=== PATIENT | male | born 1950 | race Caucasian/White ===

== ENCOUNTER 2019-10-13 15:37 | Outpatient (CLI) | payer MEDICARE, OTHER, SELFPAY ==
[2019-10-13 16:04] LABS: Basophils Absolute Auto 0.1 K/mm3 (0.0-0.1); Basophils Percent Auto 1.2 % (0.2-1.2); Eosinophils Absolute Auto 0.3 K/mm3 (0-0.3); Eosinophils Percent Auto 4.6 % (0-4.4); Hematocrit 38.9 % (42.0-52.0); Hemoglobin 12.1 g/dL (14.0-18.0); Immature Granulocyte Absolute 0.02 K/mm3 (0.00-0.031); Immature Granulocyte Percent A 0.3 % (0-0.5); Lymphocytes Absolute Auto 0.94 K/mm3 (0.9-3.2); Lymphocytes Percent Auto 16.2 % (18.3-44.2); Mean Corpuscular HGB Conc 31.1 g/dl (32-36); Mean Corpuscular Hemoglobin 28.4 pg (26-34); Mean Corpuscular Volume 91.3 fl (80-100); Monocytes Absolute Auto 0.6 K/mm3 (0.1-0.6); Monocytes Percent Auto 9.8 % (2.6-8.5); Neutrophils Percent Auto 67.9 % (45.5-73.1); Platelet Count Result 167 k/mm3 (150-375); Red Blood Count 4.26 M/mm3 (4.6-6.20); Red Cell Distribution Width 13.2 % (11.5-14.5); White Blood Count 5.8 K/mm3 (4.5-10.0)
[2019-10-13 16:16] LABS: Alanine Aminotransferase 22 U/L (4-50); Albumin Level 3.9 g/dL (3.5-5.1); Alkaline Phosphatase 136 U/L (38-126); Aspartate Amino Transferase 33 U/L (17-59); Bilirubin,Total 0.9 mg/dL (0.2-1.3); Blood Urea Nitrogen 11 mg/dL (9-20); Calcium 8.1 mg/dL (8.4-10.2); Carbon Dioxide 35 mmol/L (22-30); Chloride 89 mmol/L (98-107); Estimated Glomerular Filt Rate > 60; Glucose 94 mg/dL (75-110); Potassium 3.7 mmol/L (3.4-5.0); Sodium 134 mmol/L (137-145)
[2019-10-13 16:25] LABS: NT Pro B Type Natriuretic Pept 5500 PG/ML (5-100)
== END 2019-10-13 15:38 | disposition home or self-care (01) ==
PROVIDERS: PCP Family Medicine; Visit Provider Family Medicine
DX: R06.02 Shortness of breath (principal); R60.0 Localized edema
CPT/HCPCS: 36415; 80053; 83880; 84443; 85025

== ENCOUNTER 2019-10-27 10:09 | Outpatient (CLI) | payer MEDICARE, OTHER, SELFPAY ==
[2019-10-27 10:59] LABS: Blood Urea Nitrogen 13 mg/dL (9-20); Calcium 8.4 mg/dL (8.4-10.2); Carbon Dioxide > 40 mmol/L (22-30); Chloride 74 mmol/L (98-107); Estimated Glomerular Filt Rate > 60; Glucose 124 mg/dL (75-110); Potassium 3.8 mmol/L (3.4-5.0); Sodium 127 mmol/L (137-145)
== END 2019-10-27 10:10 | disposition home or self-care (01) ==
PROVIDERS: PCP Family Medicine; Visit Provider Internal Medicine Cardiovascular Disease
DX: I50.9 Heart failure, unspecified (principal)
CPT/HCPCS: 36415; 80048

== ENCOUNTER 2019-10-29 01:41 | Day surgery (SDC) | payer MEDICARE, OTHER, SELFPAY ==
[2019-10-29] VITALS (10 sets, daily range): BP systolic 143–185; BP diastolic 85–98; PULSE 87–94; RESP 16–25; TEMP 36.7–37.2; O2SAT 93–100; BMI 33.0
--- NOTE | 2019-10-29 10:25 | WPDMODSED ---
Moderate Sedation Note-Pt Data Patient Data Diagnosis: Aortic stenosis Present Complaint: Aortic stenosis Procedure to be performed/Plan: Multiplanar transesophageal echocardiography with pulse wave and color flow Doppler Agitated saline study Moderate sedation Allergies Allergy/AdvReac Type Severity Reaction Status Date / Time codeine Allergy Unknown Unknown Verified 10/13/19 13:52 Penicillins Allergy Unknown Unknown Verified 10/13/19 13:52 Home Medications Medication Instructions Recorded Confirmed Type tramadol 50 mg PO Q6H PRN #14 tablet 06/24/19 Rx sildenafil 100 mg tablet 100 mg PO DAILY PRN 06/27/19 History furosemide 20 mg tablet 20 mg PO BID #60 tablet 10/13/19 Rx potassium chloride 10 mEq 10 meq PO DAILY #30 tablet 10/13/19 Rx tablet,extended release albuterol sulfate 90 mcg/actuation See Rx Instructions .ROUTE 10/20/19 Rx aerosol inhaler .COMPLEX #8.5 inhaler Sedation/Anesthesia: No previous sedation/anesthesia problems (including family history). 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 Patient re-evaluated immediately prior to sedation.
[2019-10-29 10:46] LABS: Hematocrit 42.7 % (42.0-52.0); Hemoglobin 13.8 g/dL (14.0-18.0); Mean Corpuscular HGB Conc 32.3 g/dl (32-36); Mean Corpuscular Volume 86.6 fl (80-100); Mean Platelet Volume 10.7 fl (7.4-10.4); Platelet Count Result 223 k/mm3 (150-375); Red Blood Count 4.93 M/mm3 (4.6-6.20); Red Cell Distribution Width 13.5 % (11.5-14.5); White Blood Count 6.6 K/mm3 (4.5-10.0)
[2019-10-29 11:01] LABS: Blood Urea Nitrogen 16 mg/dL (9-20); Calcium 8.7 mg/dL (8.4-10.2); Carbon Dioxide > 40 mmol/L (22-30); Chloride 75 mmol/L (98-107); Estimated Glomerular Filt Rate > 60; Glucose 133 mg/dL (75-110); Potassium 3.5 mmol/L (3.4-5.0); Sodium 124 mmol/L (137-145)
--- NOTE | 2019-10-29 11:53 | WPDTEECHO ---
LARS TransEsophageal Echocardiogram Date of procedure: 10/29/19 Procedure Type: Multiplanar transesophageal echocardiogram with color flow and pulse wave Doppler as well as continuous-wave Doppler Agitated saline study Moderate sedation Diagnosis: Aortic stenosis Indications: Aortic stenosis Image Quality: Good Findings: After discussing the risks benefits alternatives of the procedure the patient agreeable via verbal and written informed consent. Risks discussed included esophageal rupture perforation, need for emergency surgery, bleeding, pain, infection, sore throat. After establishing continuous cardiac monitor, pulse oxygenation serial blood pressure assessments and after time-out was taken the procedure was initiated Procedure start time 11:16 a.m. Procedure stop time 11:34 a.m. Medications given: 3 mg of Versed and 50 mg of fentanyl given in divided dosages as well as Hurricaine spray to hypopharynx x1 as well as 10 cc of viscous lidocaine gargle and swallow for topical anesthetic. Complications none Blood loss none Findings: Normal left ventricular size and function with ejection fraction estimated around 65-70%. Left ventricular hypertrophy is noted. Normal right ventricular size and function. Moderate left atrial enlargement. Mild right atrial enlargement. Atrial septum is intact without color flow or agitated saline evidence of shunting. It is thin and hypermobile hour. Left atrial appendage is without mass or thrombus with pulse-wave velocities of greater than 50 centimeters/second. The tricuspid valve is normal with continuous-wave velocities of greater than 30 mmHg. There is mild tricuspid regurgitation. The mitral valve is thickened but with mild mitral regurgitation. The aortic valve is heavily thickened and calcified. It is trileaflet. Average planimetry aortic valve area is between 1.01.1 centimeter squared. There is trace to mild aortic insufficiency. The aortic root measures 3.7 cm and there is moderate atherosclerotic disease seen within the aorta itself. The pulmonic valve is grossly normal. Conclusions: 1. Normal left ventricular size and function with left ventricular hypertrophy noted 2. Mitral valve thickening with mild mitral regurgitation 3. Mild tricuspid regurgitation with at least mild pulmonary hypertension 4. Moderate to severe aortic stenosis with average planimetry aortic valve area of 1.0-1.1 centimeters squared. It is heavily calcified and trileaflet 5. Intact atrial septum with negative agitated saline study 6. Moderate sedation
[2019-10-29] MEDS: POTASSIUM CHLORIDE 20 MEQ TABLET 40 MEQ PO (12:13)
--- NOTE | 2019-10-29 13:20 | SUR.PHASEII ---
DISC WITH LARS IMAGES GIVEN TO PT;INSTRUCTED PT TO TAKE WITH HIM TO HIS APPT ON 10/30/[address] MIRZA AT [facility].
== END 2019-10-29 13:00 | disposition home or self-care (01) ==
PROVIDERS: PCP Family Medicine; Visit Provider Internal Medicine Cardiovascular Disease
PROC: (CPT 93312; principal; 2019-10-29 11:30)
DX: I35.0 Nonrheumatic aortic (valve) stenosis (principal); I34.0 Nonrheumatic mitral (valve) insufficiency; I36.1 Nonrheumatic tricuspid (valve) insufficiency; I27.20 Pulmonary hypertension, unspecified; I70.0 Atherosclerosis of aorta; I11.0 Hypertensive heart disease with heart failure; I50.9 Heart failure, unspecified; Z87.891 Personal history of nicotine dependence
CPT/HCPCS: 36415; 80048; 85027; 93312; 93320; 93325; A9270; J2250; J3010

== ENCOUNTER 2020-04-23 08:09 | Outpatient (CLI) | payer MEDICARE, OTHER, SELFPAY ==
[2020-04-23 09:07] LABS: Uric Acid 4.4 mg/dL (3.5-8.5)
== END 2020-04-23 08:10 | disposition home or self-care (01) ==
PROVIDERS: PCP Nurse Practitioner; Visit Provider Nurse Practitioner
DX: M79.671 Pain in right foot (principal); M79.672 Pain in left foot; L50.9 Urticaria, unspecified; I10 Essential (primary) hypertension; I25.10 Atherosclerotic heart disease of native coronary artery without angina pectoris; Z00.01 Encounter for general adult medical examination with abnormal findings
CPT/HCPCS: 36415; 84550

== ENCOUNTER 2020-05-18 14:53 | Outpatient (CLI) | payer MEDICARE, OTHER, SELFPAY ==
[2020-05-18 15:33] LABS: Alanine Aminotransferase 19 U/L (4-50); Albumin Level 4.4 g/dL (3.5-5.1); Alkaline Phosphatase 111 U/L (38-126); Anion Gap 13 mmol/L (8-16); Aspartate Amino Transferase 24 U/L (17-59); Bilirubin,Total 0.7 mg/dL (0.2-1.3); Blood Urea Nitrogen 12 mg/dL (9-20); Calcium 8.5 mg/dL (8.4-10.2); Carbon Dioxide 33 mmol/L (22-30); Chloride 81 mmol/L (98-107); Estimated Glomerular Filt Rate > 60; Glucose 283 mg/dL (75-110); Potassium 3.2 mmol/L (3.4-5.0); Sodium 127 mmol/L (137-145)
[2020-05-19 11:37] LABS: Creatine Kinase 263 U/L (55-170)
== END 2020-05-18 14:54 | disposition home or self-care (01) ==
PROVIDERS: PCP Nurse Practitioner; Visit Provider Nurse Practitioner Adult Health
DX: I50.9 Heart failure, unspecified (principal)
CPT/HCPCS: 36415; 80053; 82550

== ENCOUNTER 2020-06-03 14:54 | Outpatient (CLI) | payer MEDICARE, OTHER, SELFPAY ==
--- NOTE | ~2020-06-03 | CT_ITS ---
EXAMINATION: CTA abd aorta runoff DATE: 06/03/2020 17:36 INDICATION: Peripheral arterial disease. TECHNIQUE: Computed tomographic angiography (CTA) of the abdominal, pelvis, and both lower extremitie s was performed with 150 mL Omnipaque-350 intravenous contrast. Automated exposure control and iterat jose elias reconstruction technique were employed. The dose-length product was 1729.64 mGy-cm. Maximum inten sity projection 3D-reconstructions of the arteries were created by the technologist on a separate wor kstation. COMPARISON: None. FINDINGS: ABDOMINAL AORTA AND ITS BRANCHES: There is aortic atherosclerosis and mild stenosis. No aneurysm. There is mild stenosis of celiac axis and superior mesenteric artery. There is mild stenosis of the renal arteries and moderate stenosis o f inferior mesenteric artery. PELVIC VASCULATURE: There is mild stenosis of the common iliac and external iliac arteries and left internal iliac artery . There is focal moderate stenosis of right internal iliac artery with mild poststenotic dilatation. RIGHT LOWER EXTREMITY VASCULATURE: There is total occlusion of right common femoral artery and proximal superficial femoral artery. Ther e is reconstitution of flow in right profunda femoral artery at its origin, and there is moderate cali nosis of right profunda femoral artery. There is reconstitution of flow in mid right superficial femo ral artery. There is moderate stenosis of mid and distal right superficial femoral artery. There is s evere stenosis of the junction of right superficial femoral artery and popliteal artery. There is mod erate to severe stenosis of the above-knee and below-knee popliteal artery. There is mild stenosis of right anterior tibial artery and peroneal artery. There is total occlusion of proximal right posteri or tibial artery with distal reconstitution. LEFT LOWER EXTREMITY VASCULATURE: There is moderate stenosis of left common femoral artery. There is moderate stenosis of proximal left profunda femoral artery. There is severe stenosis of proximal left superficial femoral artery and to nicanor occlusion of the mid left superficial femoral artery. There is distal reconstitution of left supe rficial femoral artery. There is moderate to severe stenosis of the above knee and below knee poplite al artery. There is mild stenosis of left anterior and posterior tibial arteries and peroneal artery. ADDITIONAL FINDINGS: The visualized portions of the lung bases demonstrate a moderate-sized right pleural effusion. There is rounded atelectasis in right lower lobe and right middle lobe abutting the pleura. A calcified rig ht lung nodule is consistent with old granulomatous disease. There is mild left-sided atelectasis. Th e heart size is normal. There are coronary artery calcifications. There are calcifications of aortic valve. No pericardial effusion. The liver, gallbladder, spleen, pancreas, and adrenal glands are norm al. There is cortical thinning of the kidneys. There is a left posterior bladder diverticulum. There are no dilated loops of bowel. The appendix is normal. There is mild periportal lymphadenopathy, like ly reactive. There is no free intraperitoneal fluid. There is a small left inguinal hernia containing fat. There are multiple old healed left rib fractures. There is chronic height loss of multiple vert ebral bodies. There is mild thoracolumbar spondylosis. IMPRESSION: 1. 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 2. Reconstitution of flow at origin of right profunda femoral artery with moderate stenosis in right profunda femoral artery. 3. Moderate to severe stenosis involving mid and distal right superficial femoral artery and above-kn ee and below-knee right popliteal artery. 4. Total occlusion of proximal right posterior tibial
[2020-06-03 16:27] LABS: Anion Gap 8 mmol/L (8-16); Blood Urea Nitrogen 15 mg/dL (9-20); Calcium 8.7 mg/dL (8.4-10.2); Carbon Dioxide 29 mmol/L (22-30); Chloride 91 mmol/L (98-107); Estimated Glomerular Filt Rate > 60; Glucose 148 mg/dL (75-110); Potassium 5.3 mmol/L (3.4-5.0); Sodium 128 mmol/L (137-145)
== END 2020-06-03 14:55 | disposition home or self-care (01) ==
PROVIDERS: PCP Nurse Practitioner; Visit Provider Internal Medicine Cardiovascular Disease
DX: E87.6 Hypokalemia (principal); M79.604 Pain in right leg; M79.605 Pain in left leg; I73.9 Peripheral vascular disease, unspecified; I77.1 Stricture of artery; J90 Pleural effusion, not elsewhere classified
CPT/HCPCS: 36415; 75635; 80048; Q9967

== ENCOUNTER 2020-08-17 08:27 | Outpatient (CLI) | payer MEDICARE, OTHER, SELFPAY ==
[2020-08-17 09:17] LABS: Basophils Absolute Auto 0.1 K/mm3 (0.0-0.1); Eosinophils Absolute Auto 0.2 K/mm3 (0-0.3); Eosinophils Percent Auto 2.3 % (0-4.4); Hemoglobin 13.2 g/dL (14.0-18.0); Immature Granulocyte Absolute 0.02 K/mm3 (0.00-0.031); Immature Granulocyte Percent A 0.2 % (0-0.5); Lymphocytes Absolute Auto 1.67 K/mm3 (0.9-3.2); Lymphocytes Percent Auto 20.3 % (18.3-44.2); Mean Corpuscular HGB Conc 33.8 g/dl (32-36); Mean Corpuscular Hemoglobin 29.9 pg (26-34); Mean Corpuscular Volume 88.2 fl (80-100); Mean Platelet Volume 11.1 fl (7.4-10.4); Monocytes Absolute Auto 0.7 K/mm3 (0.1-0.6); Monocytes Percent Auto 8.6 % (2.6-8.5); Neutrophils Absolute Auto 5.6 K/mm3 (1.3-6.7); Neutrophils Percent Auto 67.6 % (45.5-73.1); Platelet Count Result 185 k/mm3 (150-375); Red Blood Count 4.42 M/mm3 (4.6-6.20); White Blood Count 8.2 K/mm3 (4.5-10.0)
[2020-08-17 09:43] LABS: Cholesterol 134 mg/dL (0-200); HDL Direct 34 mg/dL; Triglycerides 199 mg/dL (<150)
[2020-08-17 09:50] LABS: Add Urine Microscopic? YES; Appearance Urine Clear (Clear); Bilirubin Urine Negative (Negative); Blood Urine Negative (Negative); Color Urine Straw (Yellow); Glucose Urine UA 3+ mg/dL (Negative); Ketones Urine Trace mg/dL (Negative); Leukocyte Esterase Ur Negative LEU/UL (Negative); Nitrate Urine Negative (Negative); Protein Urine Negative (Negative); RBC Urine 0-2 /hpf (0-2); Squamous Epithelial Cell Urine Rare /hpf (Few); Urobilinogen Urine Negative mg/dL (<2.0); WBC Urine 0-3 /hpf
[2020-08-17 09:51] LABS: Specific Grav Ur 1.032 (1.001-1.035)
[2020-08-17 09:54] LABS: LDL Cholesterol Direct 63 mg/dL
[2020-08-17 10:00] LABS: Hemoglobin A1C 11.3 % (<5.7)
[2020-08-17 10:29] LABS: Vitamin D 25 Hydroxy < 12.8 ng/mL
== END 2020-08-17 08:28 | disposition home or self-care (01) ==
PROVIDERS: PCP Internal Medicine; Visit Provider Internal Medicine
DX: I25.10 Atherosclerotic heart disease of native coronary artery without angina pectoris (principal); I10 Essential (primary) hypertension; Z87.891 Personal history of nicotine dependence; Z85.828 Personal history of other malignant neoplasm of skin; E55.9 Vitamin D deficiency, unspecified; Z51.81 Encounter for therapeutic drug level monitoring; Z79.899 Other long term (current) drug therapy
CPT/HCPCS: 36415; 80061; 81001; 82306; 83036; 85025

== ENCOUNTER 2020-10-25 11:22 | Inpatient (IN) | payer MEDICARE, OTHER, SELFPAY ==
--- NOTE | ~2020-10-25 | XR_ITS ---
EXAMINATION: XR toe 1st RT min 2V DATE: 10/25/2020 11:57 INDICATION: Right great toe pain. TECHNIQUE: 4 views of right great toe were obtained. COMPARISON: None. FINDINGS: Bone alignment is normal. No acute fracture. There is mild osteoarthritis of first metatars ophalangeal joint and first interphalangeal joint. IMPRESSION: 1. Mild polyarticular osteoarthritis. Reviewed, dictated and finalized at location A.
[2020-10-25 11:26] VITALS: BP 167/84; PULSE 88; RESP 16; TEMP 36.9; O2SAT 96
[2020-10-25 12:19] LABS: Basophils Absolute Auto 0.1 K/mm3 (0.0-0.1); Basophils Percent Auto 0.4 % (0.2-1.2); Eosinophils Percent Auto 0.3 % (0-4.4); Hematocrit 32.5 % (42.0-52.0); Hemoglobin 10.9 g/dL (14.0-18.0); Immature Granulocyte Absolute 0.15 K/mm3 (0.00-0.031); Immature Granulocyte Percent A 1.3 % (0-0.5); Lymphocytes Absolute Auto 1.01 K/mm3 (0.9-3.2); Lymphocytes Percent Auto 8.7 % (18.3-44.2); Mean Corpuscular HGB Conc 33.5 g/dl (32-36); Mean Corpuscular Hemoglobin 30.7 pg (26-34); Mean Corpuscular Volume 91.5 fl (80-100); Mean Platelet Volume 11.3 fl (7.4-10.4); Monocytes Percent Auto 8.6 % (2.6-8.5); Neutrophils Absolute Auto 9.4 K/mm3 (1.3-6.7); Neutrophils Percent Auto 80.7 % (45.5-73.1); Platelet Count Result 203 k/mm3 (150-375); Red Blood Count 3.55 M/mm3 (4.6-6.20); Red Cell Distribution Width 12.6 % (11.5-14.5); White Blood Count 11.6 K/mm3 (4.5-10.0)
[2020-10-25 12:30] LABS: Lactic Acid Reflex 1.3 mmol/L (0.7-2.1)
[2020-10-25] MEDS: HYDROcodone/acetaminophen (*CRX) 5-325 MG TABLET 1 TAB PO ×3 (12:32→22:23)
[2020-10-25 12:39] LABS: INR 0.9; Prothrombin Time 12.2 Seconds (11.1-14.7)
[2020-10-25 12:40] LABS: Partial Thromboplastin Time 30.9 SECONDS (22.3-36.8)
[2020-10-25 12:45] LABS: Anion Gap 11 mmol/L (8-16); Blood Urea Nitrogen 7 mg/dL (9-20); Calcium 8.7 mg/dL (8.4-10.2); Carbon Dioxide 28 mmol/L (22-30); Chloride 91 mmol/L (98-107); Estimated CRCL calculation 129 ml/min; Estimated Glomerular Filt Rate > 60; Glucose 658 mg/dL (75-110); Potassium 3.6 mmol/L (3.4-5.0); Sodium 130 mmol/L (137-145)
[2020-10-25] MEDS: SODIUM CHLORIDE 0.9% IV 1,000 ML 999 ML IV CONT (12:56)
--- NOTE | 2020-10-25 13:07 | ED.GENADULT ---
HPI - General Adult General Chief complaint: Extremity Injury, Lower Stated complaint: R TOE PAIN Time Seen by Provider: 10/25/20 11:40 Source: RN notes reviewed History of Present Illness HPI narrative: Patient presents emergency department from home for right toe wound. Patient states approximately 1 month ago he had stood up and felt a pop in his right toe. He states that at that time he developed a wound on his toe who progressively worsen he had attempt again to see a physician was unable to get into see anybody until today when he got to the office they recommended patient come to the ER for further evaluation patient noticed to have a large wound on the right great toe with some erythema of the foot notes pain in the area patient is a diabetic states he did drink a soda before coming to the emergency department he denies any fevers or chills chest pain shortness of breath or any other symptoms of concern Related Data Home Medications Medication Instructions Recorded Confirmed metformin 500 mg PO BID 10/25/20 10/25/20 metoprolol tartrate 50 mg PO DAILY 10/25/20 10/25/20 zolpidem 10 mg PO HS PRN 10/25/20 10/25/20 Allergies Allergy/AdvReac Type Severity Reaction Status Date / Time codeine Allergy Unknown Unknown Verified 10/25/20 11:39 Penicillins Allergy Unknown Unknown Verified 10/25/20 11:39 Review of Systems Review of Systems: Narrative: Gen.: Denies fevers or chills ENT: Denies congestion Respiratory: Denies shortness of breath or cough CV: Denies chest pain or palpitations GI: Denies abdominal pain nausea, emesis or diarrhea Musculoskeletal: Reports toe pain Neuro: Denies numbness, tingling, weakness or focal weakness Skin: See HPI Reports diabetes mellitus Except as documented, all other systems reviewed and negative [facility] Past Medical History Medical History Diabetes mellitus Latex allergy Seasonal allergic rhinitis Surgical History Surgical History History of nasal surgery 2004 Family History Family History Mother Family history of diabetes mellitus in first degree relative Other Diabetes mellitus Family history of coronary artery disease Social History Social History Smoking status: Heavy tobacco smoker Second hand tobacco smoke exposure: Yes Alcohol intake: current Substance use: never Substance use type: does not use 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 CARDIOVASCULAR: Regular rate and rhythm without murmurs rubs or gallops. ABDOMINAL: Soft, nontender, nondistended, no rebound or guarding MUSCULOSKELETAl: Moves all extremities. No clubbing, cyanosis or edema. The right foot has erythema around the base of the foot extending up into the first toe the first toe is discolored in appearance with a large ulcerative wound with black eschar and malodorous no active drainage dorsalis pedis pulse 2+ NEURO: Awake and alert. Following commands, speech normal, no focal deficits SKIN:: Warm, dry. No rashes lesions or abrasions PSYCHIATRIC: Normal affect/mood, Course Course Emergency Course: Dr. Lion came to the emergency department to evaluate the patient agrees with consult with patient on antibiotics request wound care become involved Discussed with KARINE Nix for Dr. Oneill presentation work-up agrees with admission at this time Discussed with patient and family results of workup and diagnosis. Discussed need for admission. Patient
--- NOTE | 2020-10-25 13:07 | PM.CNGS ---
Assessment and Plan Assessment and plan (1) Superficial injury of right foot and toes with infection: Code(s): S90.921A - Unspecified superficial injury of right foot, initial encounter; S90.934A - Unspecified superficial injury of right lesser toe(s), initial encounter; L08.9 - Local infection of the skin and subcutaneous tissue, unspecified Status: Acute Assessment and Plan: will need local wound care, Silver gel for enzymatic debridement, IV abx (2) Diabetes mellitus: Code(s): E11.9 - Type 2 diabetes mellitus without complications Status: Acute Assessment and Plan: will need better control, primary team to manage History of Present Illness Consult details Consult date: 10/25/20 Reason for consult: wound care Requesting physician: Shiav Robins DO Narrative: Pt is a 70 y/o M c multiple med issues including HTN, DM presenting to ED c/o worsening R first toe pain, swelling over last month. Pt reports he appears to have injured the toe about a month ago and felt a pop. Pt reports the toe has been progressively getting more painful and swollen. Pt reports redness now spreading to his foot. Pt reports some of the skin has been peeling off his toe. Pt also notes some black tissue on the medial side of his toe. Pt denies previous episodes. Review of Systems Constitutional: Constitutional: Denies anorexia, Denies body ache(s), Denies chills, Reports fatigue, Denies fever(s), Reports lethargy, Denies malaise, Denies poor appetite, Denies weakness, Denies weight gain and Denies weight loss Eyes: Eyes: Reports no additional eye complaints ENT: Reports system reviewed and no additional complaints, except as documented Cardiovascular: Cardiovascular: Reports no additional cardiovascular complaints Respiratory: Respiratory: Reports no additional respiratory complaints Gastrointestinal: Gastrointestinal: Reports no additional gastrointestinal complaints Genitourinary: Genitourinary: Reports no additional male genitourinary complaints Musculoskeletal: Musculoskeletal: Reports as per HPI Integumentary/Breasts: Skin/Breast: Reports system reviewed and no additional complaints, except as docu Neurologic: Reports system reviewed and no additional complaints, except as documented Psychiatric: Psychiatric: Reports no additional psychiatric complaints Endocrine: Endocrine: Reports no additional endocrine complaints Hematologic/Lymphatic: Hematologic/Lymphatic: Reports no additional hematologic/lymphatic complaints Allergic/Immunologic: Allergic/Immunologic: Reports no additional allergic/immunologic complaints PMFSH Past Medical History Medical History Diabetes mellitus Latex allergy Seasonal allergic rhinitis Surgical History Surgical History History of nasal surgery 2004 Family History Family History Mother Family history of diabetes mellitus in first degree relative Other Diabetes mellitus Family history of coronary artery disease Social History Social History Smoking status: Heavy tobacco smoker Second hand tobacco smoke exposure: Yes Alcohol intake: current Substance use: never Substance use type: does not use 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
[2020-10-25] MEDS: INSULIN HUMAN REGULAR (*BKC) 100 UNITS/ML 10 UNITS IV PUSH (13:36)
[2020-10-25 13:43] VITALS: BP 158/76; PULSE 78; RESP 16; O2SAT 97
[2020-10-25 14:00] LABS: Glucose Point of Care 444 (65-105)
[2020-10-25 14:42] LABS: Glucose Point of Care 369 (65-105)
--- NOTE | 2020-10-25 14:54 | ADMGEN ---
This patient, Gustavo Veloz, was admitted to 3 [facility] Surg Room 324-01 @ [id number]. Patient/family oriented to hospital policies and general routines including ID bracelet, bed and alarms, visiting hours, pain management, procedures, bathroom and other care routines, personal items, smoking policy, room service/diet, and visiting hours. Information on how to activate the Rapid Response Team has been discussed. Patient/Family are encouraged to report perceived risks to care and to ask questions if they do not understand what they are told or what they should do.
[2020-10-25 15:00] VITALS: BP 186/85; PULSE 84; RESP 18; TEMP 36.4; O2SAT 99
[2020-10-25] MEDS: SODIUM CHLORIDE 0.9% IV 1,000 ML 125 ML IV CONT (15:05)
[2020-10-25 15:15] VITALS: BMI 28.5
[2020-10-25 16:01] LABS: Glucose Point of Care 357 (65-105)
[2020-10-25] MEDS: INSULIN ASPART (*BKC) 100 UNITS/ML SUB-Q ×2 (16:26→18:29)
[2020-10-25 18:15] LABS: Glucose Point of Care 379 (65-105)
--- NOTE | 2020-10-25 19:06 | PM.IMHP ---
H&P: HPI History of Present Illness Date/Time: 10/25/20 19:06 this is the 70 year old male patient who has a history of hypertension and diabetes. The patient developed an open area to his right toe approximately 1 month ago. The patient stood up and felt a pop on his right toe approximately 1 month ago. The patient was waiting to see a primary care doctor and he finally got in today. The patient was referred to the emergency room. The patient stated that he drinks 6 cokes prior to coming to the emergency room. His blood pressure is 167/84. H&H is 10.9 and 32.5. Blood sugar is 658. Toe x-ray was read as mild polyarticular osteoarthritis. He was started On Primaxin and vancomycin. The patient was given 10 units of regular insulin IV push. The surgeon has been consulted and has already seen the patient. She she the patient is being admitted to observation on the date of service of 10/25/2020. Chief Complaint: Right great toe Review of Systems Review of Systems: All systems reviewed & are unremarkable except as noted in HPI and below Constitutional: Constitutional: Reports as per HPI and Reports no additional constitutional complaints Eyes: Eyes: Reports as per HPI and Reports no additional eye complaints ENT: Reports system reviewed and no additional complaints, except as documented and Reports Normal hearing present Cardiovascular: Cardiovascular: Reports no additional cardiovascular complaints Respiratory: Respiratory: Reports no additional respiratory complaints and Reports no additional respiratory complaints Gastrointestinal: Gastrointestinal: Reports as per HPI and Reports no additional gastrointestinal complaints Musculoskeletal: Musculoskeletal: Reports no additional musculoskeletal complaints Integumentary/Breasts: Skin/Breast: Reports system reviewed and no additional complaints, except as docu and Reports as per HPI Neurologic: Reports system reviewed and no additional complaints, except as documented, Reports as per HPI and Reports Normal hearing present Psychiatric: Psychiatric: Reports no additional psychiatric complaints and Reports as per HPI Endocrine: Endocrine: Reports no additional endocrine complaints Hematologic/Lymphatic: Hematologic/Lymphatic: Reports no additional hematologic/lymphatic complaints Allergic/Immunologic: Allergic/Immunologic: Reports no additional allergic/immunologic complaints [facility] Past Medical History Medical History (Updated 10/25/20 @ 19:15 by Dinah Simms NP) Diabetes mellitus HTN (hypertension) with goal to be determined Latex allergy Seasonal allergic rhinitis Surgical History Surgical History (Updated 10/25/20 @ 19:15 by Dinah Simms NP) H/O heart valve replacement with bioprosthetic valve History of nasal surgery 2004 Hx of cataract extraction Family History Family History Mother Family history of diabetes mellitus in first degree relative Father Heart failure Other Diabetes mellitus Family history of coronary artery disease Social History Social History (Updated 10/25/20 @ 19:26 by Dinah Simms NP) Social History: The patient is x2. No lives with girlfriend. 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 He has 1 child. The patient desires to be a full code. The patient stated that he quit smoking about a year and half ago the patient stated that he drinks about 2 beers a night and sometimes more on the weekends. He does not use any marijuana or illicit drugs. Smoking packs per day: 2 Smoking cigarettes per day: 40.0 Years smoked: 50 Smoking pack-years: 100.00 Smoking status: Former smoker Tobacco type: cigarettes Second hand tobacco smoke exposure: Yes Alcohol intake: current Drinks per week: 40 Substance use: never Substance use type: does not use Additional occupation/education comments: [employer] Gender identity (if verbalized by t
[2020-10-25 19:50] VITALS: PULSE 77; RESP 20; O2SAT 99
[2020-10-25 20:22] LABS: Hemoglobin A1C 13.6 % (<5.7)
[2020-10-25 20:31] LABS: Glucose Point of Care 319 (65-105)
[2020-10-25 21:51] VITALS: BP 168/73; PULSE 77; RESP 20; TEMP 37.1; O2SAT 99
[2020-10-25] MEDS: ZOLPIDEM TARTRATE (*CRX) 5 MG TABLET 10 MG PO (22:23)
[2020-10-26] MEDS: HYDROcodone/acetaminophen (*CRX) 5-325 MG TABLET 1 TAB PO ×3 (02:56→15:42)
[2020-10-26 05:45] VITALS: BP 125/46; PULSE 85; RESP 20; TEMP 36.4; O2SAT 92
[2020-10-26 06:23] LABS: Basophils Absolute Auto 0.1 K/mm3 (0.0-0.1); Basophils Percent Auto 0.5 % (0.2-1.2); Eosinophils Absolute Auto 0.1 K/mm3 (0-0.3); Eosinophils Percent Auto 1.4 % (0-4.4); Hematocrit 29.7 % (42.0-52.0); Hemoglobin 9.8 g/dL (14.0-18.0); Immature Granulocyte Absolute 0.13 K/mm3 (0.00-0.031); Immature Granulocyte Percent A 1.4 % (0-0.5); Lymphocytes Percent Auto 18.9 % (18.3-44.2); Mean Corpuscular Hemoglobin 30.5 pg (26-34); Mean Corpuscular Volume 92.5 fl (80-100); Mean Platelet Volume 11.4 fl (7.4-10.4); Monocytes Absolute Auto 0.9 K/mm3 (0.1-0.6); Monocytes Percent Auto 8.9 % (2.6-8.5); Neutrophils Absolute Auto 6.6 K/mm3 (1.3-6.7); Neutrophils Percent Auto 68.9 % (45.5-73.1); Platelet Count Result 202 k/mm3 (150-375); Red Blood Count 3.21 M/mm3 (4.6-6.20); Red Cell Distribution Width 12.4 % (11.5-14.5); White Blood Count 9.5 K/mm3 (4.5-10.0)
[2020-10-26 06:37] LABS: Anion Gap 11 mmol/L (8-16); Blood Urea Nitrogen 5 mg/dL (9-20); Carbon Dioxide 26 mmol/L (22-30); Chloride 96 mmol/L (98-107); Estimated CRCL calculation 157 ml/min; Estimated Glomerular Filt Rate > 60; Glucose 348 mg/dL (75-110); Potassium 3.6 mmol/L (3.4-5.0); Sodium 133 mmol/L (137-145)
[2020-10-26 07:57] LABS: Glucose Point of Care 325 (65-105)
[2020-10-26 08:58] VITALS: PULSE 90; RESP 18; O2SAT 94
[2020-10-26 09:05] VITALS: PULSE 85
[2020-10-26] MEDS: METOPROLOL TARTRATE 50 MG TAB PO (09:05)
[2020-10-26] MEDS: metFORMIN HCL XR 500 MG TAB.SR.24H PO ×2 (09:05→16:38)
[2020-10-26] MEDS: INSULIN ASPART (*BKC) 100 UNITS/ML SUB-Q ×3 (09:08→16:31)
[2020-10-26] MEDS: SODIUM CHLORIDE 0.9% IV 1,000 ML 125 ML IV CONT (10:04)
--- NOTE | 2020-10-26 11:01 | PCNSR ---
On 10/26/20, the student, Africa Chang, provided care and completed [facility] documentation on this patient. I have reviewed the student's documentation and agree with the findings.
--- NOTE | 2020-10-26 11:18 | PM.PNGS ---
Progress Note: A&P Assessment and Plan (1) Superficial injury of right foot and toes with infection: Code(s): S90.921A - Unspecified superficial injury of right foot, initial encounter; S90.934A - Unspecified superficial injury of right lesser toe(s), initial encounter; L08.9 - Local infection of the skin and subcutaneous tissue, unspecified Status: Acute Assessment and Plan: improved, cont abx, local wound care, will need vascular workup as outpt (2) Diabetes mellitus: Code(s): E11.9 - Type 2 diabetes mellitus without complications Status: Acute Assessment and Plan: cont med adjustment, control per primary team Subjective Subjective Date/Time Seen: 10/26/20 11:18 feels better today, decreased pain, swelling in toe Review of Systems Review of Systems: All systems reviewed & are unremarkable except as noted in HPI and below Exam Const: General: cooperative, comfortable and no acute distress Resp: Auscultation: clear to auscultation bilaterally Cardio: Rate: regular rate Rhythm: regular rhythm Extrem: Other: R first toe - decreased cellulitis, induration, still c dusky appearance distally, +motor/sensory, dop DP/PT Objective Data Vital Signs Vital Signs: Vital Signs - 24 hr 10/25/20 11:26 10/25/20 13:43 10/25/20 15:00 Temperature 36.9 C 36.4 C L Pulse Rate 88 78 84 Respiratory Rate 16 16 18 Blood Pressure 167/84 H 158/76 H 186/85 H Pulse Oximetry 96 97 99 10/25/20 19:50 10/25/20 21:51 10/26/20 05:45 Temperature 37.1 C 36.4 C Pulse Rate 77 77 85 Respiratory Rate 20 20 20 Blood Pressure 168/73 H 125/46 L Pulse Oximetry 99 99 92 10/26/20 08:58 10/26/20 09:05 Temperature Pulse Rate 90 85 Respiratory Rate 18 Blood Pressure Pulse Oximetry 94 Intake/Output Intake/Output: Intake & Output 10/23/20 10/24/20 10/25/20 10/26/20 22:59 23:59 23:59 23:59 Intake Total 2790 1300 Balance 2790 1300 Meds/Results Medications: Active Medications Generic Name Dose Route Start Last Admin Trade Name Freq PRN Reason Stop Dose Admin Hydrocodone Bitart/Acetaminophen 1 tab 10/25/20 19:11 10/26/20 09:04 Hydrocodone/Acetaminophen (*Crx) 5-325 Mg Tablet PO 1 tab Q4H PRN Administration Pain Rated 4-6 Dextrose 12.5 gm 10/26/20 07:38 Dextrose 50% 25 Gm/50 Ml Syringe IV PUSH PRN PRN Hypoglycemia Protocol Glucagon 1 mg 10/26/20 07:38 Glucagon For Inj 1 Mg Vial IM PRN PRN Hypoglycemia Protocol Glucose 15 gm 10/26/20 07:38 Glucose Oral Gel 15 Gm Of Glucse In 37.5 Gm Tube PO PRN PRN Hypoglycemia Protocol Imipenem/Cilastatin Sodium 500 mg in 100 mls @ 300 mls/hr 10/25/20 18:00 10/26/20 06:57 Primaxin 500 Mg/D5w 100 Ml IVPB Infused Q6H SARA Infusion Vancomycin HCl 1,750 mg in 500 mls @ 250 mls/hr 10/25/20 23:00 10/25/20 23:30 Vancomycin 1,750 Mg/D5w 500 Ml IVPB 250 mls/hr Q12H SARA Administration Sodium Chloride 1,000 mls @ 125 mls/hr 10/25/20 14:05 10/26/20 10:04 Normal Saline Iv IV CONT 125 mls/hr .Q8H SARA Administration Dextrose 1,000 mls @ 100 mls/hr 10/26/20 07:38 Dextrose 5% 1,000 Ml IVPB PRN PRN Hypoglycemia Protocol Insulin Aspart 4 - 8 units 10/25/20 16:00 10/26/20 09:08 Insulin Aspart (*Bkc) 100 Units/Ml SUB-Q 6 units TIDWM SARA Administration Protocol Insulin Glargine 12 units 10/26/20 21:00 Insulin Glargine (*Bkc) 100 Units/Ml SUB-Q HS SARA Metformin HCl 500 mg 10/26/20 09:00 10/26/20 09:05 Metformin Hcl Xr 500 Mg Tab.Sr.24h PO 500 mg BID SARA Administration Metoprolol Tartrate 50 mg 10/26/20 09:00 10/26/20 09:05 Metoprolol Tartrate 50 Mg Tab PO 50 mg DAILY SARA Administration Zolpidem Tartrate 10 mg 10/25/20 19:40 10/25/20 22:23 Zolpidem Tartrate (*Crx) 5 Mg Tablet PO 10 mg HS PRN Administration insomnia Radiology Results: ITS Impressions Toe X-Ra
[2020-10-26 12:55] LABS: Glucose Point of Care 366 (65-105)
[2020-10-26 14:00] VITALS: BP 162/59; PULSE 80; RESP 18; TEMP 36.8; O2SAT 98
--- NOTE | 2020-10-26 14:21 | PM.IMPN ---
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 Either he needs to be transferred or have very close follow-up. I was unable to speak to the surgeon directly at this time since she was scrubbed in but she recommended a heparin drip and said she will contact me after her sx (2) Cellulitis of foot, right: Code(s): L03.115 - Cellulitis of right lower limb Status: Acute Assessment and Plan: Will obtain wound culture -Blood cx with NGTD -No signs of systemic infection (normal WBC and no temps) -toe xray without osteo -Continue primaxin and vanc (3) HTN (hypertension) with goal to be determined: Code(s): I10 - Essential (primary) hypertension Status: Chronic Assessment and Plan: Last bp 125/46 - Continue with metoprolol (4) Diabetes mellitus: Code(s): E11.9 - Type 2 diabetes mellitus without complications Status: Acute Assessment and Plan: Very poorly controlled diabetes. Patient states he did not know he had diabetes -consult printing technician and clinical educator -I have asked the nurse to get him a glucometer and show him how to use it -will start Lantus 10 units at night, Invokana, and continue metformin -he will likely need mealtime insulin at home but he request to start with oral medication and diet changes 1st -continue sliding scale insulin while he is here Time Spent With Patient Time with patient: 25 - 35 minutes Subjective Date/time seen: 10/26/20 14:21 Interval history: Pt is a 70-year-old male here for right great toe wound. Patient was seen today and states he feels about the same. He is still having issues with his great right toe which is cold and has decreased sensation. He states he did not know that he had diabetes seemed a little resistant about talking about it. He says he does not have a glucometer at home but does not want to talk to the printing technician or the public health educator because he already knows what to do because of his mom having diabetes . He states he has been urinating a lot as well as extreme thirst. Denies chest pain, shortness of breath, fevers, chills, nausea or vomiting. Review of Systems Review of Systems: All systems reviewed & are unremarkable except as noted in HPI and below Exam Narrative: Exam Narrative: General: Well developed well nourished patient in NAD HEENT: normocephalic Neck: supple Neuro: Alert and oriented x4 CV:RRR Resp:CTA Abd: Soft, non distended. No pain to palpation. Positive bowel sounds Extremities: Dusky blue great right toe with decreased sensation and very minimal pulses on Doppler. He has surrounding erythema to the dorsal aspect of the foot. He has a blister on the dorsal aspect of the great toe with some serious drainage and foul odor. Objective Data Vital Signs Vital Signs: Vital Signs - 24 hr 10/25/20 15:00 10/25/20 19:50 10/25/20 21:51 Temperature 97.5 F L 98.8 F Pulse Rate 84 77 77 Respiratory Rate 18 20 20 Blood Pressure 186/85 H 168/73 H Pulse Oximetry 99 99 99 10/26/20 05:45 10/26/20 08:58 10/26/20 09:05 Temperature 97.6 F Pulse Rate 85 90 85 Respiratory Rate 20 18 Blood Pressure 125/46 L Pulse Oximetry 92 94 Intake/Output Intake/Output: Intake & Output 10/23/20 10/24/20 10/25/20 10/26/20 22:59 23:59 23:59 23:59 Intake Total 2790 2400 Balance 2790 2400 Meds/Results Medications: Active Medications Generic Name Dose Route Start Last Admin Trade Na
[2020-10-26 14:57] LABS: Basophils Absolute Auto 0.1 K/mm3 (0.0-0.1); Basophils Percent Auto 0.5 % (0.2-1.2); Eosinophils Absolute Auto 0.1 K/mm3 (0-0.3); Eosinophils Percent Auto 1.2 % (0-4.4); Hemoglobin 9.6 g/dL (14.0-18.0); Immature Granulocyte Absolute 0.16 K/mm3 (0.00-0.031); Immature Granulocyte Percent A 1.7 % (0-0.5); Lymphocytes Absolute Auto 1.66 K/mm3 (0.9-3.2); Lymphocytes Percent Auto 17.7 % (18.3-44.2); Mean Corpuscular HGB Conc 33.1 g/dl (32-36); Mean Corpuscular Hemoglobin 30.6 pg (26-34); Mean Corpuscular Volume 92.4 fl (80-100); Mean Platelet Volume 10.9 fl (7.4-10.4); Monocytes Absolute Auto 0.9 K/mm3 (0.1-0.6); Monocytes Percent Auto 9.1 % (2.6-8.5); Neutrophils Absolute Auto 6.5 K/mm3 (1.3-6.7); Neutrophils Percent Auto 69.8 % (45.5-73.1); Platelet Count Result 189 k/mm3 (150-375); Red Blood Count 3.14 M/mm3 (4.6-6.20); Red Cell Distribution Width 12.7 % (11.5-14.5); White Blood Count 9.4 K/mm3 (4.5-10.0)
[2020-10-26 15:07] LABS: Prothrombin Time 13.6 Seconds (11.1-14.7)
[2020-10-26 15:08] LABS: Partial Thromboplastin Time 31.3 SECONDS (22.3-36.8)
[2020-10-26] MEDS: CANAGLIFLOZIN 100 MG TABLET PO (15:42)
[2020-10-26] MEDS: HEPARIN SOD/D5W 100 UNITS/ML 25,000 UNITS/250 ML BAG 15 UNITS IV CONT (15:44)
[2020-10-26 16:46] LABS: Glucose Point of Care 302 (65-105)
[2020-10-26 19:45] VITALS: PULSE 80; RESP 18; O2SAT 98
--- NOTE | 2020-10-26 20:09 | PC.NURSE ---
10/26/20 at 1999--EMS left with patient on stretcher with heparin gtt infusing per pump, patient in no acute distress, report called to Quin at [place] [id number] center.[email or web address]
--- NOTE | 2020-10-28 07:36 | PM.TDS ---
Transfer Discharge Sum: Prov Provider Date of admission: 10/26/20 10:09 Primary care physician: Ramón Sevilla, Admitting clinician: Val Oneill MD Consults: 10/25/20 Consult to Physician Routine Comment: Consulting Provider: Liza Lion Reason for consultation: toe infection Has provider been notified: Yes Wound/ET Consult Routine Reason for Consult:: toe wound 10/26/20 Consult to Dietitian Routine Reason for Consult:: uncontrolled DM Receiving physician/facility: [facility] Dr. Lizarraga admitter with Dr. Umaña consulting. DS: Admitting Diagnosis Admitting Diagnosis Admitting Diagnosis: right toe wound DS: Discharge Diagnosis Discharge Diagnosis (1) Ischemic toe: Code(s): I99.8 - Other disorder of circulatory system Status: Acute Assessment and Plan: Patient has decreased sensation and pulses to his left foot with a dusky toe -concerning for ischemic specially given his CTA runoff in May 2020 with multiple areas blockages -he is not on any aspirin at home -discussed with surgery COLLABORATING SUPERVISING PHYSICIAN and this appears to be somewhat acute -heparin drip started -I spoke with Dr. Umaña vascular surgery at [facility] who accepted the patient in transfer with the hospitalist Dr. Lizarraga. Patient was discharged October 26, 2020 in stable condition on heparin drip. (2) Cellulitis of foot, right: Code(s): L03.115 - Cellulitis of right lower limb Status: Acute Assessment and Plan: -Wound cx growing mod positive cocci in chains and will be monitored until finalized -Blood cx with NGTD -No signs of systemic infection (normal WBC and no temps) -toe xray without osteo -Continue primaxin and vanc (3) HTN (hypertension) with goal to be determined: Code(s): I10 - Essential (primary) hypertension Status: Chronic Assessment and Plan: Last bp 162/59 - Continue with metoprolol (4) Diabetes mellitus: Code(s): E11.9 - Type 2 diabetes mellitus without complications Status: Acute Assessment and Plan: Very poorly controlled diabetes. Patient states he did not know he had diabetes -consult administrative job titles and agricultural produce sorter -I have asked the nurse to get him a glucometer and show him how to use it -will start Lantus 10 units at night, Invokana, and continue metformin -he will likely need mealtime insulin at home but he request to start with oral medication and diet changes 1st -continue sliding scale insulin while he is here Transfer Discharge Sum: Med Medications Active and Home Medications: Home Medications metformin 500 mg PO BID 10/25/20 [History Confirmed 10/25/20] metoprolol tartrate 50 mg PO DAILY 10/25/20 [History Confirmed 10/25/20] zolpidem 10 mg PO HS PRN 10/25/20 [History Confirmed 10/25/20] Transfer Discharge Sum: Hosp Hospital Course Hospital course: Gustavo Veloz is a 70 year old male who was in a known diabetic who presented emergency room for right toe wound that started approximately 1 month ago and continued to worsen and started turning dusky blue a few days prior. T 98.5? F, pulse 88, respiratory rate 16, blood pressure 167, pulse ox 96 on room air. Initial white blood cell count 11.6, hemoglobin 10.9, hematocrit 32.5, platelets 203. BMP showed a sodium 130, potassium 3.6, chloride 91, CO2 of 28, BUN 7, creatinine 0.5, glucose 658. Lactic acid normal 1.3. Toe x-ray showed mild polyarticular osteoarthritis. Patient was admitted to the hospitalist service and started on Primaxin and vancomycin. He was given insulin and started on the above diabetes routine. He states he has no history of diabetes although he is on metformin he was unsure why he was on that medication. I provided him with a glucose meter and some education. I told him about the side effects of untreated diabetes and had him speak to the administrative job titles. The rehabilitation aide was consulted but I think he w
== END 2020-10-26 19:50 | disposition short-term general hospital (02) | DRG 303 ==
LOC: ANHED 11:59 → ANH3MEDSUR 14:17
PROVIDERS: Nurse Practitioner; Physician Assistant; Admitting Provider Family Medicine; Emergency Provider Emergency Medicine; PCP Internal Medicine; Visit Provider Internal Medicine
DX: I99.8 Other disorder of circulatory system (principal); L03.115 Cellulitis of right lower limb; S90.921A Unspecified superficial injury of right foot, initial encounter; S90.934A Unspecified superficial injury of right lesser toe(s), initial encounter; L08.9 Local infection of the skin and subcutaneous tissue, unspecified; X58.XXXA Exposure to other specified factors, initial encounter; E11.65 Type 2 diabetes mellitus with hyperglycemia; I10 Essential (primary) hypertension; F17.200 Nicotine dependence, unspecified, uncomplicated; Z28.21 Immunization not carried out because of patient refusal; Z79.84 Long term (current) use of oral hypoglycemic drugs; Z88.5 Allergy status to narcotic agent; Z88.0 Allergy status to penicillin; Z91.040 Latex allergy status
CPT/HCPCS: 36415; 73660; 80048; 82948; 83036; 83605; 85025; 85610; 85730; 87040; 87070; 87077; 87186; 87205; 96361; 96365; 96366; 96367; 96375; 99285; A9270; G0378; J0743; J1644; J1815; J3370; J7030

== ENCOUNTER 2020-11-11 14:41 | Outpatient (NON) | payer MEDICARE, SELFPAY ==
[2020-11-11 15:12] LABS: Anion Gap 8 mmol/L (8-16); Blood Urea Nitrogen 5 mg/dL (7-18); Calcium 8.4 mg/dL (8.5-10.1); Carbon Dioxide 27 mmol/L (21-32); Chloride 102 mmol/L (98-108); Estimated Glomerular Filt Rate > 60; Glucose 132 mg/dL (70-99); Osmolality Calculated 283 mOsm/kg (285-295); Potassium 3.9 mmol/L (3.5-5.1); Sodium 137 mmol/L (136-145)
== END 2020-11-11 14:42 ==
LOC: CHSLAB 14:47
DX: E11.9 Type 2 diabetes mellitus without complications (principal)
CPT/HCPCS: 36415; 80048

== ENCOUNTER 2020-11-25 11:17 | Outpatient (CLI) | payer MEDICARE, OTHER, SELFPAY ==
--- NOTE | ~2020-11-25 | US_ITS ---
EXAMINATION: US venous doppler LE RT DATE: 11/25/2020 11:57 INDICATION: Right lower limb pain and swelling. TECHNIQUE: Grayscale ultrasound images without and with compression and Doppler ultrasound images of the right lower extremity veins were obtained. COMPARISON: None. FINDINGS: The visualized portions of right common femoral vein, profunda (deep) femoral vein, femoral vein, pop liteal vein, peroneal veins, and posterior tibial veins are patent. IMPRESSION: 1. No deep venous thrombosis. Reviewed, dictated and finalized at location A.
== END 2020-11-25 11:18 | disposition home or self-care (01) ==
PROVIDERS: PCP Internal Medicine; Visit Provider Internal Medicine
DX: M79.89 Other specified soft tissue disorders (principal)
CPT/HCPCS: 93971

== ENCOUNTER 2021-11-02 09:05 | Inpatient (IN) | payer MEDICARE, OTHER, SELFPAY ==
[2021-11-02] VITALS (53 sets, daily range): BP systolic 69–236; BP diastolic 52–126; PULSE 64–158; RESP 16–31; TEMP 36.8–39.4; O2SAT 96–100; BMI 25.2
--- NOTE | 2021-11-02 | ECHO_ITS ---
Patient Info Name: Gustavo Veloz Age: 71 years : 1950 Gender: Male Ht: 69 in Wt: 170 lbs BSA: 1.95 m2 BP: 123 / 74 mmHg Heart Rhythm: Sinus Rhythm Technical Quality: Fair Exam Date: 11/02/2021 4:32 PM Exam Location: [facility] Patient Status: Inpatient Admit Date: 11/02/2021 Staff Ordering Physician: Efra Stallings MD Injection Operator: Martha Lakhani RDCS Attending Provider: Alonso Moon MD Referring Physician: Haylie PLEITEZ; Exam Type: CA echo doppler color flow Study Info Indications - ELEVATED TROPONIN Complete two-dimensional, color flow and Doppler transthoracic echocardiogram is performed. Summary 1. Complete two-dimensional, color flow and Doppler transthoracic echocardiogram is performed. 2. Left ventricular chamber dimension is normal. 3. Left ventricular systolic function is low normal, estimated at 50-55%. 4. There is mildly increased left ventricular wall thickness. 5. The left ventricular diastolic function is grade I diastolic dysfunction. 6. Left atrial chamber dimension is mildly enlarged. 7. There is mild mitral valve stenosis. 8. The mitral valve has thickened leaflets and calcified annulus. 9. There is mild mitral valve regurgitation. 10. There is mild tricuspid valve regurgitation. Left Ventricle Left ventricular chamber dimension is normal. Left ventricular systolic function is low normal, estimated at 50-55%. There is mildly increased left ventricular wall thickness. The left ventricular diastolic function is grade I diastolic dysfunction. Right Ventricle Right ventricular chamber dimension is normal. Right ventricular systolic function is reduced. Left Atria Left atrial chamber dimension is mildly enlarged. Right Atria Right atrial chamber dimension is normal. Atrial Septum Intact interatrial septum visualized by color flow imaging. Aortic Valve There is no bioprosthetic aortic valve stenosis. There is trace regurgitation of the bioprosthetic aortic valve. Normal appearance of aortic valve bioprosthesis. Pulmonic Valve The pulmonic valve is normal. There is no pulmonic valve stenosis. There is trace pulmonic regurgitation. Mitral Valve The mitral valve has thickened leaflets and calcified annulus. There is mild mitral valve stenosis. There is mild mitral valve regurgitation. Tricuspid Valve The tricuspid valve leaflets are normal. There is no significant tricuspid valve stenosis. There is mild tricuspid valve regurgitation. No pulmonary hypertension, estimated pulmonary arterial systolic pressure is 30 mmHg. Pericardium/Pleural The pericardium appears normal. There is no pericardial effusion. Aorta The aortic root size at the sinus of Valsalva is not well visualized. Left Ventricular Outflow Tract Name Value Normal LVOT Doppler LVOT Peak Gradient 7 mmHg LVOT Mean Gradient 4 mmHg LVOT VTI 17 cm LVOT VTI/AV VTI Ratio 0.6 Pulmonic Valve Name Value Normal
--- NOTE | ~2021-11-02 | XR_ITS ---
EXAMINATION: XR chest 1V portable DATE: 11/05/2021 05:28 INDICATION: Pneumonia. Respiratory failure. TECHNIQUE: frontal view of the chest was obtained. COMPARISON: Chest radiograph dated 11/04/2021 FINDINGS: Endotracheal tube tip 4.7 cm above the cem. Nasogastric tube extends below the left hemidiaphragm with distal tip collimated off the study. Decreasing opacities in the left lower lung zone. Mild streaky atelectasis at the right lung base. No pulmonary edema, pleural effusion or pneumothorax. Heart size is normal. Median sternotomy wires and mediastinal surgical clips are seen, likely from prior coronary artery bypass grafting. Dual lead pa cemaker seen with leads projecting over the expected locations of the right atrium and right ventricl e. Multiple old bilateral rib fractures. Old healed right humeral diaphyseal fracture. IMPRESSION: 1. Decreasing opacities in the left lower lung zone consistent with improving pneumonia. Reviewed, dictated and finalized at location A. IMPRESSION: 1. Decreasing opacities in the left lower lung zone consistent with improving p neumonia.
--- NOTE | ~2021-11-02 | US_ITS ---
EXAMINATION: US venous doppler UE RT DATE: 11/06/2021 12:18 INDICATION: Right upper limb pain and swelling TECHNIQUE: Grayscale images without and with compression and Doppler images of the right upper extrem ity veins were obtained. COMPARISON: None. FINDINGS: The below the elbow right cephalic vein is partially compressible with nonocclusive thrombus. The cep halic vein above the elbow is patent and compressible. The right internal jugular vein, subclavian ve in, axillary vein, brachial vein, basilic vein, radial vein, and ulnar vein are patent. Peripheral IV is seen at the right basilic vein at the antecubital fossa. IMPRESSION: 1. Nonocclusive thrombus in the below the elbow right cephalic vein. Reviewed, dictated and finalized at location A.
--- NOTE | ~2021-11-02 | CT_ITS ---
EXAMINATION:CT diagnostic chest wo con DATE: 11/08/2021 15:04 INDICATION: Fever. TECHNIQUE: Computed tomography (CT) of the chest was performed without intravenous contrast. Automate d exposure control and iterative reconstruction technique were employed. The dose-length product (DLP ) was 510.72 mGy-cm. COMPARISON: Chest single view 11/08/2021, CT abdomen and pelvis 06/03/2020 FINDINGS: There are airspace and groundglass opacities in left lower lobe, consistent with pneumonia. There are small pleural effusions. There is mild peripheral atelectasis in the lungs. The heart demo nstrates left atrial and left ventricular enlargement. There are coronary artery calcifications. Ther e are changes of coronary artery bypass grafting and aortic valve replacement. No pericardial effusio n. Calcifications in the spleen are consistent with old granulomatous disease. There are old healed r ib fractures bilaterally. There are chronic compression fractures in lower thoracic spine. IMPRESSION: 1. Left lower lobe pneumonia. 2. Small pleural effusions. Reviewed, dictated and finalized at location A.
--- NOTE | ~2021-11-02 | XR_ITS ---
XR chest 1V portable 11/03/2021 05:23 Indication: Pneumonia. Respiratory failure. Procedure: AP portable chest Comparison: Comparison to multiple prior studies sequentially, with oldest reviewed study dated 06/13. Findings: Endotracheal tube tip approximately 6 cm above the cem. Status post median sternotomy fo r CABG. NG tube in the stomach. There is diffuse bilateral airspace disease unchanged. Pacemaker lead s are stable. No significant effusion or pneumothorax. Healed bilateral rib fractures noted. No acute osseous abnormality. Impression: 1: Stable diffuse bilateral airspace disease which may represent edema or pneumonia. 2: Cardiomegaly. Reviewed, dictated and finalized at location A. Impression: 1: Stable diffuse bilateral airspace disease which may represent edema or pneum onia. 2: Cardiomegaly.
--- NOTE | ~2021-11-02 | XR_ITS ---
EXAMINATION: XR wrist RT 2V EXAM DATE: 11/06/2021 18:56 INDICATION: Right radius fracture. TECHNIQUE: Frontal and lateral projections of the right wrist. There is no prior study for comparis on. FINDINGS: There is right radial distal metaphyseal fracture with some sclerosis, appears most likely subacute. More acute appearing ulnar distal metaphyseal and ulnar styloid fractures. Carpal bones are unremarka ble. Vascular calcifications. There are no bony erosions identified. There is moderate to severe 1s t carpometacarpal joint primary osteoarthritis. IMPRESSION: 1. Subacute right radial distal metaphyseal nondisplaced fracture. 2. more acute appearing ulnar metaphyseal and styloid fractures. Reviewed, dictated and finalized at location .
--- NOTE | ~2021-11-02 | XR_ITS ---
EXAMINATION: XR chest 1V portable DATE: 11/06/2021 05:27 INDICATION: Pneumonia. Respiratory failure. TECHNIQUE: frontal view of the chest was obtained. COMPARISON: Chest radiograph dated 11/05/2021 FINDINGS: Endotracheal tube tip 4.1 cm above the cem. Nasogastric tube extends below the left hemidiaphragm with distal tip collimated off the study. Very small right pleural effusion with blunting at the costophrenic angle. No significant change in v melanie mild opacities in the bilateral lower lung zones. No pneumothorax or left-sided pleural effusion. Heart size is normal. Median sternotomy wires and mediastinal surgical clips are seen, likely from p rior coronary artery bypass grafting. Aortic valve repair. Dual lead pacemaker seen with leads projec ting over the expected locations of the right atrium and right ventricle. Old bilateral rib fractures . IMPRESSION: 1. Persistent mild opacities at the bilateral lung bases which could represent atelectasis and/or pne umonia. 2. Very small right pleural effusion. Reviewed, dictated and finalized at location A. IMPRESSION: 1. Persistent mild opacities at the bilateral lung bases which could represent atelectasis and/or pneumonia. 2. Very small right pleural effusion.
--- NOTE | ~2021-11-02 | XR_ITS ---
EXAMINATION: XR chest 1V portable INDICATION: Weakness TECHNIQUE: Portable AP chest at 0936 hours COMPARISON: 06/24/2019 FINDINGS: Retrocardiac opacity of the left lung base. Small pleural effusions are present. There is n o pneumothorax. There are changes of interval cardiac surgery. A dual-lead cardiac pacemaker of the l eft chest wall ends with leads in expected locations. A healed fracture of the right mid humerus is n oted. IMPRESSION: 1. Retrocardiac opacity of the left lung base which could reflect pneumonia. Further evaluation with CT of the chest is recommended. Reviewed, dictated and finalized at location B. IMPRESSION: 1. Retrocardiac opacity of the left lung base which could reflect pneumonia. Fu rther evaluation with CT of the chest is recommended.
--- NOTE | ~2021-11-02 | XR_ITS ---
EXAMINATION: XR chest ET placement EXAM DATE: 11/02/2021 15:33 INDICATION: intubation TECHNIQUE: Portable AP frontal chest x-ray was obtained. Comparison is made to prior examination from earlier same date. FINDINGS: Segmental retrocardiac increased density suspicious for focal consolidation. Right lung is clear. No pneumothorax. No sizable pleural effusion. Sternotomy wires. There is a dual lead pacemaker /AICD seen with leads projecting over the expected locations of the right atrial appendage and right ventricle. There are bony degenerative changes. IMPRESSION: Segmental left lower lobe consolidation, probably pneumonia. Cancer not excludable. Reviewed, dictated and finalized at location G. IMPRESSION: Segmental left lower lobe consolidation, probably pneumonia. Cance r not excludable.
--- NOTE | ~2021-11-02 | XR_ITS ---
EXAMINATION: XR chest 1V portable DATE: 11/07/2021 05:22 INDICATION: Pneumonia. Respiratory failure. TECHNIQUE: frontal view of the chest was obtained. COMPARISON: Chest radiograph dated 11/06/2021 FINDINGS: Endotracheal tube tip 5.5 cm above the cem. Nasogastric tube extends below the left hemidiaphragm with distal tip collimated off the study. New airspace opacities in the retrocardiac left lower lung zone. Mild streaky right basilar atelectas is with tiny right basilar pleural effusion. No pulmonary edema or pneumothorax. The cardiomediastina l silhouette is normal. Median sternotomy wires and mediastinal surgical clips are seen, likely from prior coronary artery bypass grafting. Aortic valve repair. Dual lead pacemaker seen with leads proje cting over the expected locations of the right atrium and right ventricle. Old fractures of the right humeral abscess, multiple bilateral ribs and old T11 compression fracture. IMPRESSION: 1. New opacities at the left lower lung zone which could represent atelectasis and/or pneumonia. 2. Tiny right pleural effusion. Reviewed, dictated and finalized at location A.
--- NOTE | ~2021-11-02 | XR_ITS ---
XR chest 1V portable DATE: 11/04/2021 05:19 INDICATION: Pneumonia, respiratory failure TECHNIQUE: Portable AP chest on 11/04/2021 at 0509 hours COMPARISON: 10/30/2021 portable AP chest at 0506 hours FINDINGS: ET and NG tubes in satisfactory position. Status post sternotomy. Dual-lead pacemaker devic e with leads overlying right atrium and right ventricle. Heart size appears borderline. Is aortic calcification and unfolding. Bibasilar infiltrate and/or atelectasis. No pneumothorax. Diffuse osteopenia. IMPRESSION: Bibasilar infiltrate and/atelectasis Reviewed, dictated and finalized at location A.
--- NOTE | ~2021-11-02 | US_ITS ---
EXAMINATION: US venous doppler UE RT DATE: 11/10/2021 11:42 INDICATION: Cephalic vein thrombus TECHNIQUE: Grayscale images without and with compression and Doppler images of the right upper extrem ity veins were obtained. COMPARISON: None. FINDINGS: Persistent noncompressible thrombus in the right cephalic vein at the forearm. The right internal jug ular vein, subclavian vein, axillary vein, brachial vein, basilic vein, cephalic vein in the upper ar m, radial vein, and ulnar vein are patent. IMPRESSION: 1. Persistent thrombosis of the left elbow right cephalic vein. Reviewed, dictated and finalized at location A.
--- NOTE | ~2021-11-02 | XR_ITS ---
EXAMINATION: XR chest 1V portable DATE: 11/08/2021 05:55 INDICATION: Pneumonia. Acute respiratory failure. TECHNIQUE: frontal view of the chest was obtained. COMPARISON: Chest radiograph dated 11/07/2021 FINDINGS: Endotracheal tube tip 4.5 cm above the cem. Nasogastric tube extends below the left hemidiaphragm with distal tip collimated off the study. Persistent retrocardiac opacity left lower lung zone. Minimal streaky atelectasis at the right lung b ase. No pneumothorax or right-sided pleural effusion. Likely small posteriorly layering left pleural effusion. The cardiomediastinal silhouette is normal. Median sternotomy wires and mediastinal surgica l clips are seen, likely from prior coronary artery bypass grafting. Aortic valve repair. Dual lead p acemaker seen with leads projecting over the expected locations of the right atrium and right ventric le. IMPRESSION: 1. Opacities in the left lower lung zone consistent with likely small left pleural effusion and assoc iated atelectasis and/or pneumonia. Reviewed, dictated and finalized at location A. IMPRESSION: 1. Opacities in the left lower lung zone consistent with likely small left pleu ral effusion and associated atelectasis and/or pneumonia.
--- NOTE | ~2021-11-02 | XR_ITS ---
EXAMINATION: XR chest 1V portable DATE: 11/10/2021 05:38 INDICATION: Pneumonia. Acute respiratory failure. TECHNIQUE: frontal view of the chest was obtained. COMPARISON: Chest radiograph dated 11/09/2021 FINDINGS: Patchy airspace opacities at the left lower lung zone, more streaky opacities at the right lung base. Blunting at the costophrenic angles and very small amount of fluid along the right minor fissure sug gesting small bilateral pleural effusions. No pneumothorax. Cardiomegaly. Median sternotomy wires and mediastinal surgical clips are seen, likely from prior coronary artery bypass grafting. Aortic valve repair. Old bilateral rib fractures. IMPRESSION: 1. Persistent patchy airspace opacities at the left lower lung zone which could represent atelectasis and/or pneumonia. 2. Likely small bilateral pleural effusions. 3. Cardiomegaly. Reviewed, dictated and finalized at location A.
--- NOTE | ~2021-11-02 | XR_ITS ---
EXAMINATION: XR forearm RT 2V, XR elbow RT 2V DATE: 11/06/2021 12:02 INDICATION: Right elbow and forearm pain and swelling TECHNIQUE: 1. AP an lateral views of the right elbow were obtained. 2. AP an lateral views of the right forearm were obtained. COMPARISON: Right humerus radiographs dated 10/09/2019 FINDINGS: Acute to early subacute impacted intra-articular fracture of the distal right radius. Alignment remai ns near-anatomic. No other fractures identified. Mild osteoarthritis at the right elbow without elbow joint effusion. Moderate osteoarthritis at the first carpometacarpal joint. Peripheral IV at the rig ht antecubital fossa. Chronic heterotopic ossification is at the medial and lateral epicondyles of th e distal right humerus which could be either enthesopathic or sequela of old trauma. Vascular calcifi cations along the forearm. IMPRESSION: 1. Impacted comminuted intra-articular fracture of the distal right radius. Recommend dedicated right wrist radiographs for further evaluation. Reviewed, dictated and finalized at location A. IMPRESSION: 1. Impacted comminuted intra-articular fracture of the distal right radius. Rec ommend dedicated right wrist radiographs for further evaluation.
--- NOTE | ~2021-11-02 | XR_ITS ---
EXAMINATION: XR chest 1V portable DATE: 11/09/2021 06:00 INDICATION: Pneumonia. Acute respiratory failure. TECHNIQUE: frontal view of the chest was obtained. COMPARISON: Chest radiograph and CT dated 11/08/2021 FINDINGS: Retrocardiac consolidation the left lower lobe with appearance on prior CT consistent with pneumonia. Small bilateral pleural effusions. Cardiomegaly. Median sternotomy wires and mediastinal surgical cl ips are seen, likely from prior coronary artery bypass grafting. Aortic valve repair. Dual lead pacem mehul seen with leads projecting over the expected locations of the right atrium and right ventricle. Multiple old bilateral rib fractures. IMPRESSION: 1. Left lower lobe pneumonia. 2. Small bilateral pleural effusions. 3. Cardiomegaly. Reviewed, dictated and finalized at location A.
--- NOTE | ~2021-11-02 | XR_ITS ---
EXAMINATION: XR chest 1V portable DATE: 11/11/2021 06:01 INDICATION: Pneumonia. Acute respiratory failure. TECHNIQUE: frontal view of the chest was obtained. COMPARISON: Chest radiograph dated 11/10/2021 FINDINGS: No significant change in opacities in the left mid and lower lung zones. Unchanged discoid atelectasi s in the right midlung zone. This includes a likely small left pleural effusion. No pneumothorax. Mil d cardiomegaly. Median sternotomy wires and mediastinal surgical clips are seen, likely from prior co ronary artery bypass grafting. Dual lead pacemakeraortic valve repair. seen with leads projecting ove r the expected locations of the right atrium and right ventricle. Old left-sided rib fractures. IMPRESSION: 1. Persistent left lower lobe pneumonia with associated small left pleural effusion. Reviewed, dictated and finalized at location A. IMPRESSION: 1. Persistent left lower lobe pneumonia with associated small left pleural effu cinthia.
--- NOTE | ~2021-11-02 | XR_ITS ---
EXAMINATION: XR abdomen NG/feed tube insert EXAM DATE: 11/02/2021 15:33 INDICATION: og tube insertion TECHNIQUE: Frontal projection(s) of the abdomen for interpretation. There is no prior study for melody gregorio. FINDINGS: Feeding tube in position. Sternotomy wires. Pacemaker. Probable left lower lobe airspace d isease. Nonobstructive upper abdominal bowel gas pattern. IMPRESSION: Feeding tube in position. Reviewed, dictated and finalized at location G. IMPRESSION: Feeding tube in position.
--- NOTE | 2021-11-02 09:05 | ECG_ITS ---
Measurements Intervals [place] Rate: 110 P: 60 [place]: 128 QRS: 52 QRSD: 124 T: 261 QT: 369 QTc: 500 Interpretive Statements SINUS TACHYCARDIA LEFT VENTRICULAR HYPERTROPHY INFEROLATERAL ST AND T-WAVE ABNORMALITY, CONSIDER ISCHEMIA VERSUS HYPERTROPHY ABNORMAL ECG NO PREVIOUS ECG AVAILABLE FOR COMPARISON Electronically Signed On 11-02-2021 14:05:42 CDT by Tony Donnelly M.D.
--- NOTE | 2021-11-02 09:08 | ED.GENADULT ---
HPI - General Adult General Chief complaint: Weakness Stated complaint: weakness Time Seen by Provider: 11/02/21 09:08 Source: patient, EMS and RN notes reviewed Mode of arrival: EMS Limitations: no limitations History of Present Illness HPI narrative: Patient 71 years old white male came to the emergency room by ambulance from home complaining of general weakness on the last few days mainly lower extremities. Today is the worst. Patient denies any fever, chills, nausea, vomiting, abdominal pain, back pain, chest pain, headache. History of ischemic toe, hypertension, diabetes, heart valve replacement with bioprosthetic valve, full code, quit smoking 1-1/2-year ago, drinks about 2 beers a night and sometimes more on the weekends denies any drug use. Related Data Home Medications Medication Instructions Recorded Confirmed metformin 500 mg PO BID 10/25/20 10/25/20 metoprolol tartrate 50 mg PO DAILY 10/25/20 10/25/20 zolpidem 10 mg PO HS PRN 10/25/20 10/25/20 Allergies Allergy/AdvReac Type Severity Reaction Status Date / Time codeine Allergy Unknown Unresponsiv Verified 11/02/21 09:11 e Penicillins Allergy Unknown Rash Verified 11/02/21 09:11 Review of Systems Review of Systems: CONSTITUTIONAL: Denies fever, chills, or sweats. EYES: Denies visual changes, redness, or discharge. ENT: Denies rhinorrhea, congestion, sore throat, or otalgia. CARDIOVASCULAR: Denies chest pain, palpitations, or edema. RESPIRATORY: Denies cough or dyspnea. GASTROINTESTINAL: Denies abdominal pain, nausea, vomiting, or diarrhea. GENITOURINARY: Denies dysuria or hematuria. SKIN: Denies rash or itching. MUSCULOSKELETAL: Slight lower back pain, history of surgery 5 months ago NEUROLOGIC: Denies headache, numbness, or weakness. PSYCHIATRIC: Denies anxiety or depression. [facility] Past Medical History Medical History Diabetes mellitus HTN (hypertension) with goal to be determined Latex allergy Seasonal allergic rhinitis Surgical History Surgical History H/O heart valve replacement with bioprosthetic valve History of nasal surgery 2004 Hx of cataract extraction Family History Family History Mother Family history of diabetes mellitus in first degree relative Father Heart failure Other Diabetes mellitus Family history of coronary artery disease Social History Social History Social History: The patient is x2. No lives with girlfriend. 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 He has 1 child. The patient desires to be a full code. The patient stated that he quit smoking about a year and half ago the patient stated that he drinks about 2 beers a night and sometimes more on the weekends. He does not use any marijuana or illicit drugs. Smoking packs per day: 2 Smoking cigarettes per day: 40.0 Years smoked: 50 Smoking pack-years: 100.00 Smoking status: Former smoker Tobacco type: cigarettes Second hand tobacco smoke exposure: Yes Alcohol intake: current Drinks per week: 40 Substance use: never Substance use type: does not use Additional occupation/education comments: [employer] Gender identity (if verbalized by the patient): Male Spiritual care concerns: No Exam Narrative: General appearance: Well-developed, well-nourished Skin: Normal color, cold feet bilaterally, mottling of the skin of the knees anteriorly Head: Normocephalic, nontraumatic Eyes: Clear conjunctiva ENT: Oropharynx normal, ears normal, nose normal Neck: Supple, nontender Chest and respiratory: Airway patent, no respiratory distress, no accessory muscle use Heart: Regular rate/rhythm Abdomen: Soft, nontender, no organomegaly, quiet bowel sounds Vascular: Normal peripheral pulses, normal capillary refill. Musculoskele
[2021-11-02 09:38] LABS: Glucose Point of Care 471 mg/dl (65-105)
[2021-11-02 09:43] LABS: Fractional Inspired Oxygen 21 %; PO2 VBG 28.6 mmHg (35.0-45.0)
[2021-11-02 09:47] LABS: Device ROOM AIR; PCO2 VBG 29.7 mmHg (42.0-48.0); pH VBG 7.101 (7.300-7.400)
[2021-11-02 09:51] LABS: Hematocrit 37.2 % (42.0-52.0); Hemoglobin 12.1 g/dL (14.0-18.0); Mean Corpuscular HGB Conc 32.5 g/dl (32-36); Mean Corpuscular Hemoglobin 31.9 pg (26-34); Mean Corpuscular Volume 98.2 fl (80-100); Mean Platelet Volume 12.1 fl (7.4-10.4); Platelet Count Result 161 k/mm3 (150-375); Red Blood Count 3.79 M/mm3 (4.6-6.20); Red Cell Distribution Width 12.6 % (11.5-14.5); White Blood Count 18.5 K/mm3 (4.5-10.0)
[2021-11-02 10:01] LABS: Prothrombin Time 12.8 Seconds (11.1-14.7)
[2021-11-02 10:02] LABS: Partial Thromboplastin Time 33.4 SECONDS (22.3-36.8)
[2021-11-02 10:07] LABS: Ethanol < 10 mg/dL (<10)
[2021-11-02 10:09] LABS: Alanine Aminotransferase 14 U/L (4-50); Albumin Level 4.4 g/dL (3.5-5.1); Alkaline Phosphatase 84 U/L (38-126); Anion Gap 26 mmol/L (8-16); Aspartate Amino Transferase 26 U/L (17-59); Blood Urea Nitrogen 14 mg/dL (9-20); Calcium 8.9 mg/dL (8.4-10.2); Carbon Dioxide 8 mmol/L (22-30); Chloride 95 mmol/L (98-107); Estimated CRCL calculation 59 ml/min; Estimated Glomerular Filt Rate > 60; Glucose 448 mg/dL (65-110); Potassium 4.5 mmol/L (3.4-5.0); Sodium 129 mmol/L (137-145)
[2021-11-02 10:16] LABS: Band Neutrophils Percent 21 % (0-6); Lymphocytes Absolute Manual 0.18 K/mm3 (1.1-4.5); Metamyelocytes Percent 4 %; Monocytes Absolute Manual 1.66 K/mm3 (0.1-0.90); Monocytes Percent Manual 9 % (3-9); Neutrophils Absolute Manual 15.91 K/mm3 (1.3-6.7); Neutrophils Percent Manual 65 % (46-73); Platelet Estimate Adequate (Adequate); Total Cells Counted 100
[2021-11-02] MEDS: SODIUM CHLORIDE 0.9% IV 1,000 ML 999 ML IV CONT ×3 (10:32→15:39)
[2021-11-02] MEDS: INSULIN HUMAN REGULAR (*BKC) 100 UNITS/ML 7 UNITS IV PUSH (10:33)
[2021-11-02 10:35] LABS: Creatine Kinase 197 U/L (55-170); Magnesium 1.9 mg/dL (1.6-2.3); Phosphorus 4.5 mg/dL (2.5-4.5)
[2021-11-02] MEDS: INSULIN HUMAN REGULAR (*BKC) 100 UNITS in SODIUM CHLORIDE 0.9% IV 99 ML 8.2 UNITS IV CONT (10:36)
--- NOTE | 2021-11-02 11:00 | PC.NURSE ---
delay in antibx admin d/t not having blood cultures, will start after collection of labs
[2021-11-02 11:51] LABS: Lactic Acid Reflex 3.1 mmol/L (0.7-2.1)
[2021-11-02 12:49] LABS: Glucose Point of Care 331 mg/dl (65-105)
--- NOTE | 2021-11-02 13:01 | WPDCNINT ---
Assessment and Plan Assessment and plan (1) DKA (diabetic ketoacidosis): Qualifiers: Diabetes mellitus complication detail: without coma Diabetes mellitus type: type 2 Qualified Code(s): E11.10 - Type 2 diabetes mellitus with ketoacidosis without coma Code(s): E11.10 - Type 2 diabetes mellitus with ketoacidosis without coma Status: Acute Assessment and Plan: Patient presented with weakness x3 days, decreased p.o. intake, polyuria, polydipsia for the same amount of time. Feels dehydrated and thirsty -patient was found to be in DKA in the ER, given 1 L IV fluid bolus, will give additional 2 L IV fluid bolus here in the ICU -continue insulin infusion per DKA protocol, continue Accu-Cheks per protocol -will continue maintenance IV fluids per DKA protocol (2) Severe sepsis: Code(s): A41.9 - Sepsis, unspecified organism; R65.20 - Severe sepsis without septic shock Status: Acute Assessment and Plan: Leukocytosis, lactic acidosis, tachycardia, tachypnea, bandemia -likely source - lungs -continue ceftriaxone and azithromycin -blood cultures have been obtained (3) Community acquired pneumonia: Qualifiers: Laterality: unspecified laterality Qualified Code(s): J18.9 - Pneumonia, unspecified organism Code(s): J18.9 - Pneumonia, unspecified organism Status: Acute Assessment and Plan: Chest x-ray showed left lower base infiltrates, patient with leukocytosis, bandemia -continue antibiotics as above -will also start bronchodilators given he is a smoker (4) Non-STEMI (non-ST elevated myocardial infarction): Code(s): I21.4 - Non-ST elevation (NSTEMI) myocardial infarction Status: Acute Assessment and Plan: First set of troponins were elevated at 1.170 -denies any chest pain at this time, also denies nausea, vomiting, abdominal pain, shortness of breath -will trend troponins, -will obtain echocardiogram to evaluate wall motion abnormalities (5) Diabetes mellitus: Code(s): E11.9 - Type 2 diabetes mellitus without complications Status: Acute Assessment and Plan: Patient has a history of diabetes, on metformin at home, he has not been taking medications as he feels it has not helped him. -noncompliant with medications -will check hemoglobin A1c (6) HTN (hypertension) with goal to be determined: Code(s): I10 - Essential (primary) hypertension Status: Chronic Assessment and Plan: History of essential hypertension on no medications at home, states that it has not helped him (7) DVT prophylaxis: Code(s): Z29.9 - Encounter for prophylactic measures, unspecified Status: Acute Assessment and Plan: Will order Lovenox (8) Tobacco use: Code(s): Z72.0 - Tobacco use Status: Acute Assessment and Plan: Patient states he smokes1/2 to 1 ppd -refused nicotine patch -I did peer financial counselor patient for cessation of smoking (9) Alcohol use: Code(s): Z72.89 - Other problems related to lifestyle Status: Acute Assessment and Plan: Patient drinks about 5-6 beers daily -will watch for withdrawal symptoms Additional Plan Discussed with patient updated with his condition and plan of care. I answered all questions Code status: Full code Critical care time spent: 44 minutes This dictation may have been done utilizing a voice recognition system. Attempts have been made to correct errors. However, there may be uncorrected grammatical, spelling, and recognition errors present. Due to a high probability of clinically significant, life threatening deterioration, the patient required my highest level of preparedness to intervene emergently and I personally spent this critical care time directly and personally managing the patient. This critical care time included obtaining a history; examining the patient; pulse oximetry; ordering and review of studies; arranging urgent treatment with
[2021-11-02 13:46] LABS: Anion Gap 20 mmol/L (8-16); Blood Urea Nitrogen 15 mg/dL (9-20); Calcium 8.7 mg/dL (8.4-10.2); Carbon Dioxide 12 mmol/L (22-30); Chloride 99 mmol/L (98-107); Estimated CRCL calculation 76 ml/min; Estimated Glomerular Filt Rate > 60; Glucose 219 mg/dL (65-110); Potassium 3.5 mmol/L (3.4-5.0); Sodium 131 mmol/L (137-145)
[2021-11-02] MEDS: IPRATROPIUM BR 0.02% INH SOLN 0.5 MG/2.5 ML VIAL INHALATION ×2 (13:49→20:59)
[2021-11-02] MEDS: LEVALBUTEROL NEB 1.25 MG/3 ML 0.63 MG INHALATION ×2 (13:50→21:00)
--- NOTE | 2021-11-02 13:55 | PC.NURSE ---
This patient, Gustavo Veloz, was admitted to Intensive Care Unit-6. Patient/family oriented to hospital policies and general routines including ID bracelet, bed and alarms, visiting hours, pain management, procedures, bathroom and other care routines, personal items, smoking policy, room service/diet, and visiting hours. Information on how to activate the Rapid Response Team has been discussed. Patient/Family are encouraged to report perceived risks to care and to ask questions if they do not understand what they are told or what they should do.
[2021-11-02 13:58] LABS: Glucose Point of Care 196 mg/dl (65-105)
[2021-11-02 14:27] LABS: Lactic Acid Reflex 3.6 mmol/L (0.7-2.1)
[2021-11-02 14:37] LABS: Reflex Lactic Acid Yes or No Add Lactic
--- NOTE | 2021-11-02 14:45 | ECG_ITS ---
Measurements Intervals [place] Rate: 161 P: TN: 0 QRS: 62 QRSD: 117 T: 59 QT: 280 QTc: 459 Interpretive Statements SUPRAVENTRICULAR TACHYCARDIA/ATRIAL FLUTTER MODERATE INTRAVENTRICULAR CONDUCTION DELAY [110+ ms QRS DURATION] ST DEVIATION AND MODERATE T-WAVE ABNORMALITY, CONSIDER INFERIOR AND LATERAL ISCHEMIA [-0.1+ mV T WAVE IN II/aVF] ABNORMAL ECG COMPARED TO ECG 11/02/2021 09:17:26 SUPRAVENTRICULAR TACHYCARDIA NOW PRESENT Electronically Signed On 11-02-2021 17:55:32 CDT by Tony Donnelly M.D.
--- NOTE | 2021-11-02 14:57 | PM.CNCAR ---
Assessment and Plan Assessment and plan (1) Diabetic ketoacidosis: Code(s): E11.10 - Type 2 diabetes mellitus with ketoacidosis without coma Status: Acute Assessment and Plan: Treatment per Dr. Stallings. Main etiology is likely secondary to simply not taking his medications. (2) Hypertension associated with diabetes: Code(s): E11.59 - Type 2 diabetes mellitus with other circulatory complications; I15.2 - Hypertension secondary to endocrine disorders Status: Acute Assessment and Plan: Above goal (3) Hyperlipidemia associated with type 2 diabetes mellitus: Code(s): E11.69 - Type 2 diabetes mellitus with other specified complication; E78.5 - Hyperlipidemia, unspecified Status: Acute Assessment and Plan: Supposed to be taking atorvastatin 80 mg p.o. daily. This will be restarted per 2 (4) Status post aortic valve replacement: Code(s): Z95.2 - Presence of prosthetic heart valve Status: Acute Assessment and Plan: Previously function normally. Will order 2D echocardiogram with Doppler. Aspirin 81 mg p.o. daily to be initiated (5) Coronary disease: Code(s): I25.10 - Atherosclerotic heart disease of [place] coronary artery without angina pectoris Status: Acute Assessment and Plan: Elevated troponins. He does have a history of CAD. He did have a PCI to the LAD and prior to his bypass repeat catheterization showed significant stenosis distal to the previously placed stent. He underwent a HUDSON to the LAD at the time of his aortic valve replacement 2019. As detailed below, will start metoprolol, atorvastatin, aspirin. Will give him enoxaparin also. Continue trend cardiac enzymes. Repeat ECG in the morning (6) Tobacco use: Code(s): Z72.0 - Tobacco use Status: Acute Assessment and Plan: Ongoing (7) Weight loss: Code(s): R63.4 - Abnormal weight loss Status: Acute Assessment and Plan: May be related to DKA/poorly controlled diabetes. He is a chronic smoker and cannot rule out underlying malignancy versus other (8) Elevated troponin: Code(s): R77.8 - Other specified abnormalities of plasma proteins Status: Acute Assessment and Plan: Elevated troponins are likely secondary to his DKA and acute illness. Will continue trend his troponins. 2D echocardiogram with Doppler is ordered and will be reviewed. Will start him on metoprolol tartrate 25 mg p.o./per to b.i.d.. Aspirin 81 mg p.o. daily. Atorvastatin 80 mg p.o. daily. Enoxaparin 77 mg subcu x1. (9) Noncompliance: Code(s): Z91.19 - Patient's noncompliance with other medical treatment and regimen Status: Acute Assessment and Plan: Quit taking his diabetic medications recently and possibly even all of his medications recently (10) Peripheral artery disease: Code(s): I73.9 - Peripheral vascular disease, unspecified Status: Acute Assessment and Plan: Fem tib bypass last year at [facility] and amputation noted (11) Presence of permanent cardiac pacemaker: Code(s): Z95.0 - Presence of cardiac pacemaker Status: Acute Assessment and Plan: Functioning normally (12) Ventricular tachycardia: Code(s): I47.2 - Ventricular tachycardia Status: Acute Assessment and Plan: Amiodarone 150 mg IV x1 and standard drip per protocol. Will need to pay close attention to his electrolytes while is DKA being corrected. Keep potassium greater than 4 and magnesium greater than 2.0. History of Present Illness History of Present Illness Consult date/time: 11/02/21 14:57 Requesting physician: Efra Stallings MD Consult reason: Other (Wide complex tachycardia, CAD, elevated troponin) Reason For Visit: Pneumonia, DKA, noncompliance w/medicine Narrative: Reason consultation: Elevated troponin, CAD, V-tach Requesting provider: Dr. Stallings Date of service 11/02/2021 History:
--- NOTE | 2021-11-02 15:05 | PM.EVENT ---
Event Note Event Note Event Note: Patient went into V-tach rhythm, was awake, heart rates were in the 200s, monomorphic, patient was about to be shocked and was given Versed since he was awake and and converted to sinus tach, possible atrial fibrillation/flutter. Patient was then given amiodarone 300 mg IV push followed by amiodarone infusion. -repeat troponin is 3.00 ( from 1.17 this morning) -lactic acid 3.6 -patient is tachypneic, also noted to be mottled on his lower extremities, I decided to intubate him and place him on a mechanical ventilator. Intubation was uneventful -Patient also received metoprolol 5 mg IV x1 and converted to sinus rhythm. Blood pressures have been stable -cardiology as he really evaluate the patient, and stated that patient has had a bypass, has severe coronary artery disease, fem-pop bypass.
[2021-11-02 15:08] LABS: Glucose Point of Care 199 mg/dl (65-105)
--- NOTE | 2021-11-02 15:12 | WPDPROCEDUR ---
Procedures Intubation Intubation Date: 11/02/21 Intubation Time: 14:53 A pre-procedural Time-Out was completed immediately before starting the procedure and confirmed: Patient Identification, Site, Procedure, Patient Position and the Availability of Requisite Equipment: Yes Sedative: etomidate Paralytic: rocuronium Laryngoscope: fiber optic video scope Assist device used: fiber optic device ET tube size: 8 Tube secured depth (cm): 24 Tube secured location: lips Tube placement confirmation: visualized tube passing through cords, equal breath sounds bilaterally, no breath sounds over epigastrium and confirmation by capnometry Patient tolerated procedure: well and no complications Intubation complications: none
[2021-11-02] MEDS: KCL 20 MEQ/D5/0.45% SOD CHL 1,000 ML 150 ML (15:40)
[2021-11-02] MEDS: MIDAZOLAM HCL (*CRX) 2 MG/2 ML VIAL (15:40)
[2021-11-02] MEDS: AMIODARONE 150 MG/D5W 100 ML 150 MG/100 ML BAG 600 MG (15:41)
[2021-11-02] MEDS: AMIODARONE 150 MG/D5W 100 ML 150 MG/100 ML BAG 600 MG IV CONT (15:42)
[2021-11-02] MEDS: RAPID SEQUENCE INTUBATION KIT 1 EACH (15:44)
[2021-11-02] MEDS: AMIODARONE 360 MG/D5W 200 ML 360 MG/200 ML BAG 33.33 MG IV CONT (15:44)
[2021-11-02] MEDS: METOPROLOL TARTRATE INJ 5 MG/5 ML VIAL (15:44)
[2021-11-02] MEDS: FENTANYL 2,500MCG/NS250ML(*CRX 2,500 MCG/250 ML BAG IV CONT (15:46)
[2021-11-02] MEDS: MIDAZOLAM 100MG/NS 100ML(*CRX) 100 MG/100 ML BAG IV CONT (15:47)
[2021-11-02 16:16] LABS: Base Excess ABG -10.4 mEq/l (+/-2.0); Fractional Inspired Oxygen 100 %; HCO3 ABG 16.6 mEq/l (22.0-26.0); Oxygen Content ABG 18.3 %vol (16.0-22.0); Oxygen Saturation ABG 99.7 % (95.0-100.0); Oxyhemoglobin 98.2 % THb (90.0-100.0); PCO2 ABG 40.7 mmHg (35.0-45.0); PO2 ABG 347.3 mmHg (80.0-100.0); PO2 FiO2 Ratio Arterial Blood 3.47 %; Total Hemoglobin 12.6 g/dL (12.0-18.0)
[2021-11-02 16:18] LABS: Device VENTILATOR; Modified Allen's Test Pass; Site Drawn RIGHT RADIAL; pH ABG 7.229 (7.350-7.450)
[2021-11-02 16:19] LABS: Arterial Blood Gas PEEP 5 cmH2O; Arterial Blood Gas Tidal Volume 450 ml; Arterial Blood Gas Vent Mode CMV; Arterial Blood Gas Ventilator rate 24 /MIN
--- NOTE | 2021-11-02 16:50 | PM.IMHP ---
H&P: HPI History of Present Illness Date/Time: 11/02/21 16:50 Chief Complaint: Weakness. Narrative: This is a 71-year-old male smoker with coronary artery disease status post coronary bypass grafting, peripheral arterial disease with right femoral tibial bypass, aortic valvular disease status post tissue valve replacement, and poorly controlled type 2 diabetes mellitus who presented to the emergency department via EMS from home for evaluation of weakness. At the time my evaluation he is sedated and intubated on mechanical ventilation and as such a majority of the following history is obtained via a review of his electronic medical records. He has not been feeling well for several days with malaise, generalized weakness, decreased appetite with poor oral intake, polyuria, and polydipsia. In the ER he was found to be in diabetic ketoacidosis and met criteria for sepsis with a left lower lobe infiltrate and he was admitted to the ICU on an insulin drip. On arrival to the ICU he was alert and oriented and within about an hour he went into monomorphic ventricular tachycardia with rates in the 200s. Just before defibrillation was to occur he spontaneously converted to an SVT with possible atrial flutter. He subsequently converted to a sinus rhythm after he was started on amiodarone and given metoprolol 5 mg IV x1. Ultimately the decision was made to intubate the patient as he was tachypneic and mottled. Not long thereafter he spiked temperature to just over 103? F and his blood pressures have progressively declined and as such he has been started on norepinephrine. Review of Systems Review of Systems: Unable to obtain at the time my evaluation as he is intubated and on mechanical ventilation. Patient had reported losing quite a bit of weight over the last several months and it does not seem as though he has been compliant with his diabetes medications. He did not report fever, cold or flu symptoms, chest pain, shortness breast, syncope, near syncope, orthopnea, PND, or edema. To my knowledge she has not had any vomiting or diarrhea. [facility] Past Medical History Medical History (Updated 11/02/21 @ 21:12 by Kristy Lawrence PA-C) Aortic stenosis Status post tissue aortic valve replacement. Coronary artery disease Hypertension Peripheral vascular disease Seasonal allergic rhinitis Type 2 diabetes mellitus Surgical History Surgical History (Updated 11/02/21 @ 21:08 by Kristy G. Gerling, PA-C) Amputated toe of right foot History of aortic valve replacement with tissue graft (06/17/20) History of cardiac pacemaker in situ (06/23/20) [employer] dual-chamber pacemaker. History of cataract extraction History of coronary artery bypass graft (06/17/20) HUDSON to the LAD. History of coronary artery stent placement (10/30/19) Drug-eluting stent to the mid LAD. History of nasal surgery (2004) History of open reduction and internal fixation (ORIF) procedure Left ankle fracture. History of vascular surgery (11/02/20) Right femoral tibial bypass. Family History Family History Mother Family history of diabetes mellitus in first degree relative Father Heart failure Other Diabetes mellitus Family history of coronary artery disease Social History Social History (Updated 11/02/21 @ 21:08 by Kristy Lawrence PA-C) Social History: Surrogate decision maker: Hermila Campbell, significant other. Code status: Full code. Smoking packs per day: 1 Smoking cigarettes per day: 20.0 Years smoked: 50 Smoking pack-years: 50.00 Smoking status: Light tobacco smoker Tobacco type: cigarettes Second hand tobacco smoke exposure: Yes Additional smoking assessment comments: 0.5 to 1 ppd Alcohol intake: current Drinks per week: 20 Substance use: never Substance use type: does not use Additional living arrangements comments: x2. Lives in [place] with his significant
[2021-11-02 16:57] LABS: Glucose Point of Care 212 mg/dl (65-105)
[2021-11-02 16:57] LABS: Glucose Point of Care 190 mg/dl (65-105)
[2021-11-02] MEDS: ASPIRIN 81 MG ENTERIC TABLET PO (17:21)
[2021-11-02 17:24] LABS: Add Urine Microscopic? YES; Appearance Urine Cloudy (Clear); Bilirubin Urine Negative (Negative); Blood Urine 1+ (Negative); Color Urine Yellow (Yellow); Glucose Urine UA 3+ mg/dL (Negative); Ketones Urine 2+ mg/dL (Negative); Leukocyte Esterase Ur Negative LEU/UL (Negative); Mucus Urine Rare /lpf; Nitrate Urine Negative (Negative); Protein Urine 2+ mg/dL (Negative); RBC Urine 0-2 /hpf (0-2); Specific Grav Ur 1.022 (1.001-1.035); Squamous Epithelial Cell Urine Rare /hpf (Few); Urobilinogen Urine Negative mg/dL (<2.0); WBC Urine 0-3 /hpf
[2021-11-02] MEDS: ENOXAPARIN 80 MG/0.8 ML SYRINGE SUB-Q (17:51)
[2021-11-02 17:58] LABS: Influenza A QL RT-PCR Negative (Negative); Influenza B QL RT-PCR Negative (Negative); SARS-CoV-2 RNA PCR Negative
[2021-11-02 18:07] LABS: Hemoglobin A1C > 14.0 % (<5.7)
[2021-11-02] MEDS: SODIUM CHLORIDE 0.9% IV 1,000 ML 999 ML (18:28)
[2021-11-02 18:54] LABS: Glucose Point of Care 212 mg/dl (65-105)
[2021-11-02 18:54] LABS: Glucose Point of Care 203 mg/dl (65-105)
[2021-11-02] MEDS: KCL 20 MEQ/D5/0.45% SOD CHL 1,000 ML 150 ML IV CONT ×2 (19:00→20:53)
[2021-11-02] MEDS: NOREPINEPHRINE 8 MG/D5W 250 ML 8 MG/250 ML BAG 5.63 MG IV CONT (19:00)
--- NOTE | 2021-11-02 20:00 | WPDPROCEDUR ---
Procedures Central Line Placement Left Femoral: Central Line Date: 11/02/21 <Kristy Lawrence PA-C - Last Filed: 11/02/21 20:47> Central Line Time: 20:00 <KAHLIL Mack Last Filed: 11/02/21 20:47> Discussed w/ the patient/family/POA,the placement of a central venous catheter, including its clinical necessity/indication & associated potential risks, benifits and alternatives.: Yes <KAHLIL Mack Last Filed: 11/02/21 20:47> The patient/family/POA understand(s) and acknowledge(s) the need to proceed with central venous catheter insertion as an important element of the patient's clinical management.: Yes <KAHLIL Mack Last Filed: 11/02/21 20:47> Time Out Performed: Yes <KAHLIL Mack Last Filed: 11/02/21 20:47> Patient Position: supine <Kristy Lawrence PA-C - Last Filed: 11/02/21 20:47> Patient placed on monitor/pulse ox: Yes <KAHLIL Mack Last Filed: 11/02/21 20:47> Provider Prep: mask, sterile gown, sterile gloves, Max. sterile barrier precautions, cap and hand hygiene with conventional soap/water or alcohol based hand rub <KAHLIL Mack Last Filed: 11/02/21 20:47> Central line prep: 2% Chlorhexidine scrub <KAHLIL Mack Last Filed: 11/02/21 20:47> Local anesthesia used: lidocaine 1% <KAHLIL Mack Last Filed: 11/02/21 20:47> Amount of anesthesia used (ml): 3 <KAHLIL Mack Last Filed: 11/02/21 20:47> Sterile US Technique with sterile gel/sterile probe covers: Yes <KAHLIL Mack Last Filed: 11/02/21 20:47> Central line lumen inserted: triple <KAHLIL Mack Last Filed: 11/02/21 20:47> Indonesian: 7 <KAHLIL Mack Last Filed: 11/02/21 20:47> Length (cm): 20 <KAHLIL Mack Last Filed: 11/02/21 20:47> Post Procedure: sutured in place, good blood return, all ports aspirated, flushed, capped, transparent dressing, securement product and aseptic technique maintained throughout procedure <KAHLIL Mack Last Filed: 11/02/21 20:47> Post procedure x-ray: other (n/a with femoral placement) <KAHLIL Mack Last Filed: 11/02/21 20:47> Patient tolerated procedure: well <KAHLIL Mack Last Filed: 11/02/21 20:47> Complications: none <KAHLIL Mack Last Filed: 11/02/21 20:47> Additional comments: Dr. Abdirizak Da Silva, attending ED physician, was notified of the procedure and was readily available if needed. <KAHLIL Mack Last Filed: 11/02/21 20:47>
[2021-11-02] MEDS: MINERAL OIL/WHITE PETROLATUM OINTMENT 1 APPLIC EACH EYE (20:04)
[2021-11-02] MEDS: AMIODARONE 360 MG/D5W 200 ML 360 MG/200 ML BAG 16.67 MG IV CONT (20:46)
[2021-11-02] MEDS: CENTRAL LINE FLUSH 10 ML IV PUSH (20:49)
[2021-11-02 20:58] LABS: Glucose Point of Care 168 mg/dl (65-105)
[2021-11-02 20:58] LABS: Glucose Point of Care 163 mg/dl (65-105)
[2021-11-02 22:02] LABS: Glucose Point of Care 127 mg/dl (65-105)
[2021-11-02 22:04] LABS: Anion Gap 5 mmol/L (8-16); Blood Urea Nitrogen 19 mg/dL (9-20); Calcium 7.7 mg/dL (8.4-10.2); Carbon Dioxide 21 mmol/L (22-30); Chloride 104 mmol/L (98-107); Estimated CRCL calculation 68 ml/min; Estimated Glomerular Filt Rate > 60; Glucose 119 mg/dL (65-110); Potassium 3.6 mmol/L (3.4-5.0); Sodium 130 mmol/L (137-145)
[2021-11-02 22:26] LABS: Magnesium 1.7 mg/dL (1.6-2.3)
[2021-11-02] MEDS: INSULIN GLARGINE (*BKC) 100 UNITS/ML 30 UNITS SUB-Q (23:05)
[2021-11-02] MEDS: POTASSIUM CHLORIDE 20 MEQ PACKET (FOR LIQUID) 40 MEQ FEED TUBE (23:11)
[2021-11-02] MEDS: MAGNESIUM SULF 2 GM/WATER 50ML 2 GM/50 ML BAG IVPB (23:13)
[2021-11-02 23:36] LABS: Glucose Point of Care 130 mg/dl (65-105)
[2021-11-03] VITALS (67 sets, daily range): BP systolic 92–141; BP diastolic 56–80; PULSE 66–102; RESP 15–240; TEMP 36.9–37.7; O2SAT 94–100; BMI 27.7
[2021-11-03] MEDS: LACTATED RINGERS 1,000 ML 100 ML IV CONT (00:10)
[2021-11-03 00:26] LABS: Glucose Point of Care 123 mg/dl (65-105)
[2021-11-03] MEDS: LEVALBUTEROL NEB 1.25 MG/3 ML 0.63 MG INHALATION ×4 (02:19→20:25)
[2021-11-03] MEDS: IPRATROPIUM BR 0.02% INH SOLN 0.5 MG/2.5 ML VIAL INHALATION ×4 (02:19→20:25)
[2021-11-03] MEDS: NOREPINEPHRINE 8 MG/D5W 250 ML 8 MG/250 ML BAG 22.5 MG IV CONT (04:21)
[2021-11-03 05:05] LABS: Hematocrit 33.3 % (42.0-52.0); Hemoglobin 11.4 g/dL (14.0-18.0); Mean Corpuscular HGB Conc 34.2 g/dl (32-36); Mean Corpuscular Volume 93.5 fl (80-100); Mean Platelet Volume 11.6 fl (7.4-10.4); Platelet Count Result 184 k/mm3 (150-375); Red Blood Count 3.56 M/mm3 (4.6-6.20); Red Cell Distribution Width 12.8 % (11.5-14.5); White Blood Count 19.4 K/mm3 (4.5-10.0)
[2021-11-03 05:06] LABS: Procalcitonin 5.3 ng/mL
[2021-11-03 05:16] LABS: Alveolar/Arterial O2 Gradient 72.7 mmHg; Base Excess ABG -11.2 mEq/l (+/-2.0); Carboxyhemoglobin 0.1 % THb (0-2.0); Fractional Inspired Oxygen 25 %; HCO3 ABG 13.4 mEq/l (22.0-26.0); Methemoglobin ABG 0.3 %THb (0-1.5); Oxygen Content ABG 16.8 %vol (16.0-22.0); Oxygen Saturation ABG 93.9 % (95.0-100.0); Oxyhemoglobin 94.1 % THb (90.0-100.0); PO2 ABG 73.5 mmHg (80.0-100.0); PO2 FiO2 Ratio Arterial Blood 2.94 %; Reduced Hemoglobin 5.5 %THb (0-5.0); Total Hemoglobin 12.7 g/dL (12.0-18.0); pH ABG 7.313 (7.350-7.450)
[2021-11-03 05:16] LABS: Lactic Acid Reflex 1.7 mmol/L (0.7-2.1)
[2021-11-03] MEDS: CENTRAL LINE FLUSH 10 ML IV PUSH ×3 (05:17→20:16)
[2021-11-03] MEDS: INSULIN ASPART (*BKC) 100 UNITS/ML SUB-Q ×3 (05:17→18:13)
[2021-11-03] MEDS: ENOXAPARIN 80 MG/0.8 ML SYRINGE SUB-Q (05:18)
[2021-11-03 05:20] LABS: Alanine Aminotransferase 24 U/L (4-50); Albumin Level 2.9 g/dL (3.5-5.1); Alkaline Phosphatase 73 U/L (38-126); Anion Gap 8 mmol/L (8-16); Aspartate Amino Transferase 65 U/L (17-59); Bilirubin,Total 0.6 mg/dL (0.2-1.3); Blood Urea Nitrogen 23 mg/dL (9-20); Calcium 7.4 mg/dL (8.4-10.2); Carbon Dioxide 17 mmol/L (22-30); Chloride 101 mmol/L (98-107); Estimated CRCL calculation 68 ml/min; Estimated Glomerular Filt Rate > 60; Glucose 207 mg/dL (65-110); Magnesium 1.9 mg/dL (1.6-2.3); Phosphorus 2.6 mg/dL (2.5-4.5); Potassium 4.4 mmol/L (3.4-5.0); Sodium 126 mmol/L (137-145)
[2021-11-03 05:20] LABS: Device VENTILATOR; Modified Allen's Test Pass; Site Drawn LEFT RADIAL
[2021-11-03 05:21] LABS: Arterial Blood Gas PEEP 5 cmH2O; Arterial Blood Gas Tidal Volume 450 ml; Arterial Blood Gas Vent Mode CMV; Arterial Blood Gas Ventilator rate 24 /MIN
[2021-11-03 05:27] LABS: Band Neutrophils Percent 6 % (0-6); Lymphocytes Absolute Manual 1.74 K/mm3 (1.1-4.5); Monocytes Absolute Manual 1.74 K/mm3 (0.1-0.90); Monocytes Percent Manual 9 % (3-9); Neutrophils Percent Manual 76 % (46-73); Platelet Estimate Adequate (Adequate); Total Cells Counted 100
[2021-11-03 05:40] LABS: Glucose Point of Care 203 mg/dl (65-105)
[2021-11-03 05:41] LABS: CRP 32.7 mg/dL (<1.0)
--- NOTE | 2021-11-03 06:28 | ECG_ITS ---
Measurements Intervals [place] Rate: 89 P: 55 MT: 168 QRS: 40 QRSD: 112 T: 116 QT: 446 QTc: 546 Interpretive Statements SINUS RHYTHM WITH FREQUENT VENTRICULAR PREMATURE COMPLEXES INTERMITTENT VENTRICULAR PACING MODERATE INTRAVENTRICULAR CONDUCTION DELAY [110+ ms QRS DURATION] ST DEVIATION AND MODERATE T-WAVE ABNORMALITY, CONSIDER ANTEROLATERAL ISCHEMIA [-0.1+ mV T WAVE IN V3-V6] ABNORMAL ECG Electronically Signed On 11-03-2021 15:56:04 CDT by Tony Donnelly M.D.
[2021-11-03] MEDS: SODIUM BICARBONATE 8.4% 50 MEQ/50 ML SYRINGE IV PUSH (06:55)
[2021-11-03] MEDS: AMIODARONE 150 MG/D5W 100 ML 150 MG/100 ML BAG 600 MG IV CONT (07:28)
[2021-11-03] MEDS: MAGNESIUM SULF 1 GM/D5W 100 ML 1 GM/100 ML BAG IVPB (07:31)
--- NOTE | 2021-11-03 07:48 | WPDINTPN ---
Progress Note: A&P Assessment and Plan (1) Ventricular tachycardia: Code(s): I47.2 - Ventricular tachycardia Status: Acute Assessment and Plan: 11/02: Patient went to quite complex ventricular tachycardia patient was given Versed before cardioversion and converted spontaneously to SVT/atrial flutter. -patient did receive amiodarone bolus and was started amiodarone infusion. -he also received lidocaine IV push -V-tach could be related to diabetic ketoacidosis, pneumonia, septic shock, coronary artery disease -11/03: Patient had a 30 beat run of V-tach, was given additional amiodarone bolus, and his amiodarone infusion was increased to 1 mg/min -cardiology was notified and is aware -will maintain potassium > 4.0 and magnesium > 2.0 (2) Acute respiratory failure: Code(s): J96.00 - Acute respiratory failure, unspecified whether with hypoxia or hypercapnia Status: Acute Assessment and Plan: Patient presented with a pneumonia, went into wide complex ventricular tachycardia, was tachypneic with shallow breathing. Also noted to have mottling on his lower extremities, I decided to intubate the patient for airway protection -patient was successfully intubated on 11/02 -currently on CMV mode of ventilation, peep of 5 in 35% FiO2 -chest x-ray and ABGs reviewed -continue antibiotics, bronchodilators -sedated with fentanyl and Versed infusion (3) Septic shock: Code(s): A41.9 - Sepsis, unspecified organism; R65.21 - Severe sepsis with septic shock Status: Acute Assessment and Plan: Patient presented to the hospital with generalized weakness and was found to have Leukocytosis, lactic acidosis, tachycardia, tachypnea, bandemia, pneumonia -likely source - lungs, blood stream infection -left femoral central line was placed on 11/02/2021 -currently on Levophed which is being weaned down, maintain MAP > 65 mmHg for adequate end organ perfusion -10/05: Blood cultures growing Gram-positive cocci in pairs 2/2 bottles -continue ceftriaxone and azithromycin, will also add vancomycin (4) DKA (diabetic ketoacidosis): Qualifiers: Diabetes mellitus complication detail: without coma Diabetes mellitus type: type 2 Qualified Code(s): E11.10 - Type 2 diabetes mellitus with ketoacidosis without coma Code(s): E11.10 - Type 2 diabetes mellitus with ketoacidosis without coma Status: Acute Assessment and Plan: Patient presented with weakness x3 days, decreased p.o. intake, polyuria, polydipsia for the same amount of time. Feels dehydrated and thirsty -patient was found to be in DKA in the ER, given 1 L IV fluid bolus, will give additional 2.5 L IV fluid bolus here in the ICU -patient was transitioned to long-acting insulin and sliding scale insulin on 10/05 night (5) Community acquired pneumonia: Qualifiers: Laterality: unspecified laterality Qualified Code(s): J18.9 - Pneumonia, unspecified organism Code(s): J18.9 - Pneumonia, unspecified organism Status: Acute Assessment and Plan: Chest x-ray showed left lower base infiltrates, patient with leukocytosis, bandemia -continue antibiotics as above -continue bronchodilators given he is a smoker (6) Non-STEMI (non-ST elevated myocardial infarction): Code(s): I21.4 - Non-ST elevation (NSTEMI) myocardial infarction Status: Acute Assessment and Plan: Elevated troponins, he does have a significant history of coronary artery disease, history of PCI to the LAD, CABG with HUDSON to LAD and aortic valve replacement in 2019 -patient on admission denied chest pain, nausea, vomiting, abdominal pain, shortness of breath -appreciate cardiology evaluation recommendation -patient was initially placed on beta-doe which currently is on hold due to hypotension and on vasopressors -therapeutic Lovenox 1 mg/kg x1 was given on 11/02 -troponins peaked at 3.35 (1.17 on admission) Echocardiogram 11/02/21: LV chamb
[2021-11-03] MEDS: AMIODARONE 360 MG/D5W 200 ML 360 MG/200 ML BAG 33.33 MG IV CONT ×3 (08:03→20:02)
[2021-11-03] MEDS: CALCIUM GLUC 1,000 MG/NS 50 ML 1,000 MG/50 ML BAG 100 MG IVPB (08:03)
[2021-11-03] MEDS: ATORVASTATIN 40 MG TABLET 80 MG PO (08:08)
[2021-11-03] MEDS: MINERAL OIL/WHITE PETROLATUM OINTMENT 1 APPLIC EACH EYE ×2 (08:08→20:16)
[2021-11-03] MEDS: SODIUM BICARBONATE 8.4% 150 MEQ in WATER, STERILE FOR INJECTION 950 ML 75 MEQ IV CONT ×2 (08:20→22:28)
[2021-11-03] MEDS: ASPIRIN 81 MG CHEWABLE TABLET PO (08:21)
--- NOTE | 2021-11-03 09:12 | P.PNIM_ITS ---
Progress Note: A&P Assessment and Plan (1) Ventricular tachycardia: Code(s): I47.2 - Ventricular tachycardia Status: Acute Assessment and Plan: On 11/02, patient developed a wide complex tachycardia consistent with VTach * Cardioversion was planned but patient converted spontaneously to SVT/atrial flutter. * Lidocaine IV push, Amiodarone bolus and was started amiodarone infusion * V-tach could be related to diabetic ketoacidosis, pneumonia, septic shock and/or coronary artery disease * >70 beat run of VTach today treated with Amio bolus and Amiod rate increased; Mag also given * cardiology was notified and is aware; appreciate their input * will maintain potassium > 4.0 and magnesium > 2.0 (2) Acute respiratory failure: Code(s): J96.00 - Acute respiratory failure, unspecified whether with hypoxia or hypercapnia Status: Acute Assessment and Plan: Patient presented with a pneumonia and went into wide complex ventricular tachycardia. * Was tachypneic with shallow breathing and LE mottling so decision to intubate on 11/02 * currently mechanical ventilation, peep of 5 in 35% FiO2 * CXR reviewed showing diffuse bilateral airspace disease * Continue Abx and bronchodilators * Continue sedation with fentanyl and Versed * Appreciate electronics assembler input (3) Septic shock: Code(s): A41.9 - Sepsis, unspecified organism; R65.21 - Severe sepsis with septic shock Status: Acute Assessment and Plan: Patient presents weakness and found to have leukocytosis, lactic acidosis, tachycardia, tachypnea, bandemia and HoTN * Treated with Levophed up to 15mcg/min; improved today * [place] source of septic shock is pneumonia and septicemia with +BCx felt related to PNA * BCx (2of2) positive for gram positive cocci in pairs; Hx of Enterococcus * continue ceftriaxone (11/02 1142) and azithromycin (11/02 1259) and vancomycin (11/03 0800) * Follow up on BCx. * Repeat BCx tomorrow (4) DKA (diabetic ketoacidosis): Qualifiers: Diabetes mellitus complication detail: without coma Diabetes mellitus type: type 2 Qualified Code(s): E11.10 - Type 2 diabetes mellitus with ketoacidosis without coma Code(s): E11.10 - Type 2 diabetes mellitus with ketoacidosis without coma Status: Acute Assessment and Plan: Patient presented with weakness x3 days, decreased p.o. intake, polyuria, polydipsia and found to be in DKA * Patient has been noncompliant with his home treatment * pH 7.10, AG 26 * Given IV fluid and insulin * Anion gap cleared and was transitioned to Lantus and sliding scale insulin on 11/02 (5) Community acquired pneumonia: Qualifiers: Laterality: unspecified laterality Qualified Code(s): J18.9 - Pneumonia, unspecified organism Code(s): J18.9 - Pneumonia, unspecified organism Status: Acute Assessment and Plan: Patient presents with weakness * Chest x-ray showed left lower base infiltrates nad has fever, leukocytosis, and bandemia * Now with positive BCx * As above (6) Non-STEMI (non-ST elevated myocardial infarction): Code(s): I21.4 - Non-ST elevation (NSTEMI) myocardial infarction Status: Acute Assessment and Plan: Patient preseted with weakness but denies chest pain. * Had elevated troponins to 3.35. EKG showing inferolateral ST and T-wave changes. * Known CAD with PCI to the LAD, CABG with HUDSON to LAD and aortic valve replacement in 06/2020 * Echo showing EF 50-55% and Grade I diastolic dysfunction and mild MR/MS. No wall motion
--- NOTE | 2021-11-03 09:12 | PM.IMPN ---
Progress Note: A&P Assessment and Plan (1) Ventricular tachycardia: Code(s): I47.2 - Ventricular tachycardia Status: Acute Assessment and Plan: On 11/02, patient developed a wide complex tachycardia consistent with VTach Cardioversion was planned but patient converted spontaneously to SVT/atrial flutter. Lidocaine IV push, Amiodarone bolus and was started amiodarone infusion V-tach could be related to diabetic ketoacidosis, pneumonia, septic shock and/or coronary artery disease >70 beat run of VTach today treated with Amio bolus and Amiod rate increased; Mag also given cardiology was notified and is aware; appreciate their input will maintain potassium > 4.0 and magnesium > 2.0 (2) Acute respiratory failure: Code(s): J96.00 - Acute respiratory failure, unspecified whether with hypoxia or hypercapnia Status: Acute Assessment and Plan: Patient presented with a pneumonia and went into wide complex ventricular tachycardia. Was tachypneic with shallow breathing and LE mottling so decision to intubate on 11/02 currently mechanical ventilation, peep of 5 in 35% FiO2 CXR reviewed showing diffuse bilateral airspace disease Continue Abx and bronchodilators Continue sedation with fentanyl and Versed Appreciate club car attendant input (3) Septic shock: Code(s): A41.9 - Sepsis, unspecified organism; R65.21 - Severe sepsis with septic shock Status: Acute Assessment and Plan: Patient presents weakness and found to have leukocytosis, lactic acidosis, tachycardia, tachypnea, bandemia and HoTN Treated with Levophed up to 15mcg/min; improved today [place] source of septic shock is pneumonia and septicemia with +BCx felt related to PNA BCx (2of2) positive for gram positive cocci in pairs; Hx of Enterococcus continue ceftriaxone (11/02 1142) and azithromycin (11/02 1259) and vancomycin (11/03 0800) Follow up on BCx. Repeat BCx tomorrow (4) DKA (diabetic ketoacidosis): Qualifiers: Diabetes mellitus complication detail: without coma Diabetes mellitus type: type 2 Qualified Code(s): E11.10 - Type 2 diabetes mellitus with ketoacidosis without coma Code(s): E11.10 - Type 2 diabetes mellitus with ketoacidosis without coma Status: Acute Assessment and Plan: Patient presented with weakness x3 days, decreased p.o. intake, polyuria, polydipsia and found to be in DKA Patient has been noncompliant with his home treatment pH 7.10, AG 26 Given IV fluid and insulin Anion gap cleared and was transitioned to Lantus and sliding scale insulin on 11/02 (5) Community acquired pneumonia: Qualifiers: Laterality: unspecified laterality Qualified Code(s): J18.9 - Pneumonia, unspecified organism Code(s): J18.9 - Pneumonia, unspecified organism Status: Acute Assessment and Plan: Patient presents with weakness Chest x-ray showed left lower base infiltrates nad has fever, leukocytosis, and bandemia Now with positive BCx As above (6) Non-STEMI (non-ST elevated myocardial infarction): Code(s): I21.4 - Non-ST elevation (NSTEMI) myocardial infarction Status: Acute Assessment and Plan: Patient preseted with weakness but denies chest pain. Had elevated troponins to 3.35. EKG showing inferolateral ST and T-wave changes. Known CAD with PCI to the LAD, CABG with HUDSON to LAD and aortic valve replacement in 06/2020 Echo showing EF 50-55% and Grade I diastolic dysfunction and mild MR/MS. No wall motion abnormalities Patient on Lipitor and ASA. Metoprolol on hold due to HoNT On therapeutic Lovenox Cardiology consulted and appreciate their input; plan for [facility] later today (7) Diabetes mellitus: Code(s): E11.9 - Type 2 diabetes mellitus without complications Status: Acute Assessment and Plan: Patient with known diabetes On metformin at home but his 13.6 last year has been noncompliant with his
[2021-11-03] MEDS: PANTOPRAZOLE SODIUM IV 40 MG VIAL IV PUSH (09:27)
--- NOTE | 2021-11-03 09:44 | PM.PNCARD ---
Progress Note: A&P Additional Plan -DKA -shock -gram positive bacteremia -history of CAD with HUDSON to LAD and history of bioprosthetic aortic valve replacement. -ventricular tachycardia -NSTEMI -peripheral vascular disease with femoral tibial bypass This 71-year-old patient who was admitted with. Was not taking medications. His blood culture shows Gram-positive bacteremia, chest x-ray suggestive of possible left lower lobe pneumonia. He developed ventricular tachycardia that was sustained and received some IV sedatives in preparation to cardiovert and then developed respiratory distress and was intubated. His troponins elevated at 3.5. I called Hermila his significant other and discussed with her risks and benefits of cardiac catheterization, alternative to treatment And she agrees to proceed. Risks of procedure including bleeding, infection, needing emergency surgery, stroke, heart attack, , limb ischemia. Will proceed with cardiac catheterization this morning. Time Spent With Patient Time with patient: Greater than 35 minutes Subjective Date/time seen: DOS: 11/03/21 09:44 Review of Systems Review of Systems: ROS unobtainable: Yes unobtainable due to endotracheal tube Exam Const: General: no acute distress HENMT: General nose exam: no epistaxis Eyes: Sclera: sclerae normal Neck: Neck: supple and no JVD Resp: Auscultation: diminished lung sounds Cardio: Rate: regular rate Rhythm: regular rhythm GI: Inspection: non-distended GI Palp: Yes Soft to palpation : Male General Exam: Yes tenderness Urinary Catheter: Urinary Catheter: urine clear Skin: General skin exam: normal color Neuro: Other: SEDATED, INTUBATED Extrem: General: no edema and no pedal edema Psych: Thought content: Yes Hallucination(s) present (unable to assess) Objective Data Vital Signs Vital Signs: Vital Signs - 24 hr 11/02/21 09:45 11/02/21 10:00 11/02/21 10:15 Temperature Pulse Rate 106 H 107 H 105 H Respiratory Rate 25 H 22 H 24 H Blood Pressure 126/84 Pulse Oximetry 98 99 11/02/21 10:30 11/02/21 10:42 11/02/21 10:45 Temperature Pulse Rate 107 H 108 H 108 H Respiratory Rate 28 H 24 H 29 H Blood Pressure 128/72 Pulse Oximetry 96 97 11/02/21 11:00 11/02/21 11:01 11/02/21 11:31 Temperature Pulse Rate 116 H 117 H 112 H Respiratory Rate 31 H 26 H 26 H Blood Pressure 147/87 H Pulse Oximetry 99 11/02/21 11:45 11/02/21 12:00 11/02/21 12:01 Temperature Pulse Rate 109 H 109 H 108 H Respiratory Rate 30 H 24 H 29 H Blood Pressure 101/69 Pulse Oximetry 11/02/21 12:55 11/02/21 13:50 11/02/21 13:52 Temperature Pulse Rate 108 H 116 H 116 H Respiratory Rate 19 29 H 25 H Blood Pressure 123/74 144/106 H Pulse Oximetry 98 96 11/02/21 13:55 11/02/21 14:00 11/02/21 15:18 Temperature Pulse Rate 116 H 116 H 115 H Respiratory Rate 30 H Blood Pressure Pulse Oximetry 100 100 11/02/21 15:41 11/02/21 15:42 11/02/21 15:44 Temperature Pulse Rate 156 H 158 H 155 H Respiratory Rate Blood Pressure 156/126 H 236/126 H 126/113 H Pulse Oximetry 11/02/21 15:46 11/02/21 15:47 11/02/21 15:50 Temperature 39.0 C H Pulse Rate 95 104 H 103 H Respiratory Rate 24 H 24 H 27 H Blood Pressure 127/70 Pulse Oximetry 100 11/02/21 16:00 11/02/21 16:36 11/02/21 16:37 Temperature Pulse Rate 102 H 104 H 104 H Respiratory Rate 24 H 24 H 24 H Blood Pressure Pulse Oximetry 100 11/02/21 17:21 11/02/21 17:25 11/02/21 17:46 Temperature 39.4 C H 38.6 C H Pulse Rate 105 H Respiratory Rate Blood Pressure Pulse Oximetry 100 11/02/21 18:00 11/02/21 19:00 11/02/21 19:17 Temperature 38.5 C H Pulse Rate 82 67 67 Respiratory Rate 23 H Blood Pressure 72/56 L 86/61 L 78/63 L Pulse Oximetry 100 11/02/21 19:33 11/02/21 19:59 11/02/21 20:00 Temperature 37.3 C Pulse Rate 71 72 67 Respiratory Rate 24 H 24 H Blood P
--- NOTE | 2021-11-03 10:38 | WPDHPUPDATE1 ---
History and Physical Update Update Date/Time: 11/03/21 10:38 History and Physical has been reviewed, including an updated exam of the patient. There are NO changes in the patient's condition. Risks, benefits, and alternatives have been discussed and questions answered. Patient agrees to proceed with procedure.
--- NOTE | 2021-11-03 10:38 | WPDMODSED ---
Moderate Sedation Note-Pt Data Patient Data Allergies Allergy/AdvReac Type Severity Reaction Status Date / Time codeine Allergy Unknown Unresponsiv Verified 11/02/21 09:11 e Penicillins Allergy Unknown Rash Verified 11/02/21 09:11 Home Medications Medication Instructions Recorded Confirmed Type metformin 500 mg PO BID 10/25/20 10/25/20 History metoprolol tartrate 50 mg PO DAILY 10/25/20 10/25/20 History zolpidem 10 mg PO HS PRN 10/25/20 10/25/20 History Current Medications: Active Medications Aspirin (Aspirin 81 Mg Chewable Tablet) 81 mg PO DAILY@0800 [facility] Last Admin: 11/03/21 08:21 Dose: 81 mg Documented by: Atorvastatin Calcium (Atorvastatin 40 Mg Tablet) 80 mg PO DAILY [facility] Last Admin: 11/03/21 08:08 Dose: 80 mg Documented by: Dextrose (Dextrose 50% 25 Gm/50 Ml Syringe) 12.5 gm IV PUSH PRN PRN; Protocol PRN Reason: Hypoglycemia Enoxaparin Sodium (Enoxaparin 80 Mg/0.8 Ml Syringe) 80 mg SUB-Q Q12H [facility] Last Admin: 11/03/21 05:18 Dose: 80 mg Documented by: Folic Acid (Folic Acid 1 Mg/0.2 Ml Inj) 1 mg IV PUSH QAM SARA Glucagon (Glucagon For Inj 1 Mg Vial) 1 mg IM PRN PRN; Protocol PRN Reason: Hypoglycemia Glucose (Glucose Oral Gel 15 Gm Of Glucse In 37.5 Gm Tube) 15 gm PO PRN PRN; Protocol PRN Reason: Hypoglycemia Hydralazine HCl (Hydralazine Hcl 20 Mg/Ml Vial) 10 mg IV PUSH Q6H PRN PRN Reason: Blood Pressure - High Ceftriaxone Sodium/Dextrose (Rocephin 1 Gm/D5w 50 Ml) 1 gm in 50 mls @ 100 mls/hr IVPB NOON SARA Acetaminophen (Ofirmev 1,000 Mg Ivpb) 1,000 mg in 100 mls @ 400 mls/hr IVPB Q6H PRN PRN Reason: Pain (1-6) or Fever Stop: 11/03/21 11:04 Last Infusion: 11/02/21 17:40 Dose: Infused Documented by: Azithromycin (Zithromax) 500 mg in 250 mls @ 250 mls/hr IVPB NOON SARA Amiodarone HCl/Dextrose (Nexterone 360 Mg/D5w 200 Ml) 360 mg in 200 mls @ 33.333 mls/hr IV CONT .Q6H SARA Last Infusion: 11/03/21 10:00 Dose: 1 mg/min, 33.33 mls/hr Documented by: Fentanyl Citrate (Fentanyl 2,500 Mcg/Ns 250 Ml) 2,500 mcg in 250 mls @ 5 mls/hr IV CONT .Q50H SARA; Protocol Last Titration: 11/03/21 08:00 Dose: 50 mcg/hr, 5 mls/hr Documented by: Midazolam HCl (Versed 100 Mg/Ns 100 Ml) 100 mg in 100 mls @ 2 mls/hr IV CONT .Q50H SARA; Protocol Last Titration: 11/03/21 04:00 Dose: 2 mg/hr, 2 mls/hr Documented by: Norepinephrine Bitartrate (Levophed 8 Mg/D5w 250 Ml) 8 mg in 250 mls @ 15 mls/hr IV CONT .[id number] SARA; Protocol Last Titration: 11/03/21 10:00 Dose: 8 mcg/min, 15 mls/hr Documented by: Dextrose (Dextrose 5% 1,000 Ml) 1,000 mls @ 100 mls/hr IVPB PRN PRN; Protocol PRN Reason: Hypoglycemia Vasopressin 100 units/ (Dextrose) 100 mls @ 1.2 mls/hr IV CONT .Q72H SARA; Protocol Sodium Bicarbonate 150 meq/ (Sterile Water) 1,100 mls @ 75 mls/hr IV CONT .[id number] SARA Last Admin: 11/03/21 08:20 Dose: 75 mls/hr Documented by: Vancomycin HCl (Vancomycin 1,250 Mg/D5w 250 Ml) 1,250 mg in 250 mls @ 200 mls/hr IVPB Q18H SARA Last Infusion: 11/03/21 09:13 Dose: Infused Documented by: Insulin Aspart (Insulin Aspart (*Bkc) 100 Units/Ml) 4 - 8 units SUB-Q Q6HR SARA; Protocol Last Admin: 11/03/21 05:17 Dose: 4 units Documented by: Insulin Glargine (Insulin Glargine (*Bkc) 100 Units/Ml) 35 units SUB-Q SARA Ipratropium [place] (Ipratropium Br 0.02% Inh Soln 0.5 Mg/2.5 Ml Vial) 0.5 mg INHALATION Q6HRT [facility] Last Admin: 11/03/21 08:09 Dose: 0.5 mg Documented by: Levalbuterol HCl (Levalbuterol Neb 1.25 Mg/3 Ml) 0.63 mg INHALATION Q6HRT [facility] Last Admin: 11/03/21 08:09 Dose: 0.63 mg Documented by: Metoprolol Tartrate (Metoprolol Tartrate 25 Mg Tablet) 25 mg PO Q12HR [facility] Last Admin: 11/02/21 21:52 Dose: Not Given Documented by: Multi-Ingred Cream/Lotion/Oil/Oint (Mineral Oil/White Petrolatum Ointment) 1 applic EACH EYE Q12HR [facility] Last Admin: 11/03/21 08:08 Dose: 1 applic Documented by: Pantoprazole Sodium (Pantoprazole Sodium Iv 40 Mg Vial) 40 mg IV PUSH QAM [facility] Last Admin: 11/03/21 09:27 Dose:
--- NOTE | 2021-11-03 12:01 | WPDCARDPROC ---
Cardiac Cath Procedure Note Date of procedure:: 11/03/21 Performing physician:: Kenny Merrill MD Indication:: Ventricular tachycardia and NSTEMI Brief clinical history:: his 71-year-old patient who was admitted with DKA. past medical history of HUDSON to LAD, bioprosthetic aortic valve replacement 2019. At that time during the catheterizations was reported the RCA was reported to be non dominant to codominant and has diffuse disease 60% to 70% distally and 50-60%. in the mid segment. Was not taking medications. His blood culture shows Gram-positive bacteremia, chest x-ray suggestive of possible left lower lobe pneumonia. He developed ventricular tachycardia that was sustained and received some IV sedatives in preparation to cardiovert and then developed respiratory distress and was intubated. His troponins elevated at 3.5. due to his risk factors we decided to proceed with cardiac catheterization. Unfortunately there is no palpable pulse in the left femoral artery. He has a palpable left radial pulse however no pulsation in the left ulnar artery. He does have a history of left femoral to tibial bypass surgery. Due to limited access we just decided to go with the right groin access given the emergency of this matter. Procedure Procedure performed:: 1-Moderate sedation that started at 1048and ended at 11:45 a.m. with total duration 63 minutes using 1mg of Versed and 25mcg fentanyl. The registered nurse was andi simental 2-Selective left and right coronary angiogram. 3- selective HUDSON angiogram. 3- Attempted intervention on the distal left circumflex artery with inability to wire it. artery was heavily calcified. 4-Right common femoral arterial angiogram. Sedation/Medication given:: Moderate sedation. Access site:: Right common femoral artery. Estimated blood loss:: 10cc hemostasis manual compression Procedure note:: After informed consent patient was brought in to laborer steel handling with the was draped and prepped in usual manner. Moderate sedation was given and the right groin was infiltrated using 1% lidocaine. Five Mosotho sheath was obtained using micropuncture needle and the modified Seldinger technique. Selective left coronary angiogram was done using JL4 catheter with the tip of the catheter placed in the left main coronary artery. Selective right coronary angiogram was done using JR4 catheter with the tip of the catheter placed to the right coronary artery. then after that the JR4 catheter was advanced to the left subclavian artery and using long exchange wire hudson catheter was used to engage HUDSON artery and selective HUDSON angiogram done. Selective Right common femoral arterial angiogram was done. After that the right 5 Mosotho sheath was exchanged for 6 Mosotho sheath. Six Mosotho guide catheter CLS 3.5 advanced engaged the left main. We attempted though wire the distal left circumflex artery using luge wire, Electrician'S Assistant 150 wire and whisper wire without success. We used a balloon 2.5 x 15 to try to cross the lesion using the whisper wire without success either. Attempts to cross the lesion with terminated at this time. Findings:: 1- left coronary artery is a large artery that divides into large LAD, large circumflex artery. Left main is has about 30% in the mid segment and has minimal irregularities throughout. 2- left anterior descending artery is a large artery. Has 90% proximal InStent restenosis and after the stent and totally occluded in the mid segment. The large diagonal branch with minimal irregularities. 3- leftcircumflex artery is a large artery. Has a calcified 99% distal left circumflex artery culprit lesion for the NSTEMI with JAMIL flow1 4- right coronary artery is totally occluded at the ostium with [id number] collaterals. The main source of collaterals of the septal branches of LAD. 5- Hudson to LAD widely patent without stenosis. [place] HUDSON distal created down without significant stenosis. 6- opening arterial pressure was 110/70and closin
--- NOTE | 2021-11-03 12:31 | ECG_ITS ---
Measurements Intervals [place] Rate: 70 P: 60 WA: 187 QRS: 54 QRSD: 96 T: 107 QT: 425 QTc: 460 Interpretive Statements SINUS RHYTHM MODERATE ST AND T-WAVE ABNORMALITY, CONSIDER ANTEROLATERAL ISCHEMIA [-0.1+ mV T WAVE IN V3-V6] CANNOT RULE OUT INFERIOR INFARCTION, AGE UNDETERMINED ABNORMAL ECG Electronically Signed On 11-04-2021 16:13:36 CDT by Tony Donnelly M.D.
[2021-11-03] MEDS: THIAMINE HCL 200 MG/2 ML VIAL 100 MG IV PUSH (12:48)
[2021-11-03 12:54] LABS: Glucose Point of Care 274 mg/dl (65-105)
[2021-11-03] MEDS: FOLIC ACID 1 MG/0.2 ML INJ IV PUSH (13:19)
[2021-11-03 14:01] LABS: Activated Clotting Time 160 SEC (74-137)
[2021-11-03 18:16] LABS: Glucose Point of Care 238 mg/dl (65-105)
[2021-11-03] MEDS: INSULIN GLARGINE (*BKC) 100 UNITS/ML 35 UNITS SUB-Q (20:15)
[2021-11-03 20:20] LABS: Glucose Point of Care 229 mg/dl (65-105)
[2021-11-04] VITALS (40 sets, daily range): BP systolic 101–150; BP diastolic 66–85; PULSE 71–104; RESP 19–33; TEMP 37.2–38.1; O2SAT 72–100
[2021-11-04] MEDS: INSULIN ASPART (*BKC) 100 UNITS/ML SUB-Q ×3 (00:08→18:11)
[2021-11-04 00:32] LABS: Glucose Point of Care 219 mg/dl (65-105)
[2021-11-04] MEDS: AMIODARONE 360 MG/D5W 200 ML 360 MG/200 ML BAG 33.33 MG IV CONT ×2 (02:17→08:23)
[2021-11-04] MEDS: IPRATROPIUM BR 0.02% INH SOLN 0.5 MG/2.5 ML VIAL INHALATION ×4 (02:35→20:09)
[2021-11-04] MEDS: LEVALBUTEROL NEB 1.25 MG/3 ML 0.63 MG INHALATION ×4 (02:36→20:09)
[2021-11-04 04:52] LABS: Basophils Absolute Auto 0.1 K/mm3 (0.0-0.1); Basophils Percent Auto 0.6 % (0.2-1.2); Eosinophils Absolute Auto 0.1 K/mm3 (0-0.3); Eosinophils Percent Auto 0.5 % (0-4.4); Hematocrit 29.1 % (42.0-52.0); Hemoglobin 9.9 g/dL (14.0-18.0); Immature Granulocyte Absolute 0.06 K/mm3 (0.00-0.031); Immature Granulocyte Percent A 0.6 % (0-0.5); Immature Platelet Fraction Pct 9.8 % (0.9-11.2); Lymphocytes Absolute Auto 1.15 K/mm3 (0.9-3.2); Lymphocytes Percent Auto 10.8 % (18.3-44.2); Mean Corpuscular Hemoglobin 32.2 pg (26-34); Mean Corpuscular Volume 94.8 fl (80-100); Mean Platelet Volume 11.6 fl (7.4-10.4); Monocytes Absolute Auto 0.7 K/mm3 (0.1-0.6); Monocytes Percent Auto 6.9 % (2.6-8.5); Neutrophils Absolute Auto 8.6 K/mm3 (1.3-6.7); Neutrophils Percent Auto 80.6 % (45.5-73.1); Platelet Count Result 141 k/mm3 (150-375); Red Blood Count 3.07 M/mm3 (4.6-6.20); Red Cell Distribution Width 13.2 % (11.5-14.5); White Blood Count 10.7 K/mm3 (4.5-10.0)
[2021-11-04 05:00] LABS: Lactic Acid Reflex 1.5 mmol/L (0.7-2.1)
[2021-11-04 05:01] LABS: Alanine Aminotransferase 26 U/L (4-50); Albumin Level 2.8 g/dL (3.5-5.1); Alkaline Phosphatase 72 U/L (38-126); Anion Gap 3 mmol/L (8-16); Aspartate Amino Transferase 41 U/L (17-59); Bilirubin,Total 0.4 mg/dL (0.2-1.3); Blood Urea Nitrogen 19 mg/dL (9-20); Calcium 7.3 mg/dL (8.4-10.2); Carbon Dioxide 27 mmol/L (22-30); Chloride 96 mmol/L (98-107); Estimated CRCL calculation 76 ml/min; Estimated Glomerular Filt Rate > 60; Glucose 197 mg/dL (65-110); Phosphorus 2.3 mg/dL (2.5-4.5); Potassium 3.1 mmol/L (3.4-5.0); Sodium 126 mmol/L (137-145)
[2021-11-04 05:04] LABS: Alveolar/Arterial O2 Gradient 72.7 mmHg; Base Excess ABG -0.1 mEq/l (+/-2.0); Carboxyhemoglobin 0.2 % THb (0-2.0); Device VENTILATOR; Fractional Inspired Oxygen 30 %; HCO3 ABG 24.4 mEq/l (22.0-26.0); Methemoglobin ABG 0.4 %THb (0-1.5); Modified Allen's Test Pass; Oxygen Content ABG 15.8 %vol (16.0-22.0); Oxygen Saturation ABG 97.4 % (95.0-100.0); Oxyhemoglobin 96.2 % THb (90.0-100.0); PO2 ABG 95.4 mmHg (80.0-100.0); PO2 FiO2 Ratio Arterial Blood 3.18 %; Reduced Hemoglobin 3.2 %THb (0-5.0); Site Drawn LEFT RADIAL; Total Hemoglobin 11.6 g/dL (12.0-18.0); pH ABG 7.414 (7.350-7.450)
[2021-11-04 05:08] LABS: Arterial Blood Gas PEEP 5 cmH2O; Arterial Blood Gas Tidal Volume 450 ml; Arterial Blood Gas Vent Mode CMV; Arterial Blood Gas Ventilator rate 24 /MIN
[2021-11-04] MEDS: CENTRAL LINE FLUSH 10 ML IV PUSH ×3 (06:01→20:20)
[2021-11-04 06:18] LABS: Glucose Point of Care 190 mg/dl (65-105)
[2021-11-04] MEDS: KCL 40 MEQ/WATER 100 ML 100 ML 25 ML IVPB ×2 (06:33→09:49)
--- NOTE | 2021-11-04 07:28 | WPDINTPN ---
Progress Note: A&P Assessment and Plan (1) Ventricular tachycardia: Code(s): I47.2 - Ventricular tachycardia Status: Acute Assessment and Plan: 11/02: Patient went to quite complex ventricular tachycardia patient was given Versed before cardioversion and converted spontaneously to SVT/atrial flutter. -patient did receive amiodarone bolus and was started amiodarone infusion. -he also received lidocaine IV push -V-tach could be related to diabetic ketoacidosis, pneumonia, septic shock, coronary artery disease -11/03 morning: Patient had a 30 beat run of V-tach, was given additional amiodarone bolus, and his amiodarone infusion was increased to 1 mg/min -11/03 evening: Patient has show 6-8 beat run of V-tach -11/03: cardiac catheterization - totally occluded RCA and the ostium which according to him is chronic as the patient has [id number] collaterals. -will maintain potassium > 4.0 and magnesium > 2.0 (2) Non-STEMI (non-ST elevated myocardial infarction): Code(s): I21.4 - Non-ST elevation (NSTEMI) myocardial infarction Status: Acute Assessment and Plan: Elevated troponins, he does have a significant history of coronary artery disease, history of PCI to the LAD, CABG with HUDSON to LAD and aortic valve replacement in 2019 -patient on admission denied chest pain, nausea, vomiting, abdominal pain, shortness of breath -appreciate cardiology evaluation recommendation -patient was initially placed on beta-doe which currently is on hold due to hypotension and on vasopressors -therapeutic Lovenox 1 mg/kg x1 was given on 11/02 -troponins peaked at 3.35 (1.17 on admission) - 11/03: cardiac catheterization - totally occluded RCA and the ostium which according to him is chronic as the patient has [id number] collaterals. Echocardiogram 11/02/21: LV chamber dimension is normal, LV systolic function is low normal, EF 50-55%. Grade 1 diastolic dysfunction, mild mitral valve stenosis (3) Acute respiratory failure: Code(s): J96.00 - Acute respiratory failure, unspecified whether with hypoxia or hypercapnia Status: Acute Assessment and Plan: Patient presented with a pneumonia, went into wide complex ventricular tachycardia, was tachypneic with shallow breathing. Also noted to have mottling on his lower extremities, I decided to intubate the patient for airway protection -patient was successfully intubated on 11/02 -currently on CMV mode of ventilation, peep of 5 in 35% FiO2 -chest x-ray and ABGs reviewed -continue antibiotics, bronchodilators -sedated with fentanyl and Versed infusion, have asked the bedside RN to wean sedation, will place patient on SBT and evaluate for extubation if able (4) Septic shock: Code(s): A41.9 - Sepsis, unspecified organism; R65.21 - Severe sepsis with septic shock Status: Acute Assessment and Plan: Patient presented to the hospital with generalized weakness and was found to have Leukocytosis, lactic acidosis, tachycardia, tachypnea, bandemia, pneumonia -likely source - lungs, blood stream infection -left femoral central line was placed on 11/02/2021 -OFF LEVOPHED -10/05: Blood cultures growing Gram-positive cocci in pairs 2/2 bottles, identification and sensitivities pending -continue ceftriaxone and azithromycin (11/02) , vancomycin (11/03), will deescalate as needed (5) Community acquired pneumonia: Qualifiers: Laterality: unspecified laterality Qualified Code(s): J18.9 - Pneumonia, unspecified organism Code(s): J18.9 - Pneumonia, unspecified organism Status: Acute Assessment and Plan: Chest x-ray showed left lower base infiltrates, patient with leukocytosis, bandemia -continue antibiotics as above -continue bronchodilators given he is a smoker (6) DKA (diabetic ketoacidosis): Qualifiers: Diabetes mellitus complication detail: without coma Diabetes mellitus type: type 2 Qualified Code(s): E11.10 - Type
[2021-11-04] MEDS: POTASSIUM/PHOSPHORUS/SODIUM 1.5 GM PACKET 1 PACKET PO (08:14)
[2021-11-04] MEDS: FOLIC ACID 1 MG/0.2 ML INJ IV PUSH (08:15)
[2021-11-04] MEDS: THIAMINE HCL 200 MG/2 ML VIAL 100 MG IV PUSH (08:16)
[2021-11-04] MEDS: PANTOPRAZOLE SODIUM IV 40 MG VIAL IV PUSH (08:17)
[2021-11-04] MEDS: ATORVASTATIN 40 MG TABLET 80 MG PO (08:25)
[2021-11-04] MEDS: CLOPIDOGREL BISULFATE 75 MG TABLET PO (08:25)
[2021-11-04] MEDS: MINERAL OIL/WHITE PETROLATUM OINTMENT 1 APPLIC EACH EYE ×2 (08:26→19:53)
[2021-11-04] MEDS: ASPIRIN 81 MG CHEWABLE TABLET PO (08:26)
--- NOTE | 2021-11-04 10:05 | PM.PNCARD ---
Progress Note: A&P Assessment and Plan (1) Diabetic ketoacidosis: Code(s): E11.10 - Type 2 diabetes mellitus with ketoacidosis without coma Status: Acute Assessment and Plan: Treatment per Dr. Stallings. Main etiology is likely secondary to simply not taking his medications. (2) Hypertension associated with diabetes: Code(s): E11.59 - Type 2 diabetes mellitus with other circulatory complications; I15.2 - Hypertension secondary to endocrine disorders Status: Acute Assessment and Plan: At goal (3) Hyperlipidemia associated with type 2 diabetes mellitus: Code(s): E11.69 - Type 2 diabetes mellitus with other specified complication; E78.5 - Hyperlipidemia, unspecified Status: Acute Assessment and Plan: Supposed to be taking atorvastatin 80 mg p.o. daily. (4) Status post aortic valve replacement: Code(s): Z95.2 - Presence of prosthetic heart valve Status: Acute Assessment and Plan: Previously function normally. Aspirin 81 mg p.o. daily to be initiated (5) Coronary disease: Code(s): I25.10 - Atherosclerotic heart disease of havasupai coronary artery without angina pectoris Status: Acute Assessment and Plan: Cardiac catheterization yesterday as detailed above. RCA occluded. Distal circumflex subtotally occluded and unable to pass wire. Hudson is patent. (6) Tobacco use: Code(s): Z72.0 - Tobacco use Status: Acute Assessment and Plan: Ongoing (7) Weight loss: Code(s): R63.4 - Abnormal weight loss Status: Acute Assessment and Plan: May be related to DKA/poorly controlled diabetes. He is a chronic smoker and cannot rule out underlying malignancy versus other (8) Elevated troponin: Code(s): R77.8 - Other specified abnormalities of plasma proteins Status: Acute Assessment and Plan: Related to non-STEMI (9) Noncompliance: Code(s): Z91.19 - Patient's noncompliance with other medical treatment and regimen Status: Acute Assessment and Plan: Quit taking his diabetic medications recently and possibly even all of his medications recently (10) Peripheral artery disease: Code(s): I73.9 - Peripheral vascular disease, unspecified Status: Acute Assessment and Plan: Fem tib bypass last year at [facility] and amputation noted (11) Presence of permanent cardiac pacemaker: Code(s): Z95.0 - Presence of cardiac pacemaker Status: Acute Assessment and Plan: Functioning normally (12) Ventricular tachycardia: Code(s): I47.2 - Ventricular tachycardia Status: Acute Assessment and Plan: Aggressively replacing potassium. Magnesium at goal. Will reduce amiodarone drip to 0.5 mg / minute. Monitor rhythm. Subjective Date/time seen: 11/04/21 10:05 Interval history: Patient is a 71-year-old patient of mine who has a history of coronary disease, peripheral artery disease and aortic valvular disease coronary artery bypass with HUDSON to LAD as well as a lytic valve replacement with a pericardial tissue valve in 06/2020 . He also received a dual-chamber pacemaker on 06/23/2020. 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 Patient presented to the ED with generalized weakness, polydipsia, polyuria x3 days. Patient was found to be in DKA and was started on insulin infusion. Patient in the ICU had runs of wide complex V-tach requiring amiodarone bolus, lidocaine IV push, metoprolol with improvement in his rhythm and rate. Patient is converted to sinus rhythm. SARS-CoV-2 PCR, influenza A and B were negative. -11/02: Intubated -11/03: cardiac cath - totally occluded RCA and the ostium which according to him is chronic as the patient has [id number] collaterals. 11/04/2021: Remains intubated, on CMV mode of ventilation, peep of 5, 30% FiO2. Sedated
--- NOTE | 2021-11-04 11:21 | PCNFU ---
Nutrition Follow-Up Complete: Inadequate Oral Intake as related to mechanical vent as evidenced by NPO Goal: Meet estimated nutritional needs. Patient is progressing towards goal. We will continue current goal. Pt current nutrition is Vital AF 1.2 at 50 ml/hr over 22 hours. Last recorded weight is 86 kg, up from 85.3 kg on admit. Bowel Motility:No BM reported at this time. Labs Reviewed:Na 126, Alb 2.8, Hgb 9.9,Hct 29.1 Meds Noted:Versed, Fentanyl, Lantus, Vancomycin, KCL,Thiamine, Xopenex, Atrovent, Folic Acid, Plavix, Lipitor, Protonix, Rocephin,Levophed. Skin: WNL Additional Notes: Patient remains on mechanical vent and tube feedings of Vital AF 1.2 at 50 ml/hr and tolerating advancing to 70 ml/hr over 22 hours. Goal rate of tube feedings is providing patient with 1848 kcals/116 gm protein/1287 ml water. Free water flush 30 ml q 4 hours. Agree with diet orders. Possible extubated today or tomorrow. Will monitor in ICU rounds and reassessing every Sunday and Sunday.
[2021-11-04 13:08] LABS: Glucose Point of Care 225 mg/dl (65-105)
[2021-11-04] MEDS: FENTANYL 2,500MCG/NS250ML(*CRX 2,500 MCG/250 ML BAG IV CONT (14:00)
[2021-11-04 14:49] LABS: Anion Gap 5 mmol/L (8-16); Blood Urea Nitrogen 18 mg/dL (9-20); Calcium 7.3 mg/dL (8.4-10.2); Carbon Dioxide 25 mmol/L (22-30); Chloride 95 mmol/L (98-107); Estimated CRCL calculation 76 ml/min; Estimated Glomerular Filt Rate > 60; Glucose 292 mg/dL (65-110); Sodium 125 mmol/L (137-145)
--- NOTE | 2021-11-04 16:26 | P.PNIM_ITS ---
Progress Note: A&P Assessment and Plan (1) Ventricular tachycardia: Code(s): I47.2 - Ventricular tachycardia Status: Acute Assessment and Plan: On 11/02, patient developed a wide complex tachycardia consistent with VTach * Cardioversion was planned but patient converted spontaneously to SVT/atrial flutter. * Lidocaine IV push, Amiodarone bolus and was started amiodarone infusion * V-tach related to diabetic ketoacidosis, pneumonia, septic shock and/or coronary artery disease (suspect ischemia) * >70 beat run of VTach yesterday treated with Amio bolus and Amio rate increased; Mag also given * cardiology was notified and is aware; appreciate their input * Remains on Amio drip * Will maintain potassium > 4.0 and magnesium > 2.0 * [facility] 11/03 showing distal LCx 99%, 100% RCA (old) and 90% in-stent restenosis LAD but patent HUDSON to LAD. * No intervention performed. Plan for medical management (2) Septic shock: Code(s): A41.9 - Sepsis, unspecified organism; R65.21 - Severe sepsis with septic shock Status: Acute Assessment and Plan: Patient presents weakness and found to have leukocytosis, lactic acidosis, tachycardia, tachypnea, bandemia and HoTN * Patient with severe sepsis, septic shock and now septicemia from pneumonia * Treated with Levophed up to 15mcg/min; off Levophed now * BCx (2of2) positive for Strept Pneumoniae * continue ceftriaxone (11/02 1142) and azithromycin (11/02 1259) and vancomycin (11/03 0800) * Follow up on BCx sensitivities. Adjust antibiotics accordingly. (3) Acute respiratory failure: Code(s): J96.00 - Acute respiratory failure, unspecified whether with hypoxia or hyperca pnia Status: Acute Assessment and Plan: Patient presented with a pneumonia and went into wide complex ventricular tachycardia. * Was tachypneic with shallow breathing and LE mottling so decision to intubate on 11/02 * currently mechanical ventilation, peep of 5 and 30% FiO2 * CXR reviewed showing diffuse bilateral airspace disease * Continue Abx and bronchodilators * Continue sedation with fentanyl and Versed * Appreciate corn sheller input (4) DKA (diabetic ketoacidosis): Qualifiers: Diabetes mellitus complication detail: without coma Diabetes mellitus type: type 2 Qualified Code(s): E11.10 - Type 2 diabetes mellitus with ketoacidosis without coma Code(s): E11.10 - Type 2 diabetes mellitus with ketoacidosis without coma Status: Acute Assessment and Plan: Patient presented with weakness x3 days, decreased p.o. intake, polyuria, polydipsia and found to be in DKA * Patient has been noncompliant with his home treatment * pH 7.10, AG 26 * Given IV fluid and insulin * Anion gap cleared and was transitioned to Lantus and sliding scale insulin on 11/02 (5) Community acquired pneumonia: Qualifiers: Laterality: unspecified laterality Qualified Code(s): J18.9 - Pneumonia, unspecified organism Code(s): J18.9 - Pneumonia, unspecified organism Status: Acute Assessment and Plan: Patient presents with weakness * Chest x-ray showed left lower base infiltrates and has fever, leukocytosis, and bandemia * Now with positive BCx * As above (6) Non-STEMI (non-ST elevated myocardial infarction): Code(s): I21.4 - Non-ST elevation (NSTEMI) myocardial infarction Status: Acute Assessment and Plan: Patient preseted with weakness but denied chest pain. * Had elevated troponins to 3.35. EKG showing inferolateral ST and T-wave changes. * Known
--- NOTE | 2021-11-04 16:26 | PM.IMPN ---
Progress Note: A&P Assessment and Plan (1) Ventricular tachycardia: Code(s): I47.2 - Ventricular tachycardia Status: Acute Assessment and Plan: On 11/02, patient developed a wide complex tachycardia consistent with VTach Cardioversion was planned but patient converted spontaneously to SVT/atrial flutter. Lidocaine IV push, Amiodarone bolus and was started amiodarone infusion V-tach related to diabetic ketoacidosis, pneumonia, septic shock and/or coronary artery disease (suspect ischemia) >70 beat run of VTach yesterday treated with Amio bolus and Amio rate increased; Mag also given cardiology was notified and is aware; appreciate their input Remains on Amio drip Will maintain potassium > 4.0 and magnesium > 2.0 C 11/03 showing distal LCx 99%, 100% RCA (old) and 90% in-stent restenosis LAD but patent HUDSON to LAD. No intervention performed. Plan for medical management (2) Septic shock: Code(s): A41.9 - Sepsis, unspecified organism; R65.21 - Severe sepsis with septic shock Status: Acute Assessment and Plan: Patient presents weakness and found to have leukocytosis, lactic acidosis, tachycardia, tachypnea, bandemia and HoTN Patient with severe sepsis, septic shock and now septicemia from pneumonia Treated with Levophed up to 15mcg/min; off Levophed now BCx (2of2) positive for Strept Pneumoniae continue ceftriaxone (11/02 1142) and azithromycin (11/02 1259) and vancomycin (11/03 0800) Follow up on BCx sensitivities. Adjust antibiotics accordingly. (3) Acute respiratory failure: Code(s): J96.00 - Acute respiratory failure, unspecified whether with hypoxia or hypercapnia Status: Acute Assessment and Plan: Patient presented with a pneumonia and went into wide complex ventricular tachycardia. Was tachypneic with shallow breathing and LE mottling so decision to intubate on 11/02 currently mechanical ventilation, peep of 5 and 30% FiO2 CXR reviewed showing diffuse bilateral airspace disease Continue Abx and bronchodilators Continue sedation with fentanyl and Versed Appreciate wholesale account manager input (4) DKA (diabetic ketoacidosis): Qualifiers: Diabetes mellitus complication detail: without coma Diabetes mellitus type: type 2 Qualified Code(s): E11.10 - Type 2 diabetes mellitus with ketoacidosis without coma Code(s): E11.10 - Type 2 diabetes mellitus with ketoacidosis without coma Status: Acute Assessment and Plan: Patient presented with weakness x3 days, decreased p.o. intake, polyuria, polydipsia and found to be in DKA Patient has been noncompliant with his home treatment pH 7.10, AG 26 Given IV fluid and insulin Anion gap cleared and was transitioned to Lantus and sliding scale insulin on 11/02 (5) Community acquired pneumonia: Qualifiers: Laterality: unspecified laterality Qualified Code(s): J18.9 - Pneumonia, unspecified organism Code(s): J18.9 - Pneumonia, unspecified organism Status: Acute Assessment and Plan: Patient presents with weakness Chest x-ray showed left lower base infiltrates and has fever, leukocytosis, and bandemia Now with positive BCx As above (6) Non-STEMI (non-ST elevated myocardial infarction): Code(s): I21.4 - Non-ST elevation (NSTEMI) myocardial infarction Status: Acute Assessment and Plan: Patient preseted with weakness but denied chest pain. Had elevated troponins to 3.35. EKG showing inferolateral ST and T-wave changes. Known CAD with PCI to the LAD, CABG with HUDSON to LAD and aortic valve replacement in 06/2020 Echo showing EF 50-55% and Grade I diastolic dysfunction and mild MR/MS. No wall motion abnormalities [facility] 11/03 showing distal LCx 99%, 100% RCA (old) and 90% in-stent restenosis LAD but patent HUDSON to LAD. No intervention performed. Patient on Lipitor and ASA. Metoprolol on hold due to HoNT. Plavix added Cardiology consulted and ap
[2021-11-04 18:12] LABS: Glucose Point of Care 333 mg/dl (65-105)
[2021-11-04] MEDS: AMIODARONE 360 MG/D5W 200 ML 360 MG/200 ML BAG 16.67 MG IV CONT (18:17)
[2021-11-04] MEDS: INSULIN GLARGINE (*BKC) 100 UNITS/ML 40 UNITS SUB-Q (20:19)
[2021-11-04 20:23] LABS: Glucose Point of Care 311 mg/dl (65-105)
[2021-11-04] MEDS: MIDAZOLAM 100MG/NS 100ML(*CRX) 100 MG/100 ML BAG IV CONT (22:07)
[2021-11-05] VITALS (35 sets, daily range): BP systolic 104–159; BP diastolic 61–85; PULSE 72–96; RESP 12–32; TEMP 36.2–38.3; O2SAT 98–100
[2021-11-05] MEDS: INSULIN ASPART (*BKC) 100 UNITS/ML SUB-Q ×4 (00:25→17:44)
[2021-11-05 00:38] LABS: Glucose Point of Care 317 mg/dl (65-105)
[2021-11-05] MEDS: LEVALBUTEROL NEB 1.25 MG/3 ML 0.63 MG INHALATION ×4 (02:26→20:09)
[2021-11-05] MEDS: IPRATROPIUM BR 0.02% INH SOLN 0.5 MG/2.5 ML VIAL INHALATION ×4 (02:26→20:08)
[2021-11-05 05:23] LABS: Alveolar/Arterial O2 Gradient 63.3 mmHg; Base Excess ABG -0.4 mEq/l (+/-2.0); Carboxyhemoglobin 0.2 % THb (0-2.0); Fractional Inspired Oxygen 30 %; HCO3 ABG 24.6 mEq/l (22.0-26.0); Methemoglobin ABG 0.3 %THb (0-1.5); Oxygen Content ABG 14.4 %vol (16.0-22.0); Oxygen Saturation ABG 97.6 % (95.0-100.0); Oxyhemoglobin 96.5 % THb (90.0-100.0); PCO2 ABG 41.7 mmHg (35.0-45.0); PO2 ABG 101.6 mmHg (80.0-100.0); PO2 FiO2 Ratio Arterial Blood 3.39 %; Total Hemoglobin 10.5 g/dL (12.0-18.0); pH ABG 7.389 (7.350-7.450)
[2021-11-05 05:24] LABS: Device VENTILATOR; Modified Allen's Test Unable to perform; Site Drawn RIGHT RADIAL
[2021-11-05 05:25] LABS: Arterial Blood Gas PEEP 5 cmH2O; Arterial Blood Gas Ventilator rate 24 /MIN
[2021-11-05 05:26] LABS: Arterial Blood Gas Tidal Volume 450 ml; Arterial Blood Gas Vent Mode CMV
[2021-11-05 05:28] LABS: Basophils Percent Auto 0.4 % (0.2-1.2); Eosinophils Percent Auto 0.2 % (0-4.4); Hematocrit 28.4 % (42.0-52.0); Hemoglobin 9.7 g/dL (14.0-18.0); Immature Granulocyte Absolute 0.06 K/mm3 (0.00-0.031); Immature Granulocyte Percent A 0.7 % (0-0.5); Immature Platelet Fraction Pct 9.4 % (0.9-11.2); Lymphocytes Absolute Auto 0.76 K/mm3 (0.9-3.2); Mean Corpuscular HGB Conc 34.2 g/dl (32-36); Mean Corpuscular Hemoglobin 32.8 pg (26-34); Mean Corpuscular Volume 95.9 fl (80-100); Mean Platelet Volume 11.2 fl (7.4-10.4); Monocytes Absolute Auto 0.8 K/mm3 (0.1-0.6); Monocytes Percent Auto 9.5 % (2.6-8.5); Neutrophils Absolute Auto 6.8 K/mm3 (1.3-6.7); Neutrophils Percent Auto 80.2 % (45.5-73.1); Platelet Count Result 118 k/mm3 (150-375); Red Blood Count 2.96 M/mm3 (4.6-6.20); Red Cell Distribution Width 13.2 % (11.5-14.5); White Blood Count 8.5 K/mm3 (4.5-10.0)
[2021-11-05 05:36] LABS: Lactic Acid Reflex 1.2 mmol/L (0.7-2.1)
[2021-11-05 05:38] LABS: Alanine Aminotransferase 34 U/L (4-50); Alkaline Phosphatase 228 U/L (38-126); Anion Gap 3 mmol/L (8-16); Aspartate Amino Transferase 46 U/L (17-59); Bilirubin,Total 0.5 mg/dL (0.2-1.3); Blood Urea Nitrogen 15 mg/dL (9-20); Calcium 7.4 mg/dL (8.4-10.2); Carbon Dioxide 27 mmol/L (22-30); Chloride 96 mmol/L (98-107); Estimated CRCL calculation 86 ml/min; Estimated Glomerular Filt Rate > 60; Glucose 256 mg/dL (65-110); Magnesium 2.2 mg/dL (1.6-2.3); Phosphorus 2.4 mg/dL (2.5-4.5); Potassium 3.5 mmol/L (3.4-5.0); Sodium 126 mmol/L (137-145)
[2021-11-05] MEDS: CENTRAL LINE FLUSH 10 ML IV PUSH ×3 (06:06→20:02)
[2021-11-05] MEDS: AMIODARONE 360 MG/D5W 200 ML 360 MG/200 ML BAG 16.67 MG IV CONT ×2 (06:10→17:27)
[2021-11-05 06:15] LABS: Glucose Point of Care 275 mg/dl (65-105)
--- NOTE | 2021-11-05 08:22 | WPDINTPN ---
Progress Note: A&P Assessment and Plan (1) Ventricular tachycardia: Code(s): I47.2 - Ventricular tachycardia Status: Acute Assessment and Plan: 11/02: Patient went to quite complex ventricular tachycardia patient was given Versed before cardioversion and converted spontaneously to SVT/atrial flutter. Patient did receive amiodarone bolus and was started amiodarone infusion. He also received lidocaine IV push -V-tach could be related to diabetic ketoacidosis, pneumonia, septic shock, coronary artery disease -11/03 morning: Patient had a 30 beat run of V-tach, was given additional amiodarone bolus, and his amiodarone infusion was increased to 1 mg/min -11/03 evening: Patient has show 6-8 beat run of V-tach -11/03: cardiac catheterization - totally occluded RCA and the ostium which according to him is chronic as the patient has gojx-oe-guror collaterals. -will maintain potassium > 4.0 and magnesium > 2.0 -continue amiodarone infusion at 0.5 mg/hr -will add low-dose metoprolol 12.5 mg Q12h -cardiology following the patient (2) Non-STEMI (non-ST elevated myocardial infarction): Code(s): I21.4 - Non-ST elevation (NSTEMI) myocardial infarction Status: Acute Assessment and Plan: Elevated troponins, he does have a significant history of coronary artery disease, history of PCI to the LAD, CABG with HUDSON to LAD and aortic valve replacement in 2019 -patient on admission denied chest pain, nausea, vomiting, abdominal pain, shortness of breath -appreciate cardiology evaluation recommendation -patient was initially placed on beta-doe which currently is on hold due to hypotension and on vasopressors -therapeutic Lovenox 1 mg/kg x1 was given on 11/02 -troponins peaked at 3.35 (1.17 on admission) - 11/03: cardiac catheterization - totally occluded RCA and the ostium which according to him is chronic as the patient has [id number] collaterals. Echocardiogram 11/02/21: LV chamber dimension is normal, LV systolic function is low normal, EF 50-55%. Grade 1 diastolic dysfunction, mild mitral valve stenosis (3) Acute respiratory failure: Code(s): J96.00 - Acute respiratory failure, unspecified whether with hypoxia or hypercapnia Status: Acute Assessment and Plan: Patient presented with a pneumonia, went into wide complex ventricular tachycardia, was tachypneic with shallow breathing. Also noted to have mottling on his lower extremities, I decided to intubate the patient for airway protection -patient was successfully intubated on 11/02 -currently on CMV mode of ventilation, peep of 5 in 35% FiO2 -chest x-ray and ABGs reviewed -continue antibiotics, bronchodilators -sedated with fentanyl and Versed infusion, will discontinue sedation, will place on SBT and evaluate for extubation. If patient gets agitated may add small dose of Precedex (4) Septic shock: Code(s): A41.9 - Sepsis, unspecified organism; R65.21 - Severe sepsis with septic shock Status: Acute Assessment and Plan: RESOLVED Patient presented to the hospital with generalized weakness and was found to have Leukocytosis, lactic acidosis, tachycardia, tachypnea, bandemia, pneumonia -likely source - lungs, blood stream infection -left femoral central line was placed on 11/02/2021 -OFF LEVOPHED -10/05: Strep pneumoniae, sensitivities pending -continue ceftriaxone and azithromycin (11/02) , vancomycin (11/03), will deescalate once sensitivities are reported (5) Community acquired pneumonia: Qualifiers: Laterality: unspecified laterality Qualified Code(s): J18.9 - Pneumonia, unspecified organism Code(s): J18.9 - Pneumonia, unspecified organism Status: Acute Assessment and Plan: Chest x-ray this morning shows Decreasing opacities in the left lower lung zone consistent with improving pneumonia. -continue antibiotics as above -continue bronchodilators given he is a smoker (6) DKA (diabetic ketoacidosis):
[2021-11-05] MEDS: KCL 40 MEQ/WATER 100 ML 100 ML 25 ML IVPB (08:31)
[2021-11-05] MEDS: POTASSIUM/PHOSPHORUS/SODIUM 1.5 GM PACKET 1 PACKET PO (08:31)
[2021-11-05] MEDS: METOPROLOL TARTRATE 12.5 MG TABLET PO ×2 (09:00→20:02)
--- NOTE | 2021-11-05 10:07 | PM.PNCARD ---
Progress Note: A&P Additional Plan 71-year-old patient with extensive coronary disease and extensive peripheral vascular disease. Patient has chronic occlusion of the right coronary artery and recent occlusion of the distal circumflex. Previous HUDSON graft to LAD remains patent. Ventricular arrhythmias in this setting with this underlying ischemic disease and diabetic ketoacidosis are not unexpected. Prognosis for this gentleman unfortunately appears to be quite poor given his extensive vascular disease ongoing smoking and noncompliance with medication. Agree with instituting beta doe gently. We will keep him on intravenous amiodarone until he is extubated which has been the plan. 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 He also received a dual-chamber pacemaker on 06/23/2020. 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 Patient presented to the ED with generalized weakness, polydipsia, polyuria x3 days. Patient was found to be in DKA and was started on insulin infusion. Patient in the ICU had runs of wide complex V-tach requiring amiodarone bolus, lidocaine IV push, metoprolol with improvement in his rhythm and rate. Patient is converted to sinus rhythm. SARS-CoV-2 PCR, influenza A and B were negative. -11/02: Intubated -11/03: cardiac cath - totally occluded RCA and the ostium which according to him is chronic as the patient has [id number] collaterals. 11/04/2021: Remains intubated, on CMV mode of ventilation, peep of 5, 30% FiO2. Sedated with fentanyl 50 mcg/hr and Versed 2 mg/hr, his eyes for me, did not follow commands. The night bedside RN stated that he did follow commands in his lower extremities for her. Urine output has been adequate, patient has been afebrile, white count has come down significantly. Patient is OFF LEVOPHED. Was started on tube feeds last night, tolerating. Patient had a short run of V-tach around 8:00 p.m. last night. Potassium is being replaced this morning Date of service 11/05/2021: Patient remains in the ICU intubated on ventilator support. Pressors have been stopped. Low-dose of metoprolol has been appropriately started by the deputy brand inspector staff. Remains on IV amiodarone normal sinus rhythm no recent ventricular arrhythmias Exam Const: General: comfortable and no acute distress Other: Intubated sedated chronically ill-appearing patient HENMT: Mouth: Yes dry mucous membranes Eyes: Sclera: sclerae normal Neck: Neck: supple and no JVD Resp: Other: Breath sounds are tubular no rales no rhonchi Cardio: Rate: regular rate Rhythm: regular rhythm Other: PMI difficult to palpate soft systolic murmur does not radiate from the left sternal border GI: GI Palp: Yes Soft to palpation Auscultation: normal bowel sounds Skin: General skin exam: normal color Neuro: Other: Sedated Extrem: Other: No edema, no palpable pulses in the lower extremities below the femoral triangle Objective Data Vital Signs Vital Signs: Vital Signs - 24 hr 11/04/21 10:23 11/04/21 11:00 11/04/21 12:00 Temperature 37.5 C Pulse Rate 77 73 73 Respiratory Rate 22 H Blood Pressure 104/73 103/72 Pulse Oximetry 100 100 11/04/21 13:50 11/04/21 14:00 11/04/21 14:33 Temperature 37.7 C H Pulse Rate 72 72 73 Respiratory Rate 21 H 21 H 24 H Blood Pressure 105/68 Pulse Oximetry 100 100 11/04/21 14:43 11/04/21 16:00 11/04/21 17:05 Temperature 37.8 C H Pulse Rate 71 86 79 Respiratory Rate 24 H 22 H Blood Pressure 112/70 Pulse Oximetry 100 100 11/04/21 18:00 11/04/21 18:17
[2021-11-05] MEDS: CLOPIDOGREL BISULFATE 75 MG TABLET PO (10:48)
[2021-11-05] MEDS: ATORVASTATIN 40 MG TABLET 80 MG PO (10:48)
[2021-11-05] MEDS: PANTOPRAZOLE SODIUM IV 40 MG VIAL IV PUSH (10:49)
[2021-11-05] MEDS: ENOXAPARIN 40 MG/0.4 ML SYRINGE SUB-Q (10:49)
[2021-11-05] MEDS: ASPIRIN 81 MG CHEWABLE TABLET PO (10:49)
[2021-11-05] MEDS: THIAMINE HCL 200 MG/2 ML VIAL 100 MG IV PUSH (10:50)
[2021-11-05] MEDS: MINERAL OIL/WHITE PETROLATUM OINTMENT 1 APPLIC EACH EYE ×2 (10:50→20:02)
[2021-11-05] MEDS: INSULIN GLARGINE (*BKC) 100 UNITS/ML 35 UNITS SUB-Q ×2 (10:59→20:02)
[2021-11-05] MEDS: FOLIC ACID 1 MG/0.2 ML INJ IV PUSH (11:00)
--- NOTE | 2021-11-05 11:32 | P.PNIM_ITS ---
Progress Note: A&P Assessment and Plan (1) Ventricular tachycardia: Code(s): I47.2 - Ventricular tachycardia Status: Acute Assessment and Plan: On 11/02, patient developed a wide complex tachycardia consistent with VTach * Cardioversion was planned but patient converted spontaneously to SVT/atrial flutter. * Lidocaine IV push, Amiodarone bolus and was started amiodarone infusion * V-tach could be related to diabetic ketoacidosis, pneumonia, septic shock and/or coronary artery disease * >70 beat run of VTach today treated with Amio bolus and Amiod rate increased; Mag also given * will maintain potassium > 4.0 and magnesium > 2.0 (2) Acute respiratory failure: Code(s): J96.00 - Acute respiratory failure, unspecified whether with hypoxia or hypercapnia Status: Acute Assessment and Plan: Patient presented with a pneumonia and went into wide complex ventricular tachycardia. * Was tachypneic with shallow breathing and LE mottling so decision to intubate on 11/02 * currently mechanical ventilation * CXR reviewed showing diffuse bilateral airspace disease * Continue Abx and bronchodilators * Continue sedation with fentanyl and Versed * Appreciate food science technician input (3) Septic shock: Code(s): A41.9 - Sepsis, unspecified organism; R65.21 - Severe sepsis with septic shock Status: Acute Assessment and Plan: Patient presents weakness and found to have leukocytosis, lactic acidosis, tachycardia, tachypnea, bandemia and HoTN * Treated with Levophed up to 15mcg/min; improved today * [place] source of septic shock is pneumonia and septicemia with +BCx felt related to PNA * BCx (2of2) positive for gram positive cocci in pairs; Hx of Enterococcus * continue ceftriaxone (11/02 1142) and azithromycin (11/02 1259) and vancomycin (11/03 0800) * Follow up on BCx. * Pit And Auxiliaries Supervisor following (4) DKA (diabetic ketoacidosis): Qualifiers: Diabetes mellitus complication detail: without coma Diabetes mellitus type: type 2 Qualified Code(s): E11.10 - Type 2 diabetes mellitus with ketoacidosis without coma Code(s): E11.10 - Type 2 diabetes mellitus with ketoacidosis without coma Status: Acute Assessment and Plan: Patient presented with weakness x3 days, decreased p.o. intake, polyuria, polydipsia and found to be in DKA * Patient has been noncompliant with his home treatment * pH 7.10, AG 26 * Given IV fluid and insulin * Anion gap cleared and was transitioned to Lantus and sliding scale insulin on 11/02 (5) Community acquired pneumonia: Qualifiers: Laterality: unspecified laterality Qualified Code(s): J18.9 - Pneumonia, unspecified organism Code(s): J18.9 - Pneumonia, unspecified organism Status: Acute Assessment and Plan: Patient presents with weakness * Chest x-ray showed left lower base infiltrates nad has fever, leukocytosis, and bandemia * Now with positive BCx * As above (6) Non-STEMI (non-ST elevated myocardial infarction): Code(s): I21.4 - Non-ST elevation (NSTEMI) myocardial infarction Status: Acute Assessment and Plan: Patient preseted with weakness but denies chest pain. * Had elevated troponins to 3.35. EKG showing inferolateral ST and T-wave changes. * Known CAD with PCI to the LAD, CABG with HUDSON to LAD and aortic valve replacement in 06/2020 * Echo showing EF 50-55% and Grade I diastolic dysfunction and mild MR/MS. No wall motion abnormalities * Patient on Lipitor and ASA. Metoprolol on hold due to HoNT * O
--- NOTE | 2021-11-05 11:32 | PM.IMPN ---
Progress Note: A&P Assessment and Plan (1) Ventricular tachycardia: Code(s): I47.2 - Ventricular tachycardia Status: Acute Assessment and Plan: On 11/02, patient developed a wide complex tachycardia consistent with VTach Cardioversion was planned but patient converted spontaneously to SVT/atrial flutter. Lidocaine IV push, Amiodarone bolus and was started amiodarone infusion V-tach could be related to diabetic ketoacidosis, pneumonia, septic shock and/or coronary artery disease >70 beat run of VTach today treated with Amio bolus and Amiod rate increased; Mag also given will maintain potassium > 4.0 and magnesium > 2.0 (2) Acute respiratory failure: Code(s): J96.00 - Acute respiratory failure, unspecified whether with hypoxia or hypercapnia Status: Acute Assessment and Plan: Patient presented with a pneumonia and went into wide complex ventricular tachycardia. Was tachypneic with shallow breathing and LE mottling so decision to intubate on 11/02 currently mechanical ventilation CXR reviewed showing diffuse bilateral airspace disease Continue Abx and bronchodilators Continue sedation with fentanyl and Versed Appreciate continuous improvement intern input (3) Septic shock: Code(s): A41.9 - Sepsis, unspecified organism; R65.21 - Severe sepsis with septic shock Status: Acute Assessment and Plan: Patient presents weakness and found to have leukocytosis, lactic acidosis, tachycardia, tachypnea, bandemia and HoTN Treated with Levophed up to 15mcg/min; improved today [place] source of septic shock is pneumonia and septicemia with +BCx felt related to PNA BCx (2of2) positive for gram positive cocci in pairs; Hx of Enterococcus continue ceftriaxone (11/02 1142) and azithromycin (11/02 1259) and vancomycin (11/03 0800) Follow up on BCx. Mortuary Operations Manager following (4) DKA (diabetic ketoacidosis): Qualifiers: Diabetes mellitus complication detail: without coma Diabetes mellitus type: type 2 Qualified Code(s): E11.10 - Type 2 diabetes mellitus with ketoacidosis without coma Code(s): E11.10 - Type 2 diabetes mellitus with ketoacidosis without coma Status: Acute Assessment and Plan: Patient presented with weakness x3 days, decreased p.o. intake, polyuria, polydipsia and found to be in DKA Patient has been noncompliant with his home treatment pH 7.10, AG 26 Given IV fluid and insulin Anion gap cleared and was transitioned to Lantus and sliding scale insulin on 11/02 (5) Community acquired pneumonia: Qualifiers: Laterality: unspecified laterality Qualified Code(s): J18.9 - Pneumonia, unspecified organism Code(s): J18.9 - Pneumonia, unspecified organism Status: Acute Assessment and Plan: Patient presents with weakness Chest x-ray showed left lower base infiltrates nad has fever, leukocytosis, and bandemia Now with positive BCx As above (6) Non-STEMI (non-ST elevated myocardial infarction): Code(s): I21.4 - Non-ST elevation (NSTEMI) myocardial infarction Status: Acute Assessment and Plan: Patient preseted with weakness but denies chest pain. Had elevated troponins to 3.35. EKG showing inferolateral ST and T-wave changes. Known CAD with PCI to the LAD, CABG with HUDSON to LAD and aortic valve replacement in 06/2020 Echo showing EF 50-55% and Grade I diastolic dysfunction and mild MR/MS. No wall motion abnormalities Patient on Lipitor and ASA. Metoprolol on hold due to HoNT On therapeutic Lovenox Status post cardiac catheterization with significant coronary artery disease guarded prognosis (7) Diabetes mellitus: Code(s): E11.9 - Type 2 diabetes mellitus without complications Status: Acute Assessment and Plan: Patient with known diabetes On metformin at home but his 13.6 last year has been noncompliant with his medications at home A1c >14 now Unclear if he checks his
[2021-11-05 12:48] LABS: Glucose Point of Care 252 mg/dl (65-105)
[2021-11-05 13:21] LABS: Vancomycin Trough 8.5 ug/mL (10.0-20.0)
[2021-11-05] MEDS: DORNASE ALFA INH SOLN 1 MG/ML 2.5 ML AMP 2.5 MG INHALATION ×2 (14:23→20:09)
[2021-11-05 17:51] LABS: Glucose Point of Care 244 mg/dl (65-105)
[2021-11-05 20:06] LABS: Glucose Point of Care 218 mg/dl (65-105)
[2021-11-05] MEDS: ACETAMINOPHEN 325 MG TABLET 650 MG PO (22:39)
[2021-11-06] VITALS (38 sets, daily range): BP systolic 92–149; BP diastolic 55–112; PULSE 60–96; RESP 14–35; TEMP 36.9–38.2; O2SAT 98–100
[2021-11-06] MEDS: INSULIN ASPART (*BKC) 100 UNITS/ML SUB-Q ×2 (00:10→05:14)
[2021-11-06] MEDS: IPRATROPIUM BR 0.02% INH SOLN 0.5 MG/2.5 ML VIAL INHALATION ×4 (01:56→19:25)
[2021-11-06] MEDS: LEVALBUTEROL NEB 1.25 MG/3 ML 0.63 MG INHALATION ×4 (01:56→19:25)
[2021-11-06] MEDS: dexmedeTOMIDine 400 MCG/100 ML 400 MCG/100 ML BAG IV CONT (04:49)
[2021-11-06 05:04] LABS: Base Excess ABG 1.4 mEq/l (+/-2.0); Carboxyhemoglobin 0.5 % THb (0-2.0); HCO3 ABG 27.5 mEq/l (22.0-26.0); Methemoglobin ABG 0.3 %THb (0-1.5); Oxygen Content ABG 17.1 %vol (16.0-22.0); Oxyhemoglobin 96.8 % THb (90.0-100.0); PCO2 ABG 49.9 mmHg (35.0-45.0); Reduced Hemoglobin 2.4 %THb (0-5.0); Total Hemoglobin 12.5 g/dL (12.0-18.0); pH ABG 7.359 (7.350-7.450)
[2021-11-06 05:11] LABS: Arterial Blood Gas PEEP 5 cmH2O; Arterial Blood Gas Vent Mode ASV; Device VENTILATOR; Fractional Inspired Oxygen 30 %; Modified Allen's Test Pass; Site Drawn RIGHT RADIAL
[2021-11-06 05:14] LABS: Glucose Point of Care 216 mg/dl (65-105)
[2021-11-06 05:14] LABS: Glucose Point of Care 207 mg/dl (65-105)
[2021-11-06] MEDS: CENTRAL LINE FLUSH 10 ML IV PUSH ×3 (05:14→21:45)
[2021-11-06] MEDS: AMIODARONE 360 MG/D5W 200 ML 360 MG/200 ML BAG 16.67 MG IV CONT ×2 (05:14→15:50)
[2021-11-06 05:42] LABS: Basophils Percent Auto 0.4 % (0.2-1.2); Eosinophils Percent Auto 0.3 % (0-4.4); Hematocrit 27.5 % (42.0-52.0); Hemoglobin 8.9 g/dL (14.0-18.0); Immature Granulocyte Absolute 0.11 K/mm3 (0.00-0.031); Immature Granulocyte Percent A 1.6 % (0-0.5); Immature Platelet Fraction Pct 9.2 % (0.9-11.2); Lymphocytes Absolute Auto 0.61 K/mm3 (0.9-3.2); Lymphocytes Percent Auto 8.6 % (18.3-44.2); Mean Corpuscular HGB Conc 32.4 g/dl (32-36); Mean Corpuscular Hemoglobin 31.2 pg (26-34); Mean Corpuscular Volume 96.5 fl (80-100); Mean Platelet Volume 11.5 fl (7.4-10.4); Monocytes Absolute Auto 1.1 K/mm3 (0.1-0.6); Neutrophils Absolute Auto 5.3 K/mm3 (1.3-6.7); Neutrophils Percent Auto 74.1 % (45.5-73.1); Platelet Count Result 112 k/mm3 (150-375); Red Blood Count 2.85 M/mm3 (4.6-6.20); Red Cell Distribution Width 13.4 % (11.5-14.5); White Blood Count 7.1 K/mm3 (4.5-10.0)
[2021-11-06 05:57] LABS: Alanine Aminotransferase 69 U/L (4-50); Alkaline Phosphatase 473 U/L (38-126); Anion Gap 5 mmol/L (8-16); Aspartate Amino Transferase 161 U/L (17-59); Bilirubin,Total 0.8 mg/dL (0.2-1.3); Blood Urea Nitrogen 11 mg/dL (9-20); Calcium 7.7 mg/dL (8.4-10.2); Carbon Dioxide 28 mmol/L (22-30); Chloride 97 mmol/L (98-107); Estimated CRCL calculation 99 ml/min; Estimated Glomerular Filt Rate > 60; Glucose 188 mg/dL (65-110); Magnesium 2.2 mg/dL (1.6-2.3); Phosphorus 2.6 mg/dL (2.5-4.5); Potassium 3.3 mmol/L (3.4-5.0); Sodium 130 mmol/L (137-145)
[2021-11-06] MEDS: DORNASE ALFA INH SOLN 1 MG/ML 2.5 ML AMP 2.5 MG INHALATION ×2 (08:08→19:26)
--- NOTE | 2021-11-06 08:11 | WPDINTPN ---
Progress Note: A&P Assessment and Plan (1) Ventricular tachycardia: Code(s): I47.2 - Ventricular tachycardia Status: Acute Assessment and Plan: 11/02: Patient went to quite complex ventricular tachycardia patient was given Versed before cardioversion and converted spontaneously to SVT/atrial flutter. Patient did receive amiodarone bolus and was started amiodarone infusion. He also received lidocaine IV push -V-tach could be related to diabetic ketoacidosis, pneumonia, septic shock, coronary artery disease -11/03 morning: Patient had a 30 beat run of V-tach, was given additional amiodarone bolus, and his amiodarone infusion was increased to 1 mg/min -11/03 evening: Patient has show 6-8 beat run of V-tach -11/03: cardiac catheterization - totally occluded RCA and the ostium which according to him is chronic as the patient has [id number] collaterals. -will maintain potassium > 4.0 and magnesium > 2.0 -continue amiodarone infusion at 0.5 mg/hr -tolerating metoprolol 12.5 mg Q12h -cardiology following the patient (2) Non-STEMI (non-ST elevated myocardial infarction): Code(s): I21.4 - Non-ST elevation (NSTEMI) myocardial infarction Status: Acute Assessment and Plan: Elevated troponins, he does have a significant history of coronary artery disease, history of PCI to the LAD, CABG with HUDSON to LAD and aortic valve replacement in 2019 -patient on admission denied chest pain, nausea, vomiting, abdominal pain, shortness of breath -appreciate cardiology evaluation recommendation -patient was initially placed on beta-doe which currently is on hold due to hypotension and on vasopressors -therapeutic Lovenox 1 mg/kg x1 was given on 11/02 -troponins peaked at 3.35 (1.17 on admission) - 11/03: cardiac catheterization - totally occluded RCA and the ostium which according to him is chronic as the patient has [id number] collaterals. Echocardiogram 11/02/21: LV chamber dimension is normal, LV systolic function is low normal, EF 50-55%. Grade 1 diastolic dysfunction, mild mitral valve stenosis (3) Acute respiratory failure: Code(s): J96.00 - Acute respiratory failure, unspecified whether with hypoxia or hypercapnia Status: Acute Assessment and Plan: Patient presented with a pneumonia, went into wide complex ventricular tachycardia, was tachypneic with shallow breathing. Also noted to have mottling on his lower extremities, I decided to intubate the patient for airway protection -patient was successfully intubated on 11/02 -currently on CMV mode of ventilation, peep of 5 in 35% FiO2 -chest x-ray and ABGs reviewed -continue antibiotics, bronchodilators and Pulmozyme -patient on Precedex infusion, will place patient on SBT and evaluate for extubation (4) Septic shock: Code(s): A41.9 - Sepsis, unspecified organism; R65.21 - Severe sepsis with septic shock Status: Acute Assessment and Plan: RESOLVED Patient presented to the hospital with generalized weakness and was found to have Leukocytosis, lactic acidosis, tachycardia, tachypnea, bandemia, pneumonia -likely source - lungs, blood stream infection -left femoral central line was placed on 11/02/2021 -OFF LEVOPHED -10/05: Strep pneumoniae, sensitivities pending -continue ceftriaxone and azithromycin (11/02) , vancomycin (11/03), will deescalate once sensitivities are reported (5) Community acquired pneumonia: Qualifiers: Laterality: unspecified laterality Qualified Code(s): J18.9 - Pneumonia, unspecified organism Code(s): J18.9 - Pneumonia, unspecified organism Status: Acute Assessment and Plan: Chest x-ray this morning shows Persistent mild opacities at the bilateral lung bases which could represent atelectasis and/or pneumonia. -continue antibiotics as above -continue bronchodilators given he is a smoker (6) DKA (diabetic ketoacidosis): Qualifiers: Diabetes mellitus complication detai
[2021-11-06] MEDS: KCL 40 MEQ/WATER 100 ML 100 ML 25 ML IVPB ×2 (08:23→12:30)
[2021-11-06] MEDS: POTASSIUM CHLORIDE 20 MEQ PACKET (FOR LIQUID) 40 MEQ FEED TUBE (08:23)
[2021-11-06] MEDS: METOPROLOL TARTRATE 12.5 MG TABLET PO (08:24)
[2021-11-06] MEDS: PANTOPRAZOLE SODIUM IV 40 MG VIAL IV PUSH (08:25)
[2021-11-06] MEDS: MINERAL OIL/WHITE PETROLATUM OINTMENT 1 APPLIC EACH EYE ×2 (08:25→21:45)
[2021-11-06] MEDS: THIAMINE HCL 200 MG/2 ML VIAL 100 MG IV PUSH (08:25)
[2021-11-06] MEDS: ATORVASTATIN 40 MG TABLET 80 MG PO (08:26)
[2021-11-06] MEDS: CLOPIDOGREL BISULFATE 75 MG TABLET PO (08:26)
[2021-11-06] MEDS: ENOXAPARIN 40 MG/0.4 ML SYRINGE SUB-Q (08:26)
[2021-11-06] MEDS: ASPIRIN 81 MG CHEWABLE TABLET PO (08:26)
[2021-11-06] MEDS: FOLIC ACID 1 MG/0.2 ML INJ IV PUSH (08:30)
[2021-11-06] MEDS: INSULIN GLARGINE (*BKC) 100 UNITS/ML 40 UNITS SUB-Q (08:43)
--- NOTE | 2021-11-06 09:06 | PM.PNCARD ---
Progress Note: A&P Additional Plan 71-year-old man with: Extensive coronary and peripheral vascular disease, ongoing cigarette smoking and medication noncompliance. Patient entered the hospital with unstable ventricular arrhythmias and evidence of non ST elevation IA. Culprit lesion is distal circumflex which could not be intervened upon. 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 Remains on intravenous amiodarone with plans to transition to oral regimen after he is extubated. Hemodynamically more stable and tolerating a low dose of metoprolol. I will advance that slightly today to 25 mg q.12 hours. Patient is relatively stable for the time being but obviously as I mentioned in previous notes long-term prognosis seems poor given severity of vascular disease noncompliance with medication and ongoing smoking. Borsi Kaur MD [facility] Subjective Date/time seen: Date of service: 11/06/21 09:06 Interval history: Patient is a 71-year-old patient of mine who has a history of coronary disease, peripheral artery disease and aortic valvular disease coronary artery bypass with HUDSON to LAD as well as a lytic valve replacement with a pericardial tissue valve in 06/2020 . He also received a dual-chamber pacemaker on 06/23/2020. 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 Patient presented to the ED with generalized weakness, polydipsia, polyuria x3 days. Patient was found to be in DKA and was started on insulin infusion. Patient in the ICU had runs of wide complex V-tach requiring amiodarone bolus, lidocaine IV push, metoprolol with improvement in his rhythm and rate. Patient is converted to sinus rhythm. SARS-CoV-2 PCR, influenza A and B were negative. -11/02: Intubated -11/03: cardiac cath - totally occluded RCA and the ostium which according to him is chronic as the patient has [id number] collaterals. 11/04/2021: Remains intubated, on CMV mode of ventilation, peep of 5, 30% FiO2. Sedated with fentanyl 50 mcg/hr and Versed 2 mg/hr, his eyes for me, did not follow commands. The night bedside RN stated that he did follow commands in his lower extremities for her. Urine output has been adequate, patient has been afebrile, white count has come down significantly. Patient is OFF LEVOPHED. Was started on tube feeds last night, tolerating. Patient had a short run of V-tach around 8:00 p.m. last night. Potassium is being replaced this morning Date of service 11/05/2021: Patient remains in the ICU intubated on ventilator support. Pressors have been stopped. Low-dose of metoprolol has been appropriately started by the calendering machine operator staff. Remains on IV amiodarone normal sinus rhythm no recent ventricular arrhythmias Date of service 11/06/2021: Patient is still intubated in the ICU but is awake now off sedation anticipating a trial of extubation today. No new difficulties noted since yesterday. No hypotension in response to low-dose metoprolol Exam Narrative: Patient was awake. Appears older than stated age Const: General: comfortable, no acute distress, in distress and uncomfortable Other: Intubated sedated chronically ill-appearing patient HENMT: General nose exam: Normal nares present and no epistaxis Mouth: Yes dry mucous membranes Eyes: Sclera: sclerae normal Neck: Neck: supple and no JVD Chest: Other: No reproducible chest wall pain to palpation Resp: Auscultation: diminished lung sounds Other: Breath sounds are tubular no rales no rhonchi Cardio: Rate: regular rate and tachycardic Rhythm: regular rhythm and abnormal rhythm regularly irregular Other: PMI difficult to palpate soft systolic murmur does not radiate from the left sternal border GI: Inspection: non-distended Auscultation: normal bowel sounds : Male General Exam: Yes tenderness Urinary Catheter: Urinary Catheter: urine clear Skin: General skin exam: normal color Ne
--- NOTE | 2021-11-06 09:48 | P.PNIM_ITS ---
Progress Note: A&P Assessment and Plan (1) Ventricular tachycardia: Code(s): I47.2 - Ventricular tachycardia Status: Acute Assessment and Plan: On 11/02, patient developed a wide complex tachycardia consistent with VTach * Cardioversion was planned but patient converted spontaneously to SVT/atrial flutter. * Lidocaine IV push, Amiodarone bolus and was started amiodarone infusion * V-tach could be related to diabetic ketoacidosis, pneumonia, septic shock and/or coronary artery disease * >70 beat run of VTach today treated with Amio bolus and Amiod rate increased; Mag also given * will maintain potassium > 4.0 and magnesium > 2.0 (2) Acute respiratory failure: Code(s): J96.00 - Acute respiratory failure, unspecified whether with hypoxia or hypercapnia Status: Acute Assessment and Plan: Patient presented with a pneumonia and went into wide complex ventricular tachycardia. * Was tachypneic with shallow breathing and LE mottling so decision to intubate on 11/02 * currently mechanical ventilation * CXR reviewed showing diffuse bilateral airspace disease * Continue Abx and bronchodilators * Spontaneous breathing trial today * Appreciate product owner input (3) Septic shock: Code(s): A41.9 - Sepsis, unspecified organism; R65.21 - Severe sepsis with septic shock Status: Acute Assessment and Plan: Patient presents weakness and found to have leukocytosis, lactic acidosis, tachycardia, tachypnea, bandemia and HoTN * Treated with Levophed up to 15mcg/min; improved today * [place] source of septic shock is pneumonia and septicemia with +BCx felt related to PNA * BCx (2of2) positive for gram positive cocci in pairs; Hx of Enterococcus * continue ceftriaxone (11/02 1142) and azithromycin (11/02 1259) and vancomycin (11/03 0800) * Follow up on BCx. * Grinder Set Up Operator Surface following (4) DKA (diabetic ketoacidosis): Qualifiers: Diabetes mellitus complication detail: without coma Diabetes mellitus type: type 2 Qualified Code(s): E11.10 - Type 2 diabetes mellitus with ketoacidosis without coma Code(s): E11.10 - Type 2 diabetes mellitus with ketoacidosis without coma Status: Acute Assessment and Plan: Patient presented with weakness x3 days, decreased p.o. intake, polyuria, polydipsia and found to be in DKA * Patient has been noncompliant with his home treatment * pH 7.10, AG 26 * Given IV fluid and insulin * Anion gap cleared and was transitioned to Lantus and sliding scale insulin on 11/02 (5) Community acquired pneumonia: Qualifiers: Laterality: unspecified laterality Qualified Code(s): J18.9 - Pneumonia, unspecified organism Code(s): J18.9 - Pneumonia, unspecified organism Status: Acute Assessment and Plan: * blood culture positive for pneumococcal currently on vancomycin Rocephin azithromycin * Chest x-ray showed left lower base infiltrates nad has fever, leukocytosis, and bandemia (6) Non-STEMI (non-ST elevated myocardial infarction): Code(s): I21.4 - Non-ST elevation (NSTEMI) myocardial infarction Status: Acute Assessment and Plan: Patient preseted with weakness but denies chest pain. * Had elevated troponins to 3.35. EKG showing inferolateral ST and T-wave changes. * Known CAD with PCI to the LAD, CABG with HUDSON to LAD and aortic valve replacement in 06/2020 * Echo showing EF 50-55% and Grade I diastolic dysfunction and mild MR/MS. No wall motion abnormalities * Patient on Lipitor and ASA. Metoprolol on hold due to
--- NOTE | 2021-11-06 09:48 | PM.IMPN ---
Progress Note: A&P Assessment and Plan (1) Ventricular tachycardia: Code(s): I47.2 - Ventricular tachycardia Status: Acute Assessment and Plan: On 11/02, patient developed a wide complex tachycardia consistent with VTach Cardioversion was planned but patient converted spontaneously to SVT/atrial flutter. Lidocaine IV push, Amiodarone bolus and was started amiodarone infusion V-tach could be related to diabetic ketoacidosis, pneumonia, septic shock and/or coronary artery disease >70 beat run of VTach today treated with Amio bolus and Amiod rate increased; Mag also given will maintain potassium > 4.0 and magnesium > 2.0 (2) Acute respiratory failure: Code(s): J96.00 - Acute respiratory failure, unspecified whether with hypoxia or hypercapnia Status: Acute Assessment and Plan: Patient presented with a pneumonia and went into wide complex ventricular tachycardia. Was tachypneic with shallow breathing and LE mottling so decision to intubate on 11/02 currently mechanical ventilation CXR reviewed showing diffuse bilateral airspace disease Continue Abx and bronchodilators Spontaneous breathing trial today Appreciate garage door hanger input (3) Septic shock: Code(s): A41.9 - Sepsis, unspecified organism; R65.21 - Severe sepsis with septic shock Status: Acute Assessment and Plan: Patient presents weakness and found to have leukocytosis, lactic acidosis, tachycardia, tachypnea, bandemia and HoTN Treated with Levophed up to 15mcg/min; improved today [place] source of septic shock is pneumonia and septicemia with +BCx felt related to PNA BCx (2of2) positive for gram positive cocci in pairs; Hx of Enterococcus continue ceftriaxone (11/02 1142) and azithromycin (11/02 1259) and vancomycin (11/03 0800) Follow up on BCx. Supervisor Plastic Sheets following (4) DKA (diabetic ketoacidosis): Qualifiers: Diabetes mellitus complication detail: without coma Diabetes mellitus type: type 2 Qualified Code(s): E11.10 - Type 2 diabetes mellitus with ketoacidosis without coma Code(s): E11.10 - Type 2 diabetes mellitus with ketoacidosis without coma Status: Acute Assessment and Plan: Patient presented with weakness x3 days, decreased p.o. intake, polyuria, polydipsia and found to be in DKA Patient has been noncompliant with his home treatment pH 7.10, AG 26 Given IV fluid and insulin Anion gap cleared and was transitioned to Lantus and sliding scale insulin on 11/02 (5) Community acquired pneumonia: Qualifiers: Laterality: unspecified laterality Qualified Code(s): J18.9 - Pneumonia, unspecified organism Code(s): J18.9 - Pneumonia, unspecified organism Status: Acute Assessment and Plan: blood culture positive for pneumococcal currently on vancomycin Rocephin azithromycin Chest x-ray showed left lower base infiltrates nad has fever, leukocytosis, and bandemia (6) Non-STEMI (non-ST elevated myocardial infarction): Code(s): I21.4 - Non-ST elevation (NSTEMI) myocardial infarction Status: Acute Assessment and Plan: Patient preseted with weakness but denies chest pain. Had elevated troponins to 3.35. EKG showing inferolateral ST and T-wave changes. Known CAD with PCI to the LAD, CABG with HUDSON to LAD and aortic valve replacement in 06/2020 Echo showing EF 50-55% and Grade I diastolic dysfunction and mild MR/MS. No wall motion abnormalities Patient on Lipitor and ASA. Metoprolol on hold due to HoNT On therapeutic Lovenox Status post cardiac catheterization with significant coronary artery disease guarded prognosis (7) Diabetes mellitus: Code(s): E11.9 - Type 2 diabetes mellitus without complications Status: Acute Assessment and Plan: Patient with known diabetes On metformin at home but his 13.6 last year has been noncompliant with his medications at home A1c >14 now Unclear if
[2021-11-06 11:08] LABS: Alveolar/Arterial O2 Gradient 35.6 mmHg; Base Excess ABG 2.9 mEq/l (+/-2.0); Device VENTILATOR; Fractional Inspired Oxygen 30 %; HCO3 ABG 26.7 mEq/l (22.0-26.0); Modified Allen's Test Pass; Oxygen Content ABG 14.2 %vol (16.0-22.0); Oxygen Saturation ABG 98.8 % (95.0-100.0); Oxyhemoglobin 97.8 % THb (90.0-100.0); PCO2 ABG 37.5 mmHg (35.0-45.0); PO2 ABG 134.2 mmHg (80.0-100.0); PO2 FiO2 Ratio Arterial Blood 4.47 %; Site Drawn LEFT RADIAL; Total Hemoglobin 10.1 g/dL (12.0-18.0)
[2021-11-06 11:09] LABS: Arterial Blood Gas PEEP 5 cmH2O; Arterial Blood Gas Pressure Support 8 cmH2O; Arterial Blood Gas Vent Mode SPONTANEOUS
[2021-11-06] MEDS: MICONAZOLE NITRATE 2% CREAM 30 GM TUBE 1 APPLIC TOPICAL ×2 (11:23→21:45)
[2021-11-06 11:31] LABS: Glucose Point of Care 99 mg/dl (65-105)
--- NOTE | 2021-11-06 11:48 | ECG_ITS ---
Measurements Intervals [place] Rate: 92 P: 68 CT: 200 QRS: 57 QRSD: 122 T: 95 QT: 407 QTc: 505 Interpretive Statements SINUS RHYTHM POSSIBLE LEFT VENTRICULAR HYPERTROPHY [VOLTAGE CRITERIA PLUS LAE OR QRS WIDENING] NONSPECIFIC ST & T-WAVE ABNORMALITY COMPARED TO ECG 11/03/2021 16:44:[address] SEGMENT ABNORMALITY IS IMPROVED Electronically Signed On 11-06-2021 20:47:58 CDT by Boris Kaur M.D.
--- NOTE | 2021-11-06 15:41 | PC.NURSE ---
1530-ICU consulted Dr Rankin with ortho regarding distal right radius fracture, cock-up splint ordered from [facility], awaiting delivery now.
[2021-11-06] MEDS: ACETAMINOPHEN 325 MG TABLET 650 MG PO (15:52)
[2021-11-06 17:22] LABS: Glucose Point of Care 111 mg/dl (65-105)
[2021-11-06] MEDS: MIDAZOLAM 100MG/NS 100ML(*CRX) 100 MG/100 ML BAG IV CONT (17:30)
[2021-11-06 17:55] LABS: Pneumococcal Antigen Urine Detected (Not Detected)
--- NOTE | 2021-11-06 19:53 | PM.CNOR ---
Assessment and Plan Additional Plan Right Wrist fx will rx in splint for now elevate NV checks as a routine fx is in an acceptable position for closed rx will check infrequently during admission get check xrays in about 7 days to confirm positioning. History of Present Illness HPI Consult date: 11/06/21 Chief complaint: Pneumonia, DKA, noncompliance w/medicine Narrative: Pt noted to have swelling and pain with manipulation of right wrist. Xrays show an impacted distal radius fx. Pt admitted s/p fall then unresponsive. He is on a vent now so hx is from RN and chart. [facility] Past Medical History Medical History Aortic stenosis Status post tissue aortic valve replacement. Coronary artery disease Hypertension Peripheral vascular disease Seasonal allergic rhinitis Type 2 diabetes mellitus Surgical History Surgical History Amputated toe of right foot History of aortic valve replacement with tissue graft (06/17/20) History of cardiac pacemaker in situ (06/23/20) [employer] dual-chamber pacemaker. History of cataract extraction History of coronary artery bypass graft (06/17/20) HUDSON to the LAD. History of coronary artery stent placement (10/30/19) Drug-eluting stent to the mid LAD. History of nasal surgery (2004) History of open reduction and internal fixation (ORIF) procedure Left ankle fracture. History of vascular surgery (11/02/20) Right femoral tibial bypass. Family History Family History Mother Family history of diabetes mellitus in first degree relative Father Heart failure Other Diabetes mellitus Family history of coronary artery disease Social History Social History Social History: Surrogate decision maker: Hermila Campbell, significant other. Code status: Full code. Smoking packs per day: 1 Smoking cigarettes per day: 20.0 Years smoked: 50 Smoking pack-years: 50.00 Smoking status: Light tobacco smoker Tobacco type: cigarettes Second hand tobacco smoke exposure: Yes Additional smoking assessment comments: 0.5 to 1 ppd Alcohol intake: current Drinks per week: 20 Substance use: never Substance use type: does not use Additional living arrangements comments: x2. Lives in [place] with his significant other. 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 Spiritual care concerns: No Meds Home Medications and Allergies Home Medications Medication Instructions Recorded Confirmed Type No Home Medications 11/03/21 11/03/21 History Allergies Allergy/AdvReac Type Severity Reaction Status Date / Time codeine Allergy Unknown Unresponsiv Verified 11/02/21 09:11 e Penicillins Allergy Unknown Rash Verified 11/02/21 09:11 Vital Signs Vital Signs - 24 hr 11/05/21 20:00 11/05/21 20:02 11/05/21 20:08 Temperature 38.0 C H Pulse Rate 93 92 91 Respiratory Rate 32 H 22 H Blood Pressure 132/80 Pulse Oximetry 100 100 11/05/21 20:40 11/05/21 22:00 11/05/21 22:01 Temperature 38.3 C H Pulse Rate 92 94 93 Respiratory Rate 25 H 25 H Blood Pressure 121/72 Pulse Oximetry 100 11/05/21 22:39 11/05/21 23:20 11/05/21 23:39 Temperature 38.3 C H 38.1 C H Pulse Rate 87 Respiratory Rate Blood Pressure Pulse Oximetry 99 11/06/21 00:00 11/06/21 00:01 11/06/21 01:57 Temperature 37.7 C H Pulse Rate 77 80 80 Respiratory Rate 18 23 H Blood Pressure 122/68 Pulse Oximetry 100 11/06/21 02:00 11/06/21 02:01 11/06/21 02:09 Temperature 37.1 C Pulse Rate 78 76 74 Respiratory Rate 24 H 20 Blood Pressure 125/112 H Pulse Oximetry 100 100 11/06/21 04:00 11/06/21 04:01 11/06/21 04:49 Temperature 37.2 C Pulse Rate 85 84 90 Respiratory Rate 29 H 35 H Blood Pressure 149
[2021-11-06 21:05] LABS: Glucose Point of Care 42 mg/dl (65-105)
[2021-11-06 21:05] LABS: Glucose Point of Care 46 mg/dl (65-105)
--- NOTE | 2021-11-06 21:25 | PC.NURSE ---
2052 Dr. Stallings informed of Bp of 92/62. Orders received to hold 2100 dose of Metoprolol
--- NOTE | 2021-11-06 21:25 | PC.NURSE ---
210 Accuchek 46, recheck of 42
--- NOTE | 2021-11-06 21:27 | PC.NURSE ---
2111 Dr. Arechiga informed of blood glucose. orders received. 1amp of d50 given ivp as ordered. Radha held
[2021-11-07] VITALS (42 sets, daily range): BP systolic 101–171; BP diastolic 60–94; PULSE 60–102; RESP 14–39; TEMP 36.7–38.2; O2SAT 95–100; BMI 27.4
[2021-11-07 00:09] LABS: Glucose Point of Care 92 mg/dl (65-105)
[2021-11-07 00:09] LABS: Glucose Point of Care 88 mg/dl (65-105)
[2021-11-07] MEDS: fentaNYL CITRATE INJ (*CRX) 100 MCG/2 ML VIAL 25 MCG IV PUSH ×3 (01:42→22:51)
[2021-11-07] MEDS: LEVALBUTEROL NEB 1.25 MG/3 ML 0.63 MG INHALATION ×4 (01:49→20:21)
[2021-11-07] MEDS: IPRATROPIUM BR 0.02% INH SOLN 0.5 MG/2.5 ML VIAL INHALATION ×4 (01:49→20:21)
[2021-11-07] MEDS: AMIODARONE 360 MG/D5W 200 ML 360 MG/200 ML BAG 16.67 MG IV CONT ×2 (02:35→14:57)
[2021-11-07 03:27] LABS: Vancomycin Trough 13.6 ug/mL (10.0-20.0)
[2021-11-07 04:51] LABS: Alveolar/Arterial O2 Gradient 74.5 mmHg; Base Excess ABG 2.3 mEq/l (+/-2.0); Carboxyhemoglobin 0.3 % THb (0-2.0); Fractional Inspired Oxygen 30 %; HCO3 ABG 27.2 mEq/l (22.0-26.0); Methemoglobin ABG 0.1 %THb (0-1.5); Oxygen Content ABG 15.4 %vol (16.0-22.0); Oxygen Saturation ABG 96.8 % (95.0-100.0); Oxyhemoglobin 96.1 % THb (90.0-100.0); PCO2 ABG 43.5 mmHg (35.0-45.0); PO2 ABG 88.3 mmHg (80.0-100.0); PO2 FiO2 Ratio Arterial Blood 2.94 %; Reduced Hemoglobin 3.5 %THb (0-5.0); Total Hemoglobin 11.3 g/dL (12.0-18.0); pH ABG 7.414 (7.350-7.450)
[2021-11-07 04:54] LABS: Basophils Absolute Auto 0.1 K/mm3 (0.0-0.1); Basophils Percent Auto 0.6 % (0.2-1.2); Eosinophils Percent Auto 0.5 % (0-4.4); Hematocrit 29.8 % (42.0-52.0); Hemoglobin 9.6 g/dL (14.0-18.0); Immature Granulocyte Absolute 0.12 K/mm3 (0.00-0.031); Immature Granulocyte Percent A 1.6 % (0-0.5); Immature Platelet Fraction Pct 9.2 % (0.9-11.2); Lymphocytes Absolute Auto 0.89 K/mm3 (0.9-3.2); Lymphocytes Percent Auto 11.5 % (18.3-44.2); Mean Corpuscular HGB Conc 32.2 g/dl (32-36); Mean Corpuscular Volume 99.3 fl (80-100); Mean Platelet Volume 11.3 fl (7.4-10.4); Monocytes Absolute Auto 1.2 K/mm3 (0.1-0.6); Neutrophils Absolute Auto 5.4 K/mm3 (1.3-6.7); Neutrophils Percent Auto 69.8 % (45.5-73.1); Platelet Count Result 140 k/mm3 (150-375); Red Cell Distribution Width 13.7 % (11.5-14.5); White Blood Count 7.7 K/mm3 (4.5-10.0)
[2021-11-07 05:00] LABS: Arterial Blood Gas PEEP 5 cmH2O; Arterial Blood Gas Vent Mode ASV; Device VENTILATOR; Site Drawn LEFT RADIAL
[2021-11-07 05:00] LABS: Alanine Aminotransferase 88 U/L (4-50); Albumin Level 3.1 g/dL (3.5-5.1); Alkaline Phosphatase 530 U/L (38-126); Anion Gap 3 mmol/L (8-16); Aspartate Amino Transferase 117 U/L (17-59); Bilirubin,Total 0.7 mg/dL (0.2-1.3); Blood Urea Nitrogen 12 mg/dL (9-20); Calcium 7.8 mg/dL (8.4-10.2); Carbon Dioxide 31 mmol/L (22-30); Chloride 100 mmol/L (98-107); Estimated CRCL calculation 86 ml/min; Estimated Glomerular Filt Rate > 60; Glucose 108 mg/dL (65-110); Magnesium 2.3 mg/dL (1.6-2.3); Sodium 134 mmol/L (137-145)
[2021-11-07] MEDS: ACETAMINOPHEN 325 MG TABLET 650 MG PO ×2 (05:12→17:06)
[2021-11-07] MEDS: CENTRAL LINE FLUSH 10 ML IV PUSH ×2 (05:18→14:57)
[2021-11-07] MEDS: DORNASE ALFA INH SOLN 1 MG/ML 2.5 ML AMP 2.5 MG INHALATION ×2 (08:05→20:22)
[2021-11-07] MEDS: MICONAZOLE NITRATE 2% CREAM 30 GM TUBE 1 APPLIC TOPICAL ×2 (08:58→21:35)
[2021-11-07] MEDS: THIAMINE HCL 200 MG/2 ML VIAL 100 MG IV PUSH (08:58)
[2021-11-07] MEDS: MINERAL OIL/WHITE PETROLATUM OINTMENT 1 APPLIC EACH EYE ×2 (08:59→21:35)
[2021-11-07] MEDS: FOLIC ACID 1 MG/0.2 ML INJ IV PUSH (08:59)
[2021-11-07] MEDS: PANTOPRAZOLE SODIUM IV 40 MG VIAL IV PUSH (08:59)
[2021-11-07] MEDS: ENOXAPARIN 40 MG/0.4 ML SYRINGE SUB-Q (08:59)
[2021-11-07] MEDS: METOPROLOL TARTRATE 25 MG TABLET PO ×2 (08:59→21:35)
[2021-11-07] MEDS: CLOPIDOGREL BISULFATE 75 MG TABLET PO (08:59)
[2021-11-07] MEDS: ASPIRIN 81 MG CHEWABLE TABLET PO (08:59)
--- NOTE | 2021-11-07 09:22 | WPDINTPN ---
Progress Note: A&P Assessment and Plan (1) Ventricular tachycardia: Code(s): I47.2 - Ventricular tachycardia Status: Acute Assessment and Plan: 11/02: Patient went to quite complex ventricular tachycardia patient was given Versed before cardioversion and converted spontaneously to SVT/atrial flutter. Patient did receive amiodarone bolus and was started amiodarone infusion. He also received lidocaine IV push -V-tach could be related to diabetic ketoacidosis, pneumonia, septic shock, coronary artery disease -11/03 morning: Patient had a 30 beat run of V-tach, was given additional amiodarone bolus, and his amiodarone infusion was increased to 1 mg/min -11/03 evening: Patient has show 6-8 beat run of V-tach -11/03: cardiac catheterization - totally occluded RCA and the ostium which according to him is chronic as the patient has [id number] collaterals. -will maintain potassium > 4.0 and magnesium > 2.0 -continue amiodarone infusion at 0.5 mg/hr -tolerating metoprolol -cardiology following the patient (2) Non-STEMI (non-ST elevated myocardial infarction): Code(s): I21.4 - Non-ST elevation (NSTEMI) myocardial infarction Status: Acute Assessment and Plan: Elevated troponins, he does have a significant history of coronary artery disease, history of PCI to the LAD, CABG with HUDSON to LAD and aortic valve replacement in 2019 -patient on admission denied chest pain, nausea, vomiting, abdominal pain, shortness of breath -appreciate cardiology evaluation recommendation -patient was initially placed on beta-doe which currently is on hold due to hypotension and on vasopressors -therapeutic Lovenox 1 mg/kg x1 was given on 11/02 -troponins peaked at 3.35 (1.17 on admission) - 11/03: cardiac catheterization - totally occluded RCA and the ostium which according to him is chronic as the patient has [id number] collaterals. Echocardiogram 11/02/21: LV chamber dimension is normal, LV systolic function is low normal, EF 50-55%. Grade 1 diastolic dysfunction, mild mitral valve stenosis (3) Acute respiratory failure: Code(s): J96.00 - Acute respiratory failure, unspecified whether with hypoxia or hypercapnia Status: Acute Assessment and Plan: Patient presented with a pneumonia, went into wide complex ventricular tachycardia, was tachypneic with shallow breathing. Also noted to have mottling on his lower extremities, I decided to intubate the patient for airway protection -patient was successfully intubated on 11/02 -currently on CMV mode of ventilation, peep of 5 in 35% FiO2 -chest x-ray and ABGs reviewed -continue antibiotics, bronchodilators and Pulmozyme -11/06: Patient was placed on SBT, did well, but before extubation patient had some EKG changes, along with tachypnea and tachycardia so opted out to extubate the patient. Patient also has thick secretions for which she is on Pulmozyme -will wean off sedation and try SBT again today (4) Septic shock: Code(s): A41.9 - Sepsis, unspecified organism; R65.21 - Severe sepsis with septic shock Status: Acute Assessment and Plan: RESOLVED Patient presented to the hospital with generalized weakness and was found to have Leukocytosis, lactic acidosis, tachycardia, tachypnea, bandemia, pneumonia -likely source - lungs, blood stream infection -left femoral central line was placed on 11/02/2021 -OFF LEVOPHED -10/05: Blood cultures growing strep pneumonia, 2/2 bottles. -continue ceftriaxone and azithromycin (11/02) , vancomycin (11/03), -repeat blood cultures on 10/09 are negative so far (5) Community acquired pneumonia: Qualifiers: Laterality: unspecified laterality Qualified Code(s): J18.9 - Pneumonia, unspecified organism Code(s): J18.9 - Pneumonia, unspecified organism Status: Acute Assessment and Plan: Chest x-ray this morning 11/07: New opacities at the left lower lung zone which could represent atelectasi
--- NOTE | 2021-11-07 10:04 | PM.PNCARD ---
Progress Note: A&P Additional Plan 71-year-old patient with: Extensive coronary artery disease as detailed in the cardiac catheterization lab note and previous notes. He did have a non ST elevation [place] presumably due to the distal circumflex occlusion in the setting of acute DKA with which he presented to the hospital. Ventricular arrhythmias in that setting have been stabilized with amiodarone treatment. Remains on IV maintenance dose of amiodarone at this time. Unfortunately not weanable from the vent yesterday. Hemodynamics and oxygenation are stable today. No specific additional cardiac recommendations at this time. Boris Kaur MD [facility] Subjective Date/time seen: 11/07/21 10:04 Interval history: Patient is a 71-year-old patient of mine who has a history of coronary disease, peripheral artery disease and aortic valvular disease coronary artery bypass with HUDSON to LAD as well as a lytic valve replacement with a pericardial tissue valve in 06/2020 . He also received a dual-chamber pacemaker on 06/23/2020. 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 Patient presented to the ED with generalized weakness, polydipsia, polyuria x3 days. Patient was found to be in DKA and was started on insulin infusion. Patient in the ICU had runs of wide complex V-tach requiring amiodarone bolus, lidocaine IV push, metoprolol with improvement in his rhythm and rate. Patient is converted to sinus rhythm. SARS-CoV-2 PCR, influenza A and B were negative. -11/02: Intubated -11/03: cardiac cath - totally occluded RCA and the ostium which according to him is chronic as the patient has [id number] collaterals. 11/04/2021: Remains intubated, on CMV mode of ventilation, peep of 5, 30% FiO2. Sedated with fentanyl 50 mcg/hr and Versed 2 mg/hr, his eyes for me, did not follow commands. The night bedside RN stated that he did follow commands in his lower extremities for her. Urine output has been adequate, patient has been afebrile, white count has come down significantly. Patient is OFF LEVOPHED. Was started on tube feeds last night, tolerating. Patient had a short run of V-tach around 8:00 p.m. last night. Potassium is being replaced this morning Date of service 11/05/2021: Patient remains in the ICU intubated on ventilator support. Pressors have been stopped. Low-dose of metoprolol has been appropriately started by the [facility] staff. Remains on IV amiodarone normal sinus rhythm no recent ventricular arrhythmias Date of service 11/06/2021: Patient is still intubated in the ICU but is awake now off sedation anticipating a trial of extubation today. No new difficulties noted since yesterday. No hypotension in response to low-dose metoprolol Date of service 11/07/2021: Patient clinically unchanged still intubated in the ICU. Attempt at extubation yesterday failed as the patient became tachycardic with reportedly ECG changes as ventilator weaning was occurring. Exam Narrative: Patient was awake. Appears older than stated age Const: General: comfortable, no acute distress, in distress and uncomfortable Other: Intubated sedated chronically ill-appearing patient HENMT: General nose exam: Normal nares present and no epistaxis Mouth: Yes dry mucous membranes Eyes: Sclera: sclerae normal Neck: Neck: supple and no JVD Chest: Other: No reproducible chest wall pain to palpation Resp: Auscultation: diminished lung sounds Other: Breath sounds are tubular no rales no rhonchi Cardio: Rate: regular rate and tachycardic Rhythm: regular rhythm and abnormal rhythm regularly irregular Other: PMI difficult to palpate soft systolic murmur does not radiate from the left sternal border GI: Inspection: non-distended Auscultation: normal bowel sounds : Male General Exam: Yes tenderness Urinary Catheter: Urinary Catheter: urine clear Skin: General skin e
[2021-11-07 10:25] LABS: Glucose Point of Care 69 mg/dl (65-105)
--- NOTE | 2021-11-07 11:39 | P.PNIM_ITS ---
Progress Note: A&P Assessment and Plan (1) Ventricular tachycardia: Code(s): I47.2 - Ventricular tachycardia Status: Acute Assessment and Plan: On 11/02, patient developed a wide complex tachycardia consistent with VTach * Cardioversion was planned but patient converted spontaneously to SVT/atrial flutter. * Lidocaine IV push, Amiodarone bolus and was started amiodarone infusion * V-tach related to diabetic ketoacidosis, pneumonia, septic shock and/or coronary artery disease (suspect ischemia) * >70 beat run of VTach 11/03 treated with Amio bolus and Amio rate increased; Mag also given * Cardiology was notified; appreciate their input * Remains on Amio drip * Will maintain potassium > 4.0 and magnesium > 2.0 * LHC 11/03 showing distal LCx 99%, 100% RCA (old) and 90% in-stent restenosis LAD but patent HUDSON to LAD. * No intervention performed. Plan for medical management for the CAD (2) Acute respiratory failure: Code(s): J96.00 - Acute respiratory failure, unspecified whether with hypoxia or hypercapnia Status: Acute Assessment and Plan: Patient presented with a pneumonia and went into wide complex ventricular tachycardia. * Was tachypneic with shallow breathing and LE mottling so decision to intubate on 11/02 * Remains on mechanical ventilation, peep of 5 and 30% FiO2 * Chest x-ray today showing new opacity in left lower lung zone atelectasis versus pneumonia. * Continue Abx and bronchodilators * Continue sedation with Versed * Breathing trial today * Appreciate wheel and pinion inspector input (3) Septic shock: Code(s): A41.9 - Sepsis, unspecified organism; R65.21 - Severe sepsis with septic shock Status: Acute Assessment and Plan: Patient presents weakness and found to have leukocytosis, lactic acidosis, tachycardia, tachypnea, bandemia and HoTN * Patient with severe sepsis, septic shock and now septicemia from pneumonia * Treated with Levophed up to 15mcg/min; off Levophed now * BCx (2of2) on 11/02 positive for Strept Pneumoniae; Repeat BCx 11/06 NGTD * Urine Pneumococcal Ag positive * Continue ceftriaxone (11/02 1142) and azithromycin (11/02 1259) and vancomycin (11/03 0800) * Continue antibiotics; consider narrowing antibiotics coverage but still having fevers. Consider patient has developed abscess or viral etiology. (4) Diabetes mellitus: Code(s): E11.9 - Type 2 diabetes mellitus without complications Status: Acute Assessment and Plan: Patient with known diabetes * On metformin at home but his A1c 13.6 last year * has been noncompliant with his medications at home * A1c >14 now * Unclear if he checks his glucose at home * Hypoglycemia noted - adjust Lantus (5) Elevated LFTs: Code(s): R79.89 - Other specified abnormal findings of blood chemistry Status: Acute Assessment and Plan: AST peaking 161 and ALT up to 88. Alk-phos 530 but normal bilirubin. AST trending downward. Hold Lipitor for now. (6) Right wrist fracture: Code(s): S62.101A - Fracture of unspecified carpal bone, right wrist, initial encounter for closed fracture Status: Acute Assessment and Plan: Right wrist x-ray on 11/06 showing subacute right radial distal metaphyseal nondisplaced fracture. More acute appearing ulnar metaphyseal and styloid fractures. Orthopedics has been consulted. Patient is in the soft splint at this time. (7) Community acquired pneumonia: Qualifiers: Laterality: unspecified laterality Qualified Code(s): J18.9 - Pneumonia, unspecified orga
--- NOTE | 2021-11-07 11:39 | PM.IMPN ---
Progress Note: A&P Assessment and Plan (1) Ventricular tachycardia: Code(s): I47.2 - Ventricular tachycardia Status: Acute Assessment and Plan: On 11/02, patient developed a wide complex tachycardia consistent with VTach Cardioversion was planned but patient converted spontaneously to SVT/atrial flutter. Lidocaine IV push, Amiodarone bolus and was started amiodarone infusion V-tach related to diabetic ketoacidosis, pneumonia, septic shock and/or coronary artery disease (suspect ischemia) >70 beat run of VTach 11/03 treated with Amio bolus and Amio rate increased; Mag also given Cardiology was notified; appreciate their input Remains on Amio drip Will maintain potassium > 4.0 and magnesium > 2.0 LHC 11/03 showing distal LCx 99%, 100% RCA (old) and 90% in-stent restenosis LAD but patent HUDSON to LAD. No intervention performed. Plan for medical management for the CAD (2) Acute respiratory failure: Code(s): J96.00 - Acute respiratory failure, unspecified whether with hypoxia or hypercapnia Status: Acute Assessment and Plan: Patient presented with a pneumonia and went into wide complex ventricular tachycardia. Was tachypneic with shallow breathing and LE mottling so decision to intubate on 11/02 Remains on mechanical ventilation, peep of 5 and 30% FiO2 Chest x-ray today showing new opacity in left lower lung zone atelectasis versus pneumonia. Continue Abx and bronchodilators Continue sedation with Versed Breathing trial today Appreciate sinker puller input (3) Septic shock: Code(s): A41.9 - Sepsis, unspecified organism; R65.21 - Severe sepsis with septic shock Status: Acute Assessment and Plan: Patient presents weakness and found to have leukocytosis, lactic acidosis, tachycardia, tachypnea, bandemia and HoTN Patient with severe sepsis, septic shock and now septicemia from pneumonia Treated with Levophed up to 15mcg/min; off Levophed now BCx (2of2) on 11/02 positive for Strept Pneumoniae; Repeat BCx 11/06 NGTD Urine Pneumococcal Ag positive Continue ceftriaxone (11/02 1142) and azithromycin (11/02 1259) and vancomycin (11/03 0800) Continue antibiotics; consider narrowing antibiotics coverage but still having fevers. Consider patient has developed abscess or viral etiology. (4) Diabetes mellitus: Code(s): E11.9 - Type 2 diabetes mellitus without complications Status: Acute Assessment and Plan: Patient with known diabetes On metformin at home but his A1c 13.6 last year has been noncompliant with his medications at home A1c >14 now Unclear if he checks his glucose at home Hypoglycemia noted - adjust Lantus (5) Elevated LFTs: Code(s): R79.89 - Other specified abnormal findings of blood chemistry Status: Acute Assessment and Plan: AST peaking 161 and ALT up to 88. Alk-phos 530 but normal bilirubin. AST trending downward. Hold Lipitor for now. (6) Right wrist fracture: Code(s): S62.101A - Fracture of unspecified carpal bone, right wrist, initial encounter for closed fracture Status: Acute Assessment and Plan: Right wrist x-ray on 11/06 showing subacute right radial distal metaphyseal nondisplaced fracture. More acute appearing ulnar metaphyseal and styloid fractures. Orthopedics has been consulted. Patient is in the soft splint at this time. (7) Community acquired pneumonia: Qualifiers: Laterality: unspecified laterality Qualified Code(s): J18.9 - Pneumonia, unspecified organism Code(s): J18.9 - Pneumonia, unspecified organism Status: Acute Assessment and Plan: Patient presents with weakness Chest x-ray showed left lower base infiltrates nad has fever, leukocytosis, and bandemia Now with positive BCx As above (8) Non-STEMI (non-ST elevated myocardial infarction): Code(s): I21.4 - Non-ST elevation (NSTEMI) myocardial infarction Status: Acute
[2021-11-07] MEDS: polyethylene glycoL 3350 17 GM POWD.PACK PO (11:45)
[2021-11-07 12:00] LABS: Glucose Point of Care 134 mg/dl (65-105)
--- NOTE | 2021-11-07 13:03 | PCFNICU ---
Addendum entered by Lorenza Schreiber RD, LDN 11/08/21 11:40: Correction: Tube feeding formula changed on 11/05 to Glucerna 1.2 from Vital AF 1.2 at 70 ml/hr over 22 hours. Original Note: ICU Rounding Note: Pt current nutrition is Vital AF 1.2 at 70 ml/hr over 22 hours. Last recorded weight is 84.4 kg,down from 85.3 kg on admit. Bowel Motility: No BM reported. Labs Reviewed:Na 134, Alb 3.1,Hct 29.8,Hgb 9.6 Meds Noted:Fentanyl, Plavix, Protonix, Lipitor, Folic Acid, Atrovent, Thiamine, Vancomycin, Miralalx, Lopressor. Skin: WNL Additional Notes: Patient remains on ASV mode, plans for breathing trial today. Tube feedings are continue of Vital AF 1.2 at 70 ml/hr over 22 hours and tolerating. 30 ml free water flush q 4 hours. Agree with diet orders. Following daily in ICU rounds. Will monitor every Sunday and Sunday.
[2021-11-07] MEDS: INSULIN ASPART (*BKC) 100 UNITS/ML SUB-Q (17:09)
[2021-11-07 17:10] LABS: Glucose Point of Care 242 mg/dl (65-105)
[2021-11-07] MEDS: dexmedeTOMIDine 400 MCG/100 ML 400 MCG/100 ML BAG 6.24 MCG IV CONT (18:52)
--- NOTE | 2021-11-07 20:31 | PCRCNOTE ---
Pt respiratory rate continues to be high on ASV mode. Per Dr. Stallings, pt switched back to CMV mode to rest overnight. CMV settings 24/450/+5/30%.
[2021-11-07 21:51] LABS: Legionella pneumophila Ag Ur Not Detected (Not Detected)
[2021-11-08] VITALS (36 sets, daily range): BP systolic 114–175; BP diastolic 61–82; PULSE 60–101; RESP 19–36; TEMP 36.6–37.9; O2SAT 90–100
--- NOTE | 2021-11-08 00:56 | PC.NURSE ---
0005 Patient restless. RR36 HR 101. increased work of breathing noted. o2sats 89-90 on fio2 of 30%. Precedex increased to 1mcg. fio2 increased to 40%.
[2021-11-08 01:17] LABS: Glucose Point of Care 187 mg/dl (65-105)
[2021-11-08] MEDS: dexmedeTOMIDine 400 MCG/100 ML 400 MCG/100 ML BAG 20.8 MCG IV CONT ×2 (01:18→06:12)
[2021-11-08] MEDS: LEVALBUTEROL NEB 1.25 MG/3 ML 0.63 MG INHALATION ×4 (02:13→20:03)
[2021-11-08] MEDS: IPRATROPIUM BR 0.02% INH SOLN 0.5 MG/2.5 ML VIAL INHALATION ×4 (02:13→20:03)
[2021-11-08] MEDS: AMIODARONE 360 MG/D5W 200 ML 360 MG/200 ML BAG 16.67 MG IV CONT ×2 (03:30→15:13)
[2021-11-08 04:41] LABS: Basophils Percent Auto 0.4 % (0.2-1.2); Eosinophils Percent Auto 0.2 % (0-4.4); Hematocrit 29.3 % (42.0-52.0); Hemoglobin 9.2 g/dL (14.0-18.0); Immature Granulocyte Absolute 0.14 K/mm3 (0.00-0.031); Immature Granulocyte Percent A 1.6 % (0-0.5); Lymphocytes Absolute Auto 0.93 K/mm3 (0.9-3.2); Lymphocytes Percent Auto 10.9 % (18.3-44.2); Mean Corpuscular HGB Conc 31.4 g/dl (32-36); Mean Corpuscular Hemoglobin 31.2 pg (26-34); Mean Corpuscular Volume 99.3 fl (80-100); Mean Platelet Volume 11.2 fl (7.4-10.4); Monocytes Absolute Auto 0.9 K/mm3 (0.1-0.6); Neutrophils Absolute Auto 6.6 K/mm3 (1.3-6.7); Neutrophils Percent Auto 76.9 % (45.5-73.1); Platelet Count Result 156 k/mm3 (150-375); Red Blood Count 2.95 M/mm3 (4.6-6.20); Red Cell Distribution Width 13.6 % (11.5-14.5); White Blood Count 8.5 K/mm3 (4.5-10.0)
[2021-11-08 04:51] LABS: Potassium 4.7 mmol/L (3.4-5.0)
[2021-11-08 05:05] LABS: Alanine Aminotransferase 60 U/L (4-50); Alkaline Phosphatase 451 U/L (38-126); Anion Gap 4 mmol/L (8-16); Aspartate Amino Transferase 35 U/L (17-59); Bilirubin,Total 0.5 mg/dL (0.2-1.3); Blood Urea Nitrogen 16 mg/dL (9-20); Calcium 7.9 mg/dL (8.4-10.2); Carbon Dioxide 28 mmol/L (22-30); Chloride 97 mmol/L (98-107); Estimated CRCL calculation 86 ml/min; Estimated Glomerular Filt Rate > 60; Glucose 257 mg/dL (65-110); Magnesium 2.3 mg/dL (1.6-2.3); Phosphorus 4.6 mg/dL (2.5-4.5); Sodium 129 mmol/L (137-145)
[2021-11-08 05:51] LABS: Alveolar/Arterial O2 Gradient 41.6 mmHg; Base Excess ABG 3.3 mEq/l (+/-2.0); Carboxyhemoglobin 0.3 % THb (0-2.0); Device VENTILATOR; Fractional Inspired Oxygen 30 %; HCO3 ABG 27.9 mEq/l (22.0-26.0); Methemoglobin ABG 0.1 %THb (0-1.5); Modified Allen's Test Pass; Oxygen Content ABG 13.8 %vol (16.0-22.0); Oxygen Saturation ABG 98.5 % (95.0-100.0); Oxyhemoglobin 97.4 % THb (90.0-100.0); PCO2 ABG 42.5 mmHg (35.0-45.0); PO2 ABG 122.4 mmHg (80.0-100.0); PO2 FiO2 Ratio Arterial Blood 4.08 %; Reduced Hemoglobin 2.2 %THb (0-5.0); Site Drawn LEFT RADIAL; Total Hemoglobin 9.9 g/dL (12.0-18.0); pH ABG 7.435 (7.350-7.450)
[2021-11-08] MEDS: fentaNYL CITRATE INJ (*CRX) 100 MCG/2 ML VIAL 25 MCG IV PUSH (05:51)
[2021-11-08 05:52] LABS: Arterial Blood Gas PEEP 5 cmH2O; Arterial Blood Gas Tidal Volume 450 ml; Arterial Blood Gas Vent Mode CMV; Arterial Blood Gas Ventilator rate 24 /MIN
[2021-11-08] MEDS: INSULIN ASPART (*BKC) 100 UNITS/ML SUB-Q ×5 (05:58→20:36)
[2021-11-08 06:03] LABS: Glucose Point of Care 273 mg/dl (65-105)
[2021-11-08] MEDS: THIAMINE HCL 200 MG/2 ML VIAL 100 MG IV PUSH (07:57)
[2021-11-08] MEDS: polyethylene glycoL 3350 17 GM POWD.PACK PO (07:57)
[2021-11-08] MEDS: CLOPIDOGREL BISULFATE 75 MG TABLET PO (07:57)
[2021-11-08] MEDS: METOPROLOL TARTRATE 25 MG TABLET PO ×2 (07:58→20:22)
[2021-11-08] MEDS: PANTOPRAZOLE SODIUM IV 40 MG VIAL IV PUSH (07:58)
[2021-11-08] MEDS: FOLIC ACID 1 MG/0.2 ML INJ IV PUSH (07:58)
[2021-11-08] MEDS: MICONAZOLE NITRATE 2% CREAM 30 GM TUBE 1 APPLIC TOPICAL ×2 (07:58→20:22)
[2021-11-08] MEDS: MINERAL OIL/WHITE PETROLATUM OINTMENT 1 APPLIC EACH EYE (07:58)
[2021-11-08] MEDS: ENOXAPARIN 40 MG/0.4 ML SYRINGE SUB-Q (07:58)
[2021-11-08] MEDS: DORNASE ALFA INH SOLN 1 MG/ML 2.5 ML AMP 2.5 MG INHALATION (08:01)
--- NOTE | 2021-11-08 08:57 | P.PNIM_ITS ---
Progress Note: A&P Assessment and Plan (1) Ventricular tachycardia: Code(s): I47.2 - Ventricular tachycardia Status: Acute Assessment and Plan: On 11/02, patient developed a wide complex tachycardia consistent with VTach * Cardioversion was planned but patient converted spontaneously to SVT/atrial flutter. * Lidocaine IV push, Amiodarone bolus and was started amiodarone infusion * V-tach related to diabetic ketoacidosis, pneumonia, septic shock and/or coronary artery disease (suspect ischemia) * >70 beat run of VTach 11/03 treated with Amio bolus and Amio rate increased; Mag also given * Cardiology was notified; appreciate their input * Remains on Amio drip * Will maintain potassium > 4.0 and magnesium > 2.0 * LHC 11/03 showing distal LCx 99%, 100% RCA (old) and 90% in-stent restenosis LAD but patent UHDSON to LAD. * Tele showing no recurrence of VTach * No intervention performed. Plan for medical management for the CAD (2) Acute respiratory failure: Code(s): J96.00 - Acute respiratory failure, unspecified whether with hypoxia or hypercapnia Status: Acute Assessment and Plan: Patient presented with a pneumonia and went into wide complex ventricular tachycardia. * Was tachypneic with shallow breathing and LE mottling so decision to intubate on 11/02 * Remains on mechanical ventilation, peep of 5 and 30% FiO2 * Chest x-ray today showing new opacity in left lower lung zone atelectasis versus pneumonia. * Continue Abx and bronchodilators * Continue sedation * Breathing trial again today * Appreciate wire coating operator metal input (3) Septic shock: Code(s): A41.9 - Sepsis, unspecified organism; R65.21 - Severe sepsis with septic shock Status: Acute Assessment and Plan: Patient presents weakness and found to have leukocytosis, lactic acidosis, tachycardia, tachypnea, bandemia and HoTN * Patient with severe sepsis, septic shock and now septicemia from pneumonia * Treated with Levophed up to 15mcg/min; off Levophed now * BCx (2of2) on 11/02 positive for Strept Pneumoniae; Repeat BCx 11/06 NGTD * Urine Pneumococcal Ag positive; Legionella negative. * Continue ceftriaxone (11/02 1142) and azithromycin (11/02 1259) and vancomycin (11/03 0800) * Continue antibiotics; consider narrowing antibiotics coverage but still having fevers. Consider patient has developed abscess, pseudomonal/ESBL infection or viral etiology. Consider CT chest. (4) Diabetes mellitus: Code(s): E11.9 - Type 2 diabetes mellitus without complications Status: Acute Assessment and Plan: Patient with known diabetes * On metformin at home but his A1c 13.6 last year * has been noncompliant with his medications at home * A1c >14 now * Unclear if he checks his glucose at home * Hypoglycemia noted so Lantus adjusted. Would resume Lantus at lower dose. (5) Elevated LFTs: Code(s): R79.89 - Other specified abnormal findings of blood chemistry Status: Acute Assessment and Plan: AST peaking 161 and ALT up to 88. Alk-phos 530 but normal bilirubin. AST normal and ALT trending downward. Okay to resume Lipitor. (6) Right wrist fracture: Code(s): S62.101A - Fracture of unspecified carpal bone, right wrist, initial encounter for closed fracture Status: Acute Assessment and Plan: Right wrist x-ray on 11/06 showing subacute right radial distal metaphyseal nondisplaced fracture. More acute appearing ulnar metaphyseal and styloid fractures. Orthopedics has been consulted. Patient is in the soft splint at this time.
--- NOTE | 2021-11-08 08:57 | PM.IMPN ---
Progress Note: A&P Assessment and Plan (1) Ventricular tachycardia: Code(s): I47.2 - Ventricular tachycardia Status: Acute Assessment and Plan: On 11/02, patient developed a wide complex tachycardia consistent with VTach Cardioversion was planned but patient converted spontaneously to SVT/atrial flutter. Lidocaine IV push, Amiodarone bolus and was started amiodarone infusion V-tach related to diabetic ketoacidosis, pneumonia, septic shock and/or coronary artery disease (suspect ischemia) >70 beat run of VTach 11/03 treated with Amio bolus and Amio rate increased; Mag also given Cardiology was notified; appreciate their input Remains on Amio drip Will maintain potassium > 4.0 and magnesium > 2.0 LHC 11/03 showing distal LCx 99%, 100% RCA (old) and 90% in-stent restenosis LAD but patent HUDSON to LAD. Tele showing no recurrence of VTach No intervention performed. Plan for medical management for the CAD (2) Acute respiratory failure: Code(s): J96.00 - Acute respiratory failure, unspecified whether with hypoxia or hypercapnia Status: Acute Assessment and Plan: Patient presented with a pneumonia and went into wide complex ventricular tachycardia. Was tachypneic with shallow breathing and LE mottling so decision to intubate on 11/02 Remains on mechanical ventilation, peep of 5 and 30% FiO2 Chest x-ray today showing new opacity in left lower lung zone atelectasis versus pneumonia. Continue Abx and bronchodilators Continue sedation Breathing trial again today Appreciate women's basketball coach input (3) Septic shock: Code(s): A41.9 - Sepsis, unspecified organism; R65.21 - Severe sepsis with septic shock Status: Acute Assessment and Plan: Patient presents weakness and found to have leukocytosis, lactic acidosis, tachycardia, tachypnea, bandemia and HoTN Patient with severe sepsis, septic shock and now septicemia from pneumonia Treated with Levophed up to 15mcg/min; off Levophed now BCx (2of2) on 11/02 positive for Strept Pneumoniae; Repeat BCx 11/06 NGTD Urine Pneumococcal Ag positive; Legionella negative. Continue ceftriaxone (11/02 1142) and azithromycin (11/02 1259) and vancomycin (11/03 0800) Continue antibiotics; consider narrowing antibiotics coverage but still having fevers. Consider patient has developed abscess, pseudomonal/ESBL infection or viral etiology. Consider CT chest. (4) Diabetes mellitus: Code(s): E11.9 - Type 2 diabetes mellitus without complications Status: Acute Assessment and Plan: Patient with known diabetes On metformin at home but his A1c 13.6 last year has been noncompliant with his medications at home A1c >14 now Unclear if he checks his glucose at home Hypoglycemia noted so Lantus adjusted. Would resume Lantus at lower dose. (5) Elevated LFTs: Code(s): R79.89 - Other specified abnormal findings of blood chemistry Status: Acute Assessment and Plan: AST peaking 161 and ALT up to 88. Alk-phos 530 but normal bilirubin. AST normal and ALT trending downward. Okay to resume Lipitor. (6) Right wrist fracture: Code(s): S62.101A - Fracture of unspecified carpal bone, right wrist, initial encounter for closed fracture Status: Acute Assessment and Plan: Right wrist x-ray on 11/06 showing subacute right radial distal metaphyseal nondisplaced fracture. More acute appearing ulnar metaphyseal and styloid fractures. Orthopedics has been consulted. Patient is in the soft splint at this time. (7) Community acquired pneumonia: Qualifiers: Laterality: unspecified laterality Qualified Code(s): J18.9 - Pneumonia, unspecified organism Code(s): J18.9 - Pneumonia, unspecified organism Status: Acute Assessment and Plan: Patient presents with weakness Chest x-ray showed left lower base infiltrates and has fever, leukocytosis, and bandemia Now with positive BCx As
[2021-11-08] MEDS: ASPIRIN 81 MG CHEWABLE TABLET PO (08:59)
[2021-11-08] MEDS: INSULIN GLARGINE (*BKC) 100 UNITS/ML 25 UNITS SUB-Q (09:02)
[2021-11-08 09:09] LABS: Glucose Point of Care 259 mg/dl (65-105)
--- NOTE | 2021-11-08 09:51 | PM.PNCARD ---
Progress Note: A&P Assessment and Plan (1) Diabetic ketoacidosis: Code(s): E11.10 - Type 2 diabetes mellitus with ketoacidosis without coma Status: Acute Assessment and Plan: Treatment per Dr. Stallings. Main etiology is likely secondary to simply not taking his medications. (2) Hypertension associated with diabetes: Code(s): E11.59 - Type 2 diabetes mellitus with other circulatory complications; I15.2 - Hypertension secondary to endocrine disorders Status: Acute Assessment and Plan: At goal (3) Hyperlipidemia associated with type 2 diabetes mellitus: Code(s): E11.69 - Type 2 diabetes mellitus with other specified complication; E78.5 - Hyperlipidemia, unspecified Status: Acute Assessment and Plan: Supposed to be taking atorvastatin 80 mg p.o. daily. (4) Status post aortic valve replacement: Code(s): Z95.2 - Presence of prosthetic heart valve Status: Acute Assessment and Plan: Previously function normally. Aspirin 81 mg p.o. daily (5) Coronary disease: Code(s): I25.10 - Atherosclerotic heart disease of [place] coronary artery without angina pectoris Status: Acute Assessment and Plan: Cardiac catheterization last week as detailed above. RCA occluded. Distal circumflex subtotally occluded and unable to pass wire. HUDSON is patent. (6) Tobacco use: Code(s): Z72.0 - Tobacco use Status: Acute Assessment and Plan: Ongoing (7) Weight loss: Code(s): R63.4 - Abnormal weight loss Status: Acute Assessment and Plan: May be related to DKA/poorly controlled diabetes. He is a chronic smoker and cannot rule out underlying malignancy versus other (8) Elevated troponin: Code(s): R77.8 - Other specified abnormalities of plasma proteins Status: Acute Assessment and Plan: Related to non-STEMI (9) Noncompliance: Code(s): Z91.19 - Patient's noncompliance with other medical treatment and regimen Status: Acute Assessment and Plan: Quit taking his diabetic medications recently and possibly even all of his medications recently (10) Peripheral artery disease: Code(s): I73.9 - Peripheral vascular disease, unspecified Status: Acute Assessment and Plan: Fem tib bypass last year at [facility] and amputation noted (11) Presence of permanent cardiac pacemaker: Code(s): Z95.0 - Presence of cardiac pacemaker Status: Acute Assessment and Plan: Functioning normally (12) Ventricular tachycardia: Code(s): I47.2 - Ventricular tachycardia Status: Acute Assessment and Plan: No recent recurrence of VT. He does remain on IV amiodarone but can be transitioned to oral amio tomorrow now that he is extubated. Subjective Date/time seen: 11/08/21 09:51 Interval history: 71yo male with hx of CAD, PAD, DM and aortic valvular disease here for weakness and found to have DKA. Patient failed breathing trial yesterday. Tolerating tube feedings. Did not receive any Lantus yesterday. Weaned off Versed and only on Precedex at this time. No bowel movements yet. He remains intubated and sedated. Extubated today. Going for chest CT as he has had persistent low grade fevers. Has not had any ventricular ectopy for a couple of days. Remains on IV amiodarone but now that he is extubated will shift him to oral amiodarone starting tomorrow. Review of Systems Review of Systems: All systems reviewed & are unremarkable except as noted in HPI and below ROS unobtainable: Yes unobtainable due to endotracheal tube Constitutional: Constitutional: Denies excessive sweating, Denies headache(s) and Reports weakness Eyes: Eyes: Denies blurry vision ENT: Reports Normal hearing present, Denies headache(s) and Denies neck pain Cardiovascular: Cardiovascular: Denies chest pain, Denies leg edema and Denies dyspnea Respiratory: Respiratory: Denies hemoptys
--- NOTE | 2021-11-08 10:04 | WPDINTPN ---
Progress Note: A&P Assessment and Plan (1) Acute respiratory failure: Code(s): J96.00 - Acute respiratory failure, unspecified whether with hypoxia or hypercapnia Status: Acute Assessment and Plan: Patient presented with a pneumonia, went into wide complex ventricular tachycardia, was tachypneic with shallow breathing. Also noted to have mottling on his lower extremities, I decided to intubate the patient for airway protection -patient was successfully intubated on 11/02 -currently on CMV mode of ventilation, peep of 5 in 35% FiO2 -chest x-ray and ABGs reviewed -continue antibiotics, bronchodilators -11/06: Patient was placed on SBT, did well, but before extubation patient had some EKG changes, along with tachypnea and tachycardia so opted out to extubate the patient. Patient also has thick secretions for which she is on Pulmozyme - 11/08 I tried patient on pressure support weaning trial this morning but patient quickly failed due to high RSBI. He was requiring pressure support of 12/5 for adequate RSBI. I will continue pressure support ventilation today as tolerated -try to keep sedation to minimum needed -check CT chest due to persistent low-grade fevers -patient has heavy stay of smoking and may have undiagnosed COPD (2) Septic shock: Code(s): A41.9 - Sepsis, unspecified organism; R65.21 - Severe sepsis with septic shock Status: Acute Assessment and Plan: RESOLVED Patient presented to the hospital with generalized weakness and was found to have Leukocytosis, lactic acidosis, tachycardia, tachypnea, bandemia, pneumonia -likely source - lungs, blood stream infection -left femoral central line was placed on 11/02/2021 -OFF LEVOPHED -10/05: Blood cultures growing strep pneumonia, 2/2 bottles. -continue ceftriaxone and azithromycin (11/02) , vancomycin (11/03), -repeat blood cultures on 10/09 are negative so far -CT chest ordered due to persistent low-grade fevers (3) Ventricular tachycardia: Code(s): I47.2 - Ventricular tachycardia Status: Acute Assessment and Plan: 11/02: Patient went to wide complex ventricular tachycardia patient was given Versed before cardioversion and converted spontaneously to SVT/atrial flutter. Patient did receive amiodarone bolus and was started amiodarone infusion. He also received lidocaine IV push -V-tach could be related to diabetic ketoacidosis, pneumonia, septic shock, coronary artery disease -11/03 morning: Patient had a 30 beat run of V-tach, was given additional amiodarone bolus, and his amiodarone infusion was increased to 1 mg/min -11/03 evening: Patient has show 6-8 beat run of V-tach -11/03: cardiac catheterization - totally occluded RCA and the ostium which according to him is chronic as the patient has [id number] collaterals. -will maintain potassium > 4.0 and magnesium > 2.0 -continue amiodarone infusion at 0.5 mg/hr per Cardiology -tolerating per tube metoprolol -cardiology following the patient (4) Non-STEMI (non-ST elevated myocardial infarction): Code(s): I21.4 - Non-ST elevation (NSTEMI) myocardial infarction Status: Acute Assessment and Plan: Elevated troponins, he does have a significant history of coronary artery disease, history of PCI to the LAD, CABG with HUDSON to LAD and aortic valve replacement in 2019 -patient on admission denied chest pain, nausea, vomiting, abdominal pain, shortness of breath -appreciate cardiology evaluation recommendation -patient was initially placed on beta-doe which currently is on hold due to hypotension and on vasopressors -therapeutic Lovenox 1 mg/kg x1 was given on 11/02 -troponins peaked at 3.35 (1.17 on admission) - 11/03: cardiac catheterization - totally occluded RCA and the ostium which according to him is chronic as the patient has [id number] collaterals. Echocardiogram 11/02/21: LV chamber dimension is normal, LV systolic function is low normal, EF 50-55%. Grade 1 diastolic
[2021-11-08] MEDS: dexmedeTOMIDine 400 MCG/100 ML 400 MCG/100 ML BAG 22.88 MCG IV CONT (10:36)
--- NOTE | 2021-11-08 11:28 | PCNFU ---
Nutrition Follow-Up Complete: Inadequate Oral Intake as related to mechanical vent as evidenced by NPO goal: Meet estimated nutritional needs. Patient is progressing towards goal. We will continue current goal. Pt current nutrition is Glucerna 1.2 at 70 ml/hr over 22 hours. Last recorded weight is 84.6 kg, down from 85.3 kg on admit. Bowel Motility:NO BM reported. Labs Reviewed:Na 129, Alb 3.0,Hct 29.3,Hgb 9.2, Glu 257 Meds Noted:Precedex, Plavix, Protonix, Lipitor, Folic Acid, Atrovent, Thiamine, Vancomycin, Miralax, Lopressor, Lantus, NovoLog. Skin: WNL Additional Notes: Patient is currently on CMV mode with vent. Tube feeding changed on 11/05 to Glucerna 1.2 from Vital AF 1.2 at 70 ml/hr. Current tube feeding is providing 1848 kcals/92 gms protein/1240 ml water. Tolerating per nursing. Free water flush 30 ml q 4 hours. Will monitor in ICU rounds and reassessing every Sunday and Sunday.
[2021-11-08] MEDS: ATORVASTATIN 40 MG TABLET 80 MG PO (11:54)
[2021-11-08 12:06] LABS: Alveolar/Arterial O2 Gradient 47.7 mmHg; Base Excess ABG 2.6 mEq/l (+/-2.0); Device VENTILATOR; Fractional Inspired Oxygen 30 %; HCO3 ABG 26.4 mEq/l (22.0-26.0); Modified Allen's Test Pass; Oxygen Content ABG 14.9 %vol (16.0-22.0); Oxygen Saturation ABG 98.6 % (95.0-100.0); Oxyhemoglobin 97.3 % THb (90.0-100.0); PCO2 ABG 37.6 mmHg (35.0-45.0); PO2 FiO2 Ratio Arterial Blood 4.07 %; Site Drawn LEFT RADIAL; Total Hemoglobin 10.7 g/dL (12.0-18.0); pH ABG 7.464 (7.350-7.450)
[2021-11-08 12:07] LABS: Arterial Blood Gas PEEP 5 cmH2O; Arterial Blood Gas Pressure Support 5 cmH2O; Arterial Blood Gas Vent Mode SPONTANEOUS
[2021-11-08 13:12] LABS: Glucose Point of Care 251 mg/dl (65-105)
[2021-11-08 17:33] LABS: Glucose Point of Care 226 mg/dl (65-105)
[2021-11-08 20:35] LABS: Glucose Point of Care 234 mg/dl (65-105)
[2021-11-09] VITALS (25 sets, daily range): BP systolic 115–147; BP diastolic 59–77; PULSE 60–89; RESP 12–22; TEMP 36.5–38.1; O2SAT 94–99
[2021-11-09] MEDS: ACETAMINOPHEN 325 MG TABLET 650 MG PO (00:22)
[2021-11-09 00:29] LABS: Glucose Point of Care 182 mg/dl (65-105)
[2021-11-09] MEDS: LEVALBUTEROL NEB 1.25 MG/3 ML 0.63 MG INHALATION ×4 (02:29→20:32)
[2021-11-09] MEDS: IPRATROPIUM BR 0.02% INH SOLN 0.5 MG/2.5 ML VIAL INHALATION ×4 (02:29→20:31)
[2021-11-09] MEDS: AMIODARONE 360 MG/D5W 200 ML 360 MG/200 ML BAG 16.67 MG IV CONT (02:39)
[2021-11-09 05:24] LABS: Basophils Absolute Auto 0.1 K/mm3 (0.0-0.1); Basophils Percent Auto 0.5 % (0.2-1.2); Eosinophils Absolute Auto 0.1 K/mm3 (0-0.3); Eosinophils Percent Auto 0.7 % (0-4.4); Hematocrit 27.4 % (42.0-52.0); Hemoglobin 8.9 g/dL (14.0-18.0); Immature Granulocyte Absolute 0.19 K/mm3 (0.00-0.031); Immature Granulocyte Percent A 1.9 % (0-0.5); Lymphocytes Absolute Auto 1.55 K/mm3 (0.9-3.2); Lymphocytes Percent Auto 15.3 % (18.3-44.2); Mean Corpuscular HGB Conc 32.5 g/dl (32-36); Mean Corpuscular Hemoglobin 31.7 pg (26-34); Mean Corpuscular Volume 97.5 fl (80-100); Mean Platelet Volume 10.9 fl (7.4-10.4); Monocytes Absolute Auto 0.6 K/mm3 (0.1-0.6); Monocytes Percent Auto 5.8 % (2.6-8.5); Neutrophils Absolute Auto 7.7 K/mm3 (1.3-6.7); Neutrophils Percent Auto 75.8 % (45.5-73.1); Platelet Count Result 180 k/mm3 (150-375); Red Blood Count 2.81 M/mm3 (4.6-6.20); Red Cell Distribution Width 13.2 % (11.5-14.5); White Blood Count 10.1 K/mm3 (4.5-10.0)
[2021-11-09 05:36] LABS: Alanine Aminotransferase 40 U/L (4-50); Albumin Level 2.8 g/dL (3.5-5.1); Alkaline Phosphatase 385 U/L (38-126); Anion Gap 6 mmol/L (8-16); Aspartate Amino Transferase 23 U/L (17-59); Bilirubin,Total 0.5 mg/dL (0.2-1.3); Blood Urea Nitrogen 16 mg/dL (9-20); Calcium 7.6 mg/dL (8.4-10.2); Carbon Dioxide 28 mmol/L (22-30); Chloride 94 mmol/L (98-107); Estimated CRCL calculation 86 ml/min; Estimated Glomerular Filt Rate > 60; Glucose 174 mg/dL (65-110); Magnesium 2.1 mg/dL (1.6-2.3); Phosphorus 4.3 mg/dL (2.5-4.5); Sodium 128 mmol/L (137-145)
[2021-11-09 08:23] LABS: Glucose Point of Care 211 mg/dl (65-105)
[2021-11-09] MEDS: INSULIN ASPART (*BKC) 100 UNITS/ML SUB-Q ×2 (08:28→12:40)
[2021-11-09] MEDS: INSULIN GLARGINE (*BKC) 100 UNITS/ML 25 UNITS SUB-Q (08:28)
[2021-11-09] MEDS: ATORVASTATIN 40 MG TABLET 80 MG PO (08:29)
[2021-11-09] MEDS: METOPROLOL TARTRATE 25 MG TABLET PO ×2 (08:29→21:44)
[2021-11-09] MEDS: polyethylene glycoL 3350 17 GM POWD.PACK PO (08:29)
[2021-11-09] MEDS: CLOPIDOGREL BISULFATE 75 MG TABLET PO (08:29)
[2021-11-09] MEDS: ENOXAPARIN 40 MG/0.4 ML SYRINGE SUB-Q (08:30)
[2021-11-09] MEDS: MICONAZOLE NITRATE 2% CREAM 30 GM TUBE 1 APPLIC TOPICAL ×2 (08:30→21:44)
[2021-11-09] MEDS: PANTOPRAZOLE SODIUM IV 40 MG VIAL IV PUSH (08:31)
[2021-11-09] MEDS: THIAMINE HCL 100 MG TABLET PO (08:42)
[2021-11-09] MEDS: FOLIC ACID 1 MG TABLET PO (08:42)
[2021-11-09] MEDS: ASPIRIN 81 MG CHEWABLE TABLET PO (08:46)
[2021-11-09] MEDS: AMIODARONE HCL 200 MG TABLET PO (08:50)
--- NOTE | 2021-11-09 09:14 | P.PNIM_ITS ---
Progress Note: A&P Assessment and Plan (1) Ventricular tachycardia: Code(s): I47.2 - Ventricular tachycardia Status: Acute Assessment and Plan: On 11/02, patient developed a wide complex tachycardia consistent with VTach * Cardioversion was planned but patient converted spontaneously to SVT/atrial flutter. * Lidocaine IV push, Amiodarone bolus and was started amiodarone infusion * V-tach related to diabetic ketoacidosis, pneumonia, septic shock and/or coronary artery disease (suspect ischemia) * >70 beat run of VTach 11/03 treated with Amio bolus and Amio rate increased; Mag also given * Cardiology was notified; appreciate their input * Will maintain potassium > 4.0 and magnesium > 2.0 * Was on IV Amio but changed to oral today. * LHC 11/03 showing distal LCx 99%, 100% RCA (old) and 90% in-stent restenosis L AD but patent HUDSON to LAD. * Tele showing no recurrence of VTach * No intervention performed. Plan for medical management for the CAD (2) Acute respiratory failure: Code(s): J96.00 - Acute respiratory failure, unspecified whether with hypoxia or hypercapnia Status: Acute Assessment and Plan: Patient presented with a pneumonia and went into wide complex ventricular tachycardia. * Was tachypneic with shallow breathing and LE mottling so decision to intubate on 11/02 * CT chest showing left lower lung pneumonia. * Continue Abx as detailed below and bronchodilators * Breathing trial was susccessfully and able to be extubated 11/08. Now on room air * Appreciate plumbing instructor input (3) Septic shock: Code(s): A41.9 - Sepsis, unspecified organism; R65.21 - Severe sepsis with septic shock Status: Acute Assessment and Plan: Patient presents weakness and found to have leukocytosis, lactic acidosis, ta chycardia, tachypnea, bandemia and HoTN * Patient with severe sepsis, septic shock and now septicemia from pneumonia * Treated with Levophed up to 15mcg/min but able to be weaned off * BCx (2of2) on 11/02 positive for Strept Pneumoniae; Repeat BCx 11/06 NGTD * Urine Pneumococcal Ag positive; Legionella negative. * Continue ceftriaxone (11/02 1142); Azithromycin (11/02 1259) and vancomycin (11/03 0800) stopped 11/09/21 * Still having fevers mostly at night. Consider atelectasis, drug fever, abscess, pseudomonal/ESBL infection or viral etiology. CT chest showing LLL PNA. * Continue antibiotics in the form of Rocephin. Monitor fever curve (4) Diabetes mellitus: Code(s): E11.9 - Type 2 diabetes mellitus without complications Status: Acute Assessment and Plan: Patient with known diabetes * On metformin at home but his A1c 13.6 last year * has been noncompliant with his medications at home * A1c >14 now * Unclear if he checks his glucose at home * Hypoglycemia noted so Lantus adjusted. * Glucose reviewed on 11/09. Glucose mildly elevated above baseline. * Will advance lantus since diet being advanced. (5) Elevated LFTs: Code(s): R79.89 - Other specified abnormal findings of blood chemistry Status: Acute Assessment and Plan: AST peaking 161 and ALT up to 88. Alk-phos 530 but normal bilirubin. AST and ALT normal and Alk-Phos trending downward. Lipitor was held but now resumed. (6) Right wrist fracture: Code(s): S62.101A - Fracture of unspecified carpal bone, right wrist, initial encounter for closed fracture Status: Acute Assessment and Plan: Right wrist x-ray on 11/06 showing subacute right radial distal metaphyseal nondisplaced fracture. More acute appearing ulnar metap
--- NOTE | 2021-11-09 09:14 | PM.IMPN ---
Progress Note: A&P Assessment and Plan (1) Ventricular tachycardia: Code(s): I47.2 - Ventricular tachycardia Status: Acute Assessment and Plan: On 11/02, patient developed a wide complex tachycardia consistent with VTach Cardioversion was planned but patient converted spontaneously to SVT/atrial flutter. Lidocaine IV push, Amiodarone bolus and was started amiodarone infusion V-tach related to diabetic ketoacidosis, pneumonia, septic shock and/or coronary artery disease (suspect ischemia) >70 beat run of VTach 11/03 treated with Amio bolus and Amio rate increased; Mag also given Cardiology was notified; appreciate their input Will maintain potassium > 4.0 and magnesium > 2.0 Was on IV Amio but changed to oral today. LHC 11/03 showing distal LCx 99%, 100% RCA (old) and 90% in-stent restenosis LAD but patent HUDSON to LAD. Tele showing no recurrence of VTach No intervention performed. Plan for medical management for the CAD (2) Acute respiratory failure: Code(s): J96.00 - Acute respiratory failure, unspecified whether with hypoxia or hypercapnia Status: Acute Assessment and Plan: Patient presented with a pneumonia and went into wide complex ventricular tachycardia. Was tachypneic with shallow breathing and LE mottling so decision to intubate on 11/02 CT chest showing left lower lung pneumonia. Continue Abx as detailed below and bronchodilators Breathing trial was susccessfully and able to be extubated 11/08. Now on room air Appreciate district administrative assistant input (3) Septic shock: Code(s): A41.9 - Sepsis, unspecified organism; R65.21 - Severe sepsis with septic shock Status: Acute Assessment and Plan: Patient presents weakness and found to have leukocytosis, lactic acidosis, tachycardia, tachypnea, bandemia and HoTN Patient with severe sepsis, septic shock and now septicemia from pneumonia Treated with Levophed up to 15mcg/min but able to be weaned off BCx (2of2) on 11/02 positive for Strept Pneumoniae; Repeat BCx 11/06 NGTD Urine Pneumococcal Ag positive; Legionella negative. Continue ceftriaxone (11/02 1142); Azithromycin (11/02 1259) and vancomycin (11/03 0800) stopped 11/09/21 Still having fevers mostly at night. Consider atelectasis, drug fever, abscess, pseudomonal/ESBL infection or viral etiology. CT chest showing LLL PNA. Continue antibiotics in the form of Rocephin. Monitor fever curve (4) Diabetes mellitus: Code(s): E11.9 - Type 2 diabetes mellitus without complications Status: Acute Assessment and Plan: Patient with known diabetes On metformin at home but his A1c 13.6 last year has been noncompliant with his medications at home A1c >14 now Unclear if he checks his glucose at home Hypoglycemia noted so Lantus adjusted. Glucose reviewed on 11/09. Glucose mildly elevated above baseline. Will advance lantus since diet being advanced. (5) Elevated LFTs: Code(s): R79.89 - Other specified abnormal findings of blood chemistry Status: Acute Assessment and Plan: AST peaking 161 and ALT up to 88. Alk-phos 530 but normal bilirubin. AST and ALT normal and Alk-Phos trending downward. Lipitor was held but now resumed. (6) Right wrist fracture: Code(s): S62.101A - Fracture of unspecified carpal bone, right wrist, initial encounter for closed fracture Status: Acute Assessment and Plan: Right wrist x-ray on 11/06 showing subacute right radial distal metaphyseal nondisplaced fracture. More acute appearing ulnar metaphyseal and styloid fractures. Orthopedics was consulted and appreciate their input. Patient is in the soft splint at this time. (7) Community acquired pneumonia: Qualifiers: Laterality: unspecified laterality Qualified Code(s): J18.9 - Pneumonia, unspecified organism Code(s): J18.9 - Pneumonia, unspecified organism Status: Acute Assessment and Plan: Patient
--- NOTE | 2021-11-09 09:27 | PM.PNCARD ---
Progress Note: A&P Additional Plan 71-year-old man with extensive vascular disease, coronary and peripheral disease. Had non ST segment elevation in the setting of diabetic ketoacidosis. Angiographically this was due to a distal occlusion of his circumflex, PCI of this was unsuccessful. Apparently RCA is a chronic total occlusion as well. Following this event he did develop atrial fibrillation which was resolved with amiodarone treatment. Now on oral amiodarone. Extubated yesterday seems to be stable clinically today. Boris Kaur MD [facility] Subjective Date/time seen: Date of service: 11/09/21 09:27 Interval history: 71yo male with hx of CAD, PAD, DM and aortic valvular disease here for weakness and found to have DKA. Patient failed breathing trial yesterday. Tolerating tube feedings. Did not receive any Lantus yesterday. Weaned off Versed and only on Precedex at this time. No bowel movements yet. He remains intubated and sedated. Extubated today. Going for chest CT as he has had persistent low grade fevers. Has not had any ventricular ectopy for a couple of days. Remains on IV amiodarone but now that he is extubated will shift him to oral amiodarone starting tomorrow. Date of service 11/09/2021: Patient is awake alert offers no cardiovascular complaints. The a eating his breakfast when I entered the room to see him. No chest pain no dyspnea. Exam Narrative: Chronically ill-appearing gentleman rapidly eating breakfast Const: General: comfortable, no acute distress, in distress and uncomfortable HENMT: General nose exam: Normal nares present and no epistaxis Mouth: Yes dry mucous membranes Eyes: Sclera: sclerae normal Neck: Neck: supple and no JVD Chest: Other: No reproducible chest wall pain to palpation Resp: Auscultation: diminished lung sounds Other: Breath sounds are tubular no rales no rhonchi Cardio: Rate: regular rate and tachycardic Rhythm: regular rhythm and abnormal rhythm regularly irregular Other: soft systolic murmur does not radiate from the left sternal border GI: Inspection: non-distended Auscultation: normal bowel sounds : Male General Exam: Yes tenderness Urinary Catheter: Urinary Catheter: urine clear Skin: General skin exam: normal color Neuro: Cranial nerves: No Normal hearing present Cognition (Neuro): abnormal cognition Speech: No normal speech Other: Sedated Extrem: General: normal to inspection, no edema and no pedal edema Other: No edema, no palpable pulses in the lower extremities below the femoral triangle Psych: Mental Status: mental status grossly normal Objective Data Vital Signs Vital Signs: Vital Signs - 24 hr 11/08/21 09:58 11/08/21 10:36 11/08/21 11:00 Temperature Pulse Rate 60 60 60 Respiratory Rate 20 20 Blood Pressure 134/80 Pulse Oximetry 100 100 11/08/21 12:00 11/08/21 12:15 11/08/21 12:24 Temperature 36.8 C Pulse Rate 60 60 Respiratory Rate 23 H 31 H Blood Pressure 126/76 Pulse Oximetry 100 100 11/08/21 13:41 11/08/21 13:48 11/08/21 14:00 Temperature Pulse Rate 60 60 60 Respiratory Rate 27 H 28 H 20 Blood Pressure 121/70 Pulse Oximetry 100 11/08/21 16:00 11/08/21 17:55 11/08/21 20:00 Temperature 36.9 C 37.7 C H Pulse Rate 60 60 60 Respiratory Rate 23 H 26 H 22 H Blood Pressure 117/71 127/69 117/61 Pulse Oximetry 96 100 100 11/08/21 20:06 11/08/21 20:16 11/08/21 20:22 Temperature Pulse Rate 60 60 61 Respiratory Rate 20 19 Blood Pressure Pulse Oximetry 99 11/08/21 20:40 11/08/21 22:00 11/09/21 00:00 Temperature 37.9 C H 38.1 C H Pulse Rate 65 60 Respiratory Rate 22 H 22 H Blood Pressure 114/64 122/69 Pulse Oximetry 99 100 99 11/09/21 00:22 11/09/21 02:00 11/09/21 02:31 Temperature 38.1 C H 37.5 C Pulse Rate 60 61 Respiratory Rate 22 H 17 Blood Pressure 115/64 Pulse Oximetry 99 11/09/21 02:41 11/09/21 04:00 11/09/21 05:33 Temperature 36.9 C P
--- NOTE | 2021-11-09 10:17 | PC.NURSE ---
This patient, Gustavo Veloz, was transferred to [facility] on 11/09/21 at 1005. Personal belongings sent with patient. Report given to Melissa HURTADO. Appropriate documentation sent with patient.
--- NOTE | 2021-11-09 11:38 | WPDINTPN ---
Progress Note: A&P Assessment and Plan (1) Acute respiratory failure: Code(s): J96.00 - Acute respiratory failure, unspecified whether with hypoxia or hypercapnia Status: Acute Assessment and Plan: Patient presented with a pneumonia, went into wide complex ventricular tachycardia, was tachypneic with shallow breathing. Also noted to have mottling on his lower extremities, I decided to intubate the patient for airway protection -patient was successfully intubated on 11/02 -11/06: Patient was placed on SBT, did well, but before extubation patient had some EKG changes, along with tachypnea and tachycardia so opted out to extubate the patient. Patient also has thick secretions for which she is on Pulmozyme - 11/08 patient was extubated after a successful weaning trial -continues to be on room air. Add incentive spirometry and get patient up in chair today -consult PT OT -CT chest confirmed left lower lobe pneumonia -patient has heavy stay of smoking and may have undiagnosed COPD (2) Septic shock: Code(s): A41.9 - Sepsis, unspecified organism; R65.21 - Severe sepsis with septic shock Status: Acute Assessment and Plan: RESOLVED Patient presented to the hospital with generalized weakness and was found to have Leukocytosis, lactic acidosis, tachycardia, tachypnea, bandemia, pneumonia -likely source - lungs, blood stream infection -left femoral central line was placed on 11/02/2021 -OFF LEVOPHED -10/05: Blood cultures growing strep pneumonia, 2/2 bottles. -continue ceftriaxone but discontinue azithromycin and vancomycin -repeat blood cultures on 10/09 are negative so far -CT chest showed left lower pneumonia ammonia (3) Ventricular tachycardia: Code(s): I47.2 - Ventricular tachycardia Status: Acute Assessment and Plan: 11/02: Patient went to wide complex ventricular tachycardia patient was given Versed before cardioversion and converted spontaneously to SVT/atrial flutter. Patient did receive amiodarone bolus and was started amiodarone infusion. He also received lidocaine IV push -V-tach could be related to diabetic ketoacidosis, pneumonia, septic shock, coronary artery disease -11/03 morning: Patient had a 30 beat run of V-tach, was given additional amiodarone bolus, and his amiodarone infusion was increased to 1 mg/min -11/03 evening: Patient has show 6-8 beat run of V-tach -11/03: cardiac catheterization - totally occluded RCA and the ostium which according to him is chronic as the patient has [id number] collaterals. -will maintain potassium > 4.0 and magnesium > 2.0 -amiodarone infusion switched to p.o. amiodarone after discussion with Cardiology -tolerating p.o. metoprolol -cardiology following the patient (4) Non-STEMI (non-ST elevated myocardial infarction): Code(s): I21.4 - Non-ST elevation (NSTEMI) myocardial infarction Status: Acute Assessment and Plan: Elevated troponins, he does have a significant history of coronary artery disease, history of PCI to the LAD, CABG with HUDSON to LAD and aortic valve replacement in 2019 -patient on admission denied chest pain, nausea, vomiting, abdominal pain, shortness of breath -appreciate cardiology evaluation recommendation -patient was initially placed on beta-doe which currently is on hold due to hypotension and on vasopressors -therapeutic Lovenox 1 mg/kg x1 was given on 11/02 -troponins peaked at 3.35 (1.17 on admission) - 11/03: cardiac catheterization - totally occluded RCA and the ostium which according to him is chronic as the patient has [id number] collaterals. Echocardiogram 11/02/21: LV chamber dimension is normal, LV systolic function is low normal, EF 50-55%. Grade 1 diastolic dysfunction, mild mitral valve stenosis (5) Community acquired pneumonia: Qualifiers: Laterality: unspecified laterality Qualified Code(s): J18.9 - Pneumonia, unspecified organism Code(s): J18.9 - Pneumonia, uns
--- NOTE | 2021-11-09 11:57 | PCNFU ---
Nutrition Follow-Up Complete: Inadequate Oral Intake as related to mechanical vent as evidenced by NPO Goal: Meet estimated nutritional needs. Patient is meeting nutrition goal. No new goal. Pt current nutrition is DBCC. Last recorded weight is 85.1 kg, down from 85.1 kg. Bowel Motility:+BM reported at this time. Labs Reviewed:Glu 174, Na 128, Alb 2.8,Hct 27.4,Hgb 8.9 Meds Noted:Lipitor, Plavix, Folic Acid, Lovenox,Lantus, NovoLog, Thiamin, Miralax, Protonix, Lopressor Skin: WNL Additional Notes: Patient moved from ICU today to IMU. Diet order advanced to a diabetic diet. Oral Intake good for breakfast. No diet questions or concerns. Refused diet supplements. Agree with diet orders. No further nutritional interventions needed at this time. Monitoring: Will monitor every 7 days.
[2021-11-09] MEDS: INSULIN GLARGINE (*BKC) 100 UNITS/ML SUB-Q (12:37)
[2021-11-09 12:48] LABS: Glucose Point of Care 257 mg/dl (65-105)
--- NOTE | 2021-11-09 16:38 | PC.NURSE ---
This patient, Gustavo Veloz, was received from [ICU6 ] on 11/09/21 at 10:10. Patient/family oriented to unit policies and routines
[2021-11-09 16:58] LABS: Glucose Point of Care 162 mg/dl (65-105)
[2021-11-09 20:26] LABS: Glucose Point of Care 197 mg/dl (65-105)
--- NOTE | 2021-11-09 20:36 | PCRCNOTE ---
Pt. states they do not want to receive the treatment in the middle of the night. 0200 Tx. will not be given
[2021-11-09 23:47] LABS: Glucose Point of Care 150 mg/dl (65-105)
[2021-11-10] VITALS (17 sets, daily range): BP systolic 139–158; BP diastolic 61–74; PULSE 69–88; RESP 16–22; TEMP 36.3–37.2; O2SAT 93–100
--- NOTE | 2021-11-10 05:06 | PC.NURSE ---
patient refused blood draw this am.
[2021-11-10 06:55] LABS: Basophils Absolute Auto 0.1 K/mm3 (0.0-0.1); Basophils Percent Auto 0.5 % (0.2-1.2); Eosinophils Percent Auto 0.4 % (0-4.4); Hematocrit 29.5 % (42.0-52.0); Hemoglobin 9.5 g/dL (14.0-18.0); Immature Granulocyte Absolute 0.18 K/mm3 (0.00-0.031); Immature Granulocyte Percent A 1.8 % (0-0.5); Lymphocytes Absolute Auto 1.22 K/mm3 (0.9-3.2); Lymphocytes Percent Auto 11.9 % (18.3-44.2); Mean Corpuscular HGB Conc 32.2 g/dl (32-36); Mean Corpuscular Hemoglobin 31.1 pg (26-34); Mean Corpuscular Volume 96.7 fl (80-100); Mean Platelet Volume 10.1 fl (7.4-10.4); Monocytes Absolute Auto 0.7 K/mm3 (0.1-0.6); Monocytes Percent Auto 6.8 % (2.6-8.5); Neutrophils Absolute Auto 8.1 K/mm3 (1.3-6.7); Neutrophils Percent Auto 78.6 % (45.5-73.1); Platelet Count Result 248 k/mm3 (150-375); Red Blood Count 3.05 M/mm3 (4.6-6.20); Red Cell Distribution Width 13.1 % (11.5-14.5); White Blood Count 10.3 K/mm3 (4.5-10.0)
[2021-11-10 07:05] LABS: Alanine Aminotransferase 30 U/L (4-50); Albumin Level 2.9 g/dL (3.5-5.1); Alkaline Phosphatase 298 U/L (38-126); Anion Gap 4 mmol/L (8-16); Aspartate Amino Transferase 24 U/L (17-59); Bilirubin,Total 0.9 mg/dL (0.2-1.3); Blood Urea Nitrogen 12 mg/dL (9-20); Calcium 7.7 mg/dL (8.4-10.2); Carbon Dioxide 29 mmol/L (22-30); Chloride 99 mmol/L (98-107); Estimated CRCL calculation 86 ml/min; Estimated Glomerular Filt Rate > 60; Glucose 149 mg/dL (65-110); Magnesium 2.1 mg/dL (1.6-2.3); Phosphorus 4.6 mg/dL (2.5-4.5); Potassium 3.4 mmol/L (3.4-5.0); Sodium 132 mmol/L (137-145)
--- NOTE | 2021-11-10 08:35 | PCOTNOTE ---
Attempted to see patient for OT evaluation this AM. Patient declined at this time, stating he just got back to bed from using the bathroom and he is too worn out at this time. He states he will be more agreeable to getting up a little later after he rests.
[2021-11-10] MEDS: ATORVASTATIN 40 MG TABLET 80 MG PO (09:05)
[2021-11-10] MEDS: AMIODARONE HCL 200 MG TABLET PO (09:05)
[2021-11-10] MEDS: ENOXAPARIN 40 MG/0.4 ML SYRINGE SUB-Q (09:06)
[2021-11-10] MEDS: CLOPIDOGREL BISULFATE 75 MG TABLET PO (09:06)
[2021-11-10] MEDS: METOPROLOL TARTRATE 25 MG TABLET PO ×2 (09:06→21:34)
[2021-11-10] MEDS: MICONAZOLE NITRATE 2% CREAM 30 GM TUBE 1 APPLIC TOPICAL ×2 (09:06→21:34)
[2021-11-10] MEDS: FOLIC ACID 1 MG TABLET PO (09:06)
[2021-11-10] MEDS: THIAMINE HCL 100 MG TABLET PO (09:06)
[2021-11-10] MEDS: PANTOPRAZOLE SODIUM IV 40 MG VIAL IV PUSH (09:06)
[2021-11-10] MEDS: INSULIN GLARGINE (*BKC) 100 UNITS/ML 30 UNITS SUB-Q (09:07)
[2021-11-10 09:17] LABS: Glucose Point of Care 152 mg/dl (65-105)
[2021-11-10] MEDS: ASPIRIN 81 MG CHEWABLE TABLET PO (09:36)
[2021-11-10] MEDS: POTASSIUM CHLORIDE 20 MEQ TABLET 40 MEQ PO (09:36)
--- NOTE | 2021-11-10 09:36 | P.PNIM_ITS ---
Progress Note: A&P Assessment and Plan (1) Ventricular tachycardia: Code(s): I47.2 - Ventricular tachycardia Status: Acute Assessment and Plan: On 11/02, patient developed a wide complex tachycardia consistent with VTach * Cardioversion was planned but patient converted spontaneously to SVT/atrial flutter. * Lidocaine IV push, Amiodarone bolus and was started amiodarone infusion * V-tach related to diabetic ketoacidosis, pneumonia, septic shock and/or coronary artery disease (suspect ischemia) * >70 beat run of VTach 11/03 treated with Amio bolus and Amio rate increased; Mag also given * Cardiology was consulted and appreciate their input * We maintained potassium > 4.0 and magnesium > 2.0 * LHC 11/03 showing distal LCx 99%, 100% RCA (old) and 90% in-stent restenosis LAD but patent HUDSON to LAD. * Tele showing no recurrence of VTach; Was on IV Amio but changed to oral and still no further episodes of VTach * No intervention performed. Plan for medical management for the CAD (2) Acute respiratory failure: Code(s): J96.00 - Acute respiratory failure, unspecified whether with hypoxia or hypercapnia Status: Acute Assessment and Plan: Patient presented with a pneumonia and went into wide complex ventricular tachycardia. * Was tachypneic with shallow breathing and LE mottling so decision to intubate on 11/02 * CT chest showing left lower lung pneumonia. * Continue Abx as detailed below and bronchodilators * Breathing trial was susccessfully and able to be extubated 11/08. Now weaned to room air * Appreciate assembly instructions writer input (3) Septic shock: Code(s): A41.9 - Sepsis, unspecified organism; R65.21 - Severe sepsis with septic shock Status: Acute Assessment and Plan: Patient presents weakness and found to have leukocytosis, lactic acidosis, tachycardia, tachypnea, bandemia and HoTN * Patient with severe sepsis, septic shock and now septicemia from pneumonia * Treated with Levophed up to 15mcg/min but able to be weaned off * BCx (2of2) on 11/02 positive for Strept Pneumoniae; Repeat BCx 11/06 NGTD * Urine Pneumococcal Ag positive; Legionella negative. * Continue ceftriaxone (11/02 1142); Azithromycin (11/02 1259) and vancomycin (11/03 0800) stopped 11/09/21 * Still having fevers mostly at night. CT chest showing LLL PNA. Consider atelectasis, drug fever, abscess, pseudomonal/ESBL infection or viral etio logy. Fever curve better now since stopping Vanco * Continue antibiotics in the form of Rocephin. Monitor fever curve. If no further fevers tomorrow, then change to oral. (4) Diabetes mellitus: Code(s): E11.9 - Type 2 diabetes mellitus without complications Status: Acute Assessment and Plan: Patient with known diabetes * On metformin at home but his A1c 13.6 last year * has been noncompliant with his medications at home * A1c >14 now * Unclear if he checks his glucose at home * Hypoglycemia noted so Lantus adjusted. * Glucose reviewed on 11/10. Glucose better controlled * Will continue Lantus at current dose (5) Elevated LFTs: Code(s): R79.89 - Other specified abnormal findings of blood chemistry Status: Acute Assessment and Plan: AST peaking 161 and ALT up to 88. Alk-phos 530 but normal bilirubin. AST and ALT normal and Alk-Phos trending downward. Lipitor was held but now resumed. (6) Right wrist fracture: Code(s): S62.101A - Fracture of unspecified carpal bone, right wrist, initial encounter for closed fracture Status: Acute Assessment and Plan: Right wrist x-ray o
--- NOTE | 2021-11-10 09:36 | PM.IMPN ---
Progress Note: A&P Assessment and Plan (1) Ventricular tachycardia: Code(s): I47.2 - Ventricular tachycardia Status: Acute Assessment and Plan: On 11/02, patient developed a wide complex tachycardia consistent with VTach Cardioversion was planned but patient converted spontaneously to SVT/atrial flutter. Lidocaine IV push, Amiodarone bolus and was started amiodarone infusion V-tach related to diabetic ketoacidosis, pneumonia, septic shock and/or coronary artery disease (suspect ischemia) >70 beat run of VTach 11/03 treated with Amio bolus and Amio rate increased; Mag also given Cardiology was consulted and appreciate their input We maintained potassium > 4.0 and magnesium > 2.0 LHC 11/03 showing distal LCx 99%, 100% RCA (old) and 90% in-stent restenosis LAD but patent HUDSON to LAD. Tele showing no recurrence of VTach; Was on IV Amio but changed to oral and still no further episodes of VTach No intervention performed. Plan for medical management for the CAD (2) Acute respiratory failure: Code(s): J96.00 - Acute respiratory failure, unspecified whether with hypoxia or hypercapnia Status: Acute Assessment and Plan: Patient presented with a pneumonia and went into wide complex ventricular tachycardia. Was tachypneic with shallow breathing and LE mottling so decision to intubate on 11/02 CT chest showing left lower lung pneumonia. Continue Abx as detailed below and bronchodilators Breathing trial was susccessfully and able to be extubated 11/08. Now weaned to room air Appreciate oil derrick operator input (3) Septic shock: Code(s): A41.9 - Sepsis, unspecified organism; R65.21 - Severe sepsis with septic shock Status: Acute Assessment and Plan: Patient presents weakness and found to have leukocytosis, lactic acidosis, tachycardia, tachypnea, bandemia and HoTN Patient with severe sepsis, septic shock and now septicemia from pneumonia Treated with Levophed up to 15mcg/min but able to be weaned off BCx (2of2) on 11/02 positive for Strept Pneumoniae; Repeat BCx 11/06 NGTD Urine Pneumococcal Ag positive; Legionella negative. Continue ceftriaxone (11/02 1142); Azithromycin (11/02 1259) and vancomycin (11/03 0800) stopped 11/09/21 Still having fevers mostly at night. CT chest showing LLL PNA. Consider atelectasis, drug fever, abscess, pseudomonal/ESBL infection or viral etiology. Fever curve better now since stopping Vanco Continue antibiotics in the form of Rocephin. Monitor fever curve. If no further fevers tomorrow, then change to oral. (4) Diabetes mellitus: Code(s): E11.9 - Type 2 diabetes mellitus without complications Status: Acute Assessment and Plan: Patient with known diabetes On metformin at home but his A1c 13.6 last year has been noncompliant with his medications at home A1c >14 now Unclear if he checks his glucose at home Hypoglycemia noted so Lantus adjusted. Glucose reviewed on 11/10. Glucose better controlled Will continue Lantus at current dose (5) Elevated LFTs: Code(s): R79.89 - Other specified abnormal findings of blood chemistry Status: Acute Assessment and Plan: AST peaking 161 and ALT up to 88. Alk-phos 530 but normal bilirubin. AST and ALT normal and Alk-Phos trending downward. Lipitor was held but now resumed. (6) Right wrist fracture: Code(s): S62.101A - Fracture of unspecified carpal bone, right wrist, initial encounter for closed fracture Status: Acute Assessment and Plan: Right wrist x-ray on 11/06 showing subacute right radial distal metaphyseal nondisplaced fracture. More acute appearing ulnar metaphyseal and styloid fractures. Orthopedics was consulted and appreciate their input. Patient is in the soft splint at this time. (7) Community acquired pneumonia: Qualifiers: Laterality: unspecified laterality Qualified Code(s): J18.9 - Pneumonia, unspecified organism
[2021-11-10 12:38] LABS: Glucose Point of Care 131 mg/dl (65-105)
[2021-11-10] MEDS: IPRATROPIUM BR 0.02% INH SOLN 0.5 MG/2.5 ML VIAL INHALATION (13:16)
[2021-11-10] MEDS: LEVALBUTEROL NEB 1.25 MG/3 ML 0.63 MG INHALATION (13:16)
[2021-11-10] MEDS: cefTRIAXone 2 GM in SODIUM CHLORIDE 0.9% IV 100 ML 200 ML IVPB (13:42)
--- NOTE | 2021-11-10 16:55 | PC.NURSE ---
Spoke with Dr. Rankin, patient is to remain non-weight bearing to right wrist. If walker is needed for ambulation, a forearm attachment should be utilized. Patient to follow up with Dr. Rankin outpatient in one week. Patient and updated. Yari Quinonez RN
[2021-11-10 17:02] LABS: Potassium 3.6 mmol/L (3.4-5.0)
[2021-11-10 17:14] LABS: Glucose Point of Care 111 mg/dl (65-105)
--- NOTE | 2021-11-10 20:46 | PCRCNOTE ---
Pt refuses nebulizer treatments. Pt was advised to let nurse know if he feels short of breath so he can get a breathing treatment. Pt resting comfortably on RA, no distress.
[2021-11-10 21:33] LABS: Glucose Point of Care 147 mg/dl (65-105)
[2021-11-11] VITALS (9 sets, daily range): BP systolic 149–177; BP diastolic 68–103; PULSE 67–90; RESP 16–20; TEMP 36.5–37; O2SAT 96–100
--- NOTE | 2021-11-11 03:08 | PC.NURSE ---
patient is a&o x3, answers all questions appropriately. patient seems confused a little, and is refusing to wear his arm brace. he stated that he doesn't give a fuck if I want it on him, that he is not going to wear it. patient keeps trying to get out of bed without assistance. he is angry that he has a bed alarm on and said that he is going to break it. patient is encouraged to call for assistance. healthcare consultant is at bedside at the moment.
--- NOTE | 2021-11-11 05:10 | PC.NURSE ---
patient is refusing all treatment from labs, respiratory treatments and his brace on his arm. he puts weight on his arm, even though it is supposed to be non-weight bearing. he was trying to remove his iv's. when asked any question or when trying to explain the reason for calling for assistance. wearing his brace etc. he states that he is fine and refuses treatment. dr vale is aware of this. we are closely monitoring him so that he does not fall. which he stated that he doesn't care if he did.
[2021-11-11 08:22] LABS: Glucose Point of Care 133 mg/dl (65-105)
[2021-11-11] MEDS: ATORVASTATIN 40 MG TABLET 80 MG PO (09:37)
[2021-11-11] MEDS: METOPROLOL TARTRATE 25 MG TABLET PO (09:38)
[2021-11-11] MEDS: AMIODARONE HCL 200 MG TABLET PO (09:38)
[2021-11-11] MEDS: ASPIRIN 81 MG CHEWABLE TABLET PO (09:38)
[2021-11-11] MEDS: CLOPIDOGREL BISULFATE 75 MG TABLET PO (09:38)
[2021-11-11] MEDS: FOLIC ACID 1 MG TABLET PO (09:38)
[2021-11-11] MEDS: THIAMINE HCL 100 MG TABLET PO (09:39)
[2021-11-11] MEDS: PANTOPRAZOLE SODIUM IV 40 MG VIAL IV PUSH (09:39)
[2021-11-11] MEDS: ENOXAPARIN 40 MG/0.4 ML SYRINGE SUB-Q (09:39)
[2021-11-11] MEDS: INSULIN GLARGINE (*BKC) 100 UNITS/ML 30 UNITS SUB-Q (09:40)
[2021-11-11] MEDS: MICONAZOLE NITRATE 2% CREAM 30 GM TUBE 1 APPLIC TOPICAL (09:40)
[2021-11-11 12:38] LABS: Glucose Point of Care 124 mg/dl (65-105)
--- NOTE | 2021-11-11 13:39 | PCOTNOTE ---
Attempted to see patient this pm, however patient declined in hopes of being discharged. I just want the doctor to come in so I can get out of here. Pt and girlfriend both agitated at this time. Per girlfriend, We've been waiting since noon.
[2021-11-11] MEDS: cefTRIAXone 2 GM in SODIUM CHLORIDE 0.9% IV 100 ML 200 ML IVPB (14:06)
--- NOTE | 2021-11-11 14:40 | PM.PNCARD ---
Progress Note: A&P Additional Plan -diabetic ketoacidosis -noncompliant -extensive cardiac history. -NSTEMI -ventricular tachycardia. -paroxysmal AFib No recurrence of AFib since started on the amiodarone. -continue aspirin, Plavix. -add Eliquis 5 mg b.i.d.. -will continue aspirin, Plavix, Eliquis for 1 month and after 1 month we can stop the aspirin. -continue amiodarone. -should be okay to be discharged home from cardiac standpoint. -arrange for follow-up as an outpatient. Subjective Date/time seen: Date of service 11/11/21 14:40: He wants to go home. Denies chest pain, shortness of breath. Exam Narrative: Chronically ill-appearing gentleman rapidly eating breakfast Const: General: comfortable, no acute distress, in distress and uncomfortable Other: Intubated sedated chronically ill-appearing patient HENMT: General nose exam: Normal nares present and no epistaxis Mouth: Yes dry mucous membranes Eyes: Sclera: sclerae normal Neck: Neck: supple and no JVD Chest: Other: No reproducible chest wall pain to palpation Resp: Auscultation: diminished lung sounds Other: Breath sounds are tubular no rales no rhonchi Cardio: Rate: regular rate and tachycardic Rhythm: regular rhythm and abnormal rhythm regularly irregular Other: soft systolic murmur does not radiate from the left sternal border GI: Inspection: non-distended Auscultation: normal bowel sounds : Male General Exam: Yes tenderness Urinary Catheter: Urinary Catheter: urine clear Skin: General skin exam: normal color Neuro: Cranial nerves: No Normal hearing present Cognition (Neuro): abnormal cognition Speech: No normal speech Other: Sedated Extrem: General: normal to inspection, no edema and no pedal edema Other: No edema, no palpable pulses in the lower extremities below the femoral triangle Psych: Mental Status: mental status grossly normal Objective Data Vital Signs Vital Signs: Vital Signs - 24 hr 11/10/21 16:00 11/10/21 17:53 11/10/21 20:00 Temperature 37.2 C 36.4 C L Pulse Rate 69 79 86 Respiratory Rate 20 16 Blood Pressure 158/74 H 140/61 Pulse Oximetry 98 96 11/10/21 20:49 11/10/21 21:34 11/10/21 22:00 Temperature Pulse Rate 73 70 Respiratory Rate Blood Pressure Pulse Oximetry 96 11/11/21 00:00 11/11/21 02:00 11/11/21 04:00 Temperature 36.7 C 36.5 C Pulse Rate 73 72 72 Respiratory Rate 16 16 Blood Pressure 149/68 H 166/73 H Pulse Oximetry 97 98 11/11/21 06:00 11/11/21 08:00 11/11/21 08:02 Temperature 37.0 C Pulse Rate 90 77 Respiratory Rate 18 Blood Pressure 177/77 H Pulse Oximetry 98 96 11/11/21 10:00 11/11/21 12:00 Temperature 36.9 C Pulse Rate 80 73 Respiratory Rate 20 Blood Pressure 171/103 H Pulse Oximetry 100 Intake/Output Intake/Output: Intake & Output 11/08/21 11/09/21 11/10/21 11/11/21 23:59 23:59 23:59 23:59 Intake Total 2650 2550 1090 590 Output Total 2250 3850 3250 1225 Balance 640 -5319 -8189 -699 Meds/Results Medications: Active Medications Generic Name Dose Route Start Last Admin Trade Name Freq PRN Reason Stop Dose Admin Acetaminophen 650 mg 11/05/21 20:58 11/09/21 00:22 Acetaminophen 325 Mg Tablet PO 650 mg Q6H PRN Administration Mild Pain (1-3) or Fever Amiodarone HCl 200 mg 11/10/21 08:00 11/11/21 09:38 Amiodarone Hcl 200 Mg Tablet PO 200 mg DAILY@0800 SARA Administration Aspirin 81 mg 11/03/21 08:14 11/11/21 09:38 Aspirin 81 Mg Chewable Tablet PO 81 mg DAILY@0800 SARA Administration Atorvastatin Calcium 80 mg 11/08/21 09:15 11/11/21 09:37 Atorvastatin 40 Mg Tablet PO 80 mg DAILY SARA Administration Clopidogrel Bisulfate 75 mg 11/04/21 09:00 11/11/21 09:38 Clopidogrel Bisulfate 75 Mg Tablet PO 75 mg QAM SARA Administration Dextrose 12.5 gm 11/02/21 18:57 Dextrose 50% 25 Gm/50 Ml Syringe IV PUSH PRN PRN Hypoglycemia Protocol Fentanyl Citrate
--- NOTE | 2021-11-11 14:56 | P.DS_ITS ---
DS: Admitting Diagnosis Discharge Date 11/11/21 Admitting Diagnosis Weakness DS: Discharge Diagnosis Discharge Diagnosis (1) Ventricular tachycardia: Code(s): I47.2 - Ventricular tachycardia Status: Acute Assessment and Plan: On 11/02, patient developed a wide complex tachycardia consistent with VTach * Cardioversion was considered but patient converted spontaneously to SVT/atrial flutter. * Lidocaine IV push, Amiodarone bolus and was started amiodarone infusion * V-tach related to diabetic ketoacidosis, pneumonia, septic shock and/or coronary artery disease (suspect ischemia) * >70 beat run of VTach 11/03 treated with Amio bolus and Amio rate increased; Mag also given * Cardiology was consulted and appreciate their input * We maintained potassium > 4.0 and magnesium > 2.0 * LHC 11/03 showing distal LCx 99%, 100% RCA (old) and 90% in-stent restenosis LAD but patent HUDSON to LAD. * Tele showing no recurrence of VTach; Was on IV Amio but changed to oral and still no further episodes of VTach * No intervention performed. Plan for medical management for the CAD (2) Acute respiratory failure: Code(s): J96.00 - Acute respiratory failure, unspecified whether with hypoxia or hypercapnia Status: Acute Assessment and Plan: Patient presented with a pneumonia and went into wide complex ventricular tachycardia. * Was tachypneic with shallow breathing and LE mottling so decision to intubate on 11/02 * CT chest showing left lower lung pneumonia. * Abx as detailed below and bronchodilators * Breathing trial was successfully and able to be extubated 11/08. Able to be weaned to room air * Appreciate senior manufacturing test engineer input (3) Septic shock: Code(s): A41.9 - Sepsis, unspecified organism; R65.21 - Severe sepsis with septic shock Status: Acute Assessment and Plan: Patient presents weakness and found to have leukocytosis, lactic acidosis, tachycardia, tachypnea, bandemia and HoTN * Patient with severe sepsis, septic shock and now septicemia from pneumonia * Treated with Levophed up to 15mcg/min but able to be weaned off * BCx (2of2) on 11/02 positive for Strept Pneumoniae; Repeat BCx 11/06 Negative * Urine Pneumococcal Ag positive; Legionella negative. * Started on ceftriaxone (11/02 1142); Azithromycin (11/02 1259) and vancomycin (11/03 0800) stopped 11/09/21 * Was having fevers mostly at night. CT chest showing LLL PNA. Consider atelectasis, drug fever, abscess, pseudomonal/ESBL infection or viral etiology. Fever curve better now since stopping Vanco so suspect drug fever. * He completed 10 days of Rocehin. Continue antibiotics to complete a 14 day course (4) Diabetes mellitus: Code(s): E11.9 - Type 2 diabetes mellitus without complications Status: Acute Assessment and Plan: Patient with known diabetes * On metformin at home but his A1c 13.6 last year * has been noncompliant with his medications at home * A1c >14 now * Hypoglycemia noted so Lantus was adjusted. * Glucose better controlled with the Lantus * Will continue Lantus at discharge (5) Elevated LFTs: Code(s): R79.89 - Other specified abnormal findings of blood chemistry Status: Acute Assessment and Plan: AST peaking 161 and ALT up to 88. Alk-phos 530 but normal bilirubin. AST and ALT normal and Alk-Phos trending downward. Lipitor was held but then resumed. (6) Right wrist fracture: Code(s): S62.101A - Fracture of unspecified carpal bone, right wrist, initial encounter for closed fracture Sta
--- NOTE | 2021-11-11 14:56 | PM.DS ---
DS: Admitting Diagnosis Discharge Date 11/11/21 Admitting Diagnosis Weakness DS: Discharge Diagnosis Discharge Diagnosis (1) Ventricular tachycardia: Code(s): I47.2 - Ventricular tachycardia Status: Acute Assessment and Plan: On 11/02, patient developed a wide complex tachycardia consistent with VTach Cardioversion was considered but patient converted spontaneously to SVT/atrial flutter. Lidocaine IV push, Amiodarone bolus and was started amiodarone infusion V-tach related to diabetic ketoacidosis, pneumonia, septic shock and/or coronary artery disease (suspect ischemia) >70 beat run of VTach 11/03 treated with Amio bolus and Amio rate increased; Mag also given Cardiology was consulted and appreciate their input We maintained potassium > 4.0 and magnesium > 2.0 LHC 11/03 showing distal LCx 99%, 100% RCA (old) and 90% in-stent restenosis LAD but patent HUDSON to LAD. Tele showing no recurrence of VTach; Was on IV Amio but changed to oral and still no further episodes of VTach No intervention performed. Plan for medical management for the CAD (2) Acute respiratory failure: Code(s): J96.00 - Acute respiratory failure, unspecified whether with hypoxia or hypercapnia Status: Acute Assessment and Plan: Patient presented with a pneumonia and went into wide complex ventricular tachycardia. Was tachypneic with shallow breathing and LE mottling so decision to intubate on 11/02 CT chest showing left lower lung pneumonia. Abx as detailed below and bronchodilators Breathing trial was successfully and able to be extubated 11/08. Able to be weaned to room air Appreciate compliance reviewer input (3) Septic shock: Code(s): A41.9 - Sepsis, unspecified organism; R65.21 - Severe sepsis with septic shock Status: Acute Assessment and Plan: Patient presents weakness and found to have leukocytosis, lactic acidosis, tachycardia, tachypnea, bandemia and HoTN Patient with severe sepsis, septic shock and now septicemia from pneumonia Treated with Levophed up to 15mcg/min but able to be weaned off BCx (2of2) on 11/02 positive for Strept Pneumoniae; Repeat BCx 11/06 Negative Urine Pneumococcal Ag positive; Legionella negative. Started on ceftriaxone (11/02 1142); Azithromycin (11/02 1259) and vancomycin (11/03 0800) stopped 11/09/21 Was having fevers mostly at night. CT chest showing LLL PNA. Consider atelectasis, drug fever, abscess, pseudomonal/ESBL infection or viral etiology. Fever curve better now since stopping Vanco so suspect drug fever. He completed 10 days of Rocehin. Continue antibiotics to complete a 14 day course (4) Diabetes mellitus: Code(s): E11.9 - Type 2 diabetes mellitus without complications Status: Acute Assessment and Plan: Patient with known diabetes On metformin at home but his A1c 13.6 last year has been noncompliant with his medications at home A1c >14 now Hypoglycemia noted so Lantus was adjusted. Glucose better controlled with the Lantus Will continue Lantus at discharge (5) Elevated LFTs: Code(s): R79.89 - Other specified abnormal findings of blood chemistry Status: Acute Assessment and Plan: AST peaking 161 and ALT up to 88. Alk-phos 530 but normal bilirubin. AST and ALT normal and Alk-Phos trending downward. Lipitor was held but then resumed. (6) Right wrist fracture: Code(s): S62.101A - Fracture of unspecified carpal bone, right wrist, initial encounter for closed fracture Status: Acute Assessment and Plan: Right wrist x-ray on 11/06 showing subacute right radial distal metaphyseal nondisplaced fracture. More acute appearing ulnar metaphyseal and styloid fractures. Orthopedics was consulted and appreciate their input. Patient is in the soft splint at this time. Patient to follow with ortho after discharge. (7) Community acquired pneumonia: Qualifiers: Laterality: unspecified
== END 2021-11-11 16:50 | disposition home health service (06) | DRG 853 ==
LOC: ANHED 11:17 → ANHICU 11:39 → ANHIMU 11-09 10:14
PROVIDERS: Internal Medicine; Internal Medicine Cardiovascular Disease; Physician Assistant; Admitting Provider Internal Medicine; Emergency Provider Emergency Medicine; PCP Internal Medicine; Visit Provider Internal Medicine
PROC: 4A023N7 Measurement of Cardiac Sampling and Pressure, Left Heart, Percutaneous Approach (ICD-10-PCS; principal; 2021-11-03 10:00)
PROC: 02703ZZ Dilation of Coronary Artery, One Artery, Percutaneous Approach (ICD-10-PCS; CPT 92920; 2021-11-03 10:00)
DX: A41.9 Sepsis, unspecified organism (principal); E11.10 Type 2 diabetes mellitus with ketoacidosis without coma; R65.21 Severe sepsis with septic shock; J18.9 Pneumonia, unspecified organism; I21.4 Non-ST elevation (NSTEMI) myocardial infarction; J96.00 Acute respiratory failure, unspecified whether with hypoxia or hypercapnia; S52.501A Unspecified fracture of the lower end of right radius, initial encounter for closed fracture; T82.855A Stenosis of coronary artery stent, initial encounter; I47.2 Ventricular tachycardia; I82.611 Acute embolism and thrombosis of superficial veins of right upper extremity; I15.2 Hypertension secondary to endocrine disorders; I73.9 Peripheral vascular disease, unspecified; R63.4 Abnormal weight loss; E11.65 Type 2 diabetes mellitus with hyperglycemia; E11.59 Type 2 diabetes mellitus with other circulatory complications; E86.0 Dehydration; I25.10 Atherosclerotic heart disease of native coronary artery without angina pectoris; Z20.822 Contact with and (suspected) exposure to COVID-19; Z91.14 Patient's other noncompliance with medication regimen; Z87.891 Personal history of nicotine dependence; Z95.2 Presence of prosthetic heart valve; Z98.42 Cataract extraction status, left eye; Z98.41 Cataract extraction status, right eye; Z95.5 Presence of coronary angioplasty implant and graft; Z95.1 Presence of aortocoronary bypass graft; Z95.0 Presence of cardiac pacemaker; Z89.411 Acquired absence of right great toe; Z72.89 Other problems related to lifestyle; W19.XXXA Unspecified fall, initial encounter
CPT/HCPCS: 36415; 36600; 71045; 71250; 73070; 73090; 73100; 80048; 80053; 80202; 80307; 81001; 82010; 82375; 82550; 82803; 82805; 82948; 83036; 83050; 83605; 83735; 84100; 84132; 84145; 84443; 84484; 85025; 85055; 85610; 85730; 86140; 87040; 87070; 87077; 87086; 87184; 87186; 87205; 87449; 87502; 87899; 92920; 93005; 93306; 93455; 93971; 94002; 94003; 94640; 96361; 96374; 97116; 97161; 97166; 97530; 99285; A9270; C1725; C1751; C1769; C1887; C1894; C9113; C9803; J0131; J0171; J0282; J0456; J0461; J0583; J0610; J0696; J1642; J1644; J1650; J1815; J2001; J2250; J3010; J3370; J3411; J3475; J3480; J7030; J7040; J7120; U0003; U0005

== ENCOUNTER 2022-02-21 13:53 | Inpatient (IN) | payer MEDICARE, OTHER, SELFPAY ==
[2022-02-21] VITALS (12 sets, daily range): BP systolic 154–181; BP diastolic 82–105; PULSE 86–96; RESP 16–26; TEMP 36.4–36.7; O2SAT 97–100; BMI 26.1
--- NOTE | ~2022-02-21 | XR_ITS ---
EXAMINATION: XR chest 1V DATE: 02/21/2022 14:43 INDICATION: Stroke presenting with weakness and arm numbness TECHNIQUE: frontal view of the chest was obtained. COMPARISON: Chest radiograph dated 11/11/2021 FINDINGS: Again seen are mild airspace opacities at the bilateral mid and lower lung zones. No pneumothorax or definitive pleural effusion. Borderline heart size accounting for AP technique. Median sternotomy wir es and mediastinal surgical clips are seen, likely from prior coronary artery bypass grafting. Dual l ead pacemaker seen with leads projecting over the expected locations of the right atrium and right ve ntricle. Old bilateral rib fractures. IMPRESSION: 1. Mild opacities in bilateral mid and lower lung zones which could represent atelectasis, pleural pa renchymal scarring related to old bilateral rib fractures or pneumonia. Reviewed, dictated and finalized at location B. IMPRESSION: 1. Mild opacities in bilateral mid and lower lung zones which could represent a telectasis, pleural parenchymal scarring related to old bilateral rib fractures or pneumonia.
--- NOTE | ~2022-02-21 | CT_ITS ---
EXAMINATION: CT chest abdomen pelvis wo con DATE: 02/23/2022 16:41 CDT INDICATION: Lung masses. Abnormal abdominal ultrasound. TECHNIQUE: Computed tomography (CT) of the chest, abdomen, and pelvis was performed without intraveno us contrast. The dose-length product was 948.04 mGy-cm. Automated exposure control and iterative steven nstruction technique were employed. COMPARISON: CT dated 11/08/2021 FINDINGS: CHEST CT: No thoracic lymphadenopathy. Heart size normal. Bibasilar dependent atelectasis. Multiple bilateral p ulmonary nodules have developed since prior examination, many of which have ill-defined margins the l argest nodule is in the left upper lobe measuring approximately 12 mm greatest dimension. Findings co mpatible with metastatic disease. No pneumothorax. No endobronchial lesions. There is atherosclerosis of the aorta and coronary arteries. Status post median sternotomy for CABG. ABDOMEN/PELVIS CT: There is cirrhosis of the liver. Multiple liver masses are identified. There is ascites of the abdome n and pelvis. There is a bladder diverticulum posteriorly. There is diffuse atherosclerosis. There ar e calcified granulomas of the spleen. There is suggestion of a pancreatic mass which is ill-defined, suspicious for carcinoma. The adrenal glands are unremarkable. There is residual contrast in the kidn eys bilaterally. There is retroperitoneal lymphadenopathy in the periaortic region. There are mild we dge compression deformities of T11 and L1, likely chronic. There is mild thoracic and lumbar spondylo sis. IMPRESSION: 1. Multiple new bilateral pulmonary nodules measuring up to 12 mm, most likely metastatic disease. Co rrelate for history of malignancy. 2: Possible pancreatic mass, suspicious for adenocarcinoma. Recommend correlation with contrast-enhan lencho MRI. 3: Cirrhosis of the liver with multiple liver masses, likely metastatic disease. 4: Ascites. 5: Retroperitoneal lymphadenopathy, possibly metastatic disease. Reviewed, dictated and finalized at location A. IMPRESSION: 1. Multiple new bilateral pulmonary nodules measuring up to 12 mm, most likely metastatic disease. Correlate for history of malignancy. 2: Possible pancreatic mass, suspicious for adenocarcinoma. Recommend correlati on with contrast-enhanced MRI. 3: Cirrhosis of the liver with multiple liver masses, likely metastatic diseas e. 4: Ascites. 5: Retroperitoneal lymphadenopathy, possibly metastatic disease.
--- NOTE | ~2022-02-21 | CT_ITS ---
EXAMINATION: CT brain wo con DATE: 02/21/2022 14:39 INDICATION: 24 hours of neurologic symptoms including dizziness and lack of coordination. TECHNIQUE: Computed tomography (CT) of the head was performed without intravenous contrast. Sagittal and coronal reconstructions were performed. The mA was adjusted according to patient size. Iterative reconstruction technique was employed. The dose-length product was 605.33 mGy-cm. COMPARISON: None FINDINGS: Couple small regions of likely cytotoxic edema in the left parietal and occipital lobes with decrease d attenuation, loss of de león-white matter differentiation and without appreciable associated volume lo ss suspicious for acute infarcts. There are few low-attenuation small old lacunar infarcts at the hea d of the right caudate nucleus and bilateral lentiform nuclei. No acute intracranial hemorrhage or ab normal extra axial fluid collection. There is moderate scattered white matter hypoattenuation consist ent with chronic small vessel ischemic disease. Symmetric prominence of the sulci and and subarachnoi d spaces overlying the convexities consistent with mild to moderate age-appropriate diffuse cerebral volume loss. Ventricles are normal and symmetric. No mass/mass effect. Mild mucosal thickening in the right ethmoid sinus. Changes of bilateral intraocular lens replacement. Bilateral mastoids are hypop neumatized. IMPRESSION: 1. A couple small regions of decreased attenuation without corresponding volume loss suspicious for a cute infarcts in the left parietal and occipital lobes. 2. Small old lacunar infarcts at the right caudate nucleus and bilateral lentiform nuclei. 3. Age-related changes including mild to moderate diffuse volume loss and moderate scattered white ma tter hypoattenuation consistent with chronic small vessel ischemic disease. Reviewed, dictated and finalized at location B. IMPRESSION: 1. A couple small regions of decreased attenuation without corresponding volume loss suspicious for acute infarcts in the left parietal and occipital lobes. 2. Small old lacunar infarcts at the right caudate nucleus and bilateral lentif orm nuclei. 3. Age-related changes including mild to moderate diffuse volume loss and moder ate scattered white matter hypoattenuation consistent with chronic small vessel ischemic disease.
--- NOTE | ~2022-02-21 | US_ITS ---
EXAMINATION: US carotid duplex BI DATE: 02/22/2022 11:37 INDICATION: Stroke with right facial weakness and right-sided disturbance of skin sensation TECHNIQUE: Grayscale, color Doppler, and pulsed Doppler images of the cervical carotid arteries were obtained. The degree of vessel stenosis is placed in one of the following categories: normal, <50%, 5 0-69%, >=70% but less than near-occlusion, near-occlusion, or total occlusion. Note that percent sten osis relative to normal distal artery lumen diameter is indirectly measured from velocity measurement s as described by Jorge, et al. Radiology 2003; 229:340-346. COMPARISON: None. FINDINGS: RIGHT: The right common carotid artery (CCA) peak systolic velocity (PSV) is 69 cm/s. The right internal car otid artery (ICA) PSV is 146 cm/s. The right ICA end-diastolic velocity (EDV) is 32 cm/s. The right I CA/CCA PSV ratio is 2.1. Grayscale and color Doppler images yield an estimate of 50-69% diameter redu ction from plaque in the ICA. The external carotid artery (ECA) PSV is 179 cm/s. There is antegrade f low in the right vertebral artery. LEFT: The left CCA PSV is 138 cm/s. There is a 50-69 % stenosis at the left common carotid artery. The left ICA PSV is 45 cm/s. The left ICA EDV is 10 cm/s. The left ICA/CCA PSV ratio is 0.3. Grayscale and co armando Doppler images yield an estimate of <50% diameter reduction from plaque in the ICA. The ECA PSV i s 204 cm/s. There is antegrade flow in the left vertebral artery. IMPRESSION: 1. 50-69% stenosis in the right internal carotid artery. 2. <50% stenosis in the left internal carotid artery. 2. 50-69% stenosis in the left common carotid artery Reviewed, dictated and finalized at location B.
--- NOTE | ~2022-02-21 | US_ITS ---
EXAMINATION: US right upper quadrant DATE: 02/23/2022 11:47 INDICATION: Elevated liver function tests. TECHNIQUE: Multiple grayscale and Doppler ultrasound images of the abdomen were obtained. COMPARISON: CT dated 06/03/2020 FINDINGS: The pancreatic head and body are normal in appearance. The pancreatic tail is not visualized. There is heterogeneous echogenicity of the liver with multiple hypoechoic masses versus geographic regions of relatively decreased echogenicity. There appears to be some liver surface nodularity suspicious fo r cirrhosis. There is also a small amount of perihepatic ascites. Gallbladder is partially decompress ed with wall thickening measuring up to 5 mm. No cholelithiasis. Common bile duct measures 5 mm in di ameter which is normal. Sonographic Trivedi sign was reported as negative by the ranch supervisor. IMPRESSION: 1. Heterogeneous echogenicity of the gallbladder with hypoechoic masses versus geographic regions of decreased echogenicity bladder which could be due to either heterogeneous hepatic steatosis or cirrho sis with suggestion of some subtle liver surface nodularity. Correlate with clinical history, liver f unction tests and would recommend further evaluation with pre and postcontrast MRI or CT. 2. Wall thickening of the gallbladder which is partially decompressed with negative sonographic Elgin y sign and without cholelithiasis to suggest acute cholecystitis. More likely differential would incl ude sequela of liver disease, heart failure, renal failure, sepsis or other generalized edema forming states. Reviewed, dictated and finalized at location B. IMPRESSION: 1. Heterogeneous echogenicity of the gallbladder with hypoechoic masses versus geographic regions of decreased echogenicity bladder which could be due to eith er heterogeneous hepatic steatosis or cirrhosis with suggestion of some subtle liver surface nodularity. Correlate with clinical history, liver function tests and would recommend further evaluation with pre and postcontrast MRI or CT. 2. Wall thickening of the gallbladder which is partially decompressed with nega tive sonographic Trivedi sign and without cholelithiasis to suggest acute cholec ystitis. More likely differential would include sequela of liver disease, heart failure, renal failure, sepsis or other generalized edema forming states.
--- NOTE | ~2022-02-21 | CT_ITS ---
EXAMINATION: CTA brain carotid DATE: 02/23/2022 12:17 INDICATION: Carotid stenosis. TECHNIQUE: Computed tomographic angiography (CTA) of the head was performed without and with 100 mL O mnipaque-350 intravenous contrast. CTA of the neck was performed with intravenous contrast. Automated exposure control and iterative reconstruction technique were employed. The dose-length product was 1 750.49 mGy-cm. Maximum intensity projection and volume rendered 3D-reconstructions were created by dandy dillon technologist on a separate workstation. COMPARISON: Head CT 02/21/2022 FINDINGS: HEAD CTA: There are infarcts in the left occipital, parietal, and posterior left frontal lobes. There are old lacunar infarcts in the bilateral basal ganglia. There are scattered areas of low attenuatio n in the cerebral white matter, likely chronic small vessel ischemic disease. There is no intracrania l hemorrhage or abnormal mass lesion. The ventricles are normal in size. There is mild mucosal thicke fernandez in the ethmoid sinuses. The mastoid air cells are normal. There is moderate stenosis of distal r ight vertebral artery. The vertebral arteries are codominant. There is no significant stenosis of bas ilar artery or the posterior cerebral arteries. There is moderate stenosis of the intracranial electrical intern al carotid arteries. There is moderate stenosis of proximal right middle cerebral artery. There is se denys stenosis of left A1 anterior cerebral artery. Anterior communicating artery is normal. The poste rior communicating arteries are normal. There is no aneurysm. NECK CTA: There are innumerable nodules in the lungs measuring up to 11 mm. There are changes of spring nary bypass grafting. There are no pathologically enlarged lymph nodes. There is moderate stenosis of proximal right vertebral artery. There is plaque in the proximal internal carotid arteries. There is 23% stenosis of the proximal right internal carotid artery relative to normal distal artery lumen di ameter (NASCET criteria). There is 0% stenosis of the proximal left internal carotid artery relative to normal distal artery lumen diameter. There is moderate stenosis of left common carotid artery. The re is severe cervical spondylosis. IMPRESSION: 1. Innumerable pulmonary nodules measuring up to 11 mm, consistent with infection versus metastatic d isease. 2. Infarcts in left occipital, parietal, and posterior frontal lobes, likely acute or subacute. 3. Multiple old infarcts in the brain. 4. Multifocal articular stenosis including the intracranial internal carotid arteries, right middle c erebral artery, right vertebral artery, and left common carotid artery. 5. 23% stenosis of the proximal right internal carotid artery relative to normal distal artery lumen diameter (NASCET criteria). 6. 0% stenosis of the proximal left internal carotid artery relative to normal distal artery lumen di ameter. Reviewed, dictated and finalized at location A. IMPRESSION: 1. Innumerable pulmonary nodules measuring up to 11 mm, consistent with infecti on versus metastatic disease. 2. Infarcts in left occipital, parietal, and posterior frontal lobes, likely ac stebbins or subacute. 3. Multiple old infarcts in the brain. 4. Multifocal articular stenosis including the intracranial internal carotid ar teries, right middle cerebral artery, right vertebral artery, and left common c arotid artery. 5. 23% stenosis of the proximal right internal carotid artery relative to erica l distal artery lumen diameter (NASCET criteria). 6. 0% stenosis of the proximal left internal carotid artery relative to normal distal artery lumen diameter.
--- NOTE | 2022-02-21 14:07 | ECG_ITS ---
Measurements Intervals [place] Rate: 90 P: 60 NH: 184 QRS: 30 QRSD: 133 T: 186 QT: 403 QTc: 495 Interpretive Statements SINUS RHYTHM INTRAVENTRICULAR CONDUCTION DELAY CANNOT RULE OUT SEPTAL INFARCT, AGE INDETERMINATE ST-T WAVE ABNORMALITY IN ANTEROLATERAL LEADS- CONSIDER ISCHEMIA ABNORMAL ECG Electronically Signed On 02-21-2022 14:34:40 CDT by Nayan Alarcon D.O.
--- NOTE | 2022-02-21 14:18 | ED.NEUROSD ---
HPI - Neuro Symptoms/Deficit General Chief Complaint: Neuro Symptoms/Deficit Stated Complaint: neuro Time Seen by Provider: 02/21/22 14:05 History of Present Illness HPI Narrative: 71-year-old male presents emergency room stating I think of had a stroke . States that could have been when he woke up yesterday morning if not shortly thereafter began having some difficulty and weakness in his right arm, hand as well as his right leg. He is havingsome difficulty in ambulating but able to ambulate. He is right-hand dominant. Denies any visual problems. He does have some chronic diabetic retinopathy but no acute changes. He has had no prior stroke. According to his family members here with him he is having trouble choosing his words and getting his speech out at times. Denies any chills or fever. No cough or congestion. Related Data Allergies Allergy/AdvReac Type Severity Reaction Status Date / Time codeine Allergy Unknown Unresponsiv Verified 11/02/21 09:11 e Penicillins Allergy Unknown Rash Verified 11/02/21 09:11 Review of Systems Review of Systems: CONSTITUTIONAL: Denies fever, chills, or sweats. EYES: Denies visual changes, redness, or discharge. ENT: Denies rhinorrhea, congestion, sore throat, or otalgia. CARDIOVASCULAR: Denies chest pain, palpitations, or edema. RESPIRATORY: Denies cough or dyspnea. GASTROINTESTINAL: Denies abdominal pain, nausea, vomiting, or diarrhea. GENITOURINARY: Denies dysuria or hematuria. SKIN: Denies rash or itching. MUSCULOSKELETAL: Denies back pain, joint pain, or myalgia. NEUROLOGIC: Denies headache. Having weakness to his right hand as well as his right foot and leg. PSYCHIATRIC: Denies anxiety or depression. [facility] Past Medical History Medical History Aortic stenosis Status post tissue aortic valve replacement. Coronary artery disease Hypertension Peripheral vascular disease Seasonal allergic rhinitis Type 2 diabetes mellitus Surgical History Surgical History Amputated toe of right foot History of aortic valve replacement with tissue graft (06/17/20) History of cardiac pacemaker in situ (06/23/20) [employer] dual-chamber pacemaker. History of cataract extraction History of coronary artery bypass graft (06/17/20) HUDSON to the LAD. History of coronary artery stent placement (10/30/19) Drug-eluting stent to the mid LAD. History of nasal surgery (2004) History of open reduction and internal fixation (ORIF) procedure Left ankle fracture. History of vascular surgery (11/02/20) Right femoral tibial bypass. Family History Family History Mother Family history of diabetes mellitus in first degree relative Father Heart failure Other Diabetes mellitus Family history of coronary artery disease Social History Social History Social History: Surrogate decision maker: Hermila Campbell, significant other. Code status: Full code. Smoking packs per day: 1 Smoking cigarettes per day: 20.0 Years smoked: 50 Smoking pack-years: 50.00 Smoking status: Light tobacco smoker Tobacco type: cigarettes Second hand tobacco smoke exposure: Yes Additional smoking assessment comments: 0.5 to 1 ppd Alcohol intake: current Drinks per week: 20 Substance use: never Substance use type: does not use Additional living arrangements comments: x2. Lives in [place] with his significant other. 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 Spiritual care concerns: No Exam Narrative: APPEARANCE: Well appearing, no pain or distress, well-nourished. Head Normocephalic and atraumatic. EYES: PERRLA/EOMI, conjunctivae clear. NOSE: Normal with no drainage EARS:TMS clear with Perez, with good light reflex. THROAT: Pharynx clear, no ex
[2022-02-21 14:30] LABS: Glucose Point of Care 289 mg/dl (65-105)
[2022-02-21 14:31] LABS: Basophils Absolute Auto 0.1 K/mm3 (0.0-0.1); Basophils Percent Auto 0.7 % (0.2-1.2); Eosinophils Absolute Auto 0.2 K/mm3 (0-0.3); Eosinophils Percent Auto 1.3 % (0-4.4); Hematocrit 39.2 % (42.0-52.0); Hemoglobin 12.9 g/dL (14.0-18.0); Immature Granulocyte Absolute 0.06 K/mm3 (0.00-0.031); Immature Granulocyte Percent A 0.5 % (0-0.5); Lymphocytes Percent Auto 4.9 % (18.3-44.2); Mean Corpuscular HGB Conc 32.9 g/dl (32-36); Mean Corpuscular Hemoglobin 29.3 pg (26-34); Mean Corpuscular Volume 88.9 fl (80-100); Mean Platelet Volume 11.4 fl (7.4-10.4); Neutrophils Absolute Auto 10.3 K/mm3 (1.3-6.7); Neutrophils Percent Auto 84.6 % (45.5-73.1); Platelet Count Result 221 k/mm3 (150-375); Red Blood Count 4.41 M/mm3 (4.6-6.20); Red Cell Distribution Width 13.3 % (11.5-14.5); White Blood Count 12.2 K/mm3 (4.5-10.0)
[2022-02-21 14:33] LABS: Alanine Aminotransferase 59 U/L (6-50); Albumin Level 3.7 g/dL (3.5-5.1); Alkaline Phosphatase 618 U/L (38-126); Anion Gap 10 mmol/L (8-16); Aspartate Amino Transferase 67 U/L (17-59); Bilirubin,Total 3.8 mg/dL (0.2-1.3); Blood Urea Nitrogen 12 mg/dL (9-20); Carbon Dioxide 27 mmol/L (22-30); Chloride 91 mmol/L (98-107); Estimated CRCL calculation 78 ml/min; Estimated Glomerular Filt Rate > 60; Glucose 350 mg/dL (65-110); Potassium 3.6 mmol/L (3.4-5.0); Sodium 128 mmol/L (137-145)
[2022-02-21 14:35] LABS: INR 1.2; Prothrombin Time 14.6 Seconds (11.1-14.7)
[2022-02-21 14:36] LABS: Partial Thromboplastin Time 27.1 SECONDS (22.3-36.8)
[2022-02-21] MEDS: ASPIRIN 81 MG CHEWABLE TABLET 324 MG PO (15:05)
[2022-02-21 16:00] LABS: SARS-CoV-2 RNA PCR Negative
--- NOTE | 2022-02-21 17:47 | ADMGEN ---
This patient, Gustavo Veloz, was admitted to IMU Room 203-01 @1745. Patient/ oriented to hospital policies and general routines including ID bracelet, bed and alarms, visiting hours, pain management, procedures, bathroom and other care routines, personal items, smoking policy, room service/diet, and visiting hours. Information on how to activate the Rapid Response Team has been discussed. Patient/Family are encouraged to report perceived risks to care and to ask questions if they do not understand what they are told or what they should do.
[2022-02-21 18:00] LABS: Glucose Point of Care 329 mg/dl (65-105)
[2022-02-21 18:08] LABS: Troponin I 0.186 ng/mL (0.000-0.034)
--- NOTE | 2022-02-21 19:03 | PM.IMHP ---
H&P: HPI History of Present Illness Date/Time: 02/21/22 19:03 Chief Complaint: Speech and gait instability Narrative: Patient is a 71 year old male with a PMH of IA, HLD, Afib, aortic valve replacement, CAD, CABG who presented to the ED with complaints of aphasia and gait instability. He stated that this all really started about 2 weeks ago when he noticed visual changes. He stated that his vision was more blurry. He stated that more recently he his family noticed that he was having increased slurred speech and gait disturbances. He denies any chest pain, shortness of breath, nausea, vomiting, diarrhea, sweats, fevers, chills. Patient did state that he was having constipation and that he would like a pill for that. Patient did fall about 2 weeks ago. He also states that he has had a cough on and for the last year however he states is nonproductive. He denies any abnormal swelling or hearing changes. Strength is equal bilaterally. He also stated that when he woke up today that he was having issues with the left side however he would hold up his right hand. He did state that he was taken his Eliquis however it ran out, and he never restarted it because he stated that it was over $300 for him to refill it. He denies any leg pain. NIH stroke scale at this time is a 5 however, seems to be getting better. Troponins are elevated at 0.190, 0.186. AST and ALT are also elevated 67/59. Blood pressure is 180/83. Head CT shows a small hole in occur infarcts the right caudate at nucleus and bilateral lentiform nuclei. Decreased attenuation without corresponding volume loss suspicious for acute infarcts in the left parietal and occipital lobes. Patient is being admitted to the hospital services and patient Review of Systems Review of Systems: All systems reviewed & are unremarkable except as noted in HPI and below [facility] Past Medical History Medical History Aortic stenosis Status post tissue aortic valve replacement. Coronary artery disease Hypertension Peripheral vascular disease Seasonal allergic rhinitis Type 2 diabetes mellitus Surgical History Surgical History Amputated toe of right foot History of aortic valve replacement with tissue graft (06/17/20) History of cardiac pacemaker in situ (06/23/20) Therapydia dual-chamber pacemaker. History of cataract extraction History of coronary artery bypass graft (06/17/20) HUDSON to the LAD. History of coronary artery stent placement (10/30/19) Drug-eluting stent to the mid LAD. History of nasal surgery (2004) History of open reduction and internal fixation (ORIF) procedure Left ankle fracture. History of vascular surgery (11/02/20) Right femoral tibial bypass. Family History Family History (Updated 02/21/22 @ 19:24 by TIM Del Rio) Mother Family history of diabetes mellitus in first degree relative Father Heart failure Acute myocardial infarction Other Diabetes mellitus Family history of coronary artery disease Social History Social History (Updated 02/21/22 @ 19:25 by TIM Del Rio) Social History: Patient does have 1 pet that he lives with his name is Joe. He had no kids. Surrogate decision maker: Hermila Campbell, significant other. Code status: Full code. Smoking packs per day: 1 Smoking cigarettes per day: 20.0 Years smoked: 50 Smoking pack-years: 50.00 Smoking status: Current every day smoker Tobacco type: cigarettes Second hand tobacco smoke exposure: Yes Additional smoking assessment comments: 0.5 to 1 ppd Alcohol intake: current Drinks per week: 70 Substance use: never Substance use type: does not use Living arrangements: other Additional living arrangements comments: x2. Lives in [place] with his significant other. Occupation/Education: retired Additional occupation/education
[2022-02-21 19:53] LABS: Glucose Point of Care 283 mg/dl (65-105)
[2022-02-21] MEDS: INSULIN GLARGINE (*BKC) 100 UNITS/ML 27 UNITS SUB-Q (20:17)
[2022-02-21] MEDS: DOCUSATE SODIUM 100 MG CAPSULE PO (20:17)
[2022-02-21] MEDS: METOPROLOL TARTRATE 25 MG TABLET PO (20:17)
[2022-02-21 20:44] LABS: NT Pro B Type Natriuretic Pept 2260 pg/mL (5-100)
[2022-02-21 20:58] LABS: Troponin I 0.205 ng/mL (0.000-0.034)
[2022-02-21] MEDS: HEPARIN SODIUM 5,000 UNITS/ML VIAL 5000 UNITS SUB-Q (21:11)
[2022-02-21] MEDS: INSULIN ASPART (*BKC) 100 UNITS/ML 10 UNITS SUB-Q (21:13)
[2022-02-21] MEDS: FUROSEMIDE INJ 40 MG/4 ML VIAL IV PUSH (21:23)
[2022-02-21 21:26] LABS: Hemoglobin A1C 9.3 % (<5.7)
[2022-02-21 22:08] LABS: Glucose Point of Care 238 mg/dl (65-105)
--- NOTE | 2022-02-21 23:26 | ECG_ITS ---
Measurements Intervals [place] Rate: 78 P: 44 NC: 144 QRS: 54 QRSD: 134 T: 187 QT: 436 QTc: 498 Interpretive Statements SINUS RHYTHM INTRAVENTRICULAR CONDUCTION DELAY MINIMAL Q WAVES- INFERIOR LEADS ST-T WAVE ABNORMALITY IN ANTEROLAT/INF LEADS- CONSIDER ISCHEMIA BASELINE ARTIFACT- I, III, AVL, V4-V5 ABNORMAL ECG Electronically Signed On 02-22-2022 12:58:42 CDT by Nayan Alarcon D.O.
[2022-02-22] VITALS (16 sets, daily range): BP systolic 130–164; BP diastolic 66–85; PULSE 65–92; RESP 18–20; TEMP 36.2–36.7; O2SAT 96–99
--- NOTE | 2022-02-22 | ECHO_ITS ---
Patient Info Name: Gustavo Veloz Age: 71 years : 1950 Gender: Male Ht: 72 in Wt: 192 lbs BSA: 2.11 m2 HR: 74 bpm BP: 144 / 69 mmHg Heart Rhythm: Sinus Rhythm Technical Quality: Fair Exam Date: 02/22/2022 7:38 AM Exam Location: [facility] Patient Status: Inpatient Admit Date: 02/21/2022 Staff Ordering Physician: Johnson Hooper Line Welder: Juanita Andrade RDCS Attending Provider: Alonso Moon MD Referring Physician: Rufus ADRIAN; Exam Type: CA echo doppler w bubble study Study Info Indications - CVA Complete two-dimensional, color flow and Doppler transthoracic echocardiogram is performed. Summary 1. Left ventricular chamber dimension is normal. 2. Left ventricular systolic function is normal, estimated at 55-60%. 3. There is mildly increased left ventricular wall thickness. 4. Left ventricular septal wall motion is abnormal with septal motion related to bundle branch block. 5. The left ventricular diastolic function is grade II diastolic dysfunction. 6. Left atrial chamber dimension is moderately enlarged. 7. Right atrial chamber dimension is mildly enlarged. 8. There is no bioprosthetic aortic valve stenosis. 9. There is no regurgitation of the bioprosthetic aortic valve. 10. There is trace mitral valve regurgitation. 11. There is trace tricuspid valve regurgitation. 12. Mild pulmonary hypertension, estimated pulmonary arterial systolic pressure is 36 mmHg. 13. No evidence for [id number] interatrial shunt with injection of agitated saline with or without Valsalva. Left Ventricle Left ventricular chamber dimension is normal. Left ventricular systolic function is normal, estimated at 55-60%. There is mildly increased left ventricular wall thickness. Left ventricular septal wall motion is abnormal with septal motion related to bundle branch block. The left ventricular diastolic function is grade II diastolic dysfunction. Right Ventricle Right ventricular chamber dimension is normal. Right ventricular systolic function is reduced. Linear artifact in right ventricle suggestive of catheter(s), pacemaker lead(s), or ICD lead(s). Left Atria Left atrial chamber dimension is moderately enlarged. Right Atria Right atrial chamber dimension is mildly enlarged. Linear artifact in the right atrium suggestive of catheter(s), pacemaker lead(s), or ICD lead(s). Atrial Septum No evidence for [id number] interatrial shunt with injection of agitated saline with or without Valsalva. Aortic Valve The bioprosthetic aortic valve is not well visualized. There is no bioprosthetic aortic valve stenosis. There is no regurgitation of the bioprosthetic aortic valve. Pulmonic Valve The pulmonic valve is not well visualized. Mitral Valve The mitral valve has thickened leaflets. There is trace mitral valve regurgitation. The mitral valve annulus is severely calcified. Tricuspid Valve The tricuspid valve leaflets are normal. There is trace tricuspid valve regurgitation. Mild pulmonary hypertension, estimated pulmonary arterial systolic pressure is 36 mmHg. Pericardium/Pleural The pericardium appears normal. There is no pericardial effusion. Inferior Vena Cava Normal inferior vena cava with <50% collapse upon inspiration consistent with elevated right atrial pressure, 10 mmHg. Aorta The aortic root size at the sinus of Valsalva is normal. Left Ventricular Outflow Tract
[2022-02-22] MEDS: HYDROcodone/acetaminophen (*CRX) 5-325 MG TABLET 1 TAB PO ×3 (04:01→20:51)
[2022-02-22 05:04] LABS: Basophils Absolute Auto 0.1 K/mm3 (0.0-0.1); Basophils Percent Auto 0.7 % (0.2-1.2); Eosinophils Absolute Auto 0.4 K/mm3 (0-0.3); Eosinophils Percent Auto 2.7 % (0-4.4); Hematocrit 37.3 % (42.0-52.0); Hemoglobin 12.4 g/dL (14.0-18.0); Immature Granulocyte Absolute 0.08 K/mm3 (0.00-0.031); Immature Granulocyte Percent A 0.6 % (0-0.5); Lymphocytes Absolute Auto 1.05 K/mm3 (0.9-3.2); Lymphocytes Percent Auto 7.5 % (18.3-44.2); Mean Corpuscular HGB Conc 33.2 g/dl (32-36); Mean Corpuscular Volume 87.1 fl (80-100); Mean Platelet Volume 11.7 fl (7.4-10.4); Monocytes Absolute Auto 1.7 K/mm3 (0.1-0.6); Monocytes Percent Auto 11.9 % (2.6-8.5); Neutrophils Absolute Auto 10.8 K/mm3 (1.3-6.7); Neutrophils Percent Auto 76.6 % (45.5-73.1); Platelet Count Result 238 k/mm3 (150-375); Red Blood Count 4.28 M/mm3 (4.6-6.20); Red Cell Distribution Width 13.3 % (11.5-14.5)
[2022-02-22 05:14] LABS: Alanine Aminotransferase 65 U/L (6-50); Albumin Level 3.5 g/dL (3.5-5.1); Alkaline Phosphatase 622 U/L (38-126); Anion Gap 7 mmol/L (8-16); Aspartate Amino Transferase 84 U/L (17-59); Bilirubin,Total 3.4 mg/dL (0.2-1.3); Blood Urea Nitrogen 13 mg/dL (9-20); Calcium 8.6 mg/dL (8.4-10.2); Carbon Dioxide 28 mmol/L (22-30); Chloride 93 mmol/L (98-107); Estimated CRCL calculation 94 ml/min; Estimated Glomerular Filt Rate > 60; Glucose 68 mg/dL (65-110); Magnesium 1.8 mg/dL (1.6-2.3); Potassium 3.1 mmol/L (3.4-5.0); Sodium 128 mmol/L (137-145)
[2022-02-22 08:14] LABS: Glucose Point of Care 100 mg/dl (65-105)
[2022-02-22] MEDS: CLOPIDOGREL BISULFATE 75 MG TABLET PO (09:27)
[2022-02-22] MEDS: ATORVASTATIN 40 MG TABLET 80 MG PO (09:27)
[2022-02-22] MEDS: AMIODARONE HCL 200 MG TABLET PO (09:27)
[2022-02-22] MEDS: ENOXAPARIN 40 MG/0.4 ML SYRINGE SUB-Q (09:27)
[2022-02-22] MEDS: TAMSULOSIN HCL 0.4 MG CAPSULE PO (09:28)
[2022-02-22] MEDS: THIAMINE HCL 100 MG TABLET PO (09:28)
[2022-02-22] MEDS: METOPROLOL TARTRATE 25 MG TABLET PO ×2 (09:28→20:51)
[2022-02-22] MEDS: FOLIC ACID 1 MG TABLET PO (09:28)
[2022-02-22] MEDS: LOSARTAN POTASSIUM 100 MG TABLET PO (09:28)
[2022-02-22] MEDS: ASPIRIN 81 MG CHEWABLE TABLET PO (09:28)
[2022-02-22] MEDS: DOCUSATE SODIUM 100 MG CAPSULE PO ×2 (09:28→17:05)
--- NOTE | 2022-02-22 10:14 | PM.CNCAR ---
Assessment and Plan Assessment and plan (1) Acute ischemic stroke: Code(s): I63.9 - Cerebral infarction, unspecified Status: Acute Assessment and Plan: CT head with suggestion of acute infarction left parietal and occipital lobe and small old lacunar infarction right caudate nucleus in bilateral lentiform nuclei. No evidence for [id number] shunt noted with echocardiogram. While patient is in sinus rhythm at this time on amiodarone as he discontinued Eliquis due to cost approximately 1 month ago this is a likely explanation patient stroke. Additional workup underway. Neurology consultation noted. Resume systemic anticoagulation when okay with Neurology. Plan to discontinue aspirin continue clopidogrel. (2) Elevated troponin: Code(s): R77.8 - Other specified abnormalities of plasma proteins Status: Acute Assessment and Plan: History of prior bypass high-grade stenosis not amenable to PCI with failed attempt fairly recently. Patient is not presenting with anginal symptoms mild flat troponin elevation type 2 infarction not consistent with acute coronary syndrome and/or acute plaque rupture. Continue aggressive medical therapy. Continue atorvastatin a beta-doe therapy. EF preserved. DVT prophylaxis (3) Paroxysmal A-fib: Code(s): I48.0 - Paroxysmal atrial fibrillation Status: Acute Assessment and Plan: Currently sinus rhythm. Maintained on amiodarone. Continue 200 mg daily. Discussed at length risk for embolic stroke with paroxysmal atrial fibrillation and strong indication for systemic anticoagulation for stroke risk reduction. Given inability to afford Eliquis if assistance programs available may attempt to utilize, however, least expensive option would be warfarin with goal INR 2-3. Explained in detail the absolute importance of compliance with follow-up, recommendations at least monthly or more often blood draws, interactions with warfarin with medications, lifestyle, bleeding risk with alcohol intake vitamin K containing foods. Patient verbalized understanding states he will consider but understands the importance and the need for anticoagulation. (4) Coronary disease: Code(s): I25.10 - Atherosclerotic heart disease of [place] coronary artery without angina pectoris Status: Acute Assessment and Plan: As above. Continue aggressive medical therapy. (5) Alcohol use: Code(s): Z72.89 - Other problems related to lifestyle Status: Acute Assessment and Plan: Defer to primary service. Monitor for withdrawal symptoms. Immediate and absolute cessation of alcohol and tobacco as counseled. (6) Type 2 diabetes mellitus: Qualifiers: Diabetes mellitus complication status: with circulatory complication Diabetes mellitus assisted insulin use: with assisted use Code(s): E11.9 - Type 2 diabetes mellitus without complications Status: Acute Assessment and Plan: Per primary service. (7) Hypertension associated with diabetes: Code(s): E11.59 - Type 2 diabetes mellitus with other circulatory complications; I15.2 - Hypertension secondary to endocrine disorders Status: Acute Assessment and Plan: Uncontrolled hypertension on presentation improved this afternoon. (8) Hyperlipidemia associated with type 2 diabetes mellitus: Code(s): E11.69 - Type 2 diabetes mellitus with other specified complication; E78.5 - Hyperlipidemia, unspecified Status: Acute Assessment and Plan: Continue statin therapy. Goal LDL less than 70. (9) Status post aortic valve replacement: Code(s): Z95.2 - Presence of prosthetic heart valve Status: Acute Assessment and Plan: Aortic valve without acute issue of prosthetic valve stenosis. No shunt on echo noted. Patient is not exhibiting symptoms suggestive of endocarditis. Prophylactic antibiotics prior to dental/surgical procedures. (10) Julee
[2022-02-22] MEDS: POTASSIUM CHLORIDE 20 MEQ TABLET 40 MEQ PO (11:58)
[2022-02-22 12:02] LABS: Glucose Point of Care 120 mg/dl (65-105)
--- NOTE | 2022-02-22 12:12 | WPDNEURCNPN ---
Consult date: 02/22/22 HPI: Gustavo Veloz is a 71 year old male admitted to the hospital through the emergency room where he presented with the statement I think I had a stroke . which could have been when he woke up yesterday morning if not shortly thereafter when he began to have difficulties and weakness of his right upper extremity and the right lower extremity in addition to having difficulties in ambulation he gave no history of any associated visual difficulties though he does have ongoing history of chronic diabetic retinopathy but no acute changes he has never had any stroke in the past, as per the history is allergic to codeine and penicillin, his past history is consistent with aortic stenosis for which he has undergone replacement, coronary artery disease, hypertension, peripheral vascular disease, and type 2 diabetes mellitus, he has had amputation of the right foot toe, he does have cardiac pacemaker in situ, and has undergone right femoral tibial bypass, hears spoke 50 with current alcohol intake 20 drinks per week, exam negative with blood pressure of 180/82 his initial evaluation documented ST elevation on EKG with inverted T-waves elevated troponin, he was found to have elevated transaminases elevated blood sugar over 300, x-ray chest abnormal CT scan of the head with small decreased attenuation without corresponding volume loss but suspicious for the acute infarct in left parietal and occipital lobe in addition to small old lacunar infarct at the right caudate nucleus and bilateral lentiform nuclei, echocardiogram is abnormal with left atrial chamber dimension moderately enlarged right atrial chamber mildly enlarged no regurgitation mild pulmonary hypertension no evidence of [id number] shunt but left ventricular septal wall motion defect related to bundle branch block Review of Systems Review of Systems: All systems reviewed & are unremarkable except as noted in HPI and below PMFSH Past Medical History Medical History Aortic stenosis Status post tissue aortic valve replacement. Coronary artery disease Hypertension Peripheral vascular disease Seasonal allergic rhinitis Type 2 diabetes mellitus Surgical History Surgical History Amputated toe of right foot History of aortic valve replacement with tissue graft (06/17/20) History of cardiac pacemaker in situ (06/23/20) [employer] dual-chamber pacemaker. History of cataract extraction History of coronary artery bypass graft (06/17/20) HUDSON to the LAD. History of coronary artery stent placement (10/30/19) Drug-eluting stent to the mid LAD. History of nasal surgery (2004) History of open reduction and internal fixation (ORIF) procedure Left ankle fracture. History of vascular surgery (11/02/20) Right femoral tibial bypass. Family History Family History Mother Family history of diabetes mellitus in first degree relative Father Heart failure Acute myocardial infarction Other Diabetes mellitus Family history of coronary artery disease Social History Social History Social History: Patient does have 1 pet that he lives with his name is Joe. He had no kids. Surrogate decision maker: Hermila Campbell, significant other. Code status: Full code. Smoking packs per day: 1 Smoking cigarettes per day: 20.0 Years smoked: 50 Smoking pack-years: 50.00 Smoking status: Current every day smoker Tobacco type: cigarettes Second hand tobacco smoke exposure: Yes Additional smoking assessment comments: 0.5 to 1 ppd Alcohol intake: current Drinks per week: 70 Substance use: never Substance use type: does not use Living arrangements: other Additional living arrangements comments: x2. Lives in [place] with his significant
--- NOTE | 2022-02-22 15:44 | PM.IMPN ---
Progress Note: A&P Assessment and Plan (1) Acute ischemic stroke: Code(s): I63.9 - Cerebral infarction, unspecified Status: Acute Assessment and Plan: Patient presents with aphasia and gait disturbance CT of the head showed small lacunar infarcts and decreased attenuation without corresponding volume loss suspicious for acute infarct in left parietal and occipital lobes [place] CVA related to embolic NIH score 5 Echo: EF 55-60%, diastolic dysfunction grade 2, no shunt appreciated. Carotid US: 50-69% stenosis in the right ICA, <50% stenosis in the left ICA and 50-69% stenosis in the left common carotid artery Neurology consulted -appreciate their input Continue home Plavix. Start baby aspirin since NIH score 5. Stop ASA if he decides on Warfarin (may be problematic given his alcoholism) Continue telemetry. Continue atorvastatin high dose. PT, OT and speech therapy. (2) Non-ST elevated myocardial infarction (non-STEMI): Code(s): I21.4 - Non-ST elevation (NSTEMI) myocardial infarction Status: Acute Assessment and Plan: No complaints of chest pain. Patient has coronary disease with recent heart catheterization in October 2021 showing high-grade stenosis of the distal left circumflex artery with inability to intervene. Troponins elevated at 0.190, 0.186, 0.205 EKG showing IVCD, possible old septal infarct and ST T wave changes in anterolateral leads. Will continue medical management with Cozaar, Lipitor, Lopressor, Plavix and aspirin. Cardiology consulted appreciate their input. (3) Uncontrolled diabetes mellitus: Status: Acute Assessment and Plan: A1c 9.3 this admission. This is improved from A1c >14 in October. Patient takes glargine 27 units per day. Lantus given last night. Glucose labile but better Continue AccuCheks covering with sliding scale. Hypoglycemia protocol available as needed. Continue diabetic diet. Continue monitor. Adjustments as needed. (4) Paroxysmal A-fib: Code(s): I48.0 - Paroxysmal atrial fibrillation Status: Acute Assessment and Plan: Patient with a known history paroxysmal AFib. He was unable to afford the Eliquis. This is probably etiology of his stroke. Continue amiodarone. Anticoagulation being discussed Appreciate Cardiology input. (5) Elevated liver enzymes: Code(s): R74.8 - Abnormal levels of other serum enzymes Status: Acute Assessment and Plan: AST/ALT elevated 67/59. TBili3.8. AP 618 Repeat levels trending upward except TBili which is now 3.4 Consider related to alcoholism. Check right upper quadrant ultrasound Fractinate bili Continue Lipitor for now but may need to hold this if his liver tests get worse. (6) Alcohol abuse: Code(s): F10.10 - Alcohol abuse, uncomplicated Status: Acute Assessment and Plan: Patient with history of alcohol abuse. Thiamine and folic acid started Librium 25 mg q.6 available as needed for signs/symptoms of withdrawal. Valium available for agitation Continue CIWA protocol (7) Hyperlipidemia: Code(s): E78.5 - Hyperlipidemia, unspecified Status: Acute Assessment and Plan: As above. Trend LFTs. Continue home atorvastatin at this time. (8) Hypertension: Code(s): I10 - Essential (primary) hypertension Status: Acute Assessment and Plan: Current blood pressure better controlled Continue home metoprolol, losartan Hydralazine 10 mg IV p.r.n. available Continue to monitor (9) Tobacco use: Code(s): Z72.0 - Tobacco use Status: Acute Assessment and Plan: Patient is significant vascular disease. Smoking cessation is a must. Plan DVT prophylaxis: Lovenox Code status: Full Subjective Date/time seen: 02/22/22 15:44 Interval history: 71yo male with DM, CAD, AFib, AoV replacement and alcohol abuse here for aphasia and gait instability. Patient denies any chest p
[2022-02-22 16:21] LABS: Glucose Point of Care 206 mg/dl (65-105)
[2022-02-22] MEDS: INSULIN ASPART (*BKC) 100 UNITS/ML SUB-Q (17:05)
[2022-02-22 19:52] LABS: Glucose Point of Care 218 mg/dl (65-105)
[2022-02-22] MEDS: INSULIN GLARGINE (*BKC) 100 UNITS/ML 27 UNITS SUB-Q (20:52)
[2022-02-23] VITALS (17 sets, daily range): BP systolic 128–152; BP diastolic 60–94; PULSE 66–96; RESP 15–20; TEMP 36.4–36.7; O2SAT 97–100
[2022-02-23 05:37] LABS: Basophils Absolute Auto 0.1 K/mm3 (0.0-0.1); Basophils Percent Auto 0.8 % (0.2-1.2); Eosinophils Absolute Auto 0.4 K/mm3 (0-0.3); Eosinophils Percent Auto 3.3 % (0-4.4); Hematocrit 38.8 % (42.0-52.0); Hemoglobin 12.6 g/dL (14.0-18.0); Immature Granulocyte Absolute 0.09 K/mm3 (0.00-0.031); Immature Granulocyte Percent A 0.7 % (0-0.5); Lymphocytes Absolute Auto 1.22 K/mm3 (0.9-3.2); Lymphocytes Percent Auto 9.3 % (18.3-44.2); Mean Corpuscular HGB Conc 32.5 g/dl (32-36); Mean Corpuscular Hemoglobin 29.1 pg (26-34); Mean Corpuscular Volume 89.6 fl (80-100); Mean Platelet Volume 11.4 fl (7.4-10.4); Monocytes Absolute Auto 1.6 K/mm3 (0.1-0.6); Monocytes Percent Auto 12.3 % (2.6-8.5); Neutrophils Absolute Auto 9.7 K/mm3 (1.3-6.7); Neutrophils Percent Auto 73.6 % (45.5-73.1); Platelet Count Result 222 k/mm3 (150-375); Red Blood Count 4.33 M/mm3 (4.6-6.20); Red Cell Distribution Width 13.7 % (11.5-14.5); White Blood Count 13.2 K/mm3 (4.5-10.0)
[2022-02-23 05:48] LABS: Alanine Aminotransferase 50 U/L (6-50); Albumin Level 3.2 g/dL (3.5-5.1); Alkaline Phosphatase 518 U/L (38-126); Anion Gap 5 mmol/L (8-16); Aspartate Amino Transferase 55 U/L (17-59); Bilirubin Indirect 1.2 mg/dL (0-1.1); Bilirubin,Total 3.9 mg/dL (0.2-1.3); Blood Urea Nitrogen 18 mg/dL (9-20); Calcium 8.8 mg/dL (8.4-10.2); Carbon Dioxide 29 mmol/L (22-30); Chloride 92 mmol/L (98-107); Estimated CRCL calculation 68 ml/min; Estimated Glomerular Filt Rate > 60; Glucose 105 mg/dL (65-110); Phosphorus 3.8 mg/dL (2.5-4.5); Potassium 3.3 mmol/L (3.4-5.0); Sodium 126 mmol/L (137-145)
[2022-02-23 06:59] LABS: Folic Acid 13.3 ng/mL (2.76->20); Vitamin B12 > 1000.0 pg/mL (239-931)
[2022-02-23 07:56] LABS: Glucose Point of Care 146 mg/dl (65-105)
--- NOTE | 2022-02-23 09:50 | PCSTNOTE ---
Evaluation not completed secondary to NPO for ultrasound.
--- NOTE | 2022-02-23 10:06 | PCOTNOTE ---
Patient was attempted to be seen this AM at 10:05am, patient refused OT services despite increased education on benefits. Patient verbalized being upset over NPO status and declined any treatment. Patient stated he was not in pain at this time.
[2022-02-23] MEDS: HYDROcodone/acetaminophen (*CRX) 5-325 MG TABLET 1 TAB PO (10:15)
[2022-02-23] MEDS: ATORVASTATIN 40 MG TABLET 80 MG PO (10:15)
[2022-02-23] MEDS: ENOXAPARIN 40 MG/0.4 ML SYRINGE SUB-Q (10:16)
[2022-02-23] MEDS: FOLIC ACID 1 MG TABLET PO (10:16)
[2022-02-23] MEDS: LOSARTAN POTASSIUM 100 MG TABLET PO (10:16)
[2022-02-23] MEDS: ASPIRIN 81 MG CHEWABLE TABLET PO (10:16)
[2022-02-23] MEDS: DOCUSATE SODIUM 100 MG CAPSULE PO ×2 (10:16→17:17)
[2022-02-23] MEDS: TAMSULOSIN HCL 0.4 MG CAPSULE PO (10:16)
[2022-02-23] MEDS: AMIODARONE HCL 200 MG TABLET PO (10:16)
[2022-02-23] MEDS: THIAMINE HCL 100 MG TABLET PO (10:17)
[2022-02-23] MEDS: CLOPIDOGREL BISULFATE 75 MG TABLET PO (10:17)
[2022-02-23] MEDS: METOPROLOL TARTRATE 25 MG TABLET PO ×2 (10:17→20:51)
[2022-02-23] MEDS: SODIUM CHLORIDE 0.9% IV 1,000 ML 100 ML IV CONT (10:24)
--- NOTE | 2022-02-23 11:39 | PCPTNOTE ---
Attempted to see patient for PT at this time, however patient out of room for testing.
[2022-02-23 12:14] LABS: Glucose Point of Care 95 mg/dl (65-105)
--- NOTE | 2022-02-23 13:34 | PM.PNCARD ---
Progress Note: A&P Assessment and Plan (1) Acute ischemic stroke: Code(s): I63.9 - Cerebral infarction, unspecified Status: Acute Assessment and Plan: CT head with suggestion of acute infarction left parietal and occipital lobe and small old lacunar infarction right caudate nucleus in bilateral lentiform nuclei. No evidence for lytgv-oc-zixs shunt noted with echocardiogram. While patient is in sinus rhythm at this time on amiodarone as he discontinued Eliquis due to cost approximately 1 month ago this is a likely explanation patient stroke. Additional workup underway. Neurology consultation noted. Resume systemic anticoagulation when okay with Neurology. Plan to discontinue aspirin continue clopidogrel. CTA head neck obtained today which indicates multiple acute or subacute infarctions in the left occipital, parietal and posterior frontal lobes and multiple old infarcts in the brain. There also multifocal evidence of arterial stenosis of the intracranial internal carotid arteries, right middle cerebral artery, right vertebral artery, and left common carotid artery. Patient will require systemic anticoagulation to reduce stroke risk. Extensively discussed once again. Patient understands the excessive bleeding risk complications with excessive alcohol and warfarin particularly and the dangers with embolic recurrent stroke which could be catastrophic without anticoagulation this is a delicate balance. I made it clear that he must be compliant with warfarin although our preference would be for Eliquis and/or Xarelto. He verbalized understanding and agrees. Will discontinue aspirin upon initiation of therapeutic warfarin continue clopidogrel. Monitor for bleeding. (2) Elevated troponin: Code(s): R77.8 - Other specified abnormalities of plasma proteins Status: Acute Assessment and Plan: History of prior bypass high-grade stenosis not amenable to PCI with failed attempt fairly recently. Patient is not presenting with anginal symptoms mild flat troponin elevation type 2 infarction not consistent with acute coronary syndrome and/or acute plaque rupture. Continue aggressive medical therapy. Continue atorvastatin a beta-doe therapy. EF preserved. DVT prophylaxis (3) Paroxysmal A-fib: Code(s): I48.0 - Paroxysmal atrial fibrillation Status: Acute Assessment and Plan: Currently sinus rhythm. Maintained on amiodarone. Continue 200 mg daily. Discussed at length risk for embolic stroke with paroxysmal atrial fibrillation and strong indication for systemic anticoagulation for stroke risk reduction. Given inability to afford Eliquis if assistance programs available may attempt to utilize, however, least expensive option would be warfarin with goal INR 2-3. Explained in detail the absolute importance of compliance with follow-up, recommendations at least monthly or more often blood draws, interactions with warfarin with medications, lifestyle, bleeding risk with alcohol intake vitamin K containing foods. Patient verbalized understanding states he will consider but understands the importance and the need for anticoagulation. (4) Coronary disease: Code(s): I25.10 - Atherosclerotic heart disease of [place] coronary artery without angina pectoris Status: Acute Assessment and Plan: As above. Continue aggressive medical therapy. (5) Alcohol use: Code(s): Z72.89 - Other problems related to lifestyle Status: Acute Assessment and Plan: Defer to primary service. Monitor for withdrawal symptoms. Immediate and absolute cessation of alcohol and tobacco as counseled. 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
--- NOTE | 2022-02-23 13:37 | PCPTNOTE ---
Patient refused treatment this session due to not feeling good. Patient reported I'm not doing it today and I'm not feeling good. RN aware.
--- NOTE | 2022-02-23 14:06 | PM.IMPN ---
Progress Note: A&P Assessment and Plan (1) Acute ischemic stroke: Code(s): I63.9 - Cerebral infarction, unspecified Status: Acute Assessment and Plan: Patient presents with aphasia and gait disturbance CT of the head showed small lacunar infarcts and decreased attenuation without corresponding volume loss suspicious for acute infarct in left parietal and occipital lobes [place] CVA related to embolic NIH score 5 Echo: EF 55-60%, diastolic dysfunction grade 2, no shunt appreciated. Carotid US: 50-69% stenosis in the right ICA, <50% stenosis in the left ICA and 50-69% stenosis in the left common carotid artery Neurology consulted -appreciate their input CTA head/neck: infarcts in left occipital, parietal and posterior frontal lobes, acute or subacute. ?Multifocal articular stenosis including the intracranial internal carotid arteries, right middle cerebral artery, right vertebral artery, and left common carotid artery. 23% stenossi of proximal right ICA but nothing critical Risks/benefits of anticoagulation discussed by make up editor. Coumadin started Continue home Plavix. ASA started. Stop once INR therapeutic Continue telemetry. Continue atorvastatin high dose. PT, OT and speech therapy. (2) Non-ST elevated myocardial infarction (non-STEMI): Code(s): I21.4 - Non-ST elevation (NSTEMI) myocardial infarction Status: Acute Assessment and Plan: No complaints of chest pain. Patient has coronary disease with recent heart catheterization in October 2021 showing high-grade stenosis of the distal left circumflex artery with inability to intervene. Troponins elevated at 0.190, 0.186, 0.205 EKG showing IVCD, possible old septal infarct and ST T wave changes in anterolateral leads. Will continue medical management with Cozaar, Lipitor, Lopressor, Plavix and aspirin. Cardiology consulted appreciate their input. (3) Abnormal CT scan: Code(s): R93.89 - Abnormal findings on diagnostic imaging of other specified body structures Status: Acute Assessment and Plan: CXR showing Mild opacities in bilateral mid and lower lung zones which could represent atelectasis, pleural parenchymal scarring related to old bilateral rib fractures or pneumonia. CT head/neck showing ?Innumerable pulmonary nodules measuring up to 11 mm, consistent with infection versus metastatic disease. No hx of cancer. No fevers. No cough. WBC about the same running 12-14K Will proceed with CT Chest and add Abd/Pelvis. (4) Uncontrolled diabetes mellitus: Status: Acute Assessment and Plan: A1c 9.3 this admission. This is improved from A1c >14 in October. Patient takes glargine 27 units per day. Glucose labile but better Continue AccuCheks covering with sliding scale. Hypoglycemia protocol available as needed. Continue diabetic diet. Continue monitor. Adjustments as needed. (5) Paroxysmal A-fib: Code(s): I48.0 - Paroxysmal atrial fibrillation Status: Acute Assessment and Plan: Patient with a known history paroxysmal AFib. He was unable to afford the Eliquis. This is probably etiology of his stroke. Continue amiodarone. Coumadin started Appreciate Cardiology input. (6) Elevated liver enzymes: Code(s): R74.8 - Abnormal levels of other serum enzymes Status: Acute Assessment and Plan: AST/ALT elevated 67/59. TBili3.8. AP 618 Repeat levels trending downward except TBili now 3.9 (Indirect bili 1.2) Consider related to alcoholism. RUQ US: Heterogeneous echogenicity of the gallbladder with hypoechoic masses versus geographic regions of decreased echogenicity which could be due to either heterogeneous hepatic steatosis or cirrhosis with suggestion of some subtle liver surface nodularity. Consider MR of the Liver to further assess Continue Lipitor for now (7) Alcohol abuse: Code(s): F10.10 - Alcohol abuse, uncomplicated Status: Acute Assessment and Plan
[2022-02-23 14:32] LABS: INR 1.2; Prothrombin Time 14.2 Seconds (11.1-14.7)
--- NOTE | 2022-02-23 15:24 | PCSTNOTE ---
Please refer to the Bedside Swallow Evaluation in the EMR. Please note, silent aspiration cannot be ruled out at bedside.
[2022-02-23 15:48] LABS: Glucose Point of Care 157 mg/dl (65-105)
[2022-02-23 16:08] LABS: Sodium Urine Random 23 meq/L
[2022-02-23] MEDS: polyethylene glycoL 3350 17 GM POWD.PACK PO (17:17)
[2022-02-23] MEDS: diazePAM INJ (*CRX) 10 MG/2 ML SYRINGE 5 MG IV PUSH (18:10)
[2022-02-23] MEDS: INSULIN GLARGINE (*BKC) 100 UNITS/ML 27 UNITS SUB-Q (20:51)
[2022-02-23 22:52] LABS: Glucose Point of Care 181 mg/dl (65-105)
[2022-02-24] VITALS (14 sets, daily range): BP systolic 102–161; BP diastolic 62–74; PULSE 75–94; RESP 16–18; TEMP 36–37.5; O2SAT 83–100
[2022-02-24] MEDS: HYDROcodone/acetaminophen (*CRX) 5-325 MG TABLET 1 TAB PO ×2 (03:25→20:31)
--- NOTE | 2022-02-24 07:55 | PM.IMPN ---
Progress Note: A&P Assessment and Plan (1) Acute ischemic stroke: Code(s): I63.9 - Cerebral infarction, unspecified Status: Acute Assessment and Plan: Patient presents with aphasia and gait disturbance CT of the head showed small lacunar infarcts and decreased attenuation without corresponding volume loss suspicious for acute infarct in left parietal and occipital lobes [place] CVA related to embolic NIH score 5 Echo: EF 55-60%, diastolic dysfunction grade 2, no shunt appreciated. Carotid US: 50-69% stenosis in the right ICA, <50% stenosis in the left ICA and 50-69% stenosis in the left common carotid artery Neurology consulted -appreciate their input CTA head/neck: infarcts in left occipital, parietal and posterior frontal lobes, acute or subacute. ?Multifocal articular stenosis including the intracranial internal carotid arteries, right middle cerebral artery, right vertebral artery, and left common carotid artery. 23% stenossi of proximal right ICA but nothing critical Risks/benefits of anticoagulation discussed by filemaker developer. Coumadin started Continue home Plavix. ASA started. Stop once INR therapeutic Continue telemetry. Continue atorvastatin high dose. PT, OT and speech therapy. -02/24/22 Patient refuses to take warfarin but is amenable to trying enoxaparin, which may be better with the suspected cancer diagnosis. Also enoxaparin is generic, so it is much less expensive. Will start 1 mg/kg BID enoxaparin today. Hold warfarin and aspirin. Continue plavix. Will discuss with Neurology when to restart aspirin, if patient takes enoxaparin as planned. (2) Non-ST elevated myocardial infarction (non-STEMI): Code(s): I21.4 - Non-ST elevation (NSTEMI) myocardial infarction Status: Acute Assessment and Plan: No complaints of chest pain. Patient has coronary disease with recent heart catheterization in October 2021 showing high-grade stenosis of the distal left circumflex artery with inability to intervene. Troponins elevated at 0.190, 0.186, 0.205 EKG showing IVCD, possible old septal infarct and ST T wave changes in anterolateral leads. Will continue medical management with Cozaar, Lipitor, Lopressor, Plavix and aspirin. Cardiology consulted appreciate their input. 02/24/22 holding aspirin and will start therapeutic enoxaparin for atrial fibrillation and continue clopidogrel for now. Appreciate Cardiology recommendations. (3) Abnormal CT scan: Code(s): R93.89 - Abnormal findings on diagnostic imaging of other specified body structures Status: Acute Assessment and Plan: CXR showing Mild opacities in bilateral mid and lower lung zones which could represent atelectasis, pleural parenchymal scarring related to old bilateral rib fractures or pneumonia. CT head/neck showing ?Innumerable pulmonary nodules measuring up to 11 mm, consistent with infection versus metastatic disease. No hx of cancer. No fevers. No cough. WBC about the same running 12-14K Will proceed with CT Chest and add Abd/Pelvis. -02/24/[address] A/P with possible pancreatic mass concerning for cancer, multiple pulmonary and liver nodules likely metastatic, retroperitoneal lymphadenopathy likely metastatic. These findings were discussed with the patient this morning on rounds. Patient would like to discuss with family. Will consult Oncology for AM. (4) Uncontrolled diabetes mellitus: Status: Acute Assessment and Plan: A1c 9.3 this admission. This is improved from A1c >14 in October. Patient takes glargine 27 units per day. Glucose labile but better Continue AccuCheks covering with sliding scale. Hypoglycemia protocol available as needed. Continue diabetic diet. Continue monitor. Adjustments as needed. (5) Paroxysmal A-fib: Code(s): I48.0 - Paroxysmal atrial fibrillation Status: Acute Assessment and Plan: Patient with a known history paroxysmal AFib. He was unable to affor
[2022-02-24 08:14] LABS: Glucose Point of Care 115 mg/dl (65-105)
[2022-02-24] MEDS: THIAMINE HCL 100 MG TABLET PO (09:38)
[2022-02-24] MEDS: LOSARTAN POTASSIUM 100 MG TABLET PO (09:38)
[2022-02-24] MEDS: FOLIC ACID 1 MG TABLET PO (09:38)
[2022-02-24] MEDS: CLOPIDOGREL BISULFATE 75 MG TABLET PO (09:38)
[2022-02-24] MEDS: ENOXAPARIN 40 MG/0.4 ML SYRINGE SUB-Q (09:38)
[2022-02-24] MEDS: polyethylene glycoL 3350 17 GM POWD.PACK PO (09:38)
[2022-02-24] MEDS: ATORVASTATIN 40 MG TABLET 80 MG PO (09:38)
[2022-02-24] MEDS: ASPIRIN 81 MG CHEWABLE TABLET PO (09:38)
[2022-02-24] MEDS: METOPROLOL TARTRATE 25 MG TABLET PO ×2 (09:38→20:30)
[2022-02-24] MEDS: DOCUSATE SODIUM 100 MG CAPSULE PO ×2 (09:38→17:27)
[2022-02-24] MEDS: AMIODARONE HCL 200 MG TABLET PO (09:39)
[2022-02-24] MEDS: TAMSULOSIN HCL 0.4 MG CAPSULE PO (09:39)
--- NOTE | 2022-02-24 10:59 | WPDNEURCNPN ---
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: Code(s): I69.319 - Unspecified symptoms and signs involving cognitive functions following cerebral infarction Status: Acute Plan multiple infarcts with involvement of the left occipital parietal and posterior frontal lobes in addition to multifocal arterial stenosis involving the internal carotid arteries right middle cerebral artery right vertebral artery and left common carotid artery, initial CT scan of the head was only documenting decreased attenuation without corresponding volume loss and ultrasound with 50 to 69% stenosis in the right internal carotid artery and also in left common carotid artery will benefit from the MRI for the further delineation Consult date: 02/24/22 HPI: Gustavo Veloz is a 71 year old male FORMERLY [facility], [facility] Past Medical History Medical History Aortic stenosis Status post tissue aortic valve replacement. Coronary artery disease Hypertension Peripheral vascular disease Seasonal allergic rhinitis Type 2 diabetes mellitus Surgical History Surgical History Amputated toe of right foot History of aortic valve replacement with tissue graft (06/17/20) History of cardiac pacemaker in situ (06/23/20) [employer] dual-chamber pacemaker. History of cataract extraction History of coronary artery bypass graft (06/17/20) HUDSON to the LAD. History of coronary artery stent placement (10/30/19) Drug-eluting stent to the mid LAD. History of nasal surgery (2004) History of open reduction and internal fixation (ORIF) procedure Left ankle fracture. History of vascular surgery (11/02/20) Right femoral tibial bypass. Family History Family History Mother Family history of diabetes mellitus in first degree relative Father Heart failure Acute myocardial infarction Other Diabetes mellitus Family history of coronary artery disease Social History Social History Social History: Patient does have 1 pet that he lives with his name is Joe. He had no kids. Surrogate decision maker: Hermila Campbell, significant other. Code status: Full code. Smoking packs per day: 1 Smoking cigarettes per day: 20.0 Years smoked: 50 Smoking pack-years: 50.00 Smoking status: Current every day smoker Tobacco type: cigarettes Second hand tobacco smoke exposure: Yes Additional smoking assessment comments: 0.5 to 1 ppd Alcohol intake: current Drinks per week: 70 Substance use: never Substance use type: does not use Living arrangements: other Additional living arrangements comments: x2. Lives in [place] with his significant other. 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 Gender identity (if verbalized by the patient): Male Sexual Orientation (if Verbalized by the Patient): Straight or Heterosexual Spiritual care concerns: No Agree to blood products: Yes Meds Home Medications and Allergies Home Medications Medication Instructions Recorded Confirmed Type amiodarone 200 mg tablet (Pacerone) 200 mg PO DAILY@0800 #30 tabs 11/11/21 02/21/22 Rx atorvastatin 40 mg tablet 80 mg PO DAILY #30 tabs 11/11/21 02/21/22 Rx blood sugar diagnostic (OneTouch #1 pkg 11/11/21 02/21/22 Rx Verio test strips) blood-glucose meter (OneTouch #1 pkg 11/11/21 02/21/22 Rx Verio Flex Meter) clopidogrel 75 mg tablet 75 mg PO QAM #30 tabs 11/11/21 02/21/22 Rx insulin glargine-yfgn 100 unit/mL 27 unit (0.27 mL) subcut DAILY #15 11/11/21 02/21/22 Rx (3 mL) subcutaneous pen mL lancets 30 gauge (OneTouch Delica #1 pkg 11/11/21 02/21/22 Rx Plus Lancet) metoprolol tartrate 25 mg tablet 25 mg PO Q12HR #60 tabs 11/11/21
[2022-02-24 12:09] LABS: Glucose Point of Care 213 mg/dl (65-105)
--- NOTE | 2022-02-24 13:00 | PCOTNOTE ---
Attempted to see patient for OT treatment. Walked into patient's room and he was independently standing at the sink washing up. Lunch tray was also just being delivered. Will continue to attempt.
[2022-02-24] MEDS: INSULIN ASPART (*BKC) 100 UNITS/ML SUB-Q ×2 (13:07→17:27)
[2022-02-24 16:27] LABS: Glucose Point of Care 209 mg/dl (65-105)
[2022-02-24 20:45] LABS: Glucose Point of Care 206 mg/dl (65-105)
[2022-02-24] MEDS: INSULIN GLARGINE (*BKC) 100 UNITS/ML 27 UNITS SUB-Q (21:13)
--- NOTE | 2022-02-24 21:15 | PC.NURSE ---
02/24/222109-Pt is refusing lab to draw his blood. Pt states It hurts and I don't feel like I need it. All they have done the last three days in stick and poke me, and it's bullshit . Pt educated on the importance of being able to follow his lab trends in order to treat him appropriately. Pt continues to refuse. notified.
[2022-02-24] MEDS: ENOXAPARIN 100 MG/ML SYRINGE 87 MG SUB-Q (23:26)
[2022-02-25] VITALS (9 sets, daily range): BP systolic 151–163; BP diastolic 67–83; PULSE 71–91; RESP 12–18; TEMP 36.2–37.1; O2SAT 98–100
--- NOTE | 2022-02-25 06:52 | PM.PNCARD ---
Progress Note: A&P Assessment and Plan (1) Non-ST elevated myocardial infarction (non-STEMI): Code(s): I21.4 - Non-ST elevation (NSTEMI) myocardial infarction Status: Acute (2) Acute ischemic stroke: Code(s): I63.9 - Cerebral infarction, unspecified Status: Acute (3) Alcohol abuse: Code(s): F10.10 - Alcohol abuse, uncomplicated Status: Acute (4) Paroxysmal A-fib: Code(s): I48.0 - Paroxysmal atrial fibrillation Status: Acute (5) Noncompliance: Code(s): Z91.19 - Patient's noncompliance with other medical treatment and regimen Status: Acute (6) Elevated troponin: Code(s): R77.8 - Other specified abnormalities of plasma proteins Status: Acute Plan 71-year-old man with: Relatively severe coronary disease with RCA occlusion and distal small-vessel disease in the circumflex. He is on appropriate medical therapy for this. He is also on amiodarone as well as anti-platelet therapy with clopidogrel. At this point there are no other cardiac recommendations to make. He is refusing to take anticoagulation. If there are additional cardiac issues during this hospitalization please let me know otherwise I am going to sign off of his inpatient follow-up at this time. Originally we were consulted because of troponin elevation. There is no plan for follow-up angiography given the recency of his angiography and the findings indicating disease that is not amenable to revascularization Boris Kaur MD [facility] Subjective Date/time seen: Date of service: 02/25/22 06:52 Interval history: Follow-up visit in this 71-year-old man with a significant coronary artery disease with RCA occlusion and diffuse distal stenosis of the circumflex which was not amenable to PCI recently. Patient presented to the hospital with symptoms concerning for CVA. He is not reporting any cardiovascular symptoms this morning. He is now refusing to take warfarin which was recommended by his physicians. No cardiac complaints this morning Exam Narrative: General: male lying supine in bed Well developed, alert and oriented x3. No apparent distress, comfortable, pleasant, and cooperative delayed speech response Head: atraumatic, normocephalic Eyes: EOM intact, sclerae anicteric, conjunctivae unremarkable Ears/Nose: external inspection of ears and nose were grossly normal Mouth/Throat: oral mucosa pink and moist Neck: supple, normal range of motion, no jugular venous distention or carotid bruits, thyroid nonpalpable, trachea midline. Cardiac: Regular rate and rhythm, normal S1-S2, no murmurs, clicks, gallops, or rubs. Lungs: Clear to auscultation bilaterally, no rales, wheezes, or rhonchi. Abdomen: Soft, nontender, nondistended, positive bowel sounds throughout. No appreciable hepatosplenomegaly, no rebound guarding or rigidity noted. Abdominal aorta nonpalpable, no appreciable bruits. Extremities: No edema, clubbing, and or cyanosis. Extremities warm and well perfused. Healed median sternotomy scar palpable subcutaneous pacemaker left anterior chest wall soft, no tenderness or erythema. Skin: Warm and dry without ecchymoses, rashes, and/or petechiae. Musculoskeletal: Muscle strength and tone intact throughout with exception of right upper extremity Vascular: Carotid upstrokes 2+ bilaterally, radial pulses 2+ bilaterally, dorsalis pedis pulses 2+ bilaterally, posterior tibialis pulses palpable bilaterally. Neurologic: Cranial nerves 2-12 grossly intact, examination grossly nonfocal right upper extremity weakness including the hand evidence of right-sided neglect Psychiatric: Mood calm and appropriate. Objective Data Vital Signs Vital Signs: Vital Signs - 24 hr 02/24/22 08:23 02/24/22 08:00 02/24/22 08:00 Temperature 36.4 C Pulse Rate 84 Respiratory Rate 16 Blood Pressure 102/62 Pulse Oximetry 98 98 Oxygen Del
--- NOTE | 2022-02-25 08:00 | PM.IMPN ---
Progress Note: A&P Assessment and Plan (1) Acute ischemic stroke: Code(s): I63.9 - Cerebral infarction, unspecified Status: Acute Assessment and Plan: Patient presents with aphasia and gait disturbance CT of the head showed small lacunar infarcts and decreased attenuation without corresponding volume loss suspicious for acute infarct in left parietal and occipital lobes [place] CVA related to embolic NIH score 5 Echo: EF 55-60%, diastolic dysfunction grade 2, no shunt appreciated. Carotid US: 50-69% stenosis in the right ICA, <50% stenosis in the left ICA and 50-69% stenosis in the left common carotid artery Neurology consulted -appreciate their input CTA head/neck: infarcts in left occipital, parietal and posterior frontal lobes, acute or subacute. ?Multifocal articular stenosis including the intracranial internal carotid arteries, right middle cerebral artery, right vertebral artery, and left common carotid artery. 23% stenossi of proximal right ICA but nothing critical Risks/benefits of anticoagulation discussed by landscaping and groundskeeping laborer. Coumadin started Continue home Plavix. ASA started. Stop once INR therapeutic Continue telemetry. Continue atorvastatin high dose. PT, OT and speech therapy. -02/24/22 Patient refuses to take warfarin but is amenable to trying enoxaparin, which may be better with the suspected cancer diagnosis. Also enoxaparin is generic, so it is much less expensive. Will start 1 mg/kg BID enoxaparin today. Hold warfarin and aspirin. Continue plavix. Will discuss with Neurology when to restart aspirin, if patient takes enoxaparin as planned. -02/25/22 Patient remains confused but appears to have better insight and awareness of his situation. (2) Non-ST elevated myocardial infarction (non-STEMI): Code(s): I21.4 - Non-ST elevation (NSTEMI) myocardial infarction Status: Acute Assessment and Plan: No complaints of chest pain. Patient has coronary disease with recent heart catheterization in October 2021 showing high-grade stenosis of the distal left circumflex artery with inability to intervene. Troponins elevated at 0.190, 0.186, 0.205 EKG showing IVCD, possible old septal infarct and ST T wave changes in anterolateral leads. Will continue medical management with Cozaar, Lipitor, Lopressor, Plavix and aspirin. Cardiology consulted appreciate their input. 02/24/22 holding aspirin and will start therapeutic enoxaparin for atrial fibrillation and continue clopidogrel for now. Appreciate Cardiology recommendations. -02/25/22 Cardiology signed off. (3) Abnormal CT scan: Code(s): R93.89 - Abnormal findings on diagnostic imaging of other specified body structures Status: Acute Assessment and Plan: CXR showing Mild opacities in bilateral mid and lower lung zones which could represent atelectasis, pleural parenchymal scarring related to old bilateral rib fractures or pneumonia. CT head/neck showing ?Innumerable pulmonary nodules measuring up to 11 mm, consistent with infection versus metastatic disease. No hx of cancer. No fevers. No cough. WBC about the same running 12-14K Will proceed with CT Chest and add Abd/Pelvis. -02/24/[address] A/P with possible pancreatic mass concerning for cancer, multiple pulmonary and liver nodules likely metastatic, retroperitoneal lymphadenopathy likely metastatic. These findings were discussed with the patient this morning on rounds. Patient would like to discuss with family. Will consult Oncology for AM. -02/25/22 Awaiting consult completion by Oncology as patient can likely be discharge to rehab vs home with home health soon. (4) Uncontrolled diabetes mellitus: Status: Acute Assessment and Plan: A1c 9.3 this admission. This is improved from A1c >14 in October. Patient takes glargine 27 units per day. Glucose labile but better Continue AccuCheks covering with sliding scale. Hypoglycemia protocol available as needed. Continue di
[2022-02-25 08:20] LABS: Glucose Point of Care 170 mg/dl (65-105)
--- NOTE | 2022-02-25 08:52 | PCPTNOTE ---
Attempted to see patient for PT, however patient was eating breakfast and wanted to finish breakfast first.
[2022-02-25] MEDS: HYDROcodone/acetaminophen (*CRX) 5-325 MG TABLET 1 TAB PO (09:37)
[2022-02-25] MEDS: ENOXAPARIN 100 MG/ML SYRINGE 87 MG SUB-Q ×2 (09:38→20:03)
[2022-02-25] MEDS: METOPROLOL TARTRATE 25 MG TABLET PO ×2 (09:39→20:03)
[2022-02-25] MEDS: ATORVASTATIN 40 MG TABLET 80 MG PO (09:39)
[2022-02-25] MEDS: CLOPIDOGREL BISULFATE 75 MG TABLET PO (09:40)
[2022-02-25] MEDS: TAMSULOSIN HCL 0.4 MG CAPSULE PO (09:40)
[2022-02-25] MEDS: FOLIC ACID 1 MG TABLET PO (09:40)
[2022-02-25] MEDS: LOSARTAN POTASSIUM 100 MG TABLET PO (09:40)
[2022-02-25] MEDS: AMIODARONE HCL 200 MG TABLET PO (09:40)
[2022-02-25] MEDS: THIAMINE HCL 100 MG TABLET PO (09:41)
[2022-02-25 12:05] LABS: Glucose Point of Care 200 mg/dl (65-105)
[2022-02-25] MEDS: MAGNESIUM CITRATE 300 ML BTL PO (12:28)
[2022-02-25 17:45] LABS: Glucose Point of Care 198 mg/dl (65-105)
[2022-02-25 18:58] LABS: Basophils Absolute Auto 0.1 K/mm3 (0.0-0.1); Basophils Percent Auto 0.6 % (0.2-1.2); Eosinophils Absolute Auto 0.2 K/mm3 (0-0.3); Hematocrit 38.3 % (42.0-52.0); Hemoglobin 12.6 g/dL (14.0-18.0); Immature Granulocyte Absolute 0.05 K/mm3 (0.00-0.031); Immature Granulocyte Percent A 0.4 % (0-0.5); Lymphocytes Absolute Auto 0.89 K/mm3 (0.9-3.2); Lymphocytes Percent Auto 7.8 % (18.3-44.2); Mean Corpuscular HGB Conc 32.9 g/dl (32-36); Mean Corpuscular Volume 88.2 fl (80-100); Monocytes Absolute Auto 1.3 K/mm3 (0.1-0.6); Monocytes Percent Auto 11.3 % (2.6-8.5); Neutrophils Absolute Auto 8.9 K/mm3 (1.3-6.7); Neutrophils Percent Auto 77.9 % (45.5-73.1); Platelet Count Result 206 k/mm3 (150-375); Red Blood Count 4.34 M/mm3 (4.6-6.20); Red Cell Distribution Width 14.1 % (11.5-14.5); White Blood Count 11.5 K/mm3 (4.5-10.0)
[2022-02-25 19:04] LABS: Alanine Aminotransferase 57 U/L (6-50); Albumin Level 3.2 g/dL (3.5-5.1); Alkaline Phosphatase 544 U/L (38-126); Anion Gap 7 mmol/L (8-16); Aspartate Amino Transferase 75 U/L (17-59); Bilirubin,Total 5.1 mg/dL (0.2-1.3); Blood Urea Nitrogen 15 mg/dL (9-20); Calcium 9.1 mg/dL (8.4-10.2); Carbon Dioxide 29 mmol/L (22-30); Chloride 91 mmol/L (98-107); Estimated CRCL calculation 83 ml/min; Estimated Glomerular Filt Rate > 60; Glucose 186 mg/dL (65-110); Magnesium 2.3 mg/dL (1.6-2.3); Phosphorus 3.5 mg/dL (2.5-4.5); Potassium 3.4 mmol/L (3.4-5.0); Sodium 127 mmol/L (137-145)
[2022-02-25 19:11] LABS: INR 1.1; Prothrombin Time 13.8 Seconds (11.1-14.7)
[2022-02-25] MEDS: INSULIN GLARGINE (*BKC) 100 UNITS/ML 27 UNITS SUB-Q (20:10)
[2022-02-25 20:50] LABS: Glucose Point of Care 193 mg/dl (65-105)
--- NOTE | 2022-02-25 23:31 | ADMGEN ---
This patient, Gustavo Veloz, was admitted to IMU Room 203-01 at 2325. Patient/family oriented to hospital policies and general routines including ID bracelet, bed and alarms, visiting hours, pain management, procedures, bathroom and other care routines, personal items, smoking policy, room service/diet, and visiting hours. Information on how to activate the Rapid Response Team has been discussed. Patient/Family are encouraged to report perceived risks to care and to ask questions if they do not understand what they are told or what they should do.
[2022-02-26] VITALS (8 sets, daily range): BP systolic 89–151; BP diastolic 33–69; PULSE 69–96; RESP 12–20; TEMP 36.1–37.3; O2SAT 97–98
[2022-02-26] MEDS: HYDROcodone/acetaminophen (*CRX) 5-325 MG TABLET 1 TAB PO ×2 (03:25→17:00)
[2022-02-26 04:50] LABS: Basophils Absolute Auto 0.1 K/mm3 (0.0-0.1); Basophils Percent Auto 0.6 % (0.2-1.2); Eosinophils Absolute Auto 0.3 K/mm3 (0-0.3); Hematocrit 36.6 % (42.0-52.0); Hemoglobin 12.2 g/dL (14.0-18.0); Immature Granulocyte Absolute 0.07 K/mm3 (0.00-0.031); Immature Granulocyte Percent A 0.6 % (0-0.5); Lymphocytes Absolute Auto 0.89 K/mm3 (0.9-3.2); Lymphocytes Percent Auto 7.1 % (18.3-44.2); Mean Corpuscular HGB Conc 33.3 g/dl (32-36); Mean Corpuscular Hemoglobin 29.2 pg (26-34); Mean Corpuscular Volume 87.6 fl (80-100); Mean Platelet Volume 11.5 fl (7.4-10.4); Monocytes Absolute Auto 1.4 K/mm3 (0.1-0.6); Monocytes Percent Auto 11.2 % (2.6-8.5); Neutrophils Absolute Auto 9.9 K/mm3 (1.3-6.7); Neutrophils Percent Auto 78.5 % (45.5-73.1); Platelet Count Result 222 k/mm3 (150-375); Red Blood Count 4.18 M/mm3 (4.6-6.20); Red Cell Distribution Width 14.3 % (11.5-14.5); White Blood Count 12.5 K/mm3 (4.5-10.0)
[2022-02-26 04:58] LABS: INR 1.2; Prothrombin Time 14.4 Seconds (11.1-14.7)
[2022-02-26 05:02] LABS: Alanine Aminotransferase 59 U/L (6-50); Albumin Level 3.2 g/dL (3.5-5.1); Alkaline Phosphatase 542 U/L (38-126); Anion Gap 1 mmol/L (8-16); Aspartate Amino Transferase 87 U/L (17-59); Bilirubin,Total 4.8 mg/dL (0.2-1.3); Blood Urea Nitrogen 14 mg/dL (9-20); Carbon Dioxide 34 mmol/L (22-30); Chloride 93 mmol/L (98-107); Estimated CRCL calculation 83 ml/min; Estimated Glomerular Filt Rate > 60; Glucose 68 mg/dL (65-110); Magnesium 2.3 mg/dL (1.6-2.3); Potassium 3.4 mmol/L (3.4-5.0); Sodium 128 mmol/L (137-145)
--- NOTE | 2022-02-26 06:36 | PC.NURSE ---
Patient is refusing to keep non-skid socks on his feet. He is complaining and demands us to remove the alarm from his bed. The importance of the bed alarm and need to inform the nurses station by calling out with his call light, but the patient is non-compliant with the staff. He will not call the desk to inform us of his need to go to the restroom. He has attempted to get out of bed 6 times during the night and set the bed alarm off. Pt says he will call but he refuses to continue to hear the alarm going off when he needs to get to the restroom. His skid socks are on, yellow clasp is on his arm band and the bed alarm is activated. The patient is currently requesting to sit on the side of the bed while watching television.
--- NOTE | 2022-02-26 07:58 | PM.IMPN ---
Progress Note: A&P Assessment and Plan (1) Acute ischemic stroke: Code(s): I63.9 - Cerebral infarction, unspecified Status: Acute Assessment and Plan: Patient presents with aphasia and gait disturbance CT of the head showed small lacunar infarcts and decreased attenuation without corresponding volume loss suspicious for acute infarct in left parietal and occipital lobes [place] CVA related to embolic NIH score 5 Echo: EF 55-60%, diastolic dysfunction grade 2, no shunt appreciated. Carotid US: 50-69% stenosis in the right ICA, <50% stenosis in the left ICA and 50-69% stenosis in the left common carotid artery Neurology consulted -appreciate their input CTA head/neck: infarcts in left occipital, parietal and posterior frontal lobes, acute or subacute. ?Multifocal articular stenosis including the intracranial internal carotid arteries, right middle cerebral artery, right vertebral artery, and left common carotid artery. 23% stenossi of proximal right ICA but nothing critical Risks/benefits of anticoagulation discussed by tool and die maker level five. Coumadin started Continue home Plavix. ASA started. Stop once INR therapeutic Continue telemetry. Continue atorvastatin high dose. PT, OT and speech therapy. -02/24/22 Patient refuses to take warfarin but is amenable to trying enoxaparin, which may be better with the suspected cancer diagnosis. Also enoxaparin is generic, so it is much less expensive. Will start 1 mg/kg BID enoxaparin today. Hold warfarin and aspirin. Continue plavix. Will discuss with Neurology when to restart aspirin, if patient takes enoxaparin as planned. -02/25/22 Patient remains confused but appears to have better insight and awareness of his situation. -02/26/22 Improving - with less confusion and better insight. Discussed patient with MPOA as noted below. Will continue with PT/OT for now. (2) Non-ST elevated myocardial infarction (non-STEMI): Code(s): I21.4 - Non-ST elevation (NSTEMI) myocardial infarction Status: Acute Assessment and Plan: No complaints of chest pain. Patient has coronary disease with recent heart catheterization in October 2021 showing high-grade stenosis of the distal left circumflex artery with inability to intervene. Troponins elevated at 0.190, 0.186, 0.205 EKG showing IVCD, possible old septal infarct and ST T wave changes in anterolateral leads. Will continue medical management with Cozaar, Lipitor, Lopressor, Plavix and aspirin. Cardiology consulted appreciate their input. 02/24/22 holding aspirin and will start therapeutic enoxaparin for atrial fibrillation and continue clopidogrel for now. Appreciate Cardiology recommendations. -02/25/22 Cardiology signed off. (3) Abnormal CT scan: Code(s): R93.89 - Abnormal findings on diagnostic imaging of other specified body structures Status: Acute Assessment and Plan: CXR showing Mild opacities in bilateral mid and lower lung zones which could represent atelectasis, pleural parenchymal scarring related to old bilateral rib fractures or pneumonia. CT head/neck showing ?Innumerable pulmonary nodules measuring up to 11 mm, consistent with infection versus metastatic disease. No hx of cancer. No fevers. No cough. WBC about the same running 12-14K Will proceed with CT Chest and add Abd/Pelvis. -02/24/[address] A/P with possible pancreatic mass concerning for cancer, multiple pulmonary and liver nodules likely metastatic, retroperitoneal lymphadenopathy likely metastatic. These findings were discussed with the patient this morning on rounds. Patient would like to discuss with family. Will consult Oncology for AM. -02/25/22 Awaiting consult completion by Oncology as patient can likely be discharge to rehab vs home with home health soon. -02/26/22 CT A/P findings discussed with MPOA. MPOA would like to proceed with Oncology consult. Awaiting oncology note. (4) Uncontrolled diabetes mellitus: Status: Acute
[2022-02-26] MEDS: POTASSIUM CHLORIDE 20 MEQ TABLET 40 MEQ PO (08:41)
[2022-02-26] MEDS: ATORVASTATIN 40 MG TABLET 80 MG PO (08:41)
[2022-02-26] MEDS: DOCUSATE SODIUM 100 MG CAPSULE PO ×2 (08:41→17:00)
[2022-02-26] MEDS: CLOPIDOGREL BISULFATE 75 MG TABLET PO (08:42)
[2022-02-26] MEDS: ENOXAPARIN 100 MG/ML SYRINGE 87 MG SUB-Q ×2 (08:42→20:56)
[2022-02-26] MEDS: FOLIC ACID 1 MG TABLET PO (08:42)
[2022-02-26] MEDS: THIAMINE HCL 100 MG TABLET PO (08:42)
[2022-02-26] MEDS: LOSARTAN POTASSIUM 100 MG TABLET PO (08:42)
[2022-02-26] MEDS: TAMSULOSIN HCL 0.4 MG CAPSULE PO (08:42)
[2022-02-26] MEDS: polyethylene glycoL 3350 17 GM POWD.PACK PO (08:42)
[2022-02-26 08:48] LABS: Glucose Point of Care 49 mg/dl (65-105)
[2022-02-26 08:48] LABS: Glucose Point of Care 50 mg/dl (65-105)
[2022-02-26] MEDS: MAGNESIUM OXIDE 400 MG TABLET PO (10:33)
[2022-02-26 11:05] LABS: Glucose Point of Care 86 mg/dl (65-105)
--- NOTE | 2022-02-26 11:25 | PCPTNOTE ---
Patient declined Physical Therapy treatment at this time.
--- NOTE | 2022-02-26 13:17 | PCOTNOTE ---
Attempted to see pt for occupational therapy tx this PM. Pt states Not today... . Pt was educated on the importance of participation in therapy, however, pt still declined. Pt also reports he had a rough morning. Will continue per poc duration/frequency tomorrow.
[2022-02-26 18:13] LABS: Glucose Point of Care 187 mg/dl (65-105)
--- NOTE | 2022-02-26 20:01 | PC.NURSE ---
Patient transferred to room 253 on 02/26/22 at 2001. Michelle RN gave report to RN. Belongings and home medications sent with patient.
--- NOTE | 2022-02-26 20:10 | ADMGEN ---
This patient, Gustavo Veloz, was admitted to Medical Room 252-01. Patient/family oriented to hospital policies and general routines including ID bracelet, bed and alarms, visiting hours, pain management, procedures, bathroom and other care routines, personal items, smoking policy, room service/diet, and visiting hours. Information on how to activate the Rapid Response Team has been discussed. Patient/Family are encouraged to report perceived risks to care and to ask questions if they do not understand what they are told or what they should do.
[2022-02-26] MEDS: METOPROLOL TARTRATE 25 MG TABLET PO (20:56)
[2022-02-26] MEDS: INSULIN GLARGINE (*BKC) 100 UNITS/ML 27 UNITS SUB-Q (20:56)
[2022-02-26 21:21] LABS: Glucose Point of Care 178 mg/dl (65-105)
[2022-02-27] VITALS (13 sets, daily range): BP systolic 111–145; BP diastolic 46–73; PULSE 70–97; RESP 12–18; TEMP 36.4–37.1; O2SAT 97–100
[2022-02-27 05:19] LABS: INR 1.2; Prothrombin Time 14.4 Seconds (11.1-14.7)
--- NOTE | 2022-02-27 07:15 | PM.IMPN ---
Progress Note: A&P Assessment and Plan (1) Acute ischemic stroke: Code(s): I63.9 - Cerebral infarction, unspecified Status: Acute Assessment and Plan: Patient presents with aphasia and gait disturbance CT of the head showed small lacunar infarcts and decreased attenuation without corresponding volume loss suspicious for acute infarct in left parietal and occipital lobes [place] CVA related to embolic NIH score 5 Echo: EF 55-60%, diastolic dysfunction grade 2, no shunt appreciated. Carotid US: 50-69% stenosis in the right ICA, <50% stenosis in the left ICA and 50-69% stenosis in the left common carotid artery Neurology consulted -appreciate their input CTA head/neck: infarcts in left occipital, parietal and posterior frontal lobes, acute or subacute. ?Multifocal articular stenosis including the intracranial internal carotid arteries, right middle cerebral artery, right vertebral artery, and left common carotid artery. 23% stenossi of proximal right ICA but nothing critical Risks/benefits of anticoagulation discussed by gerentological physiotherapist. Coumadin started Continue home Plavix. ASA started. Stop once INR therapeutic Continue telemetry. Continue atorvastatin high dose. PT, OT and speech therapy. -02/24/22 Patient refuses to take warfarin but is amenable to trying enoxaparin, which may be better with the suspected cancer diagnosis. Also enoxaparin is generic, so it is much less expensive. Will start 1 mg/kg BID enoxaparin today. Hold warfarin and aspirin. Continue plavix. Will discuss with Neurology when to restart aspirin, if patient takes enoxaparin as planned. ed. -02/25/22 Patient remains confused but appears to have better insight and awareness of his situation. -02/26/22 Improving - with less confusion and better insight. Discussed patient with MPOA as noted below. Will continue with PT/OT for now. -02/27/22 MEDICARE SALES EXECUTIVE consult ordered. Continue PT/OT. (2) Non-ST elevated myocardial infarction (non-STEMI): Code(s): I21.4 - Non-ST elevation (NSTEMI) myocardial infarction Status: Acute Assessment and Plan: No complaints of chest pain. Patient has coronary disease with recent heart catheterization in October 2021 showing high-grade stenosis of the distal left circumflex artery with inability to intervene. Troponins elevated at 0.190, 0.186, 0.205 EKG showing IVCD, possible old septal infarct and ST T wave changes in anterolateral leads. Will continue medical management with Cozaar, Lipitor, Lopressor, Plavix and aspirin. Cardiology consulted appreciate their input. 02/24/22 holding aspirin and will start therapeutic enoxaparin for atrial fibrillation and continue clopidogrel for now. Appreciate Cardiology recommendations. -02/25/22 Cardiology signed off. (3) Abnormal CT scan: Code(s): R93.89 - Abnormal findings on diagnostic imaging of other specified body structures Status: Acute Assessment and Plan: CXR showing Mild opacities in bilateral mid and lower lung zones which could represent atelectasis, pleural parenchymal scarring related to old bilateral rib fractures or pneumonia. CT head/neck showing ?Innumerable pulmonary nodules measuring up to 11 mm, consistent with infection versus metastatic disease. No hx of cancer. No fevers. No cough. WBC about the same running 12-14K Will proceed with CT Chest and add Abd/Pelvis. -02/24/[address] A/P with possible pancreatic mass concerning for cancer, multiple pulmonary and liver nodules likely metastatic, retroperitoneal lymphadenopathy likely metastatic. These findings were discussed with the patient this morning on rounds. Patient would like to discuss with family. Will consult Oncology for AM. -02/25/22 Awaiting consult completion by Oncology as patient can likely be discharge to rehab vs home with home health soon. -02/26/22 CT A/P findings discussed with MPOA. MPOA would like to proceed with Oncology consult. Awaiting oncology note. (4) Uncontr
[2022-02-27 07:23] LABS: Basophils Absolute Auto 0.1 K/mm3 (0.0-0.1); Basophils Percent Auto 0.5 % (0.2-1.2); Eosinophils Absolute Auto 0.3 K/mm3 (0-0.3); Eosinophils Percent Auto 2.4 % (0-4.4); Hematocrit 37.6 % (42.0-52.0); Hemoglobin 12.4 g/dL (14.0-18.0); Immature Granulocyte Absolute 0.07 K/mm3 (0.00-0.031); Immature Granulocyte Percent A 0.5 % (0-0.5); Lymphocytes Absolute Auto 0.78 K/mm3 (0.9-3.2); Lymphocytes Percent Auto 5.5 % (18.3-44.2); Mean Corpuscular Hemoglobin 29.2 pg (26-34); Mean Corpuscular Volume 88.5 fl (80-100); Mean Platelet Volume 12.1 fl (7.4-10.4); Monocytes Absolute Auto 1.6 K/mm3 (0.1-0.6); Monocytes Percent Auto 10.9 % (2.6-8.5); Neutrophils Absolute Auto 11.4 K/mm3 (1.3-6.7); Neutrophils Percent Auto 80.2 % (45.5-73.1); Platelet Count Result 217 k/mm3 (150-375); Red Blood Count 4.25 M/mm3 (4.6-6.20); Red Cell Distribution Width 14.6 % (11.5-14.5); White Blood Count 14.2 K/mm3 (4.5-10.0)
[2022-02-27 07:28] LABS: Alanine Aminotransferase 57 U/L (6-50); Albumin Level 3.2 g/dL (3.5-5.1); Alkaline Phosphatase 553 U/L (38-126); Anion Gap 4 mmol/L (8-16); Aspartate Amino Transferase 87 U/L (17-59); Bilirubin,Total 4.9 mg/dL (0.2-1.3); Blood Urea Nitrogen 13 mg/dL (9-20); Carbon Dioxide 30 mmol/L (22-30); Chloride 92 mmol/L (98-107); Estimated CRCL calculation 83 ml/min; Estimated Glomerular Filt Rate > 60; Glucose 106 mg/dL (65-110); Potassium 3.9 mmol/L (3.4-5.0); Sodium 126 mmol/L (137-145)
[2022-02-27 08:00] LABS: Glucose Point of Care 106 mg/dl (65-105)
[2022-02-27] MEDS: METOPROLOL TARTRATE 25 MG TABLET PO ×2 (09:34→21:37)
[2022-02-27] MEDS: DOCUSATE SODIUM 100 MG CAPSULE PO (09:34)
[2022-02-27] MEDS: ATORVASTATIN 40 MG TABLET 80 MG PO (09:34)
[2022-02-27] MEDS: TAMSULOSIN HCL 0.4 MG CAPSULE PO (09:34)
[2022-02-27] MEDS: THIAMINE HCL 100 MG TABLET PO (09:34)
[2022-02-27] MEDS: MAGNESIUM OXIDE 400 MG TABLET PO (09:34)
[2022-02-27] MEDS: FOLIC ACID 1 MG TABLET PO (09:34)
[2022-02-27] MEDS: CLOPIDOGREL BISULFATE 75 MG TABLET PO (09:34)
[2022-02-27] MEDS: polyethylene glycoL 3350 17 GM POWD.PACK PO (09:34)
[2022-02-27] MEDS: AMIODARONE HCL 200 MG TABLET PO (09:34)
[2022-02-27] MEDS: LOSARTAN POTASSIUM 100 MG TABLET PO (09:35)
[2022-02-27] MEDS: ENOXAPARIN 100 MG/ML SYRINGE 87 MG SUB-Q ×2 (09:35→21:37)
[2022-02-27] MEDS: HYDROcodone/acetaminophen (*CRX) 5-325 MG TABLET 1 TAB PO (09:35)
[2022-02-27 11:35] LABS: Glucose Point of Care 114 mg/dl (65-105)
--- NOTE | 2022-02-27 15:15 | PCSTNOTE ---
Patient will be seen for Speech Therapy evaluation in the morning of 02/28/22
[2022-02-27 16:39] LABS: Glucose Point of Care 185 mg/dl (65-105)
[2022-02-27] MEDS: INSULIN GLARGINE (*BKC) 100 UNITS/ML 27 UNITS SUB-Q (21:38)
[2022-02-27 21:43] LABS: Glucose Point of Care 199 mg/dl (65-105)
[2022-02-28] VITALS (9 sets, daily range): BP systolic 114–126; BP diastolic 64–82; PULSE 73–92; RESP 14–16; TEMP 36.3–36.6; O2SAT 96–100
[2022-02-28 06:01] LABS: INR 1.2; Prothrombin Time 15.1 Seconds (11.1-14.7)
[2022-02-28 06:12] LABS: Alanine Aminotransferase 70 U/L (6-50); Albumin Level 3.4 g/dL (3.5-5.1); Alkaline Phosphatase 631 U/L (38-126); Anion Gap 8 mmol/L (8-16); Aspartate Amino Transferase 113 U/L (17-59); Bilirubin,Total 5.8 mg/dL (0.2-1.3); Blood Urea Nitrogen 15 mg/dL (9-20); Calcium 9.2 mg/dL (8.4-10.2); Carbon Dioxide 28 mmol/L (22-30); Chloride 89 mmol/L (98-107); Estimated CRCL calculation 75 ml/min; Estimated Glomerular Filt Rate > 60; Glucose 191 mg/dL (65-110); Sodium 125 mmol/L (137-145)
--- NOTE | 2022-02-28 07:26 | PM.IMPN ---
Progress Note: A&P Assessment and Plan (1) Noncompliance: Code(s): Z91.19 - Patient's noncompliance with other medical treatment and regimen Status: Acute (2) Acute ischemic stroke: Code(s): I63.9 - Cerebral infarction, unspecified Status: Acute Plan Patient discussed with Dr. Cardenas. If the patient continues on full therapeutic anticoagulation, Dr. Cardenas recommends stopping aspirin and plavix. If the patient stops taking the anticoagulation, he recommends plavix and aspirin. As the patient is being discharged to rehab today, he will continue with enoxaparin only. Plavix will be discontinued. Subjective Date/time seen: 02/28/22 07:26 Objective Data Vital Signs Vital Signs: Vital Signs - 24 hr 02/27/22 08:10 02/27/22 09:34 02/27/22 09:34 Temperature 97.5 F L Pulse Rate 86 86 86 Respiratory Rate 18 Blood Pressure 130/57 L Pulse Oximetry 97 Oxygen Delivery 02/27/22 09:15 02/27/22 12:00 02/27/22 14:18 Temperature 98.2 F Pulse Rate 88 74 Respiratory Rate 18 Blood Pressure 111/62 Pulse Oximetry 98 Oxygen Delivery Room Air 02/27/22 16:00 02/27/22 18:25 02/27/22 20:50 Temperature 98.7 F 98.7 F Pulse Rate 77 88 90 Respiratory Rate 18 16 Blood Pressure 112/52 L 145/73 H Pulse Oximetry 100 99 Oxygen Delivery 02/27/22 21:37 02/27/22 20:00 02/27/22 20:00 Temperature Pulse Rate 97 81 Respiratory Rate Blood Pressure Pulse Oximetry Oxygen Delivery Room Air 02/27/22 23:07 02/28/22 00:00 02/28/22 03:42 Temperature 98.1 F 97.4 F L Pulse Rate 78 79 85 Respiratory Rate 12 16 Blood Pressure 120/46 L 126/64 Pulse Oximetry 99 99 Oxygen Delivery 02/28/22 04:00 Temperature Pulse Rate 82 Respiratory Rate Blood Pressure Pulse Oximetry Oxygen Delivery Intake/Output Intake/Output: Intake & Output 02/25/22 02/26/22 02/27/22 02/28/22 23:59 23:59 23:59 23:59 Intake Total 1820 1380 1280 400 Output Total 150 3 550 Balance 1670 1377 730 400 Meds/Results Medications: Active Medications Generic Name Dose Route Start Last Admin Trade Name Freq PRN Reason Stop Dose Admin Acetaminophen 650 mg 02/21/22 19:03 Acetaminophen 325 Mg Tablet PO Q4H PRN Mild Pain (1-3) or Fever Hydrocodone Bitart/Acetaminophen 1 tab 02/21/22 19:03 02/27/22 09:35 Hydrocodone/Acetaminophen (*Crx) 5-325 Mg Tablet PO 1 tab Q4H PRN Administration Moderate Pain (4-10) Amiodarone HCl 200 mg 02/22/22 08:00 02/27/22 09:34 Amiodarone Hcl 200 Mg Tablet PO 200 mg DAILY@0800 SARA Administration Aspirin 81 mg 02/22/22 08:00 02/24/22 09:38 Aspirin 81 Mg Chewable Tablet PO 81 mg DAILY@0800 SARA Administration Atorvastatin Calcium 80 mg 02/22/22 09:00 02/27/22 09:34 Atorvastatin 40 Mg Tablet PO 80 mg DAILY SARA Administration Calcium Carbonate 200 mg 02/25/22 12:05 Calcium Carbonate (Tums) 500 Mg (200 Mg Elemental) PO Q6H PRN Indigestion Clopidogrel Bisulfate 75 mg 02/22/22 09:00 02/27/22 09:34 Clopidogrel Bisulfate 75 Mg Tablet PO 75 mg QAM SARA Administration Dextrose 12.5 gm 02/21/22 19:03 Dextrose 50% 25 Gm/50 Ml Syringe IV PUSH PRN PRN Hypoglycemia Protocol Diazepam 5 mg 02/22/22 07:44 02/23/22 18:10 Diazepam Inj (*Crx) 10 Mg/2 Ml Syringe IV PUSH 5 mg Q6H PRN Administration Alcohol Withdrawal Docusate Sodium 100 mg 02/21/22 19:05 02/27/22 16:39 Docusate Sodium 100 Mg Capsule PO Not Given BID SARA Enoxaparin Sodium 87 mg 02/24/22 21:20 02/27/22 21:37 Enoxaparin 100 Mg/Ml Syringe SUB-Q 87 mg Q12HR SARA Administration Folic Acid 1 mg 02/22/22 09:00 02/27/22 09:34 Folic Acid 1 Mg Tablet PO 1 mg DAILY SARA Administration Glucagon 1 mg 02/21/22 19:03 Glucagon For Inj 1 Mg Vial IM PRN PRN Hypoglycemia Protocol Glucose 15 gm 02/21/22 19:03 Glucose Oral G
[2022-02-28 08:00] LABS: Glucose Point of Care 186 mg/dl (65-105)
[2022-02-28] MEDS: AMIODARONE HCL 200 MG TABLET PO (09:44)
[2022-02-28] MEDS: CLOPIDOGREL BISULFATE 75 MG TABLET PO (09:45)
[2022-02-28] MEDS: ENOXAPARIN 100 MG/ML SYRINGE 87 MG SUB-Q (09:45)
[2022-02-28] MEDS: ATORVASTATIN 40 MG TABLET 80 MG PO (09:45)
[2022-02-28] MEDS: MAGNESIUM OXIDE 400 MG TABLET PO (09:46)
[2022-02-28] MEDS: FOLIC ACID 1 MG TABLET PO (09:46)
[2022-02-28] MEDS: METOPROLOL TARTRATE 25 MG TABLET PO (09:46)
[2022-02-28] MEDS: polyethylene glycoL 3350 17 GM POWD.PACK PO (09:47)
[2022-02-28] MEDS: TAMSULOSIN HCL 0.4 MG CAPSULE PO (09:47)
[2022-02-28] MEDS: THIAMINE HCL 100 MG TABLET PO (09:47)
[2022-02-28] MEDS: DOCUSATE SODIUM 100 MG CAPSULE PO (09:49)
[2022-02-28] MEDS: LOSARTAN POTASSIUM 100 MG TABLET PO (09:49)
--- NOTE | 2022-02-28 09:50 | WPDNEUROPN ---
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: Code(s): I69.319 - Unspecified symptoms and signs involving cognitive functions following cerebral infarction Status: Acute (2) Paroxysmal A-fib: Code(s): I48.0 - Paroxysmal atrial fibrillation Status: Acute Plan large vessel disease in addition to moderate-sized vessel disease and abnormal Pap the studies, CT scan obviously compatible with multiple infarcts but the possibility of metastatic disease cannot be ruled out MRI will be beneficial waiting for the final pulmonary diagnosis in the meantime treatment will be continued as such as patient has underlying atrial fibrillation Plavix will be continued with aspirin Subjective Date/time seen: 02/28/22 09:50 Interval history: 71 years old admitted with the possibility of stroke as per the patient's complaints, evaluation up until now documented leukocytosis, hyponatremia, multiple new bilateral pulmonary nodules measuring up to 12mm likely metastatic disease with possible pancreatic mass suspicious for the adenocarcinoma and cirrhosis of the liver with multiple liver masses likely metastatic disease along with ascites and retroperitoneal lymphadenopathy CTA of the brain and carotid in numerable pulmonary nodules measuring up to 11mm infarcts in left occipital parietal and posterior frontal lobes acute or subacute in addition to multiple old infarcts in the brain and multifocal are arterial stenosis including the intracranial internal carotid arteries right middle cerebral artery and right vertebral artery and left common carotid artery in addition to 23% stenosis of the proximal right internal carotid, ultrasound the carotid was done prior to CTA which had documented 50 to 69% stenosis in right internal carotid and less than 50% in the left internal carotid artery and 50 to 69% in the left common carotid artery, head CT was with suspicious for acute infarct in left parietal and occipital lobes Review of Systems Review of Systems: All systems reviewed & are unremarkable except as noted in HPI and below Exam Const: General: cooperative, comfortable and alert Nutritional Appearance: average body habitus Orientation/consciousness: oriented to person and oriented to place HENMT: Head: normocephalic Ears: hearing grossly normal bilaterally General nose exam: Normal external nose present Face and sinus: normal facial exam Eyes: General: appearance normal, both eyes and all related structures Alignment and Position: alignment normal Periorbital: periorbital findings normal Conjunctivae: conjunctivae normal Neck: Neck: normal visual inspection and full ROM Resp: Effort & Inspection: able to speak in complete sentences Auscultation: clear to auscultation bilaterally Cardio: Rate: regular rate Rhythm: regular rhythm Back/Spine/Pelvis: Cervical Spine: normal cervical lordosis and cervical ROM normal Skin: General skin exam: no rashes or lesions noted Neuro: General: oriented to person and oriented to place Cranial nerves: Yes Equal, round and reactive pupils present, Yes Bilaterally intact EOM present and Yes Nystagmus not present Cognition (Neuro): normal cognition Speech: normal speech Gait exam (Neuro): Antalgic gait present and Ataxic gait present Motor exam (neuro): Pronator motor function not present and No tremor noted Deep tendon reflexes (DTR's): Right triceps reflex intensity grade: 1+, Left triceps reflex intensity grade: 1+, Rt Biceps (C5, C6): 1+, Left biceps reflex intensity grade: 1+, Right brachioradialis reflex intensity grade: 1+, Left brachioradialis reflex intensity grade: 1+, Right patellar reflex intensity grade: 1+, Left patellar reflex intensity grade: 1+, Right ankle reflex intensity grade: 1+ and Left ankle reflex intensity grade: 1+ Plantar Reflex Responses: equivocal: bilateral Psych: Appearance: grossly normal Mental Status: mental status g
--- NOTE | 2022-02-28 10:40 | PCNWS ---
Weekly nutritional screen. Patient is tolerating current heart healthy, low sodium diet with adequate intake. Pt has Tupperware containers of outside food he is eating. Weight is stable. No nutritional needs at this time.
[2022-02-28 11:32] LABS: Glucose Point of Care 237 mg/dl (65-105)
[2022-02-28] MEDS: INSULIN ASPART (*BKC) 100 UNITS/ML SUB-Q (12:08)
--- NOTE | 2022-02-28 12:40 | PDONCCN ---
HPI - Date of Consult Date/Time: 02/28/22 12:40 Requesting Physician: Ramón Moon MD Primary Care Provider: Ramón Sevilla, - Consult Narrative Reason for consult: Metastatic cancer Narrative: Gustavo Veloz is a 71 year old male with multiple comorbidities including atrial fibrillation, history of hyperlipidemia, DE, coronary artery disease status post coronary artery bypass grafting and aortic valve replacement came into the hospital with mental status changes with aphasia and change in the gait. He remains confused. He has a history of smoking and drinking alcohol. There is no previous history of malignancy. CT head showed small region of decreased attenuation with volume loss suspicious for acute infarction in the left parietal and occipital lobe. CT chest abdomen and pelvis showed multiple new bilateral pulmonary nodules measuring up to 12 mm likely metastatic disease along with possible pancreatic mass and cirrhosis of the liver with multiple liver masses. There was retroperitoneal lymphadenopathy and ascites. Labs showed leukocytosis with mild anemia. Liver enzymes were elevated with total bilirubin of 5.8 and alkaline phosphatase of 631. He denies any weight loss. He has some abdominal discomfort. Denies any diarrhea and constipation. No melena hematochezia. Review of Systems - Review of Systems All systems reviewed & are unremarkable except as noted in HPI and bel - Neurologic Reports system reviewed and no additional complaints, except as documented, Reports hearing normal, Reports abnormal speech, Reports confusion [facility] Medical History: Medical History (Last Reviewed 02/22/22 @ 12:41 by Damon Lyn MD) Aortic stenosis Status post tissue aortic valve replacement. Coronary artery disease Hypertension Peripheral vascular disease Seasonal allergic rhinitis Type 2 diabetes mellitus Surgical History: Surgical History (Last Reviewed 02/22/22 @ 12:41 by Damon Lyn MD) Amputated toe of right foot History of aortic valve replacement with tissue graft Onset Date: 06/17/20 History of cardiac pacemaker in situ Onset Date: 06/23/20 [place] [employer] dual-chamber pacemaker. History of cataract extraction History of coronary artery bypass graft Onset Date: 06/17/20 HUDSON to the LAD. History of coronary artery stent placement Onset Date: 10/30/19 Drug-eluting stent to the mid LAD. History of nasal surgery Onset Date: 2004 History of open reduction and internal fixation (ORIF) procedure Left ankle fracture. History of vascular surgery Onset Date: 11/02/20 Right femoral tibial bypass. Family History: Family History (Last Reviewed 02/22/22 @ 12:41 by Damon Lyn MD) Mother Family history of diabetes mellitus in first degree relative Father Heart failure Acute myocardial infarction Other Diabetes mellitus Family history of coronary artery disease - Social History Social History: Social History (Last Reviewed 02/22/22 @ 12:41 by Damon Lyn MD) Gender Identity: Gender identity (if verbalized by the patient): Male Sexual Orientation: Sexual Orientation (if Verbalized by the Patient): Straight or Heterosexual Alcohol Use: Alcohol intake: current Drinks per week: 70 Substance Use: Substance use: never Substance use type: does not use Others: Spiritual care concerns: No Agree to blood products: Yes Living Arrangements: Living arrangements: other Oppucation/Education: Occupation/Education: retired Smoking Status: Smoking status: Current every day smoker Tobacco type: cigarettes Second hand tobacco smoke exposure: Yes Smoking Pack-years: Smoking packs per day: 1 Smoking cigarettes per day: 20.0 Years smoked: 50 Smoking pack-years: 50.00 Comments: Additional smoking assessment comments: 0.5 to 1 ppd Meds Home Medications M
--- NOTE | 2022-02-28 13:25 | PCNSR ---
On 02/28/22, the student, Shelly Gold, provided care and completed [facility] documentation on this patient. I have reviewed the student's documentation and agree with the findings.
--- NOTE | 2022-02-28 15:55 | PM.DS ---
DS: Admitting Diagnosis Discharge Date 02/28/2022 Admitting Diagnosis Stroke DS: Discharge Diagnosis Discharge Diagnosis (1) Acute ischemic stroke: Code(s): I63.9 - Cerebral infarction, unspecified Status: Acute Assessment and Plan: Patient presents with aphasia and gait disturbance CT of the head showed small lacunar infarcts and decreased attenuation without corresponding volume loss suspicious for acute infarct in left parietal and occipital lobes Raymond CVA related to embolic NIH score 5 Echo:? EF 55-60%, diastolic dysfunction grade 2, no shunt appreciated. Carotid US:?50-69% stenosis in the right ICA, <50% stenosis in the left ICA and? 50-69% stenosis in the left common carotid artery Neurology consulted -appreciate their input CTA head/neck: infarcts in left occipital, parietal and posterior frontal lobes, acute or subacute.??Multifocal articular stenosis including the intracranial internal carotid arteries, right middle cerebral artery, right vertebral artery, and left common carotid artery. 23% stenossi of proximal right ICA but nothing critical Risks/benefits of anticoagulation discussed by herb digger. Coumadin started Continue home Plavix. ASA started. Stop once INR therapeutic Continue telemetry. Continue atorvastatin high dose. PT, OT and speech therapy. -02/24/22 Patient refuses to take warfarin but is amenable to trying enoxaparin, which may be better with the suspected cancer diagnosis.? Also enoxaparin is generic, so it is much less expensive.? Will start? 1 mg/kg BID enoxaparin today.? Hold warfarin and aspirin.? Continue plavix.? Will discuss with Neurology when to restart aspirin, if patient takes enoxaparin as planned. ed. -02/25/22 Patient remains confused but appears to have better insight and awareness of his situation. -02/26/22 Improving - with less confusion and better insight.? Discussed patient with MPOA as noted below.? Will continue with PT/OT for now.? -02/27/22 WARES SORTER consult ordered.? Continue PT/OT.? -02/28/[address] Osorio, who recommends discontinuation of plavix and aspirin, if the patient is going to continue with therapeutic anticoagulation with enoxaparin. Patient will be going to rehab to continue speech, physical and occupational therapy. (2) Non-STEMI (non-ST elevated myocardial infarction): Code(s): I21.4 - Non-ST elevation (NSTEMI) myocardial infarction Status: Acute Assessment and Plan: No complaints of chest pain.? Patient has coronary disease with recent heart catheterization in October 2021 showing high-grade stenosis of the distal left circumflex artery with inability to intervene. Troponins elevated at 0.190, 0.186, 0.205 EKG showing IVCD, possible old septal infarct and ST T wave changes in anterolateral leads. Will continue medical management with Cozaar, Lipitor, Lopressor, Plavix and aspirin. Cardiology consulted appreciate their input. 02/24/22 holding aspirin and will start therapeutic enoxaparin for atrial fibrillation and continue clopidogrel for now.? Appreciate Cardiology recommendations.? -02/25/22 Cardiology signed off. -02/28/22 Will have follow up appointment with Cardiology after discharge from rehab. (3) Abnormal CT scan: Code(s): R93.89 - Abnormal findings on diagnostic imaging of other specified body structures Status: Acute Assessment and Plan: CXR showing?Mild opacities in bilateral mid and lower lung zones which could represent atelectasis, pleural parenchymal scarring related to old bilateral rib fractures or pneumonia. CT head/neck showing??Innumerable pulmonary nodules measuring up to 11 mm, consistent with infection versus metastatic disease. No hx of cancer. No fevers. No cough. WBC about the same running 12-14K Will proceed with CT Chest and add Abd/Pelvis. -02/24/[address] A/P with possible pancreatic mass concerning for cancer, multiple pulmonary and liver nodules likely metastatic, retroperitoneal l
[2022-02-28 16:27] LABS: EDCOVIDSCREEN Negative (Negative)
[2022-03-03 04:08] LABS: CA 19-9 80024 U/mL (<34)
== END 2022-02-28 17:18 | DRG 64 ==
LOC: ANHED 15:22 → ANHIMU 18:23 → ANH2MED 02-28 16:44 → ANHIMU 03-01 15:55
PROVIDERS: Internal Medicine Cardiovascular Disease; Internal Medicine Hematology & Oncology; Nurse Practitioner; Admitting Provider Internal Medicine; Emergency Provider Emergency Medicine; PCP Internal Medicine; Visit Provider Family Medicine
DX: I63.9 Cerebral infarction, unspecified (principal); I21.4 Non-ST elevation (NSTEMI) myocardial infarction; E87.1 Hypo-osmolality and hyponatremia; R47.01 Aphasia; R26.89 Other abnormalities of gait and mobility; I69.319 Unspecified symptoms and signs involving cognitive functions following cerebral infarction; R29.705 NIHSS score 5; Z20.822 Contact with and (suspected) exposure to COVID-19; R93.89 Abnormal findings on diagnostic imaging of other specified body structures; R74.01 Elevation of levels of liver transaminase levels; F10.10 Alcohol abuse, uncomplicated; F17.210 Nicotine dependence, cigarettes, uncomplicated; E11.69 Type 2 diabetes mellitus with other specified complication; E78.5 Hyperlipidemia, unspecified; I10 Essential (primary) hypertension; I25.10 Atherosclerotic heart disease of native coronary artery without angina pectoris; I27.20 Pulmonary hypertension, unspecified; E11.51 Type 2 diabetes mellitus with diabetic peripheral angiopathy without gangrene; E11.59 Type 2 diabetes mellitus with other circulatory complications; I15.2 Hypertension secondary to endocrine disorders; E11.319 Type 2 diabetes mellitus with unspecified diabetic retinopathy without macular edema; E11.65 Type 2 diabetes mellitus with hyperglycemia; R77.8 Other specified abnormalities of plasma proteins; I48.0 Paroxysmal atrial fibrillation; J30.2 Other seasonal allergic rhinitis; Z79.4 Long term (current) use of insulin; Z79.899 Other long term (current) drug therapy; Z88.0 Allergy status to penicillin; Z88.5 Allergy status to narcotic agent; Z95.0 Presence of cardiac pacemaker; Z95.2 Presence of prosthetic heart valve; Z95.5 Presence of coronary angioplasty implant and graft; Z98.49 Cataract extraction status, unspecified eye; Z91.19 Patient's noncompliance with other medical treatment and regimen
CPT/HCPCS: 36415; 70450; 70496; 70498; 71045; 71250; 74176; 76705; 80053; 82570; 82607; 82746; 82948; 83036; 83735; 83880; 84100; 84300; 84484; 85025; 85610; 85730; 86301; 87426; 92523; 92610; 93005; 93306; 93880; 96375; 97110; 97116; 97161; 97166; 97530; 97535; 99291; A9270; C9803; J1644; J1650; J1815; J1940; J3360; J7030; Q9967; U0003; U0005

== ENCOUNTER 2022-03-03 22:04 | Observation (INO) | payer MEDICARE, OTHER, SELFPAY ==
[2022-03-03] VITALS (10 sets, daily range): BP systolic 129–155; BP diastolic 74–82; PULSE 72–88; RESP 20–28; TEMP 36.4; O2SAT 98–100
--- NOTE | ~2022-03-03 | CT_ITS ---
EXAMINATION: CT brain wo con DATE: 03/03/2022 22:31 INDICATION: Head injury. TECHNIQUE: Computed tomography (CT) of the head was performed without intravenous contrast. The mA wa s adjusted according to patient size. Iterative reconstruction technique was employed. The dose-lengt h product was 605.33 mGy-cm. COMPARISON: Head CT 02/23/2022 FINDINGS: There are old infarcts in the bilateral basal ganglia. Again seen is an infarct in the left occipital and parietal lobes, likely subacute. There are foci of high attenuation in the infarct, co nsistent with hemorrhage. There are scattered areas of low attenuation in the cerebral white matter. There is ex vacuo dilatation of right lateral ventricle. There are likely changes of ocular lens repl acement surgeries. There is mild mucosal thickening in the ethmoid sinuses. The mastoid air cells are normal. IMPRESSION: 1. Subacute infarct in left parietal occipital region, now with foci of acute hemorrhage that may be intraparenchymal. I called this result to Tony Dhaliwal. 2. Old infarcts in the brain. 3. Moderate nonspecific cerebral white matter disease, which likely represents chronic small vessel i schemic disease. Reviewed, dictated and finalized at location A. IMPRESSION: 1. Subacute infarct in left parietal occipital region, now with foci of acute h emorrhage that may be intraparenchymal. I called this result to Tony Dhaliwal. 2. Old infarcts in the brain. 3. Moderate nonspecific cerebral white matter disease, which likely represents chronic small vessel ischemic disease.
--- NOTE | ~2022-03-03 | CT_ITS ---
EXAMINATION: CT cervical spine wo con DATE: 03/03/2022 22:31 INDICATION: Head injury. TECHNIQUE: Computed tomography (CT) of the cervical spine was performed without intravenous contrast. Automated exposure control and iterative reconstruction technique were employed. The dose-length pro duct was 520.90 mGy-cm. COMPARISON: Chest CT 02/23/2022 FINDINGS: The visualized portions of the lung apices demonstrate numerous nodules measuring up to 8 m m. There is 6 degrees dextrocurvature of cervicothoracic spine. There is kyphosis of cervical spine. There is 2 mm anterolisthesis of C4 on C5. Vertebral body heights are normal. There is moderately dec reased disc height at C3-C4 and C5-C6 and severely decreased disc height at C6-C7 and C7-T1. Osseous central spinal canal is developmentally small at C3-C4. The following disc levels are specifically di scussed: C2-C3: There is moderate bilateral uncovertebral joint osteoarthritis. There is severe bilateral face t joint osteoarthritis. There is mild bilateral neural foraminal stenosis. There is mild central michael l stenosis. C3-C4: There is severe bilateral uncovertebral joint osteoarthritis. There is severe bilateral facet joint osteoarthritis. There is moderate bilateral neural foraminal stenosis. There is mild central ca nal stenosis. C4-C5: There is mild bilateral uncovertebral joint osteoarthritis. There is mild bilateral facet join t osteoarthritis. There is mild bilateral neural foraminal stenosis. There is mild central canal sten osis. C5-C6: There is severe right and moderate left uncovertebral joint osteoarthritis. There is moderate right and severe left facet joint osteoarthritis. There is moderate right and mild left neural forami nal stenosis. There is mild central canal stenosis. C6-C7: There is severe bilateral uncovertebral joint osteoarthritis. There is mild right and moderate left facet joint osteoarthritis. There is moderate bilateral neural foraminal stenosis. There is mil d central canal stenosis. C7-T1: There is severe bilateral uncovertebral joint osteoarthritis. There is moderate bilateral face t joint osteoarthritis. There is mild right and moderate left neural foraminal stenosis. There is no central canal stenosis. IMPRESSION: 1. No fracture. 2. Severe cervical spondylosis. 3. Pulmonary nodules, consistent with metastatic disease. Reviewed, dictated and finalized at location A.
--- NOTE | ~2022-03-03 | CT_ITS ---
EXAMINATION: CT brain wo con DATE: 03/04/2022 11:35 INDICATION: Intraparenchymal hemorrhage. TECHNIQUE: Computed tomography (CT) of the head was performed without intravenous contrast. The dose- length product was 605.33 mGy-cm. Automated exposure control and iterative reconstruction technique w ere employed. COMPARISON: CT dated 03/03/2022 FINDINGS: Generalized atrophy. There are chronic bilateral lacunar infarctions. There are scattered m oderate periventricular and subcortical white matter changes, most likely related to small vessel isc hemic disease (microangiopathy). Chronic left parietal infarction. No acute intracranial hemorrhage, infarction, mass or mass effect. There is intracranial atherosclerosis. No ventriculomegaly or midlin e shift. Basilar cisterns are patent. Paranasal sinuses and mastoids are pneumatized. No depressed sk ull fractures. IMPRESSION: 1. No acute intracranial abnormality. No significant interval change. Reviewed, dictated and finalized at location A.
--- NOTE | 2022-03-03 22:11 | ECG_ITS ---
Measurements Intervals [place] Rate: 77 P: 25 MI: 142 QRS: 27 QRSD: 133 T: 125 QT: 424 QTc: 480 Interpretive Statements SINUS RHYTHM INTRAVENTRICULAR CONDUCTION DELAY ST-T WAVE ABNORMALITY IN ANTEROLATERAL LEADS- CONSIDER ISCHEMIA BASELINE ARTIFACT- I, II, III, AVR, AVL, AVF ABNORMAL ECG Electronically Signed On 03-04-2022 7:07:57 CDT by Nayan Alarcon D.O.
--- NOTE | 2022-03-03 22:11 | ED.FALL ---
HPI - Fall General Chief Complaint: Fall Stated Complaint: GLF HEAD INJURY Time Seen by Provider: 03/03/22 22:04 History of Present Illness HPI Narrative: 71-year-old male presents to the emergency room from [facility] for evaluation of a head injury sustained from a ground-level fall. Patient states that he lost his footing while ambulating, fell backwards and struck the back of his head. According to EMS, patient is in the nursing and rehab facility following a CVA. Patient denies loss of consciousness, dizziness, lightheadedness, nausea. Denies neck pain. Related Data Home Medications Medication Instructions Recorded Confirmed losartan 100 mg tablet 1 tablet PO DAILY 02/21/22 02/21/22 Allergies Allergy/AdvReac Type Severity Reaction Status Date / Time codeine Allergy Unknown Unresponsiv Verified 03/03/22 22:11 e Penicillins Allergy Unknown Rash Verified 03/03/22 22:11 Review of Systems Review of Systems: CONSTITUTIONAL: Denies fever, chills, or sweats. EYES: Denies visual changes, redness, or discharge. ENT: Denies rhinorrhea, congestion, sore throat, or otalgia. CARDIOVASCULAR: Denies chest pain, palpitations, or edema. RESPIRATORY: Denies cough or dyspnea. GASTROINTESTINAL: Denies abdominal pain, nausea, vomiting, or diarrhea. GENITOURINARY: Denies dysuria or hematuria. SKIN: Denies rash or itching. MUSCULOSKELETAL: Denies back pain, joint pain, or myalgia. NEUROLOGIC: Denies headache, numbness, dizziness, or weakness. PSYCHIATRIC: Denies anxiety or depression. [facility] Past Medical History Medical History Aortic stenosis Status post tissue aortic valve replacement. Coronary artery disease Hypertension Peripheral vascular disease Seasonal allergic rhinitis Type 2 diabetes mellitus Surgical History Surgical History Amputated toe of right foot History of aortic valve replacement with tissue graft (06/17/20) History of cardiac pacemaker in situ (06/23/20) [employer] dual-chamber pacemaker. History of cataract extraction History of coronary artery bypass graft (06/17/20) HUDSON to the LAD. History of coronary artery stent placement (10/30/19) Drug-eluting stent to the mid LAD. History of nasal surgery (2004) History of open reduction and internal fixation (ORIF) procedure Left ankle fracture. History of vascular surgery (11/02/20) Right femoral tibial bypass. Family History Family History Mother Family history of diabetes mellitus in first degree relative Father Heart failure Acute myocardial infarction Other Diabetes mellitus Family history of coronary artery disease Social History Social History Social History: Patient does have 1 pet that he lives with his name is Joe. He had no kids. Surrogate decision maker: Hermila Campbell, significant other. Code status: Full code. Smoking packs per day: 1 Smoking cigarettes per day: 20.0 Years smoked: 50 Smoking pack-years: 50.00 Smoking status: Current every day smoker Second hand tobacco smoke exposure: Yes Additional smoking assessment comments: 0.5 to 1 ppd Alcohol intake: current Drinks per week: 70 Substance use: never Substance use type: does not use Other substance usage details: Recalled from previous admission Additional living arrangements comments: x2. Lives in [place] with his significant other. 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 Gender identity (if verbalized by the patient): Male Sexual Orientation (if Verbalized by the Patient): Straight or Heterosexual Spiritual care concerns: No Agree to blood products: Yes Exam Narrative: GENERAL: Ill-appearing, well-nourished, no physical limitations, and in no acute
--- NOTE | 2022-03-03 22:23 | PC.NURSE ---
Patient in CT at this time.
[2022-03-03 22:37] LABS: Basophils Absolute Auto 0.1 K/mm3 (0.0-0.1); Basophils Percent Auto 0.3 % (0.2-1.2); Eosinophils Absolute Auto 0.2 K/mm3 (0-0.3); Eosinophils Percent Auto 1.6 % (0-4.4); Hemoglobin 12.3 g/dL (14.0-18.0); Immature Granulocyte Absolute 0.07 K/mm3 (0.00-0.031); Immature Granulocyte Percent A 0.5 % (0-0.5); Lymphocytes Absolute Auto 0.95 K/mm3 (0.9-3.2); Lymphocytes Percent Auto 6.4 % (18.3-44.2); Mean Corpuscular HGB Conc 34.2 g/dl (32-36); Mean Corpuscular Hemoglobin 28.9 pg (26-34); Mean Corpuscular Volume 84.7 fl (80-100); Mean Platelet Volume 11.7 fl (7.4-10.4); Monocytes Absolute Auto 1.5 K/mm3 (0.1-0.6); Monocytes Percent Auto 9.8 % (2.6-8.5); Neutrophils Absolute Auto 12.1 K/mm3 (1.3-6.7); Neutrophils Percent Auto 81.4 % (45.5-73.1); Platelet Count Result 218 k/mm3 (150-375); Red Blood Count 4.25 M/mm3 (4.6-6.20); Red Cell Distribution Width 14.8 % (11.5-14.5); White Blood Count 14.8 K/mm3 (4.5-10.0)
[2022-03-03 22:47] LABS: INR 1.3; Prothrombin Time 15.7 Seconds (11.1-14.7)
[2022-03-03 22:48] LABS: Alanine Aminotransferase 100 U/L (6-50); Albumin Level 3.1 g/dL (3.5-5.1); Alkaline Phosphatase 680 U/L (38-126); Anion Gap 7 mmol/L (8-16); Aspartate Amino Transferase 122 U/L (17-59); Bilirubin,Total 9.5 mg/dL (0.2-1.3); Blood Urea Nitrogen 16 mg/dL (9-20); Calcium 10.5 mg/dL (8.4-10.2); Carbon Dioxide 26 mmol/L (22-30); Chloride 89 mmol/L (98-107); Estimated Glomerular Filt Rate > 60; Glucose 91 mg/dL (65-110); Partial Thromboplastin Time 37.8 SECONDS (22.3-36.8); Potassium 3.4 mmol/L (3.4-5.0); Sodium 122 mmol/L (137-145)
[2022-03-03 22:49] LABS: Lipase 18 U/L (23-300)
[2022-03-03 23:17] LABS: Troponin I 0.108 ng/mL (0.000-0.034)
[2022-03-03 23:44] LABS: Appearance Urine Clear (Clear); Bilirubin Urine 3+ (Negative); Color Urine Yellow (Yellow); Glucose Urine UA Trace mg/dL (Negative); Ketones Urine Negative (Negative); Leukocyte Esterase Ur Negative LEU/UL (Negative); Nitrate Urine Negative (Negative); Protein Urine 1+ mg/dL (Negative); Specific Grav Ur 1.015 (1.001-1.035); Urobilinogen Urine >=8.0 mg/dL (<2.0)
[2022-03-03 23:48] LABS: Amorphous Sediment Urine Few; Calcium Oxalate Crystals Urine Present /hpf; Mucus Urine Rare /lpf; RBC Urine 21-50 /hpf (0-2); Squamous Epithelial Cell Urine Rare /hpf (Few)
[2022-03-03 23:52] LABS: Add Urine Microscopic? YES; Blood Urine Trace-Intact (Negative)
[2022-03-04] VITALS (9 sets, daily range): BP systolic 122–156; BP diastolic 62–73; PULSE 76–84; RESP 13–20; TEMP 36.5–37.1; O2SAT 93–98; BMI 26.2
[2022-03-04 00:21] LABS: SARS-CoV-2 RNA PCR Negative
[2022-03-04 00:27] LABS: Ammonia < 9 umol/L (9-30)
[2022-03-04 00:35] LABS: Lactic Acid Reflex 1.7 mmol/L (0.7-2.0)
--- NOTE | 2022-03-04 00:42 | PM.IMHP ---
H&P: HPI History of Present Illness Date/Time: 03/04/22 00:42 Chief Complaint: Mechanical fall Narrative: Patient is a 71-year-old male past medical history of atrial fibrillation, aortic valve replacement, history of CO, coronary disease status post CABG, peripheral artery disease, diabetes who presents to ED after a fall at rehab. Patient had mechanical fall at the [facility]. On my evaluation patient was back to baseline. Patient recently was hospitalized 02/21-02/28 for acute CVA left parietal occipital, elevated troponins 0.190. During that hospitalization cardiology evaluated patient for elevated troponin. Patient has severe coronary disease with RCA occlusion in distal small vessel disease in circumflex. Goals were for medical management. Echocardiogram showed EF 55-60%, carotid showed right ICA 50-69% stenosis. Recommendation is continue aspirin Plavix, high-dose atorvastatin. At that time patient refused to take warfarin, was then placed on Lovenox 1mg/kg. Because he is on full-dose Lovenox neurology recommended to stop Plavix and aspirin. Patient was working with PT OT and speech therapy. Disposition was for [facility]. In the ED: CT head shows subacute infarct left parietal occipital region now with acute hemorrhage intraparenchymal. ED provider discussed with neurosurgery at [facility] and here, who both did not see any bleed on imaging. Recommendation to watch overnight and repeat imaging in the morning. All lab work is similar to previous on discharge. Patient admitted for observation for possible hemorrhagic conversion of subacute infarct. Review of Systems Review of Systems: Constitutional: No Fever, No Chills, No Night Sweats, No Fatigue, No Malaise ENT/Mouth: No Hearing Changes, No Ear Pain, No Nasal Congestion, No Sinus Pain, No Hoarseness, No sore throat, No Rhinorrhea, No Swallowing Difficulty Eyes: No Eye Pain, No Redness, No Vision Changes Cardiovascular: No Chest Pain, No Palpitations, No Dyspnea on Exertion, No Orthopnea, No Claudication, No Edema Respiratory: No Cough, No Sputum, No Wheezing, No Shortness of Breath Gastrointestinal: No Nausea, No Vomiting, No Diarrhea, No Constipation, No Abdominal Pain, No Heartburn, No Hematochezia, No Melena Genitourinary: No Dysuria, No Urinary Frequency, No Hematuria, No Urinary Incontinence, No Urgency Musculoskeletal: No Arthralgias, No Myalgias, No Joint Swelling, No Joint Stiffness, No Back Pain Skin: No Skin Lesions, No Pruritis, No Hair Changes Neuro: No Weakness, No Numbness, No Paresthesias, No Loss of Consciousness, No Syncope, No Dizziness, No Headache Psych: No Anxiety/Panic, No Depression, No Insomnia Heme: No Bruising, No Bleeding Lymph: No Adenopathy Endocrine: No Polyuria, No Polydipsia, No Temperature Intolerance [facility] Past Medical History Medical History Aortic stenosis Status post tissue aortic valve replacement. Coronary artery disease Hypertension Peripheral vascular disease Seasonal allergic rhinitis Type 2 diabetes mellitus Surgical History Surgical History Amputated toe of right foot History of aortic valve replacement with tissue graft (06/17/20) History of cardiac pacemaker in situ (06/23/20) [employer] dual-chamber pacemaker. History of cataract extraction History of coronary artery bypass graft (06/17/20) HUDSON to the LAD. History of coronary artery stent placement (10/30/19) Drug-eluting stent to the mid LAD. History of nasal surgery (2004) History of open reduction and internal fixation (ORIF) procedure Left ankle fracture. History of vascular surgery (11/02/20) Right femoral tibial bypass. Family History Family History Mother Family history of diabetes mellitus in first degree relative Father Heart failure Acute myocardial
[2022-03-04] MEDS: SODIUM CHLORIDE 0.9% IV 1,000 ML 125 ML IV CONT ×2 (00:59→19:03)
[2022-03-04 01:17] LABS: Magnesium 2.5 mg/dL (1.6-2.3)
--- NOTE | 2022-03-04 02:40 | ADMGEN ---
This patient, Gustavo Veloz, was admitted to [facility] Surg Room 319-01. Patient/family oriented to hospital policies and general routines including ID bracelet, bed and alarms, visiting hours, pain management, procedures, bathroom and other care routines, personal items, smoking policy, room service/diet, and visiting hours. Information on how to activate the Rapid Response Team has been discussed. Patient/Family are encouraged to report perceived risks to care and to ask questions if they do not understand what they are told or what they should do.
--- NOTE | 2022-03-04 11:04 | PM.IMPN ---
Progress Note: A&P Assessment and Plan (1) Head injury: Code(s): S09.90XA - Unspecified injury of head, initial encounter Status: Acute (2) Abnormal CT scan: Code(s): R93.89 - Abnormal findings on diagnostic imaging of other specified body structures Status: Acute Plan # mechanical fall -patient tripped while raking a rehab after recent stroke -CT head noncontrast: CT head is concerning for Subacute infarct in left parietal occipital region, now with foci of acute hemorrhage that may be intraparenchymal -will repeat noncontrast head CT tomorrow morning 8:00 a.m. -neurosurgery consulted to follow-up imaging of head CT -asymptomatic # subacute infarct left parietal occipital region -patient to continue work with PT and OT, [facility] -was seen by Dr. Osorio: Okay to be off of aspirin and Plavix if on full therapeutic anticoagulation. Patient was then discharged on enoxaparin full dose -likely etiology of CVA is paroxysmal atrial fibrillation versus left ICA 50-69% stenosis, may need vascular surgery follow-up for carotids # elevated troponin # history of coronary disease -patient recently was evaluated by Cardiology, recommendation for medical management. Elevated troponin similar to last hospitalization -will hold off on blood thinner with concern for possible hemorrhagic conversion of stroke -no active chest pain, no reason to continue trending troponins # likely metastatic pancreatic cancer -imaging shows signs of liver cirrhosis and multiple liver masses suggestive of pancreatic carcinoma -oncology Dr. Chanel consulted last hospitalization, plan was for CT-guided biopsy of liver mass, CA 19 9 had been ordered -patient to keep his oncology follow-up # other chronic conditions -type 2 diabetes: Hemoglobin A1c 9.3, glargine 27 units daily, Accu-Cheks a.c. HS, diabetic diet, hypoglycemia protocol -paroxysmal atrial fibrillation: Unable to afford Eliquis, on full-dose Lovenox at this time, anticoagulation held for the concern for bleed -history of alcohol abuse, no signs of withdrawal, he has been hospitalized and then went to rehab -nicotine dependence: Will need smoking cessation discussion -elevated blood pressure: Continue metoprolol, losartan -hyperlipidemia: Atorvastatin Diet: Regular DVT prophylaxis: SCDs Code status: Full code Disposition: Back to [facility] after repeat Head CT as long as no bleed Additional Plan 03/04/22 plan is to continue current treatment observe closely repeat CT scan today. Will give p.o. Bactrim for possible UTI, cultures are pending. Subjective Date/time seen: 03/04/22 11:04 Patient was seen during the morning rounds today. No new complaints. No headache. No shortness of breath or chest pain. No Abdominal pain, nausea, no vomiting. Mood stable. Review of Systems Review of Systems: All review of systems are negative except the ones noted in history and physical examination Exam Narrative: - GENERAL: Pleasant male in no acute distress. Well-nourished. - EYES: EOMI. Anicteric. - HENT: Moist mucous membranes. - LUNGS: Clear to auscultation bilaterally, no wheezing, rhonchi, or rales. - CARDIOVASCULAR: Regular rate and rhythm. No murmur. No JVD. - ABDOMEN: Soft, non-tender and non-distended. No palpable masses. - EXTREMITIES: No edema. Peripheral pulses 2+. Non-tender. - NEUROLOGIC: No focal neurological deficits. CN II-XII grossly intact. - PSYCHIATRIC: Awake, Alert and oriented x 3. Appropriate mood and affect. - SKIN: No rashes or lesions. Warm. - LYMPH: No cervical lymphadenopathy. Objective Data Vital Signs Vital Signs: Vital Signs - 24 hr 03/03/22 22:03 03/03/22 22:14 03/03/22 22:15 Temperature 36.4 C Pulse Rate 88 78 78 Respiratory Rate 20 21 H 23 H Blood Pressure 129/82 Pulse Oximetry 98 98 99 Oxygen Delivery Room Air 03/03/22 22:57 03/03/22 23:00 03/03/22 23:01 Temperature
[2022-03-04] MEDS: METOPROLOL TARTRATE 25 MG TABLET PO (14:08)
[2022-03-04] MEDS: AMIODARONE HCL 200 MG TABLET PO (14:10)
[2022-03-04] MEDS: FOLIC ACID 1 MG TABLET PO (14:11)
[2022-03-04] MEDS: TAMSULOSIN HCL 0.4 MG CAPSULE PO (14:11)
[2022-03-04] MEDS: INSULIN GLARGINE (*BKC) 100 UNITS/ML 27 UNITS SUB-Q (14:11)
[2022-03-04] MEDS: THIAMINE HCL 100 MG TABLET PO (14:11)
[2022-03-04 14:40] LABS: Glucose Point of Care 179 mg/dl (65-105)
[2022-03-05] MEDS: METOPROLOL TARTRATE 25 MG TABLET PO ×2 (00:11→08:23)
[2022-03-05 06:00] VITALS: BP 116/64; PULSE 77; RESP 18; TEMP 36.7; O2SAT 92
[2022-03-05 06:29] LABS: Basophils Absolute Auto 0.1 K/mm3 (0.0-0.1); Basophils Percent Auto 0.4 % (0.2-1.2); Eosinophils Absolute Auto 0.3 K/mm3 (0-0.3); Eosinophils Percent Auto 1.7 % (0-4.4); Hematocrit 37.1 % (42.0-52.0); Hemoglobin 12.6 g/dL (14.0-18.0); Immature Granulocyte Absolute 0.09 K/mm3 (0.00-0.031); Immature Granulocyte Percent A 0.6 % (0-0.5); Lymphocytes Absolute Auto 1.06 K/mm3 (0.9-3.2); Lymphocytes Percent Auto 6.9 % (18.3-44.2); Mean Corpuscular Volume 85.3 fl (80-100); Mean Platelet Volume 11.1 fl (7.4-10.4); Monocytes Absolute Auto 1.4 K/mm3 (0.1-0.6); Monocytes Percent Auto 8.7 % (2.6-8.5); Neutrophils Absolute Auto 12.6 K/mm3 (1.3-6.7); Neutrophils Percent Auto 81.7 % (45.5-73.1); Platelet Count Result 209 k/mm3 (150-375); Red Blood Count 4.35 M/mm3 (4.6-6.20); Red Cell Distribution Width 15.6 % (11.5-14.5); White Blood Count 15.5 K/mm3 (4.5-10.0)
[2022-03-05 06:39] LABS: Alanine Aminotransferase 105 U/L (6-50); Alkaline Phosphatase 682 U/L (38-126); Anion Gap 12 mmol/L (8-16); Aspartate Amino Transferase 131 U/L (17-59); Blood Urea Nitrogen 19 mg/dL (9-20); Calcium 10.4 mg/dL (8.4-10.2); Carbon Dioxide 26 mmol/L (22-30); Chloride 89 mmol/L (98-107); Estimated CRCL calculation 62 ml/min; Estimated Glomerular Filt Rate > 60; Glucose 98 mg/dL (65-110); Potassium 3.4 mmol/L (3.4-5.0); Sodium 127 mmol/L (137-145)
[2022-03-05] MEDS: SODIUM CHLORIDE 0.9% IV 1,000 ML 125 ML IV CONT (06:41)
[2022-03-05 07:51] LABS: Glucose Point of Care 101 mg/dl (65-105)
[2022-03-05 08:00] VITALS: PULSE 78; RESP 18; O2SAT 92
[2022-03-05] MEDS: TAMSULOSIN HCL 0.4 MG CAPSULE PO (08:22)
[2022-03-05] MEDS: FOLIC ACID 1 MG TABLET PO (08:22)
[2022-03-05] MEDS: THIAMINE HCL 100 MG TABLET PO (08:22)
[2022-03-05 08:23] VITALS: PULSE 78
[2022-03-05] MEDS: AMIODARONE HCL 200 MG TABLET PO (08:23)
--- NOTE | 2022-03-05 08:47 | PC.NURSE ---
aguilera placed for urinary retention this shift
--- NOTE | 2022-03-05 09:12 | PM.DS ---
DS: Admitting Diagnosis Discharge Date 03/05/2022 Admitting Diagnosis fall with head injury DS: Discharge Diagnosis Discharge Diagnosis (1) Head injury: Code(s): S09.90XA - Unspecified injury of head, initial encounter Status: Acute (2) Abnormal CT scan: Code(s): R93.89 - Abnormal findings on diagnostic imaging of other specified body structures Status: Acute Plan # mechanical fall -patient tripped while raking a rehab after recent stroke -CT head noncontrast: CT head is concerning for Subacute infarct in left parietal occipital region, now with foci of acute hemorrhage that may be intraparenchymal -will repeat noncontrast head CT tomorrow morning 8:00 a.m. -neurosurgery consulted to follow-up imaging of head CT -asymptomatic # subacute infarct left parietal occipital region -patient to continue work with PT and OT, [facility]was seen by Dr. Osorio: Okay to be off of aspirin and Plavix if on full therapeutic anticoagulation. Patient was then discharged on enoxaparin full dose -likely etiology of CVA is paroxysmal atrial fibrillation versus left ICA 50-69% stenosis, may need vascular surgery follow-up for carotids # elevated troponin # history of coronary disease -patient recently was evaluated by Cardiology, recommendation for medical management. Elevated troponin similar to last hospitalization -will hold off on blood thinner with concern for possible hemorrhagic conversion of stroke -no active chest pain, no reason to continue trending troponins # likely metastatic pancreatic cancer -imaging shows signs of liver cirrhosis and multiple liver masses suggestive of pancreatic carcinoma -oncology Dr. Chanel consulted last hospitalization, plan was for CT-guided biopsy of liver mass, CA 19 9 had been ordered -patient to keep his oncology follow-up # other chronic conditions -type 2 diabetes: Hemoglobin A1c 9.3, glargine 27 units daily, Accu-Cheks a.c. HS, diabetic diet, hypoglycemia protocol -paroxysmal atrial fibrillation: Unable to afford Eliquis, on full-dose Lovenox at this time, anticoagulation held for the concern for bleed -history of alcohol abuse, no signs of withdrawal, he has been hospitalized and then went to rehab -nicotine dependence: Will need smoking cessation discussion -elevated blood pressure: Continue metoprolol, losartan -hyperlipidemia: Atorvastatin Diet: Regular DVT prophylaxis: SCDs Code status: Full code Disposition: Back to [facility] after repeat Head CT as long as no bleed DS: Summary Hospital Course Reason for hospitalization: fall with head injury Hospital Course: patient with history of possible metastatic breast getting cancer was admitted from custodial with complaints of a fall with possible head injury. Initial evaluation shows that may be a bleed but evaluation with repeat CT scan done turned out that there is no bleed. patient did not have any other issues during the stay in the hospital. Patient was in his baseline clinical status. Today patient is feeling stable so patient was discharged back to custodial. patient will be followed by primary care physician, Cardiology, GI and Hematology-Oncology outpatient next week. will repeat CBC CMP outpatient next week Time Spent with Patient Time attestation: Total time spent providing and/or coordinating discharge services: Exam Narrative: - GENERAL: Pleasant male in no acute distress. Well-nourished. - EYES: EOMI. Anicteric. - HENT: Moist mucous membranes. - LUNGS: Clear to auscultation bilaterally, no wheezing, rhonchi, or rales. - CARDIOVASCULAR: Regular rate and rhythm. No murmur. No JVD. - ABDOMEN: Soft, non-tender and non-distended. No palpable masses. - EXTREMITIES: No edema. Peripheral pulses 2+. Non-tender. - NEUROLOGIC: No focal neurological deficits. CN II-XII grossly intact. - PSYCHIATRIC: Awake, Alert and oriented x 3. Appropriate mood and affect. - SKI
--- NOTE | 2022-03-05 10:33 | PC.NURSE ---
Report called to [facility], report received by Bela nurse at facility, question and concerns answered, pt to transport per ambulance.
--- NOTE | 2022-03-05 10:46 | PC.NURSE ---
covid swab sent to lab.
[2022-03-05 11:01] LABS: EDCOVIDSCREEN Negative (Negative)
== END 2022-03-05 12:00 ==
LOC: ANHED 23:47 → ANH3MEDSUR 03-04 02:47
PROVIDERS: Admitting Provider Student in an Organized Health Care Education/Training Program; Emergency Provider Nurse Practitioner Family; PCP Internal Medicine; Visit Provider Internal Medicine
DX: S09.90XA Unspecified injury of head, initial encounter (principal); W18.39XA Other fall on same level, initial encounter; R93.0 Abnormal findings on diagnostic imaging of skull and head, not elsewhere classified; R77.8 Other specified abnormalities of plasma proteins; I10 Essential (primary) hypertension; E78.5 Hyperlipidemia, unspecified; I48.0 Paroxysmal atrial fibrillation; I25.10 Atherosclerotic heart disease of native coronary artery without angina pectoris; E11.51 Type 2 diabetes mellitus with diabetic peripheral angiopathy without gangrene; I35.0 Nonrheumatic aortic (valve) stenosis; Z79.4 Long term (current) use of insulin; Z95.0 Presence of cardiac pacemaker; Z95.5 Presence of coronary angioplasty implant and graft; Z95.1 Presence of aortocoronary bypass graft; Z79.01 Long term (current) use of anticoagulants; Z86.73 Personal history of transient ischemic attack (TIA), and cerebral infarction without residual deficits; F17.210 Nicotine dependence, cigarettes, uncomplicated; Z20.822 Contact with and (suspected) exposure to COVID-19; Z79.899 Other long term (current) drug therapy
CPT/HCPCS: 36415; 70450; 72125; 80053; 81001; 82140; 82948; 83605; 83690; 83735; 84484; 85025; 85610; 85730; 87086; 87088; 87426; 93005; 96360; 96361; 97162; 97165; 99285; A9270; C9803; G0378; J1815; J7030; U0003; U0005

== ENCOUNTER 2022-03-07 14:13 | Observation (INO) | payer MEDICARE, OTHER, SELFPAY ==
[2022-03-07] VITALS (22 sets, daily range): BP systolic 102–144; BP diastolic 54–82; PULSE 69–97; RESP 15–22; TEMP 36.1–36.5; O2SAT 97–100; BMI 27.7
--- NOTE | ~2022-03-07 | US_ITS ---
US abdomen limited 03/08/2022 14:27 Indication: Evaluate for ascites Procedure: High-resolution ultrasound of the 4 quadrants of the abdomen Comparison: Ultrasound dated 02/23/2022 Findings: There is a small-moderate amount of ascites involving all 4 quadrants. Ill-defined masses a re partially visualized in the liver, likely metastatic disease. Impression: 1: Small-moderate volume of ascites. Reviewed, dictated and finalized at location A. Impression: 1: Small-moderate volume of ascites.
--- NOTE | ~2022-03-07 | CT_ITS ---
EXAMINATION: CT brain wo con DATE: 03/07/2022 16:29 INDICATION: AMS . TECHNIQUE: Computed tomography (CT) of the head was performed without intravenous contrast. The mA wa s adjusted according to patient size. Iterative reconstruction technique was employed. The dose-lengt h product was 681.00 mGy-cm. COMPARISON: 03/04/2022. FINDINGS: No acute intracranial hemorrhage or extra-axial fluid collection. No hydrocephalus, mass, or herniation. No acute ischemic infarct. Unremarkable dural venous sinus attenuation. No acute osseous abnormality. The aerated spaces are clear. Mild atrophy. Moderate chronic white matter change. Bilateral basal ganglia lacunar infarcts. Atheros clerotic intracranial calcification. Bilateral lens replacements. Evolving subacute left parietal inf arction. IMPRESSION: No acute intracranial process. Reviewed, dictated and finalized at location K.
--- NOTE | ~2022-03-07 | XR_ITS ---
EXAMINATION: XR chest 2V Exam Date/Time: 03/08/2022 19:20 CDT HISTORY: leukocytosis Comparison: 02/21/2022. RESULT: Lines, tubes, and devices: Fractured inferior sternotomy wire. Left chest pacer with intact leads. Lungs and pleura: Increased diffuse peripheral reticular opacities overlying more chronic appearing reticulonodular disease that may represent bronchiolitis. Posterior angle blunting. Cardiomediastinal silhouette: Stable. Other: No acute osseous or upper abdominal finding. IMPRESSION: Pulmonary opacities likely reflect interstitial edema. Trace bilateral effusions. Reviewed, dictated and finalized at location K. IMPRESSION: Pulmonary opacities likely reflect interstitial edema. Trace bilateral effusion s.
[2022-03-07 15:08] LABS: Basophils Absolute Auto 0.1 K/mm3 (0.0-0.1); Basophils Percent Auto 0.4 % (0.2-1.2); Eosinophils Absolute Auto 0.1 K/mm3 (0-0.3); Eosinophils Percent Auto 0.4 % (0-4.4); Hematocrit 38.2 % (42.0-52.0); Hemoglobin 12.9 g/dL (14.0-18.0); Immature Granulocyte Absolute 0.13 K/mm3 (0.00-0.031); Immature Granulocyte Percent A 0.7 % (0-0.5); Lymphocytes Absolute Auto 0.86 K/mm3 (0.9-3.2); Lymphocytes Percent Auto 4.7 % (18.3-44.2); Mean Corpuscular HGB Conc 33.8 g/dl (32-36); Mean Corpuscular Hemoglobin 28.9 pg (26-34); Mean Corpuscular Volume 85.7 fl (80-100); Mean Platelet Volume 12.2 fl (7.4-10.4); Monocytes Percent Auto 5.5 % (2.6-8.5); Neutrophils Absolute Auto 16.3 K/mm3 (1.3-6.7); Neutrophils Percent Auto 88.3 % (45.5-73.1); Platelet Count Result 210 k/mm3 (150-375); Red Blood Count 4.46 M/mm3 (4.6-6.20); Red Cell Distribution Width 16.9 % (11.5-14.5); White Blood Count 18.4 K/mm3 (4.5-10.0)
[2022-03-07 15:22] LABS: INR 2.5; Prothrombin Time 25.8 Seconds (11.1-14.7)
[2022-03-07 15:23] LABS: Partial Thromboplastin Time 54.1 SECONDS (22.3-36.8)
[2022-03-07 15:28] LABS: Platelet Estimate Adequate (Adequate); Target Cells 1+ (NORMAL)
[2022-03-07 15:45] LABS: Add Urine Microscopic? YES; Appearance Urine Cloudy (Clear); Bilirubin Urine 3+ (Negative); Blood Urine 3+ (Negative); Color Urine Red (Yellow); Glucose Urine UA Trace mg/dL (Negative); Ketones Urine Trace mg/dL (Negative); Leukocyte Esterase Ur Negative LEU/UL (Negative); Nitrate Urine Negative (Negative); Protein Urine 2+ mg/dL (Negative); Specific Grav Ur 1.025 (1.001-1.035); pH Urine 5.5 (5.0-9.0)
[2022-03-07 15:50] LABS: RBC Urine >75 /hpf (0-2)
[2022-03-07 15:51] LABS: Bacteria Urine 1+ /hpf; Squamous Epithelial Cell Urine Few /hpf (Few)
[2022-03-07 16:09] LABS: Alanine Aminotransferase 87 U/L (6-50); Albumin Level 2.9 g/dL (3.5-5.1); Alkaline Phosphatase 585 U/L (38-126); Anion Gap 9 mmol/L (8-16); Aspartate Amino Transferase 112 U/L (17-59); Blood Urea Nitrogen 26 mg/dL (9-20); Calcium 10.7 mg/dL (8.4-10.2); Carbon Dioxide 27 mmol/L (22-30); Chloride 91 mmol/L (98-107); Estimated CRCL calculation 46 ml/min; Estimated Glomerular Filt Rate 46; Glucose 146 mg/dL (65-110); Lipase 30 U/L (23-300); Potassium 3.6 mmol/L (3.4-5.0); Sodium 127 mmol/L (137-145)
[2022-03-07 16:12] LABS: Ammonia < 9 umol/L (9-30)
[2022-03-07] MEDS: SODIUM CHLORIDE 0.9% IV 1,000 ML 999 ML IV CONT (16:35)
[2022-03-07 17:26] LABS: Lactic Acid Reflex 2.6 mmol/L (0.7-2.0)
[2022-03-07] MEDS: metroNIDAZOLE 500 MG/ISO 100ML 500 MG/100 ML BAG 100 MG IVPB (18:39)
--- NOTE | 2022-03-07 18:47 | ED.GENADULT ---
HPI - General Adult General Chief complaint: Abdominal Pain Stated complaint: Abd large Time Seen by Provider: 03/07/22 14:21 History of Present Illness HPI narrative: Patient is a 71-year-old male who was sent to the ER for supposedly large abdomen. Patient recently admitted for CVA and was diagnosed with metastatic cancer. Presumed to be pancreatic primary with mets to the liver and lung. Patient also has cirrhosis of liver. Patient has also become jaundiced. While in the hospital he had a [place] placed for BPH. Patient unable to provide any history. Related Data Home Medications Medication Instructions Recorded Confirmed metoprolol tartrate 25 mg tablet 25 mg PO BID 03/04/22 03/04/22 Allergies Allergy/AdvReac Type Severity Reaction Status Date / Time codeine Allergy Unknown Unresponsiv Verified 03/07/22 15:03 e Penicillins Allergy Unknown Rash Verified 03/07/22 15:03 Review of Systems Review of Systems: ROS unobtainable: Yes unobtainable due to medical condition and unobtainable due to mental status [facility] Past Medical History Medical History (Updated 03/07/22 @ 19:06 by Ok Irizarry MD) Aortic stenosis Status post tissue aortic valve replacement. Coronary artery disease Hypertension Malignant neoplasm Presumed pancreatic with metastases but not biopsy-proven. Peripheral vascular disease Seasonal allergic rhinitis Type 2 diabetes mellitus Surgical History Surgical History Amputated toe of right foot History of aortic valve replacement with tissue graft (06/17/20) History of cardiac pacemaker in situ (06/23/20) [employer] dual-chamber pacemaker. History of cataract extraction History of coronary artery bypass graft (06/17/20) HUDSON to the LAD. History of coronary artery stent placement (10/30/19) Drug-eluting stent to the mid LAD. History of nasal surgery (2004) History of open reduction and internal fixation (ORIF) procedure Left ankle fracture. History of vascular surgery (11/02/20) Right femoral tibial bypass. Family History Family History Mother Family history of diabetes mellitus in first degree relative Father Heart failure Acute myocardial infarction Other Diabetes mellitus Family history of coronary artery disease Social History Social History Social History: Patient does have 1 pet that he lives with his name is Joe. He had no kids. Surrogate decision maker: Hermila Campbell, significant other. Code status: Full code. Smoking packs per day: 1 Smoking cigarettes per day: 20.0 Years smoked: 50 Smoking pack-years: 50.00 Smoking status: Current every day smoker Second hand tobacco smoke exposure: Yes Additional smoking assessment comments: 0.5 to 1 ppd Alcohol intake: current Drinks per week: 70 Substance use: never Substance use type: does not use Other substance usage details: Recalled from previous admission Additional living arrangements comments: x2. Lives in [place] with his significant other. 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 Gender identity (if verbalized by the patient): Male Sexual Orientation (if Verbalized by the Patient): Straight or Heterosexual Spiritual care concerns: No Agree to blood products: Yes Exam Narrative: GENERAL: Chronically ill-appearing, well-nourished, and in no acute distress. HEAD: Normocephalic, atraumatic. EYES: PERRL and EOMI. scleral icterus. ENT:Mucous membranes moist. CHEST: Clear to auscultation. No respiratory distress. HEART: Regular rate and rhythm. Normal peripheral pulses. ABDOMEN: Soft, nontender, nondistended. EXTREMITIES: Normal range of motion. No edema. SKIN: Warm, dry, jaundiced. NEURO: Alert and oriented x1. Course Course Emergency Course: I h
[2022-03-07 19:38] LABS: SARS-CoV-2 RNA PCR Negative
[2022-03-07 20:15] LABS: Reflex Lactic Acid Yes or No Add Lactic
--- NOTE | 2022-03-07 20:40 | PM.IMHP ---
H&P: HPI History of Present Illness Date/Time: 03/07/222039 Chief Complaint: Confusion Narrative: Patient is 71-year-old male with past medical history pancreatic cancer with Mets to the liver and to the lung, hypertension, CVA, CAD with 2 stents, type 2 diabetes who presented to the ED today from [facility] for large abdomen. Unable to get a full history due to the patient's confusion however patient was noted to be confused and is now jaundice. Patient's girlfriend Hermila is present and stated that he has just gone downhill for a while now. She stated that he is very confused and that he has been jaundiced for a while. She also stated they would all the hospitals over the last couple years. She stated that his speech is little better she can understand him. She also stated the last time he was here he was diagnosed with cancer of the pancreas liver and lung. She also stated that she feels like it probably be best to put the patient on hospice however she would like the patient to make that decision and not her. Patient will answer some questions and is appropriate at times however he also cannot respond or even give detail to certain things either. A complete review of systems unable to be obtained due to patient's mental status. White blood cell count is noted to be 18,000 PT INR elevated lactic acid is elevated 2.6 bilirubin is 14 liver enzymes elevated. Patient has been started on Flagyl and cefepime. Patient is being admitted to the hospitalist service under observation Review of Systems Review of Systems: All systems reviewed & are unremarkable except as noted in HPI and below PMFSH Past Medical History Medical History Aortic stenosis Status post tissue aortic valve replacement. Coronary artery disease Hypertension Malignant neoplasm Presumed pancreatic with metastases but not biopsy-proven. Peripheral vascular disease Seasonal allergic rhinitis Type 2 diabetes mellitus Surgical History Surgical History Amputated toe of right foot History of aortic valve replacement with tissue graft (06/17/20) History of cardiac pacemaker in situ (06/23/20) [employer] dual-chamber pacemaker. History of cataract extraction History of coronary artery bypass graft (06/17/20) HUDSON to the LAD. History of coronary artery stent placement (10/30/19) Drug-eluting stent to the mid LAD. History of nasal surgery (2004) History of open reduction and internal fixation (ORIF) procedure Left ankle fracture. History of vascular surgery (11/02/20) Right femoral tibial bypass. Family History Family History Mother Family history of diabetes mellitus in first degree relative Father Heart failure Acute myocardial infarction Other Diabetes mellitus Family history of coronary artery disease Social History Social History Social History: Patient does have 1 pet that he lives with his name is Joe. He had no kids. Surrogate decision maker: Hermila Campbell, significant other. Code status: Full code. Smoking packs per day: 1 Smoking cigarettes per day: 20.0 Years smoked: 50 Smoking pack-years: 50.00 Smoking status: Former smoker Second hand tobacco smoke exposure: Yes Additional smoking assessment comments: 0.5 to 1 ppd Alcohol intake: unknown Drinks per week: 70 Substance use: unknown Substance use type: does not use Other substance usage details: Recalled from previous admission Additional living arrangements comments: x2. Lives in [place] with his significant other. 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 Gender identity (if verbalized by the patient): Male Sexual Orientation (if Verbalized by the Patient): Straight o
--- NOTE | 2022-03-07 20:44 | ADMGEN ---
This patient, Gustavo Veloz, was admitted to IMU Room 205-02. Patient/family oriented to hospital policies and general routines including ID bracelet, bed and alarms, visiting hours, pain management, procedures, bathroom and other care routines, personal items, smoking policy, room service/diet, and visiting hours. Information on how to activate the Rapid Response Team has been discussed. Patient/Family are encouraged to report perceived risks to care and to ask questions if they do not understand what they are told or what they should do.
[2022-03-07 21:27] LABS: Lactic Acid 1.7 mmol/L (0.7-2.0)
--- NOTE | 2022-03-07 22:22 | PC.NURSE ---
Pt admitted with aguilera catheter in place from previous admission. Verified with mcc. Aguilera catheter not changed at this time. Pt is likely to go on hospice in the am as discussed with ED physician and POA. Also, discussed with salesperson household appliances that it is suspected that pt had aguilera catheter placed per urology on last admission. Staff concerned that aguilera catheter may not be able to be replaced without urology intervention.
[2022-03-07] MEDS: ENOXAPARIN 100 MG/ML SYRINGE 87 MG SUB-Q (22:51)
[2022-03-07] MEDS: DEXTROSE 50% 25 GM/50 ML SYRINGE IV PUSH (22:51)
[2022-03-07 23:29] LABS: Glucose Point of Care 54 mg/dl (65-105)
[2022-03-07 23:29] LABS: Glucose Point of Care 82 mg/dl (65-105)
[2022-03-08] VITALS (15 sets, daily range): BP systolic 106–127; BP diastolic 59–85; PULSE 70–109; RESP 14–24; TEMP 36.1–37.2; O2SAT 94–100; BMI 28.6
[2022-03-08] MEDS: metroNIDAZOLE 500 MG/ISO 100ML 500 MG/100 ML BAG 100 MG IVPB ×3 (00:57→17:42)
[2022-03-08] MEDS: DEXTROSE 50% 25 GM/50 ML SYRINGE IV PUSH (04:17)
[2022-03-08 04:18] LABS: Glucose Point of Care 45 mg/dl (65-105)
[2022-03-08 04:39] LABS: Basophils Absolute Auto 0.1 K/mm3 (0.0-0.1); Basophils Percent Auto 0.4 % (0.2-1.2); Eosinophils Absolute Auto 0.3 K/mm3 (0-0.3); Eosinophils Percent Auto 1.6 % (0-4.4); Hematocrit 32.5 % (42.0-52.0); Hemoglobin 11.3 g/dL (14.0-18.0); Immature Granulocyte Absolute 0.14 K/mm3 (0.00-0.031); Immature Granulocyte Percent A 0.9 % (0-0.5); Lymphocytes Absolute Auto 1.11 K/mm3 (0.9-3.2); Lymphocytes Percent Auto 6.8 % (18.3-44.2); Mean Corpuscular HGB Conc 34.8 g/dl (32-36); Mean Corpuscular Hemoglobin 29.3 pg (26-34); Mean Corpuscular Volume 84.2 fl (80-100); Mean Platelet Volume 11.4 fl (7.4-10.4); Monocytes Absolute Auto 1.1 K/mm3 (0.1-0.6); Monocytes Percent Auto 6.9 % (2.6-8.5); Neutrophils Absolute Auto 13.7 K/mm3 (1.3-6.7); Neutrophils Percent Auto 83.4 % (45.5-73.1); Platelet Count Result 182 k/mm3 (150-375); Red Blood Count 3.86 M/mm3 (4.6-6.20); Red Cell Distribution Width 17.2 % (11.5-14.5); White Blood Count 16.4 K/mm3 (4.5-10.0)
[2022-03-08 04:46] LABS: Glucose Point of Care 121 mg/dl (65-105)
[2022-03-08 04:50] LABS: INR 2.6; Prothrombin Time 27.3 Seconds (11.1-14.7)
[2022-03-08 04:51] LABS: Alanine Aminotransferase 77 U/L (6-50); Albumin Level 2.4 g/dL (3.5-5.1); Alkaline Phosphatase 510 U/L (38-126); Anion Gap 9 mmol/L (8-16); Aspartate Amino Transferase 109 U/L (17-59); Bilirubin,Total 12.6 mg/dL (0.2-1.3); Blood Urea Nitrogen 22 mg/dL (9-20); Calcium 10.1 mg/dL (8.4-10.2); Carbon Dioxide 24 mmol/L (22-30); Chloride 93 mmol/L (98-107); Estimated CRCL calculation 58 ml/min; Estimated Glomerular Filt Rate > 60; Glucose 264 mg/dL (65-110); Magnesium 2.5 mg/dL (1.6-2.3); Partial Thromboplastin Time 57.3 SECONDS (22.3-36.8); Potassium 3.3 mmol/L (3.4-5.0); Sodium 126 mmol/L (137-145)
[2022-03-08 08:27] LABS: Glucose Point of Care 61 mg/dl (65-105)
--- NOTE | 2022-03-08 08:53 | PM.IMPN ---
Progress Note: A&P Assessment and Plan (1) Leukocytosis: Code(s): D72.829 - Elevated white blood cell count, unspecified Status: Acute Assessment and Plan: Leukocytosis improving. May be related to worsening cancer. UA has bilirubin due to acute liver failure but no signs of infection. On cefepime and vancomycin. BCX with no growth. -CXR -Continue cefepime and vancomycin for now (2) Acute metabolic encephalopathy: Code(s): G93.41 - Metabolic encephalopathy Status: Acute Assessment and Plan: CT head with no acute intracranial process. Worsening confusion is likely related to worsening cancer with acute liver failure. At time of last discharge patient was only alert and oriented to self, so this may be unchanged. (3) Hyperbilirubinemia: Code(s): E80.6 - Other disorders of bilirubin metabolism Status: Acute Assessment and Plan: Has hx of ETOH abuse plus recent diagnosis of metastatic lesions to the liver with suspected pancreatic primary. Worsening synthetic function wtih INR up to 2.6 this morning. -Hold enoxaparin -Gastroenterology consult -Oncology consulted (4) Hyponatremia: Code(s): E87.1 - Hypo-osmolality and hyponatremia Status: Acute Assessment and Plan: Chronic due to ETOH. Will monitor. (5) Type 2 diabetes mellitus: Qualifiers: Diabetes mellitus correction insulin use: with correction use Diabetes mellitus complication status: with circulatory complication Code(s): E11.9 - Type 2 diabetes mellitus without complications Status: Acute Assessment and Plan: Current glucose is 146 A1c from 02/21 was 9.3 Continue home Lantus Insulin sliding scale Accu-Cheks a.c. HS Diabetic diet Trend labs Adjust therapy as indicated (6) Hypertension: Code(s): I10 - Essential (primary) hypertension Status: Acute Assessment and Plan: On metoprolol 25 mg BID. Continue home medications. (7) Metastatic malignant neoplasm: Code(s): C79.9 - Secondary malignant neoplasm of unspecified site Status: Acute Assessment and Plan: Pancreatic mass found last admission with metastasis to the liver and kidneys. Consulted Oncology. (8) Acute liver failure: Code(s): K72.00 - Acute and subacute hepatic failure without coma Status: Acute Assessment and Plan: Likely due to metastatic disease but patient dose have hx of ETOH abuse. Gastroenterology consulted. May need diagnostic paracentesis. Subjective Date/time seen: 03/08/22 08:53 Patient says his abdomen is painful. Review of Systems Gastrointestinal: Gastrointestinal: Reports abdominal pain Exam Narrative: GENERAL: NAD, cooperative HEENT: Normocephalic, atraumatic, scleral icterus NECK:Supple CV: Normal S1, S2, RRR, No MRG RESP: CTAB, Normal work of breathing. Abdomen: Soft, non-tender, distended with fluid wave EXTREMITIES: Warm and well perfused, no clubbing, cyanosis, or edema. SKIN: warm, dry and intact. Jaundiced NEURO: Alert and oriented to self. CN 2-12 grossly intact. Objective Data Vital Signs Vital Signs: Vital Signs - 24 hr 03/07/22 14:15 03/07/22 14:24 03/07/22 14:35 Temperature 97.7 F Pulse Rate 69 Respiratory Rate 15 19 Blood Pressure 111/77 Pulse Oximetry 98 Oxygen Delivery Room Air 03/07/22 15:03 03/07/22 15:06 03/07/22 15:15 Temperature Pulse Rate 70 76 71 Respiratory Rate 20 19 17 Blood Pressure 102/68 Pulse Oximetry 99 100 Oxygen Delivery 03/07/22 15:47 03/07/22 16:00 03/07/22 17:18 Temperature Pulse Rate 77 73 71 Respiratory Rate Blood Pressure 126/82 144/63 H Pulse Oximetry Oxygen Delivery 03/07/22 17:30 03/07/22 18:00 03/07/22 18:03 Temperature Pulse Rate 71 70 Respiratory Rate 16 20 18 Blood Pressur
[2022-03-08] MEDS: FOLIC ACID 1 MG TABLET PO (10:15)
[2022-03-08] MEDS: METOPROLOL TARTRATE 25 MG TABLET PO ×2 (10:15→20:46)
[2022-03-08] MEDS: TAMSULOSIN HCL 0.4 MG CAPSULE PO (10:15)
[2022-03-08] MEDS: AMIODARONE HCL 200 MG TABLET PO (10:15)
[2022-03-08] MEDS: THIAMINE HCL 100 MG TABLET PO (10:15)
[2022-03-08] MEDS: POTASSIUM CHLORIDE 20 MEQ PACKET (FOR LIQUID) 40 MEQ PO ×2 (10:16→17:41)
[2022-03-08 10:17] LABS: Ammonia < 9 umol/L (9-30)
[2022-03-08 10:27] LABS: Glucose Point of Care 94 mg/dl (65-105)
[2022-03-08] MEDS: ENOXAPARIN 100 MG/ML SYRINGE 87 MG SUB-Q (10:56)
[2022-03-08 12:57] LABS: Glucose Point of Care 110 mg/dl (65-105)
[2022-03-08 16:20] LABS: Glucose Point of Care 102 mg/dl (65-105)
--- NOTE | 2022-03-08 19:11 | PDONCCN ---
HPI - Date of Consult Date/Time: 03/08/22 19:11 Requesting Physician: Val Oneill MD Primary Care Provider: Ramón Sevilla, - Consult Narrative Reason for consult: Metastatic pancreatic cancer Narrative: Gustavo Veloz is a 71 year old male with multiple comorbidities including atrial fibrillation, coronary artery disease status post coronary artery bypass grafting was admitted to the hospital initially on February 21 with mental status changes. CT chest abdomen and pelvis at that time showed bilateral pulmonary nodules with 12 mm pancreatic mass along with liver cirrhosis and multiple liver masses. CA 19-9 came back elevated at 80,024. Liver biopsy was ordered but did not get it done. Patient now came into the hospital with mental status changes and confusion. He is also complaining of abdominal distention and fullness. Labs showed total bilirubin of 12.6 with AST of 109 and ALT of 77. Ammonia level was less than 9. Abdominal ultrasound was performed that showed a small to moderate amount of ascites in all 4 quadrants. He seems to be confused today. Review of Systems - Review of Systems All systems reviewed & are unremarkable except as noted in HPI and bel - Neurologic Reports hearing normal, Reports abnormal speech, Reports confusion [facility] Medical History: Medical History (Last Reviewed 03/07/22 @ 22:10 by TIM Del Rio) Aortic stenosis Status post tissue aortic valve replacement. Coronary artery disease Hypertension Malignant neoplasm Presumed pancreatic with metastases but not biopsy-proven. Peripheral vascular disease Seasonal allergic rhinitis Type 2 diabetes mellitus Surgical History: Surgical History (Last Reviewed 03/07/22 @ 22:10 by TIM Del Rio) Amputated toe of right foot History of aortic valve replacement with tissue graft Onset Date: 06/17/20 History of cardiac pacemaker in situ Onset Date: 06/23/20 [employer] dual-chamber pacemaker. History of cataract extraction History of coronary artery bypass graft Onset Date: 06/17/20 HUDSON to the LAD. History of coronary artery stent placement Onset Date: 10/30/19 Drug-eluting stent to the mid LAD. History of nasal surgery Onset Date: 2004 History of open reduction and internal fixation (ORIF) procedure Left ankle fracture. History of vascular surgery Onset Date: 11/02/20 Right femoral tibial bypass. Family History: Family History (Last Reviewed 03/07/22 @ 22:10 by TIM Del Rio) Mother Family history of diabetes mellitus in first degree relative Father Heart failure Acute myocardial infarction Other Diabetes mellitus Family history of coronary artery disease - Social History Social History: Social History (Last Reviewed 03/07/22 @ 22:10 by TIM Del Rio) Gender Identity: Gender identity (if verbalized by the patient): Male Sexual Orientation: Sexual Orientation (if Verbalized by the Patient): Straight or Heterosexual Alcohol Use: Alcohol intake: unknown Drinks per week: 70 Substance Use: Substance use: unknown Substance use type: does not use Other substance usage details: Recalled from previous admission Others: Spiritual care concerns: No Agree to blood products: Yes Smoking Status: Smoking status: Former smoker Second hand tobacco smoke exposure: Yes Smoking Pack-years: Smoking packs per day: 1 Smoking cigarettes per day: 20.0 Years smoked: 50 Smoking pack-years: 50.00 Comments: Additional smoking assessment comments: 0.5 to 1 ppd Meds Home Medications Medication Instructions Recorded Confirmed Type amiodarone 200 mg tablet (Pacerone) 200 mg PO DAILY@0800 #30 tabs 11/11/21 03/07/22 Rx blood sugar diagnostic (OneTouch #1 pkg 11/11/21 03/08/22 Rx Verio test strips) blood-glucose meter (OneTouch #1 pkg 11/11/21 03/08/22 Rx Verio Flex Meter)
[2022-03-08 20:37] LABS: Glucose Point of Care 142 mg/dl (65-105)
[2022-03-08] MEDS: HYDROcodone/acetaminophen (*CRX) 5-325 MG TABLET 1 TAB PO (20:49)
--- NOTE | 2022-03-08 23:53 | PC.NURSE ---
Spoke in length with pt's POA, Sandi Campbell, regarding pt's current condition, plan for current hospital stay, and plans for discharge. Sandi gave phone consent for pt to have paracentesis on 03/09/22. States that she does wish to pursue hospice as long as pt will qualify for a long term as she cannot care for him at home as his condition continues to deteriorate. Sandi states that her primary concern for the pt is his comfort.
[2022-03-09] VITALS (9 sets, daily range): BP systolic 115–148; BP diastolic 58–67; PULSE 67–83; RESP 20–24; TEMP 35.9–36.8; O2SAT 94–97
[2022-03-09] MEDS: MORPHINE SULFATE (*CRX) 4 MG/ML INJ IV PUSH ×2 (00:56→04:36)
[2022-03-09] MEDS: metroNIDAZOLE 500 MG/ISO 100ML 500 MG/100 ML BAG 100 MG IVPB (01:32)
--- NOTE | 2022-03-09 08:06 | PM.IMPN ---
Subjective Date/time seen: 03/09/22 08:06 Objective Data Vital Signs Vital Signs: Vital Signs - 24 hr 03/08/22 10:15 03/08/22 10:15 03/08/22 12:00 Temperature 98.8 F Pulse Rate 84 84 77 Respiratory Rate 18 Blood Pressure 115/73 Pulse Oximetry 100 Oxygen Delivery 03/08/22 12:00 03/08/22 16:00 03/08/22 16:00 Temperature 98 F Pulse Rate 79 Respiratory Rate 14 Blood Pressure 116/68 Pulse Oximetry 98 Oxygen Delivery Room Air Room Air 03/08/22 10:00 03/08/22 12:00 03/08/22 14:00 Temperature Pulse Rate 91 77 89 Respiratory Rate Blood Pressure Pulse Oximetry Oxygen Delivery 03/08/22 16:00 03/08/22 18:00 03/08/22 20:00 Temperature 97.8 F Pulse Rate 72 88 109 H Respiratory Rate 20 Blood Pressure 124/85 Pulse Oximetry 94 Oxygen Delivery 03/08/22 20:46 03/08/22 20:00 03/08/22 22:00 Temperature Pulse Rate 84 80 75 Respiratory Rate Blood Pressure Pulse Oximetry Oxygen Delivery 03/08/22 20:00 03/08/22 23:33 03/09/22 00:00 Temperature 98.9 F Pulse Rate 70 67 Respiratory Rate 20 Blood Pressure 126/60 Pulse Oximetry 97 Oxygen Delivery Room Air 03/09/22 00:00 03/09/22 02:00 03/09/22 04:00 Temperature Pulse Rate 68 69 Respiratory Rate Blood Pressure Pulse Oximetry Oxygen Delivery Room Air 03/09/22 04:00 03/09/22 04:00 03/09/22 06:00 Temperature 97.6 F Pulse Rate 69 70 Respiratory Rate 20 Blood Pressure 148/67 H Pulse Oximetry 97 Oxygen Delivery Room Air Intake/Output Intake/Output: Intake & Output 03/06/22 03/07/22 03/08/22 03/09/22 23:59 23:59 23:59 23:59 Intake Total 1150 1090 300 Output Total 1050 350 Balance 1150 40 -50 Meds/Results Medications: Active Medications Generic Name Dose Route Start Last Admin Trade Name Freq PRN Reason Stop Dose Admin Hydrocodone Bitart/Acetaminophen 1 tab 03/07/22 18:06 03/08/22 20:49 Hydrocodone/Acetaminophen (*Crx) 5-325 Mg Tablet PO 1 tab Q4H PRN Administration Pain Rated 4-6 Amiodarone HCl 200 mg 03/08/22 08:00 03/08/22 10:15 Amiodarone Hcl 200 Mg Tablet PO 200 mg DAILY@0800 SARA Administration Dextrose 12.5 gm 03/07/22 22:20 03/08/22 04:17 Dextrose 50% 25 Gm/50 Ml Syringe IV PUSH 12.5 gm PRN PRN Administration Hypoglycemia Protocol Enoxaparin Sodium 87 mg 03/07/22 22:00 03/08/22 10:56 Enoxaparin 100 Mg/Ml Syringe SUB-Q 87 mg Q12H SARA Administration Folic Acid 1 mg 03/08/22 09:00 03/08/22 10:15 Folic Acid 1 Mg Tablet PO 1 mg DAILY SARA Administration Glucagon 1 mg 03/07/22 22:20 Glucagon For Inj 1 Mg Vial IM PRN PRN Hypoglycemia Protocol Glucose 15 gm 03/07/22 22:20 Glucose Oral Gel 15 Gm Of Glucse In 37.5 Gm Tube PO PRN PRN Hypoglycemia Protocol Cefepime HCl 2 gm in 50 mls @ 100 mls/hr 03/08/22 01:00 03/09/22 01:24 Maxipime 2 Gm/D5w 50 Ml IVPB Infused Q8H SARA Infusion Metronidazole 500 mg in 100 mls @ 100 mls/hr 03/08/22 02:00 03/09/22 01:32 Flagyl 500 Mg/Iso Soln 100 Ml IVPB 100 mls/hr Q8H SARA Administration Dextrose 1,000 mls @ 100 mls/hr 03/07/22 22:20 Dextrose 5% 1,000 Ml IVPB PRN PRN Hypoglycemia Protocol Insulin Aspart 3 - 6 units 03/08/22 08:00 03/08/22 16:22 Insulin Aspart (*Bkc) 100 Units/Ml SUB-Q Not Given TIDWM [facility] Protocol Insulin Glargine 27 units 03/08/22 09:00 03/08/22 10:12 Insulin Glargine (*Bkc) 100 Units/Ml SUB-Q Not Given DAILY SARA Metoprolol Tartrate 25 mg 03/08/22 09:00 03/08/22 20:46 Metoprolol Tartrate 25 Mg Tablet PO 25 mg Q12HR SARA Administration Morphine Sulfate 4 mg 03/07/22 18:06 03/09/22 04:36 Morphine Sulfate (*Crx) 4 Mg/Ml Inj IV PUSH 4 mg Q2H PRN Administration Pain Rated 7-10 Ondansetron HCl 4 mg 03/07/22 18:06 Ondansetron Inj 4 Mg/2 Ml Vial IV PUSH Q4H P
[2022-03-09 08:41] LABS: Glucose Point of Care 121 mg/dl (65-105)
[2022-03-09 09:14] LABS: Basophils Absolute Auto 0.1 K/mm3 (0.0-0.1); Basophils Percent Auto 0.5 % (0.2-1.2); Eosinophils Absolute Auto 0.4 K/mm3 (0-0.3); Eosinophils Percent Auto 2.5 % (0-4.4); Hematocrit 35.6 % (42.0-52.0); Hemoglobin 12.5 g/dL (14.0-18.0); Immature Granulocyte Absolute 0.15 K/mm3 (0.00-0.031); Immature Granulocyte Percent A 1.1 % (0-0.5); Lymphocytes Absolute Auto 1.23 K/mm3 (0.9-3.2); Lymphocytes Percent Auto 8.6 % (18.3-44.2); Mean Corpuscular HGB Conc 35.1 g/dl (32-36); Mean Corpuscular Hemoglobin 29.6 pg (26-34); Mean Corpuscular Volume 84.2 fl (80-100); Mean Platelet Volume 11.4 fl (7.4-10.4); Monocytes Absolute Auto 0.9 K/mm3 (0.1-0.6); Neutrophils Absolute Auto 11.6 K/mm3 (1.3-6.7); Neutrophils Percent Auto 81.3 % (45.5-73.1); Platelet Count Result 185 k/mm3 (150-375); Red Blood Count 4.23 M/mm3 (4.6-6.20); Red Cell Distribution Width 18.9 % (11.5-14.5); White Blood Count 14.3 K/mm3 (4.5-10.0)
[2022-03-09 09:33] LABS: Alanine Aminotransferase 81 U/L (6-50); Albumin Level 2.7 g/dL (3.5-5.1); Alkaline Phosphatase 532 U/L (38-126); Anion Gap 8 mmol/L (8-16); Aspartate Amino Transferase 94 U/L (17-59); Bilirubin,Total 13.6 mg/dL (0.2-1.3); Blood Urea Nitrogen 25 mg/dL (9-20); Calcium 11.1 mg/dL (8.4-10.2); Carbon Dioxide 23 mmol/L (22-30); Chloride 96 mmol/L (98-107); Estimated CRCL calculation 54 ml/min; Estimated Glomerular Filt Rate 60; Glucose 110 mg/dL (65-110); Potassium 4.7 mmol/L (3.4-5.0); Sodium 127 mmol/L (137-145)
[2022-03-09 09:41] LABS: INR 2.2; Prothrombin Time 23.6 Seconds (11.1-14.7)
--- NOTE | 2022-03-09 11:07 | PM.EVENT ---
Event Note Event Note Event Note: Spoke with Sandi Campbell, who is POA, who agrees to proceed with hospice for the patient.
[2022-03-09 12:19] LABS: Glucose Point of Care 130 mg/dl (65-105)
--- NOTE | 2022-03-09 13:01 | PM.DS ---
DS: Admitting Diagnosis Discharge Date 03/09/22 Admitting Diagnosis Confusion DS: Discharge Diagnosis Discharge Diagnosis (1) Leukocytosis: Code(s): D72.829 - Elevated white blood cell count, unspecified Status: Acute Assessment and Plan: Leukocytosis improving. May be related to worsening cancer. UA has bilirubin due to acute liver failure but no signs of infection. On cefepime and vancomycin. BCX with no growth. After discussion with POA, patient will be made hospice. (2) Acute metabolic encephalopathy: Code(s): G93.41 - Metabolic encephalopathy Status: Acute Assessment and Plan: CT head with no acute intracranial process. Worsening confusion is likely related to worsening cancer with acute liver failure. At time of last discharge patient was only alert and oriented to self, so this may be unchanged. Patient is a little more confused this morning, which is why decision for hospice was dicussed with Sandi ROMAN. (3) Hyperbilirubinemia: Code(s): E80.6 - Other disorders of bilirubin metabolism Status: Acute Assessment and Plan: Has hx of ETOH abuse plus recent diagnosis of metastatic lesions to the liver with suspected pancreatic primary. Worsening synthetic function wtih INR up to 2.6-->2.2. (4) Hyponatremia: Code(s): E87.1 - Hypo-osmolality and hyponatremia Status: Acute Assessment and Plan: Chronic due to ETOH. (5) Type 2 diabetes mellitus: Qualifiers: Diabetes mellitus chcf insulin use: with terminal clerk use Diabetes mellitus complication status: with circulatory complication Code(s): E11.9 - Type 2 diabetes mellitus without complications Status: Acute Assessment and Plan: Current glucose is 146 A1c from 02/21 was 9.3 Continue home Lantus Insulin sliding scale Accu-Cheks a.c. HS Diabetic diet Trend labs Adjust therapy as indicated (6) Hypertension: Code(s): I10 - Essential (primary) hypertension Status: Acute Assessment and Plan: On metoprolol 25 mg BID. Continue home medications. (7) Metastatic malignant neoplasm: Code(s): C79.9 - Secondary malignant neoplasm of unspecified site Status: Acute Assessment and Plan: Pancreatic mass found last admission with metastasis to the liver and kidneys. Consulted Oncology. (8) Acute liver failure: Code(s): K72.00 - Acute and subacute hepatic failure without coma Status: Acute Assessment and Plan: Likely due to metastatic disease but patient dose have hx of ETOH abuse. DS: Summary Hospital Course Reason for hospitalization: Confusion Hospital Course: 71M with a past medical history of atrial fibrillation, aortic valve replacement, myocardial infarction, coronary artery disease s/p coronary artery bypass grafting, peripheral artery disease, diabetes who [facility] department [facility] due to worsening confusion. Prior to admission to the detention facility patient had been discharged from [facility] after being newly diagnosed with suspected pancreatic cancer with metastasis to the lung and liver. The outpatient liver biopsy to confirm the diagnosis was canceled. In the emergency department patient was found to have INR 2.5, bilirubin 14 and leukocytosis 18. Patient was started on cefepime and vancomycin and admitted to IMU. Oncology was consulted. Oncology saw the patient and recommended hospice as there was no treatment available with the advanced disease. Patient POA agreed to hospice and the patient discharged for inpatient hospice. Time Spent with Patient Time attestation: Total time spent providing and/or coordinating discharge services: Exam Narrative: GENERAL: NAD, cooperative HEENT: Normocephalic, atraumatic, scleral i
== END 2022-03-09 13:07 | disposition hospice, inpatient (51) ==
LOC: ANHED 19:06 → ANHIMU 03-08 01:32
PROVIDERS: Nurse Practitioner; Admitting Provider Family Medicine; Emergency Provider Emergency Medicine; PCP Internal Medicine; Visit Provider Family Medicine
DX: D72.829 Elevated white blood cell count, unspecified (principal); G93.41 Metabolic encephalopathy; E80.6 Other disorders of bilirubin metabolism; E87.1 Hypo-osmolality and hyponatremia; E11.51 Type 2 diabetes mellitus with diabetic peripheral angiopathy without gangrene; I10 Essential (primary) hypertension; K74.60 Unspecified cirrhosis of liver; F10.20 Alcohol dependence, uncomplicated; C25.9 Malignant neoplasm of pancreas, unspecified; C78.7 Secondary malignant neoplasm of liver and intrahepatic bile duct; C79.00 Secondary malignant neoplasm of unspecified kidney and renal pelvis; K72.00 Acute and subacute hepatic failure without coma; I48.91 Unspecified atrial fibrillation; I25.2 Old myocardial infarction; I25.10 Atherosclerotic heart disease of native coronary artery without angina pectoris; Z20.822 Contact with and (suspected) exposure to COVID-19; R18.8 Other ascites; Z95.5 Presence of coronary angioplasty implant and graft; Z95.4 Presence of other heart-valve replacement; Z95.1 Presence of aortocoronary bypass graft; Z79.4 Long term (current) use of insulin; I73.9 Peripheral vascular disease, unspecified; Z87.891 Personal history of nicotine dependence; Z79.01 Long term (current) use of anticoagulants; Z79.899 Other long term (current) drug therapy
CPT/HCPCS: 36415; 70450; 71046; 76705; 80053; 81001; 82140; 82948; 83605; 83690; 83735; 85025; 85610; 85730; 87040; 96361; 96365; 96366; 96367; 96372; 96375; 96376; 99285; A9270; C9803; G0378; J0692; J1650; J2270; J7030; U0003; U0005

== ENCOUNTER 2022-03-09 13:16 | HOS | payer OTHER, MEDICARE, SELFPAY ==
[2022-03-09 14:31] VITALS: PULSE 89; RESP 22
[2022-03-09] MEDS: HYDROmorphone HCL/PF (*CRX) 50 MG in SODIUM CHLORIDE 0.9% IV 95 ML IV CONT (14:31)
--- NOTE | 2022-03-09 16:11 | PC.NURSE ---
This patient, Gusatvo Veloz, was transferred to [facility] on 03/09/22 at 1611. Personal belongings sent with patient. Report given to Debra HURTADO. Appropriate documentation sent with patient.
[2022-03-09 16:56] VITALS: BP 103/62; PULSE 79; RESP 18; TEMP 37; O2SAT 96
--- NOTE | 2022-03-09 17:00 | ADMGEN ---
This patient, Gustavo Veloz, was admitted to Medical Room 343-01. Patient/family oriented to hospital policies and general routines including ID bracelet, bed and alarms, visiting hours, pain management, procedures, bathroom and other care routines, personal items, smoking policy, room service/diet, and visiting hours. Information on how to activate the Rapid Response Team has been discussed. Patient/Family are encouraged to report perceived risks to care and to ask questions if they do not understand what they are told or what they should do.
--- NOTE | 2022-03-09 17:03 | PM.IMHP ---
H&P: HPI History of Present Illness Date/Time: 03/09/22 17:03 Chief Complaint: Uncontrolled pain and restlessness Narrative: This 71-year-old gentleman was admitted with abdominal pain and found to have progression of previously seen presumed metastatic pancreatic cancer that was not biopsy proven. He was not a candidate for surgery. Due to poor functional status he opted to forego palliative chemotherapy. He opted instead for inpatient hospice. He has not been eating or drinking since admission. Since initiation of hydromorphone 0.25 milligrams/hour at 0.5 mg every 2 hours p.r.n. he is comfortable. Heels only complaint at present is dry mouth. Review of Systems Review of Systems: ROS unobtainable: Yes unobtainable due to medical condition PMFSH Past Medical History Medical History Aortic stenosis Status post tissue aortic valve replacement. Coronary artery disease Hypertension Malignant neoplasm Presumed pancreatic with metastases but not biopsy-proven. Peripheral vascular disease Seasonal allergic rhinitis Type 2 diabetes mellitus Surgical History Surgical History Amputated toe of right foot History of aortic valve replacement with tissue graft (06/17/20) History of cardiac pacemaker in situ (06/23/20) [employer] dual-chamber pacemaker. History of cataract extraction History of coronary artery bypass graft (06/17/20) HUDSON to the LAD. History of coronary artery stent placement (10/30/19) Drug-eluting stent to the mid LAD. History of nasal surgery (2004) History of open reduction and internal fixation (ORIF) procedure Left ankle fracture. History of vascular surgery (11/02/20) Right femoral tibial bypass. Family History Family History Mother Family history of diabetes mellitus in first degree relative Father Heart failure Acute myocardial infarction Other Diabetes mellitus Family history of coronary artery disease Social History Social History (Updated 03/09/22 @ 17:06 by Rolando Marks MD) Social History: Patient does have 1 pet that he lives with his name is Joe. He had no kids. Surrogate decision maker: Hermila Campbell, significant other. Code status: DNR Smoking packs per day: 1 Smoking cigarettes per day: 20.0 Years smoked: 50 Smoking pack-years: 50.00 Second hand tobacco smoke exposure: Yes Additional smoking assessment comments: 0.5 to 1 ppd Alcohol intake: unknown Drinks per week: 70 Substance use: unknown Substance use type: does not use Other substance usage details: Recalled from previous admission Additional living arrangements comments: x2. Lives in [place] with his significant other. 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 Gender identity (if verbalized by the patient): Male Sexual Orientation (if Verbalized by the Patient): Straight or Heterosexual Spiritual care concerns: No Agree to blood products: Yes Meds Home Medications and Allergies Home Medications Medication Instructions Recorded Confirmed Type amiodarone 200 mg tablet (Pacerone) 200 mg PO DAILY@0800 #30 tabs 11/11/21 03/09/22 Rx blood sugar diagnostic (OneTouch #1 pkg 11/11/21 03/09/22 Rx Verio test strips) blood-glucose meter (OneTouch #1 pkg 11/11/21 03/09/22 Rx Verio Flex Meter) insulin glargine-yfgn 100 unit/mL 27 unit (0.27 mL) subcut DAILY #15 11/11/21 03/09/22 Rx (3 mL) subcutaneous pen mL lancets 30 gauge (OneTouch Delica #1 pkg 11/11/21 03/09/22 Rx Plus Lancet) pen needle, diabetic 32 gauge x #1 pkg 11/11/21 03/09/22 Rx 5/32 (BD Ultra-Fine Lulu Pen Needle) enoxaparin 100 mg/mL subcutaneous 87 mg (0.87 mL) subcut Q12HR 30 02/28/22 03/09/22 Rx syringe (Lovenox) days #52.2 mL folic acid 1 mg tablet 1 mg PO DAILY 30 days #30 tabs 02/28/22 0
[2022-03-09 20:00] VITALS: PULSE 79; RESP 18; O2SAT 96
[2022-03-09 22:44] VITALS: BP 133/70; PULSE 89; RESP 21; TEMP 36.9; O2SAT 100
[2022-03-10 07:09] VITALS: BP 101/67; PULSE 85; RESP 20; TEMP 36.9; O2SAT 99
[2022-03-10 14:00] VITALS: BP 104/57; PULSE 86; RESP 8; TEMP 36.1; O2SAT 97
--- NOTE | 2022-03-10 16:14 | PM.IMPN ---
Progress Note: A&P Assessment and Plan (1) Palliative care by specialist: Code(s): Z51.5 - Encounter for palliative care Status: Acute Assessment and Plan: Meets inpatient hospice criteria due to requiring continuous IV hydromorphone for control of pain and restlessness 03/09. Continue current palliative regimen. 03/10. Continue current palliative regimen. 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 No Po intake. Sleeping most of the time. Review of Systems Review of Systems: ROS unobtainable: Yes unobtainable due to medical condition Exam Narrative: Chronically ill-appearing, jaundiced elderly gentleman sleeping but easily arousable and oriented person. No acute distress. Scleraeicteric. Pharyngeal mucosa dry. Neck without JVD. Chest coarse crackles Heart regular rate. Abdomen protuberant but soft hypoactive bowel sounds nontender. Extremities no edema cyanosis or clubbing. Musculoskeletal right 1st toe amputation. Neurologic cranial nerves symmetric to inspection. Objective Data Vital Signs Vital Signs: Vital Signs - 24 hr 03/09/22 16:56 03/09/22 20:00 03/09/22 22:44 Temperature 98.6 F 98.4 F Pulse Rate 79 79 89 Respiratory Rate 18 18 21 H Blood Pressure 103/62 133/70 Pulse Oximetry 96 96 100 Oxygen Delivery Room Air 03/10/22 07:09 03/10/22 08:00 03/10/22 14:00 Temperature 98.4 F 97.0 F L Pulse Rate 85 86 Respiratory Rate 20 8 L Blood Pressure 101/67 104/57 L Pulse Oximetry 99 97 Oxygen Delivery Room Air Intake/Output Intake/Output: Intake & Output 03/07/22 03/08/22 03/09/22 03/10/22 23:59 23:59 23:59 23:59 Output Total 0 300 Balance 0 -300 Meds/Results Medications: Active Medications Generic Name Dose Route Start Last Admin Trade Name Freq PRN Reason Stop Dose Admin Artificial Tears 1 drop 03/09/22 13:21 Artificial Tears Ophth Soln 15 Ml Bottle EACH EYE Q12H PRN Dry Eye(s) Bisacodyl 10 mg 03/09/22 13:21 Bisacodyl 10 Mg Suppository RECTAL QAM PRN Constipation Diazepam 5 mg 03/09/22 16:57 Diazepam Inj (*Crx) 10 Mg/2 Ml Syringe IV PUSH Q4H PRN Agitation Glycopyrrolate 0.1 mg 03/09/22 14:22 Glycopyrrolate Inj (*Sp) 0.2 Mg/Ml Vial IV PUSH Q4H PRN Secretions Hydromorphone HCl 0.5 mg 03/09/22 13:21 Hydromorphone Hcl Inj (*Crx) 1 Mg/Ml Syr IV PUSH Q2H PRN Pain Hydromorphone HCl 50 mg/ 100 mls @ 0.5 mls/hr 03/09/22 14:00 03/09/22 14:31 Sodium Chloride IV CONT 0.25 mg/hr .Q24H SARA 0.5 mls/hr Administration 0.25 MG/HR Prochlorperazine Edisylate 10 mg 03/09/22 13:21 Prochlorperazine Edisylate 10 Mg/2 Ml Vial IV PUSH Q6H PRN Nausea And Vomiting
--- NOTE | 2022-03-12 11:15 | PM.DDS ---
Discharge Summary Date and Time Date of : 03/10/22 Time of : 17:45 Provider Pronounced By: John Ferguson Probable Cause of Probable Cause of : Metastatic pancreatic cancer Summary Hospital Course: Admitted to inpatient hospice service due to uncontrolled restlessness and pain. Medications titrated to comfort. Patient peacefully. Additional Data Confirmation of as documented by pronouncing clinician: Pupillary Reflex, Palpable Pulses, Response to Stimuli, Heart Tones and Breath Sounds Name of Provider Notified: Rolando Torres Time Provider Notified: 17:50 Provider Requests Autopsy: No Family Requests Autopsy: No Psychiatric Nurse Notified: Yes Date [facility] Notified of : 03/10/22 Time [facility] Notified of : 18:00
== END 2022-03-10 17:45 | disposition expired | DRG 951 ==
LOC: ANHIMU 13:26 → ANH3MED 16:19
PROVIDERS: Admitting Provider Internal Medicine; PCP Internal Medicine; Visit Provider Internal Medicine
DX: Z51.5 Encounter for palliative care (principal); C79.9 Secondary malignant neoplasm of unspecified site; C25.9 Malignant neoplasm of pancreas, unspecified; Z66 Do not resuscitate; E11.51 Type 2 diabetes mellitus with diabetic peripheral angiopathy without gangrene; I10 Essential (primary) hypertension; I25.10 Atherosclerotic heart disease of native coronary artery without angina pectoris; I48.0 Paroxysmal atrial fibrillation; Z86.73 Personal history of transient ischemic attack (TIA), and cerebral infarction without residual deficits; Z95.5 Presence of coronary angioplasty implant and graft; Z95.2 Presence of prosthetic heart valve; Z95.0 Presence of cardiac pacemaker; Z89.421 Acquired absence of other right toe(s); Z95.1 Presence of aortocoronary bypass graft; Z79.4 Long term (current) use of insulin; Z88.0 Allergy status to penicillin
CPT/HCPCS: A9270; J1170